=== PATIENT | female | born 1965 | race Caucasian/White ===

== ENCOUNTER → 2018-11-28 13:59 | Outpatient (CLI) | payer BC, SELFPAY ==
--- NOTE | 2018-11-28 14:07 | XR_ITS ---
XR hand RT min 3V HISTORY: ITS.REASON: TRIGGER THUMB OF RT HAND ORDERING PHYSICIAN: Kj Wilkerson MD PATIENT AGE: 53 years COMPARISON: 04/04/2009 FINDINGS: No fracture or dislocation. No lytic or blastic change. There is normal mineralization.. The joint spaces are well-preserved. No significant degenerative/arthritic changes. No erosive changes evident.. IMPRESSION: Negative, no acute finding
== END ==
PROVIDERS: PCP Family Medicine; Visit Provider Family Medicine
DX: M65.311 Trigger thumb, right thumb (principal)
CPT/HCPCS: 73130

== ENCOUNTER → 2019-02-07 06:55 | Outpatient (CLI) | payer BC, SELFPAY ==
[2019-02-07 09:48] LABS: Alanine Aminotransferase 24 U/L (12-78); Albumin Level 3.5 gm/dL (3.4-5.0); Albumin/Globulin Ratio 1.1 (1.1-1.8); Alkaline Phosphatase 75 U/L (46-116); Anion Gap 13.7 mEq/L (5-15); Aspartate Amino Transferase 10 U/L (15-37); Bilirubin,Total 0.2 mg/dL (0.2-1.0); Blood Urea Nitrogen 6 mg/dL (7-18); Calcium 8.8 mg/dL (8.5-10.1); Carbon Dioxide 28 mmol/L (21.0-32.0); Chloride 105 mmol/L (98-107); Cholesterol 180 mg/dL (140-200); Creatinine,Serum 0.62 mg/dL (0.55-1.02); Estimated Glomerular Filt Rate 101 ml/min (>60); GFR (African American) 122 ML/MIN (>60); Globulin 3.2 gm/dl (1.3-3.2); Glucose 172 mg/dL (74-106); HDL Cholesterol 45 mg/dL (29-89); LDL Cholesterol 105 mg/dL (0-130); Potassium 3.7 mmoL/L (3.5-5.1); Sodium 143 mmol/L (136-145); Total Protein,Serum 6.7 gm/dL (6.4-8.2); Triglycerides 151 mg/dL (30-200); VLDL Cholesterol 30 mg/dL (0-40)
[2019-02-07 10:28] LABS: Hemoglobin A1C 10.6 % (0.0-7.0)
== END ==
PROVIDERS: PCP Family Medicine; Visit Provider Family Medicine
DX: E11.9 Type 2 diabetes mellitus without complications (principal); E78.5 Hyperlipidemia, unspecified; I10 Essential (primary) hypertension
CPT/HCPCS: 36415; 80053; 80061; 83036

== ENCOUNTER → 2019-03-14 14:24 | Outpatient (CLI) | payer BC, SELFPAY ==
--- NOTE | 2019-03-14 14:28 | MM_ITS ---
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 R2 CAD reviewed. Bilateral spot compression views FINDINGS: There is average fibroglandular tissue. Right breast: There was some asymmetric density in the superior aspect of the right breast which did appear to compress out is fibroglandular tissue and had a similar appearance on an older exam of 04/21/2012. Asymmetric density is also noted in the outer aspect of the right breast which is felt to be due to fibroglandular tissue also appearing similar on the previous studies. Left breast: There is a well-circumscribed 12 x 8 mm nodule corresponding to the palpable abnormality within the outer aspect of the left breast superiorly. Benign-appearing calcifications are present Left breast ultrasound. There is a well-circumscribed 19 x 11 mm nodule within the 2 o'clock region of the left breast corresponding to the palpable abnormality. This has central area of decreased echogenicity with some low level echoes and peripheral increased echogenicity. This corresponds to the mammographic and palpable abnormality and may represent a hematoma. Otherwise negative. IMPRESSION: Palpable abnormality of left breast has benign mammographic appearance with complex sonographic appearance and may represent a hematoma. Recommend 4 week sonographic follow-up. If this does not resolve or show decrease in size during that time then biopsy could be performed BI-RAD Category: 3 Probably Benign Finding Short Term Follow-up FOLLOW-UP: Suggest 4 week sonographic follow-up. (A letter has been sent to the patient regarding results of the study.) Dictated by: Zack Beck MD 03/27/2019 08:58 Signed by: <Electronically signed by Zack Beck MD in [place]> 03/27/2019 08:58
== END ==
PROVIDERS: PCP Family Medicine; Visit Provider Nurse Practitioner
DX: D48.62 Neoplasm of uncertain behavior of left breast (principal)
CPT/HCPCS: 76641; 77066

== ENCOUNTER → 2019-04-16 13:16 | Outpatient (CLI) | payer BC, SELFPAY ==
--- NOTE | 2019-04-16 13:19 | US_ITS ---
PROCEDURE: US BREAST LT COMPLETE CLINICAL INDICATION: NEOPLASM OF LT BREAST Palpable nodule left breast following trauma COMPARISON: MM DIG MAMM BI DX W/CAD from 03/14/2019 US BREAST LT COMPLETE from 03/14/2019 FINDINGS: Previously noted complex nodule of the left breast at the 2 o'clock region corresponding to the palpable abnormality is once again noted. This area measures 1.8 x 0.9 cm. The central cystic component measures 0.9 x 0.6 cm. Previously this nodule measured 2 x 1.1 cm with a central cystic component of 1.4 by 0.6 cm. IMPRESSION: Complex cystic left breast nodule. Overall the nodules very slightly smaller with the central cystic component slightly smaller. Continued follow-up is recommended to confirm resolution. Continued one-month follow-up suggested. Dictated by: Zack Beck MD 04/24/2019 16:41 Electronically signed by Zack Beck MD in [place] 04/24/2019 16:42
== END ==
PROVIDERS: PCP Family Medicine; Visit Provider Physician Assistant
DX: D48.62 Neoplasm of uncertain behavior of left breast (principal)
CPT/HCPCS: 76641

== ENCOUNTER → 2019-05-11 11:30 | Outpatient (CLI) | payer BC, SELFPAY ==
--- NOTE | 2019-05-11 | CA_ITS ---
APPROVED REPORT Exam: Pharmacologic Technologist: Emma Adame Ht: 5 ft 5 in Wt: 180 lbs BSA: 1.89 m2 HR: 76 bpm BP: 178/64 mmHg Medical History Medical History: HTN, Diabetes Medications: Metoprolol,,,,, Asa,,,,, Metformin,,,,, Atorvastatin,,,,, Benazepril,,,,, CloPIdogrel,,,,, Humalog,,,,, Venlafaxine,,,,, JaRDiance,,,,, LeviMIR,,,,, Cardiac Risk Factors: HTN, DM Stress Test Details Test: LEXISCAN HR Resting HR: 61 bpm Max Heart Rate (APMHR): 167 bpm Max HR Achieved: 87 bpm Target HR (85% APMHR): 141 bpm % of APMHR: 52 Recovery HR: 73 bpm BP Resting BP: 178/64 mmHg Max BP: 178/64 mmHg Recovery BP: 158.0/68.0 mmHg ECG Clinical Reason for Termination: Completed protocol Stress Symptoms: Dyspnea Exercise duration: 04:00 min Highest Stage Achieved: Exercise capacity: 1.0 METs Stress ECG Conclusion No chest pain - Positive shortness of breath at peak infusion - resolved in recovery. No ectopy. Less than 1.[address] Depression. Non- diagnostic images to follow. Electronically signed by : Tyler Lopez, 05/12/2019 06:43:02
--- NOTE | 2019-05-11 11:32 | NM_ITS ---
APPROVED REPORT Exam: Nuclear Stress Test Indication: CAD, 1 STENT, HTN, D.M., HYPERLIPIDEMIA, FM. HX., C.P., SOB Patient Location: Outpatient Stress Tech: Emma DobbinsWendi [place] Tech:Kassidy Dunn, JORGE RT (R)(N)(M) Ht: 5 ft 5 in Wt: 180 lbs Bra Size: dd HR: 67 bpm BP: 178/64 mmHg BSA: 1.89 m2 BMI: 29.9 History: CAD, 1 STENT, HTN, D.M., HYPERLIPIDEMIA, FM. HX., C.P., SOB Procedure: Patient received a 0.4 mg of intravenous Lexiscan, resting heart rate 67 bpm, resting blood pressure 178/64 mmHg, with Lexiscan maximum heart rate achived was 85 bpm which is Less than 85 % of the maximum predicted heart rate and blood pressure was 168/69 mmHg. With Lexiscan, patient denied any complaint of chest pain. Electrocardiogram Resting electro cardiogram showed sinus rhythm, with Lexiscan there is less than 1.[address] segment depression noted from the baseline EKG. The EKG portion of the Lexiscan Myoview is nondiagnostic. Cardiac Stress and Resting SPECT Images: Cardiac Stress and Resting SPECT images were obtained using technetium 99m Myoview 31.8 mCi stress and 10.60 mCi at rest. Gated SPECT with analysis of segmental wall motion and calculation of the ejection fraction also done. Cardiac stress and resting SPECT images show uniform myocardial activity without segmental perfusion abnormality, computer derived ejection fraction is over 65% with no regional wall motion abnormality. Right ventricle is normal size and contractility. Conclusion: 1. The EKG portion of the Lexiscan Myoview is nondiagnostic. 2. No scintigraphic evidence of reversible ischemia seen, computer derived ejection fraction is over 65% with no regional wall motion abnormality, right ventricle is normal size and contractility. 3. Normal Lexiscan Myoview study. Electronically signed by : Tyler Lopez, 05/11/2019 14:46:02
--- NOTE | 2019-05-11 13:58 | HMH.ITSHM ---
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 []
--- NOTE | 2019-05-11 13:58 | HMH.ITSHM ---
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 []METFORMIN BENAZEPRIL OMEPRAZOLE CLOPIDOGREL VENLAFAXINE ATORVASTATIN JARDIANCE METOPROLOL LEVIMIR HUMALOG ASA
== END ==
PROVIDERS: PCP Family Medicine; Visit Provider Urology
DX: E11.69 Type 2 diabetes mellitus with other specified complication (principal); E78.5 Hyperlipidemia, unspecified; I10 Essential (primary) hypertension; I25.118 Atherosclerotic heart disease of native coronary artery with other forms of angina pectoris; R07.89 Other chest pain; Z79.4 Long term (current) use of insulin; Z95.5 Presence of coronary angioplasty implant and graft
CPT/HCPCS: 78452; 93017; A9502; J2785

== ENCOUNTER → 2019-05-25 12:52 | Outpatient (CLI) | payer BC, SELFPAY ==
--- NOTE | 2019-05-25 12:56 | US_ITS ---
PROCEDURE: US BREAST LT COMPLETE CLINICAL INDICATION: NEOPLASM LT BREAST Follow-up the breast nodule following trauma COMPARISON: US BREAST LT COMPLETE from 03/14/2019 US BREAST LT COMPLETE from 04/16/2019 FINDINGS: There is a persistent complex nodule in the 2 o'clock region left breast measuring 17 x 7 mm previously 18 x 9 mm overall not significantly changed. There remains a cystic component and a solid component. This is probably related to hematoma. The cystic component may be slightly smaller measuring 7 x 5 mm previously measuring 9 x 6 mm. The margins of the cystic component are slightly irregular. No other abnormalities are evident. IMPRESSION: Probable hematoma 2 o'clock region left breast overall not significantly changed. Six-month follow-up suggested BI-RADS category 3 probably benign. Recommend six-month follow-up Dictated by: Zack Beck MD 06/05/2019 08:03 Electronically signed by Zack Beck MD in [place] 06/05/2019 08:03
== END ==
PROVIDERS: PCP Family Medicine; Visit Provider Physician Assistant
DX: D48.62 Neoplasm of uncertain behavior of left breast (principal)
CPT/HCPCS: 76641

== ENCOUNTER → 2019-08-27 09:59 | Outpatient (CLI) | payer BC, SELFPAY ==
--- NOTE | 2019-08-27 10:00 | CA_ITS ---
APPROVED REPORT Hand Sizer: LM Laterality: Bilateral Study Quality: Good Indications: dizziness,HTN,EX SMOKER Doppler Spectral Velocity Analysis dICA (R) 99.70/28.70 cm/s dICA (L) 84.70/26.10 cm/s Kira (R) 64.80/19.80 cm/s Kira (L) 80.80/26.10 cm/s pICA (R) 57.60/16.40 cm/s pICA (L) 56.70/14.50 cm/s dCCA (R) 80.50/18.10 cm/s dCCA (L) 91.90/19.80 cm/s pCCA (R) 94.40/15.60 cm/s pCCA (L) 115.90/16.70 cm/s Vert (R) 80.40/16.70 cm/s Vert (L) 65.80/11.50 cm/s ICA/CCA 1.24 ICA/CCA 0.90 Findings Duplex evaluation demonstrates stenosis of the right proximal internal carotid artery <20% with PSV <140 cm/sec, EDV <100 cm/sec, and IC/CC Ratio <4.0.Duplex evaluation demonstrates stenosis of the left proximal internal carotid artery <20% with PSV <140 cm/sec, EDV <100 cm/sec, and IC/CC Ratio <4.0.Antegrade flow seen bilateral vertebral arteries. Conclusion No increased velocities to suggest hemodynamically significant stenosis in either internal carotid artery. Electronically signed by : Zack Beck MD 08/28/2019 18:19:39
== END ==
PROVIDERS: PCP Family Medicine; Visit Provider Urology
DX: R42 Dizziness and giddiness (principal)
CPT/HCPCS: 93880

== ENCOUNTER → 2019-10-04 11:18 | Outpatient (CLI) | payer BC, SELFPAY ==
--- NOTE | 2019-10-04 11:21 | XR_ITS ---
PROCEDURE: XR FOOT WT BEARING RT 3V CLINICAL INDICATION: pain, bunions The COMPARISON: No exams were available for comparison FINDINGS: No fracture or dislocation. No lytic or blastic change. There is normal mineralization. There is mild hallux valgus with mild bunion formation. No fracture or dislocation is evident. No lytic or blastic change. There is a small calcaneal spur. Other findings:None. IMPRESSION: Mild hallux valgus with bunion formation Dictated by: Zack Beck MD 10/04/2019 15:41 Electronically signed by Zack Beck MD in [place] 10/04/2019 15:41
--- NOTE | 2019-10-04 11:21 | XR_ITS ---
PROCEDURE: XR FOOT WT BEARING LT 3V CLINICAL INDICATION: pain, bunions COMPARISON: No exams were available for comparison FINDINGS: No fracture or dislocation. No lytic or blastic change. There is normal mineralization. The joint spaces are well-preserved. No significant degenerative/arthritic changes. No erosive changes evident. Other findings:None. IMPRESSION: No acute findings. Dictated by: Zack Beck MD 10/04/2019 15:49 Electronically signed by Zack Beck MD in [place] 10/04/2019 15:49
== END ==
PROVIDERS: PCP Physician Assistant; Visit Provider Podiatrist
DX: M79.672 Pain in left foot (principal); M79.671 Pain in right foot
CPT/HCPCS: 73630

== ENCOUNTER → 2020-01-03 09:53 | Outpatient (CLI) | payer BC, SELFPAY ==
[2020-01-03 10:27] LABS: Basophils # 0.2 K/mm3 (0-0.2); Basophils % 1.6 % (0.1-2.0); Eosinophils # 0.3 K/mm3 (0.0-0.4); Eosinophils % 2.8 % (0.1-12.0); Hematocrit 47.4 % (37.0-47.0); Hemoglobin 15.7 g/dL (12.2-16.2); Lymphocytes # 2.8 K/mm3 (0.7-4.5); Lymphocytes % 28.2 % (10-50); Mean Corpuscular HGB Conc 33.1 g/dL (31.8-35.4); Mean Corpuscular Hemoglobin 30.4 pg (27.0-31.2); Mean Corpuscular Volume 91.8 fl (81-99); Mean Platelet Volume 7.4 fl (7.4-10.4); Monocytes # 0.4 K/mm3 (0.1-1.0); Monocytes % 4.4 % (1.7-9.3); Neutrophils # 6.2 K/mm3 (1.8-7.8); Platelet Count 360 K/mm3 (142-424); Red Blood Count 5.16 M/mm3 (4.20-5.40); White Blood Count 9.9 K/mm3 (4.8-10.8)
[2020-01-03 11:52] LABS: Hemoglobin A1C 10.3 % (4.0-6.0)
[2020-01-03 14:09] LABS: Chloride 103 mmol/L (98-107); Potassium 4.3 mmoL/L (3.5-5.1); Sodium 140 mmol/L (136-145)
[2020-01-03 14:11] LABS: Blood Urea Nitrogen 12 mg/dl (7-17); Estimated Glomerular Filt Rate 104 ml/min (>60); GFR (African American) 126 ML/MIN (>60)
[2020-01-03 14:12] LABS: Alanine Aminotransferase 17 U/L (12-78); Albumin/Globulin Ratio 1.4 (1.1-1.8); Alkaline Phosphatase 77 U/L (38-126); Anion Gap 13.3 mEq/L (5-15); Aspartate Amino Transferase 20 U/L (14-36); Bilirubin,Total 0.4 mg/dl (0.2-1.3); Calcium 9.1 mg/dl (8.4-10.2); Carbon Dioxide 28 mmol/L (22.0-30.0); Globulin 2.8 g/dL (1.3-3.2); Glucose 147 mg/dl (74-100); Total Protein,Serum 6.8 g/dl (6.3-8.2)
[2020-01-04 12:06] LABS: Vitamin D 25 Hydroxy 18.5 ng/mL (30.0-100.0)
== END ==
PROVIDERS: Visit Provider Podiatrist
DX: E11.9 Type 2 diabetes mellitus without complications (principal); M76.821 Posterior tibial tendinitis, right leg; M76.822 Posterior tibial tendinitis, left leg; M19.071 Primary osteoarthritis, right ankle and foot; Z79.4 Long term (current) use of insulin; E55.9 Vitamin D deficiency, unspecified
CPT/HCPCS: 36415; 80053; 82652; 83036; 85025

== ENCOUNTER → 2020-07-04 08:59 | Outpatient (CLI) | payer BC, SELFPAY ==
--- NOTE | 2020-07-04 09:09 | XR_ITS ---
PROCEDURE: XR HAND RT MIN 3V CLINICAL INDICATION: trigger finger pain COMPARISON: No exams were available for comparison FINDINGS: No fracture or dislocation. No lytic or blastic change. There is normal mineralization. The joint spaces are well-preserved. No significant degenerative/arthritic changes. No erosive changes evident. Other findings:None. IMPRESSION: Negative right hand Dictated by: Zack Beck MD 07/04/2020 15:20 Zack Beck MD in [place] 07/04/2020 15:20
== END ==
PROVIDERS: PCP Physician Assistant; Visit Provider Orthopaedic Surgery
DX: M65.30 Trigger finger, unspecified finger (principal)
CPT/HCPCS: 73130

== ENCOUNTER → 2020-08-06 11:47 | Outpatient (CLI) | payer BC, SELFPAY ==
[2020-08-06 12:56] LABS: Alanine Aminotransferase 20 U/L (12-78); Albumin Level 4.7 g/dl (3.5-5.0); Alkaline Phosphatase 108 U/L (38-126); Aspartate Amino Transferase 22 U/L (14-36); Bilirubin,Direct 0.1 mg/dl (0.0-0.4); Bilirubin,Indirect 0.4 mg/dL (0.0-0.9); Bilirubin,Total 0.5 mg/dl (0.2-1.3); Bilirubin,Unconjugated 0.5 mg/dL (0.0-1.1); Chol/HDL Ratio 4.3 (1-3.5); Cholesterol 232 mg/dl (140-200); HDL Cholesterol 54 mg/dl (40-60); Triglycerides 172 mg/dl (30-150); VLDL Cholesterol 34 mg/dL (0-40)
[2020-08-06 13:08] LABS: Direct LDL Cholesterol 126.91 mg/dL (100-129)
== END ==
PROVIDERS: Visit Provider Urology
DX: E78.5 Hyperlipidemia, unspecified (principal); E11.69 Type 2 diabetes mellitus with other specified complication; I10 Essential (primary) hypertension; I25.118 Atherosclerotic heart disease of native coronary artery with other forms of angina pectoris; Z95.5 Presence of coronary angioplasty implant and graft; Z79.4 Long term (current) use of insulin
CPT/HCPCS: 36415; 80061; 80076

== ENCOUNTER → 2020-08-25 08:11 | Outpatient (CLI) | payer BC, SELFPAY ==
[2020-08-25 08:44] LABS: Basophils # 0.1 K/mm3 (0-0.2); Basophils % 1.1 % (0.1-2.0); Eosinophils # 0.3 K/mm3 (0.0-0.4); Eosinophils % 3.2 % (0.1-12.0); Hematocrit 49.4 % (37.0-47.0); Hemoglobin 16.3 g/dL (12.2-16.2); Lymphocytes # 2.5 K/mm3 (0.7-4.5); Lymphocytes % 32.4 % (10-50); Mean Corpuscular HGB Conc 32.9 g/dL (31.8-35.4); Mean Corpuscular Hemoglobin 29.9 pg (27.0-31.2); Mean Corpuscular Volume 90.9 fl (81-99); Monocytes # 0.4 K/mm3 (0.1-1.0); Monocytes % 5.3 % (1.7-9.3); Neutrophils # 4.5 K/mm3 (1.8-7.8); Platelet Count 331 K/mm3 (142-424); Red Blood Count 5.44 M/mm3 (4.20-5.40); Red Cell Distribution Width 15.6 % (11.5-17.5); White Blood Count 7.8 K/mm3 (4.8-10.8)
[2020-08-25 09:49] LABS: Coronavirus 19 IgG Antibody Negative (Negative); Coronavirus 19 IgM Antibody Negative (Negative)
[2020-08-25 09:52] LABS: Alanine Aminotransferase 24 U/L (12-78); Albumin Level 4.3 g/dl (3.5-5.0); Albumin/Globulin Ratio 1.4 (1.1-1.8); Alkaline Phosphatase 91 U/L (38-126); Aspartate Amino Transferase 21 U/L (14-36); Bilirubin,Total 0.4 mg/dl (0.2-1.3); Blood Urea Nitrogen 9 mg/dl (7-17); Calcium 9.8 mg/dl (8.4-10.2); Carbon Dioxide 30 mmol/L (22.0-30.0); Chloride 99 mmol/L (98-107); Estimated Glomerular Filt Rate 129 ml/min (>60); GFR (African American) 156 ML/MIN (>60); Globulin 3.1 g/dL (1.3-3.2); Glucose 251 mg/dl (74-100); Sodium 137 mmol/L (136-145); Total Protein,Serum 7.4 g/dl (6.3-8.2)
== END ==
PROVIDERS: Visit Provider Orthopaedic Surgery
DX: Z01.818 Encounter for other preprocedural examination (principal); Z20.822 Contact with and (suspected) exposure to COVID-19; M65.30 Trigger finger, unspecified finger
CPT/HCPCS: 36415; 80053; 85025; 86328

== ENCOUNTER 2020-08-26 06:10 | Day surgery (SDC) | payer BC, SELFPAY ==
[2020-08-19 14:01] VITALS: BMI 29.9
[2020-08-26 06:31] VITALS: BP 137/66; PULSE 68; RESP 18; TEMP 36.7; O2SAT 96
[2020-08-26 06:40] LABS: POC Glucose,Bedside 289 (70-110)
--- NOTE | 2020-08-26 07:10 | P.PN_ITS ---
[facility] Anesthesia Checklist - Patient Identification Patient Identification: Arm Band - Structural Data Admitted From: Home Planned Operative Procedure/s: Right Thumb and Middle Trigger Finger Release Consent for Planned Operative Procedure(s) Verified: Yes Verified Documents: Surgical Consent, History and Physical - NPO Status Verified Time NPO: 00:00 - Additional verifications Anesthesia Reactions: No Hx Blood Transfusions: No Blood Transfusion Reaction: No - Airway Assessment C-Spine Mobility Assessed: Yes (mp2) TMJ Mobility Assessed: Yes Dentition: Good Dentition - Neurological Assessment Level of Consciousness: Awake, Alert - Anesthesia Plan Anesthesia Risk discussed: Yes Anesthesia Plan: Verified ASA Class: III Anesthesia Type: General [facility] History I have reviewed the patient's past medical history: Yes Medical History: Reports:: Coronary Artery Disease, Diabetes Mellitus Type 2, Gastroesophageal Reflux Disease(GERD), Hyperlipidemia, Hypertension Denies:: Cancer, Diabetes Mellitus Type 1, Internal Pacemaker, Lung Disease, MRSA, Seizures *Have you ever received a pneumonia vaccine?: Yes *Have you received a flu vaccine this season?: Yes Other Medical History: Denies: Blood Transfusion Reaction Anesthesia experience/problems:: nac Laterality Cases: Right: Carpal Tunnel Release, Bilateral: Arthroscopy Shoulder Other Surgeries: Yes: Cardiac Catheterization, Cholecystectomy, Colonoscopy, Coronary Stent, EGD, Hysterectomy-Total, Other. No: Pacemaker Amputation: No Fractures: No - *Social History Last grade of school completed: High school graduate Smoking Status: Never smoker Tobacco Type: cigarettes, e-cigarettes Alcohol Intake: never Substance Use Type: denies use *Occupational Status:: employed Housing: house Household Members: spouse *Travel in the last 8 weeks: None Family Hx:: Cancer, Diabetes, Heart Attack, Hyperlipidemia, Hypertension, Thyroid Disorder
[2020-08-26 07:39] LABS: POC Glucose,Bedside 183 (70-110)
[2020-08-26 08:52] VITALS: BP 96/55; PULSE 78; RESP 16; TEMP 35.3; O2SAT 97
[2020-08-26 09:00] VITALS: BP 110/51; PULSE 70; RESP 18; TEMP 36.1; O2SAT 97
[2020-08-26 09:15] VITALS: BP 115/67; PULSE 75; RESP 18; O2SAT 95
[2020-08-26 09:27] LABS: POC Glucose,Bedside 175 (70-110)
[2020-08-26 09:35] VITALS: BP 117/60; PULSE 64; RESP 18; O2SAT 97
--- NOTE | 2020-08-26 17:24 | HMH.OPNOTE ---
Date of procedure: 08/26/20 Pre-op Diagnosis:: R trigger thumb + R middle trigger finger Post-op Diagnosis:: R trigger thumb + R middle trigger finger Procedure performed:: 1) R trigger thumb release 2) R middle trigger finger release Surgeon:: Ignacia Carreno MD [employer] Worker(s):: Debbie Barajas CRM ADMINISTRATOR:: Other Anesthesia: MAC, local Estimated blood loss (mL): 5 Clinical Note:: 54-year-old female with a long history of trigger digits. I initially treated her in 2019, at which time she responded very well to corticosteroid injection in the thumb. Her thumb continued to do well but she has had some recurrence of pain and stiffness in the thumb, but no triggering. She is now having new symptoms in the middle finger, consisting of both pain and triggering. The hand will also sometimes lock to the point she has to use her left hand to unlock the finger. No numbness or tingling in the fingers. Steroid injections were given at both sites on 07/04/20, with no significant relief. She had improvement in her pain but persistent triggering. She has a history of diabetes, hypertension and coronary artery disease. She has had coronary stents placed and is on aspirin and Plavix. Denies current chest pain either at rest or with exertion, no shortness of breath. 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 I discussed treatment options with the patient, including both operative and nonoperative treatments, with the respective risks and benefits. I discussed a second steroid injection, but given the duration/severity of her symptoms and lackluster response to the first injection, I am not confident this will help. The patient has elected to proceed with surgical trigger finger release. I discussed the risks of surgery with the patient, including but not limited to: bleeding, infection, neurovascular damage, wound dehiscence, persistence of symptoms despite surgery, recurrence of trigger finger or development in other digits. The patient vocalized understanding and is in agreement with the plan. Pre-operative lab testing was within acceptable limits and aspirin/plavix were stopped 1 week before surgery. Operative findings:: thickening of A1 americo at R thumb/middle digits Operative note:: The patient was identified in preoperative holding and the R thumb and middle finger signed by myself. I reviewed the consent with the patient, answering all questions. She was then seen by anesthesia and the decision made to perform the surgery with local/MAC. The patient was then taken to the OR and placed supine on the operative table with a hand table attached under the right upper extremity. 2 grams cefazolin were infused and intravenous sedation administered. Non-sterile tourniquet was placed on the upper R arm and the arm prepped and draped in the usual sterile fashion. Timeout was performed, identifying the correct patient, correct procedure, and correct site. The procedure was begun by first drawing out the planned surgical incisions with marking pen. Two separate, transverse incisions were drawn at the base of the middle finger and thumb volarly, centered over the MCP joint/A1 americo. Local analgesia was then administered at these sites using 10cc lidocaine/marcaine mixed (1:1 ratio of 1% lidocaine, 0.5% marcaine, no epi) with a 25G needle. The right upper extremity was then exsanguinated with an Esmarch and tourniquet inflated to 250mmHg. The procedure was begun with the thumb. The drawn incision at the volar base of the thumb was incised with a 15 blade, around 1cm in width. Tenotomy scissors were used to bluntly spread the subcutaneous tissue. Tissue was spread until the A1 americo was identified. No neurovascular structures were encountered thus far. A freer was used to identify proximal and distal edges of the americo; the tip of the freer was slipped under the americo to protect the underlying flexor tendon. 15 blade was then used to cut down onto the americo, fully relea
== END 2020-08-26 09:35 | disposition home or self-care (01) ==
PROVIDERS: PCP Family Medicine; Visit Provider Orthopaedic Surgery
PROC: (CPT 26055; principal; 2020-08-26 07:30)
DX: M65.331 Trigger finger, right middle finger (principal); M65.311 Trigger thumb, right thumb
CPT/HCPCS: 26055 ×2; 82962; 96374

== ENCOUNTER 2020-10-16 14:00 | Outpatient (RCR) | payer BC, SELFPAY ==
--- NOTE | 2020-09-29 08:36 | HMH.OTOPEV ---
OT Inpatient Evaluation Rehab OT Outpatient Eval Start: 09/29/20 08:21 Freq: Status: Active Protocol: Document 09/29/20 08:21 RMPAULINA (Rec: 09/29/20 08:35 [id number] Electronically Signed By Nakul Davis OT 09/29/20 08:21 Outpatient Therapy Subjective History Subjective History Pt is a 54 year old female who reports to therapy for initial evaluation to right middle finger and thumb. Pt had been experiencing trigger finger at both fingers for ~7 months before having a thumb and middle finger release on . Pt is right hand dominant. Pt explains she had been doing great up until last week. She was able to actively move both digits within normal limts and had minimal pain/swelling. 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 Today pt presents with some swelling and decreased range of motion at both the thumb and middle finger. The middle finger appears to be most affected. Pt will continue to be seen twice a week in order to address all deficits. R Middle finger Goals STG: MP Flex: 75 degrees PIP Flex: 80 degrees PIP Ext: -15 degrees DIP Flex: 70 degrees LTG MP Flex: 90 degrees PIP Flex: 90 degrees PIP Ext: 0 degrees DIP Flex: 80 degrees R Thumb Goals STG: MCP Flex: 50 degrees IP Flex: 60 degrees LTG: IP Flex: 80 degrees Chief Complaint Pain,Stiff,Swelling Symptom Type Ache,Sharp,Numbness Symptoms Relieved By Ice Symptoms Aggravated By Physical Activity,Lifting Prior
== END 2020-10-16 14:05 | disposition home or self-care (01) ==
LOC: OT 14:00
PROVIDERS: PCP Family Medicine; Visit Provider Orthopaedic Surgery
DX: M65.331 Trigger finger, right middle finger (principal); M65.311 Trigger thumb, right thumb
CPT/HCPCS: 97010; 97035; 97110; 97140; 97166

== ENCOUNTER 2020-10-25 19:21 | Emergency (ER) | payer BC, SELFPAY ==
[2020-10-25 19:29] VITALS: BP 131/70; PULSE 90; RESP 14; TEMP 36.4; O2SAT 98; BMI 32.9
--- NOTE | 2020-10-25 19:39 | XR_ITS ---
PROCEDURE: XR FOOT LT MIN 3V CLINICAL INDICATION: stepped on a nail COMPARISON: No exams were available for comparison FINDINGS: No fracture or dislocation. No lytic or blastic change. There is normal mineralization. The joint spaces are well-preserved. No significant degenerative/arthritic changes. No erosive changes evident. Other findings:There is no definite air within the soft tissues. There is a small spur of the calcaneus at the insertion of the plantar tendon. IMPRESSION: No acute findings. Dictated by: Dr. Jamaal Hernandez MD 10/26/2020 08:25 Dr. Jamaal Hernandez MD in [place] 10/26/2020 08:25
--- NOTE | 2020-10-25 20:08 | HMH.EDUTC ---
[facility] [place] Clinical Impression: Puncture wound Disposition: Home, Self-Care Condition on Discharge: Good Instructions: DI for Puncture Wound Additional Instructions: watch for s/s of infection return as soon as possible follow up with dr leahy on tuesday call office antibiotics as ordered keep area clean Prescriptions: Ciprofloxacin HCl [Cipro 500mg Tab] 500 mg PO BID 14 Days #28 tab Prescription Printed clindamycin HCL [Clindamycin HCl] 300 mg PO TID 14 Days #42 cap Prescription Printed Referrals: Russ Hansen MD [Primary Care Provider] - Medical Decision Making - Duran Inquiry Pt receiving controlled substance: No Vital Signs: 10/25/20 19:29 Temperature 97.6 F Temperature Source Tympanic Pulse Rate [Right] 90 Respiratory Rate 14 Blood Pressure [Right Arm] 131/70 Blood Pressure Mean [Right Arm] 90 Blood Pressure Source [Right Arm] Automatic Cuff Blood Pressure Position [Right Arm] Sitting 02 Sat by Pulse Oximetry 98 Oxygen Delivery Method Room Air Orders (Tests/Meds): ED MEDICATIONS Discontinued Medications Generic Name Dose Route Start Last Admin Trade Name Freq PRN Reason Stop Dose Admin Tetanus/Reduced Diphtheria/Acell Pertussis 0.5 ml 10/25/20 19:41 10/25/20 19:54 Tet/Diphth/Pert-Adult 0.5ml Syringe IM 10/25/20 19:42 0.5 ml .ONCE ONE Administration ORDERS Category Date Time Status Foot XR left minimum 3 views [XR foot LT min 3V] Stat Exams 10/25/20 19:39 Taken [facility] [place] - General Chief complaint: Urgent Treatment Center Stated complaint: AO 10/25@1800 Nail in left foot Time Seen by Provider: 10/25/20 20:08 Mode of Arrival: Ambulatory Source of Information: Patient Limitations: No Limitations Description of Symptoms (Recalled from Triage Doc. by RN): pt stepped on a nail with her right foot. the nail was attached to a board so pt pulled it out and came in requesting a tetnus shot. HEENT Symptoms (Recalled from RN notes): No Resp Symptoms (Recalled from RN notes): No Skin Symptoms (Recalled from RN notes): No MS Symptoms (Recalled from RN notes): Yes (R foot pain) Functional Status (Recalled from RN notes): na - History of Present Illness Provider Complaint: 54 yr old female presents for pt stepping on a nail with her right foot though boot. The nail was attached to a board so pt pulled it out intacted and came in requesting a tetnus shot. - Related Data Home Medications Medication Instructions Recorded Confirmed aspirin 81 mg tablet,delayed 81 mg PO DAILY 02/14/19 10/03/20 release benazepril 10 mg tablet 10 mg PO DAILY 02/14/19 10/03/20 clopidogrel 75 mg tablet 75 mg PO DAILY 02/14/19 10/03/20 empagliflozin 25 mg tablet 25 mg PO DAILY 02/14/19 10/03/20 insulin aspart U-100 100 unit/mL 3 unit SQ BID 02/14/19 10/03/20 (3 mL) subcutaneous pen metformin 500 mg tablet 500 mg PO BID 02/14/19 10/03/20 omeprazole 20 mg capsule,delayed 20 mg PO DAILY 02/14/19 10/03/20 release venlafaxine 75 mg capsule,extended 75 mg PO DAILY 02/14/19 10/03/20 release 24 hr triamterene 37.5 1 tab PO DAILY tab 09/19/19 10/03/20 mg-hydrochlorothiazide 25 mg tablet insulin detemir U-100 100 unit/mL 14 unit SQ QHS ml 10/11/19 10/03/20 (3 mL) subcutaneous pen Atorvastatin Calcium [Lipitor 40mg 40 mg PO DAILY 08/19/20 10/03/20 Tab] Ergocalciferol (Vitamin D2) 50,000 unit PO QWEEK 08/19/20 10/03/20 [Drisdol] Previous Rx's Medication Instructions Recorded diclofenac sodium 1 % topical gel 4 g TOPICAL QID PRN #30 g 10/11/19 oxycodone-acetaminophen 5 mg-325 1 tab PO Q8H PRN #20 tab 08/26/20 mg tablet Ciprofloxacin HCl [Cipro 500mg 500 mg PO BID 14 Days #28 tab 10/25/20 Tab] clindamycin HCL [Clindamycin HCl] 300 mg PO TID 14 Days #42 cap 10/25/20 Allergies Allergy/AdvReac Type Severity Reaction Status Date / Time No Known Allergies Allergy Verified 10/25/20 19:40 - Worker's Comp Is this a Worker's Co
[2020-10-25 20:15] VITALS: BP 129/76; PULSE 81; RESP 14; TEMP 36.6
== END 2020-10-25 20:51 | disposition home or self-care (01) ==
PROVIDERS: Emergency Provider Nurse Practitioner Family; PCP Family Medicine
DX: S91.331A Puncture wound without foreign body, right foot, initial encounter (principal); W22.8XXA Striking against or struck by other objects, initial encounter; Y92.89 Other specified places as the place of occurrence of the external cause; Z23 Encounter for immunization; E11.9 Type 2 diabetes mellitus without complications; K21.9 Gastro-esophageal reflux disease without esophagitis; I25.10 Atherosclerotic heart disease of native coronary artery without angina pectoris; E78.5 Hyperlipidemia, unspecified; I10 Essential (primary) hypertension; Z79.899 Other long term (current) drug therapy
CPT/HCPCS: 73630; 90715; 96372; 99202; G0463

== ENCOUNTER 2021-12-03 17:55 | Emergency (ER) | payer BC, SELFPAY ==
[2021-12-03 19:15] VITALS: BP 151/55; PULSE 81; RESP 18; TEMP 36.9; O2SAT 96; BMI 31.6
--- NOTE | 2021-12-03 19:42 | HMH.EDUTC ---
[facility] [place] Disposition Clinical Impression: Sinusitis Qualifiers: Sinusitis location: unspecified location Chronicity: unspecified Qualified Code(s): J32.9 - Chronic sinusitis, unspecified Disposition: Home, Self-Care Condition on Discharge: Good Instructions: Sinusitis, DI for Sinusitis Additional Instructions: *Monitor Temp, Over the counter Motrin or Tylenol as directed/as needed Tylenol every 4 hours and Motrin every 6 hours (as long as your family doctor has told you that you can take it) for fever or pain. and straight to ER if unable to lower temp less than 101.0 after medication given *Warm salt water gargles may help to soothe the throat *Throat Lozenges *Warm fluids like tea with honey may help to soothe the throat *Sleep elevated *Humidifier/Vaporizer *Flonase 2 sprays in each nostril daily but be aware that it may take 2-3 days before you notice improvement Take medication as prescribed Follow up with your Family Doctor if no improvement or any worsening of symptoms Follow up IMMEDIATELY for new or worsening symptoms or no Noticeable improvement over the next 48-72 hours. 911 for difficulty breathing or swallowing Prescriptions: Benzonatate [Benzonatate 100mg cap] 100 mg PO Q8HP PRN #15 cap PRN Reason: Cough Transmission Status: Pending to [id number] Amoxicillin/Potassium Clav [Amox-Clav 875-125 mg Tablet] 1 tab PO BID #14 tab Transmission Status: Pending to [id number] Referrals: Dusty Shipman MD [Primary Care Provider] - As needed Time of Disposition: 19:56 Medical Decision Making - Duran Inquiry Pt receiving controlled substance: No Duran was queried for this patient: No Vital Signs: 12/03/21 19:15 Temperature 98.5 F Temperature Source Oral Pulse Rate [Right Brachial] 81 Respiratory Rate 18 Blood Pressure [Right Arm] 151/55 H Blood Pressure Mean [Right Arm] 87 Blood Pressure Source [Right Arm] Automatic Cuff Blood Pressure Position [Right Arm] Sitting 02 Sat by Pulse Oximetry 96 Medical Decision Narrative: State that she has taken Rocephin in the past without complications or reactions [facility] [place] HPI - General Stated complaint: SOA,sore throat,cough,perico Time Seen by Provider: 12/03/21 19:42 Mode of Arrival: Ambulatory Source of Information: Patient Limitations: No Limitations Description of Symptoms (Recalled from Triage Doc. by RN): PATIENT C/O CONGESTION AND RUNNY NOSE HEENT Symptoms (Recalled from RN notes): Yes Resp Symptoms (Recalled from RN notes): No Skin Symptoms (Recalled from RN notes): No MS Symptoms (Recalled from RN notes): No Functional Status (Recalled from RN notes): WNL - History of Present Illness Provider Complaint: Patient states that she has been having sore throat, sinus pain and pressure and cough State that she feels pressure behind her eyes and in her teeth like she gets with sinus infection States she took a COVID test earlier today and it was negative so she came in to get checked - Related Data Home Medications Medication Instructions Recorded Confirmed aspirin 81 mg tablet,delayed 81 mg PO DAILY 02/14/19 11/24/20 release benazepril 10 mg tablet 10 mg PO DAILY 02/14/19 11/24/20 clopidogrel 75 mg tablet 75 mg PO DAILY 02/14/19 11/24/20 empagliflozin 25 mg tablet 25 mg PO DAILY 02/14/19 11/24/20 insulin aspart U-100 100 unit/mL 3 unit SQ BID 02/14/19 11/24/20 (3 mL) subcutaneous pen metformin 500 mg tablet 500 mg PO BID 02/14/19 11/24/20 omeprazole 20 mg capsule,delayed 20 mg PO DAILY 02/14/19 11/24/20 release venlafaxine 75 mg capsule,extended 75 mg PO DAILY 02/14/19 11/24/20 release 24 hr triamterene 37.5 1 tab PO DAILY tab 09/19/19 11/24/20 mg-hydrochlorothiazide 25 mg tablet insulin detemir U-100 100 unit/mL 14 unit SQ QHS ml 10/11/19 11/24/20 (3 mL) subcutaneous pen Atorvastatin Calcium [Lipitor 40mg 40 mg PO DAILY 08/19/20 11/24/20 Tab] Ergocalciferol (Vitamin D2) 50,000 unit PO QWEEK 0
[2021-12-03 20:01] VITALS: BP 151/55; PULSE 81; RESP 18; TEMP 36.9; O2SAT 96
== END 2021-12-03 20:11 | disposition home or self-care (01) ==
PROVIDERS: Emergency Provider Nurse Practitioner; PCP Family Medicine
DX: J32.9 Chronic sinusitis, unspecified (principal); K21.9 Gastro-esophageal reflux disease without esophagitis; E11.9 Type 2 diabetes mellitus without complications; I10 Essential (primary) hypertension
CPT/HCPCS: 96372; 99212; G0463; J0696

== ENCOUNTER → 2022-02-15 15:18 | Outpatient (CLI) | payer BC, SELFPAY ==
[2022-02-15 17:24] LABS: Basophils # 0.2 K/mm3 (0-0.2); Basophils % 1.1 % (0.1-2.0); Eosinophils # 0.4 K/mm3 (0.0-0.4); Eosinophils % 2.8 % (0.1-12.0); Hematocrit 44.7 % (37.0-47.0); Hemoglobin 14.6 g/dL (12.2-16.2); Lymphocytes # 4.1 K/mm3 (0.7-4.5); Lymphocytes % 31.4 % (10-50); Mean Corpuscular HGB Conc 32.7 g/dL (31.8-35.4); Mean Corpuscular Hemoglobin 29.3 pg (27.0-31.2); Mean Corpuscular Volume 89.8 fl (81-99); Mean Platelet Volume 7.7 fl (7.4-10.4); Monocytes # 0.7 K/mm3 (0.1-1.0); Monocytes % 5.1 % (1.7-9.3); Neutrophils # 7.8 K/mm3 (1.8-7.8); Neutrophils % 59.5 % (37.0-80.0); Platelet Count 415 K/mm3 (142-424); Red Blood Count 4.98 M/mm3 (4.20-5.40); Red Cell Distribution Width 15.3 % (11.5-17.5); White Blood Count 13.1 K/mm3 (4.8-10.8)
[2022-02-15 17:40] LABS: Hemoglobin A1C 8.9 % (4.0-6.0)
[2022-02-15 17:54] LABS: Alanine Aminotransferase 21 U/L (12-78); Albumin Level 3.7 g/dl (3.5-5.0); Albumin/Globulin Ratio 1.4 (1.1-1.8); Alkaline Phosphatase 87 U/L (38-126); Anion Gap 13.8 mEq/L (5-15); Aspartate Amino Transferase 21 U/L (14-36); Blood Urea Nitrogen 12 mg/dl (7-17); Carbon Dioxide 24 mmol/L (22.0-30.0); Chloride 104 mmol/L (98-107); Estimated Glomerular Filt Rate 103 ml/min (>60); GFR (African American) 125 ML/MIN (>60); Globulin 2.7 g/dL (1.3-3.2); Glucose 217 mg/dl (74-100); Potassium 3.8 mmoL/L (3.5-5.1); Sodium 138 mmol/L (136-145); Total Protein,Serum 6.4 g/dl (6.3-8.2)
[2022-02-15 18:00] LABS: Bilirubin,Total < 0.1 mg/dl (0.2-1.3)
[2022-02-15 18:29] LABS: Ferritin 8.86 ng/ml (11.1-264)
[2022-02-15 18:58] LABS: Vitamin B12 253 pg/mL (239-931)
== END ==
PROVIDERS: PCP Family Medicine; Visit Provider Specialist
DX: R41.3 Other amnesia (principal); R25.1 Tremor, unspecified; E11.69 Type 2 diabetes mellitus with other specified complication; I10 Essential (primary) hypertension; R47.89 Other speech disturbances; G25.81 Restless legs syndrome; G47.8 Other sleep disorders; R06.83 Snoring; E66.9 Obesity, unspecified; Z68.32 Body mass index [BMI] 32.0-32.9, adult; Z79.4 Long term (current) use of insulin
CPT/HCPCS: 36415; 80053; 82607; 82728; 82746; 83036; 84443; 85025

== ENCOUNTER → 2022-02-26 13:22 | Outpatient (CLI) | payer BC, SELFPAY ==
--- NOTE | 2022-02-26 13:22 | MR_ITS ---
PROCEDURE INFORMATION: Exam: MR Head Without Contrast Exam date and time: 02/26/2022 1:28 PM Age: 56 years old Clinical indication: Pain; Headache; Additional info: Memory loss, word finding difficulty TECHNIQUE: Imaging protocol: Magnetic resonance imaging of the head without contrast. COMPARISON: US CA CAROTID DUPLEX BI 08/27/2019 9:59 AM FINDINGS: Brain: There are a few tiny T2 hyperintensities in the periventricular deep white matter bilaterally which are most commonly due to chronic microangiopathic change. Cerebral ventricles: Normal. No ventriculomegaly. Bones/joints: Unremarkable. Paranasal sinuses: Normal as visualized. No acute sinusitis. Mastoid air cells: Normal as visualized. No mastoid effusion. Orbital cavities: Unremarkable. Soft tissues: Unremarkable. Other findings: No abnormal increased signal intensity on the diffusion-weighted sequence to suggest acute ischemic event. IMPRESSION: 1. No evidence for acute ischemic event. 2. Scattered T2 hyperintensities in the periventricular deep white matter bilaterally which are usually due to chronic microangiopathic change. In a patient of this age group, consider demyelinization. Consider correlation with CSF analysis.
== END ==
LOC: RAD 13:22
PROVIDERS: PCP Family Medicine; Visit Provider Specialist
DX: R41.3 Other amnesia (principal); R47.89 Other speech disturbances; I10 Essential (primary) hypertension; E11.69 Type 2 diabetes mellitus with other specified complication; G47.8 Other sleep disorders; E66.9 Obesity, unspecified; Z68.32 Body mass index [BMI] 32.0-32.9, adult; Z79.4 Long term (current) use of insulin
CPT/HCPCS: 70551

== ENCOUNTER → 2022-03-02 12:43 | Outpatient (CLI) | payer BC, SELFPAY | LOC: SL 12:44 | PROVIDERS: PCP Family Medicine; Visit Provider Specialist | DX: G47.8 Other sleep disorders (principal); R06.83 Snoring; G25.81 Restless legs syndrome | CPT/HCPCS: G0399 ==

== ENCOUNTER → 2022-05-19 20:06 | Outpatient (CLI) | payer BC, SELFPAY | PROVIDERS: PCP Family Medicine; Visit Provider Specialist | DX: G47.33 Obstructive sleep apnea (adult) (pediatric) (principal); G25.81 Restless legs syndrome; R41.3 Other amnesia; R25.1 Tremor, unspecified | CPT/HCPCS: 95810 ==

== ENCOUNTER 2022-11-07 11:16 | Emergency (ER) | payer BC, SELFPAY ==
[2022-11-07 11:45] VITALS: BP 175/69; PULSE 124; RESP 20; TEMP 37; O2SAT 98; BMI 26.6
--- NOTE | 2022-11-07 11:48 | EXP.UTC ---
Discharge Plan Disposition Patient Disposition: Home, Self-Care Condition: Good Prescriptions Prescriptions: New amoxicillin [amoxicillin] 875 mg tablet 875 mg PO Q12H Qty: 20 0RF benzonatate [benzonatate] 100 mg capsule 100 mg PO TIDP PRN (Reason: Cough) Qty: 30 0RF methylprednisolone 4 mg Tablets,Dose Pack 4 mg PO DIRECTED Qty: 21 0RF ondansetron 4 mg Tablet,Disintegrating 4 mg PO Q8H PRN (Reason: Nausea) Qty: 12 0RF No Action aspirin [Adult Low Dose Aspirin] 81 mg tablet,delayed release (DR/EC) 81 mg PO DAILY omeprazole 20 mg capsule,delayed release(DR/EC) 20 mg PO DAILY venlafaxine 75 mg capsule,extended release 24hr 75 mg PO DAILY benazepril 10 mg tablet 10 mg PO DAILY clopidogrel 75 mg tablet 75 mg PO DAILY Jardiance 25 mg tablet 25 mg PO DAILY metformin 500 mg tablet 500 mg PO BID Novolog FlexPen U-100 Insulin 100 unit/mL (3 mL) insulin pen 3 unit SQ BID triamterene-hydrochlorothiazid 37.5-25 mg tablet 1 tab PO DAILY ascorbic acid (vitamin C) 1,000 mg tablet 1 g PO Q6H zinc sulfate 50 mg zinc (220 mg) tablet 50 mg PO DAILY mecobalamin (vitamin B12) 1,000 mcg tablet,disintegrating 1,000 mcg SL DAILY Rx Instructions: place tablet under tongue and allow to dissolve for at least30 secs before swallowing metoprolol tartrate 25 mg tablet 25 mg PO atorvastatin 40 MG tablet 40 mg PO DAILY ergocalciferol (vitamin D2) 1,250 MCG capsule 50,000 unit PO QWEEK Referrals Follow up/Referrals: Dusty Shipman MD [Primary Care Provider] - See instructions Activity Restrictions/Add. Instructions Additional Instructions/Restrictions: Drink plenty of fluids. Take tylenol or ibuprofen for pain or fever. Take the medications as directed. Follow up with your regular doctor. GO TO THE ER FOR ANY WORSENING SYMPTOMS Clinical Impressions Clinical Impression: Acute bronchitis, Gastroenteritis Stand Alone Forms Stand Alone Forms: Work/School Release Instructions Patient Instructions: DI for Acute Bronchitis Discharge ED Provider: Pj Ramirez [facility] General Stated complaint: vomiting, soa, coughing Time Seen by Provider: 11/07/22 11:47 History of Present Illness Provider Complaint: She states that for the past 3 days she has had chills, n/v, malaise, and body aches. She has had a productive cough and chest congestion also. Related Data Home Medications Medication Instructions Recorded Confirmed aspirin 81 mg tablet,delayed 81 mg PO DAILY Blood thinner 02/14/19 03/15/22 release (Adult Low Dose Aspirin) benazepril 10 mg tablet 10 mg PO DAILY blood pressure 02/14/19 03/15/22 clopidogrel 75 mg tablet 75 mg PO DAILY Blood thinner 02/14/19 03/15/22 empagliflozin 25 mg tablet 25 mg PO DAILY Diabetes 02/14/19 03/15/22 (Jardiance) insulin aspart U-100 100 unit/mL 3 unit SQ BID Diabetes 02/14/19 03/15/22 (3 mL) subcutaneous pen (Novolog FlexPen U-100 Insulin aspart) metformin 500 mg tablet 500 mg PO BID Diabetes 02/14/19 03/15/22 omeprazole 20 mg capsule,delayed 20 mg PO DAILY GERD 02/14/19 03/15/22 release venlafaxine 75 mg capsule,extended 75 mg PO DAILY mood 02/14/19 03/15/22 release 24 hr triamterene 37.5 1 tab PO DAILY Fluid 09/19/19 03/15/22 mg-hydrochlorothiazide 25 mg tablet atorvastatin 40 mg tablet 40 mg PO DAILY Cholesterol 08/19/20 03/15/22 ergocalciferol (vitamin D2) 1,250 50,000 unit PO QWEEK Supplement 08/19/20 03/15/22 mcg (50,000 unit) capsule metoprolol tartrate 25 mg tablet 25 mg PO 11/24/20 03/15/22 ascorbic acid (vitamin C) 1,000 mg 1 g PO Q6H 02/15/22 03/15/22 tablet zinc sulfate 50 mg zinc (220 mg) 50 mg PO DAILY 02/15/22 03/15/22 tablet mecobalamin (vitamin B12) 1,000 1,000 mcg sublingual DAILY 03/15/22 03/15/22 mcg disintegrating tablet,sublingual Previous Rx's Medication Instructions Recorded am
[2022-11-07 11:54] LABS: Adenovirus,PCR Not Detected (NotDetected); Bordetella Pertussis Not Detected (NotDetected); Chlamydophila Pneumoniae, PCR Not Detected (NotDetected); Coronavirus 19, PCR Not Detected (NotDetected); Coronavirus 229E Not Detected (NotDetected); Coronavirus NL63 Not Detected (NotDetected); Coronavirus OC43 Not Detected (NotDetected); Coronovirus HKU1,PCR Not Detected (NotDetected); Human Metapneumovirus Not Detected (NotDetected); Influenza A, PCR Not Detected (NotDetected); Influenza AH1, 2009 Not Detected (NotDetected); Influenza AH1, PCR Not Detected (NotDetected); Influenza AH3,PCR Not Detected (NotDetected); Influenza B, PCR Not Detected (NotDetected); Mycoplasma Pneumoniae, PCR Not Detected (NotDetected); Parainfluenza 1, PCR Not Detected (NotDetected); Parainfluenza 2, PCR Not Detected (NotDetected); Parainfluenza 3, PCR Not Detected (NotDetected); Parainfluenza 4, PCR Not Detected (NotDetected); Respiratory Syncytial Virus Not Detected (NotDetected); Rhinovirus/Enterovirus Not Detected (NotDetected)
[2022-11-07 13:39] VITALS: BP 175/69; PULSE 109; RESP 20; TEMP 37; O2SAT 98
== END 2022-11-07 13:34 | disposition home or self-care (01) ==
PROVIDERS: Emergency Provider Nurse Practitioner Family; PCP Family Medicine
DX: K52.9 Noninfective gastroenteritis and colitis, unspecified (principal); J20.9 Acute bronchitis, unspecified; R11.2 Nausea with vomiting, unspecified; R06.02 Shortness of breath; I10 Essential (primary) hypertension; E11.9 Type 2 diabetes mellitus without complications; Z79.4 Long term (current) use of insulin
CPT/HCPCS: 87581; 87632; 87798; 96360; 99212; 99214; C9803; G0463; U0003; U0005

== ENCOUNTER → 2022-11-09 12:05 | Outpatient (CLI) | payer BC, SELFPAY ==
--- NOTE | 2022-11-09 12:09 | XR_ITS ---
FINAL REPORT CLINICAL HISTORY: BRONCHITIS,TYPE II DM FINDINGS: Two views of the chest were obtained. The heart size and pulmonary vascularity are within normal limits. The mediastinum is normal. There are right lung base opacities which may represent atelectasis or pneumonia.. There is no pneumothorax. The bony thorax is intact. IMPRESSION: Right lung base atelectasis or pneumonia. Reviewed, Interpreted and Dictated by Damon Mcconnell III, MD Transcribed by Skye Porter Authenticated and . [facility]
[2022-11-09 12:49] LABS: Chloride 101 mmol/L (98-107)
[2022-11-09 12:50] LABS: Potassium 3.9 mmoL/L (3.5-5.1); Sodium 135 mmol/L (136-145)
[2022-11-09 12:52] LABS: Alanine Aminotransferase 13 U/L (12-78); Albumin Level 3.7 g/dl (3.5-5.0); Albumin/Globulin Ratio 1.1 (1.1-1.8); Alkaline Phosphatase 123 U/L (38-126); Aspartate Amino Transferase 20 U/L (14-36); Bilirubin,Total 0.5 mg/dl (0.2-1.3); Blood Urea Nitrogen 32 mg/dl (7-17); Estimated Glomerular Filt Rate 46 ml/min (>60); GFR (African American) 56 ML/MIN (>60); Globulin 3.3 g/dL (1.3-3.2)
[2022-11-09 12:53] LABS: Anion Gap 31.9 mEq/L (5-15); Calcium 8.8 mg/dl (8.4-10.2); Glucose 322 mg/dl (74-100)
[2022-11-09 12:55] LABS: Carbon Dioxide 6 mmol/L (22.0-30.0)
== END ==
LOC: LAB 12:06
PROVIDERS: PCP Family Medicine; Visit Provider Family Medicine
DX: J20.9 Acute bronchitis, unspecified (principal); E11.9 Type 2 diabetes mellitus without complications; Z79.4 Long term (current) use of insulin
CPT/HCPCS: 36415; 71046; 80053

== ENCOUNTER 2022-11-09 13:41 | Inpatient (IN) | payer BC, SELFPAY ==
[2022-11-09] VITALS (10 sets, daily range): BP systolic 110–134; BP diastolic 38–71; PULSE 78–100; RESP 15–20; TEMP 36.5–37; O2SAT 95–100; BMI 29.9; BMI 31.8
--- NOTE | 2022-11-09 13:57 | ECG_ITS ---
APPROVED REPORT Exam: Resting ECG HR:91 bpm ECG Measurements Heart Rate 91 AXES NH 153 P 53 QRSd 136 QRS -25 QT 397 T 32 QTc 446 Conclusion SINUS RHYTHM BORDERLINE LEFT AXIS DEVIATION [QRS AXIS < -20] RIGHT BUNDLE BRANCH BLOCK [120+ ms QRS DURATION, UPRIGHT V1, 40+ ms S IN I/aVL/V4/V5/V6] ABNORMAL ECG UNCONFIRMED REPORT Electronically signed by : Cameron Mace MD 11/13/2022 08:35:17
[2022-11-09 14:07] LABS: POC Glucose,Bedside 297 (70-110)
--- NOTE | 2022-11-09 14:10 | HMH.EDGENADL ---
Discharge Plan Disposition Patient Disposition: Admitted As Inpatient Chief Complaint: Weakness Prescriptions Prescriptions: No Action aspirin [Adult Low Dose Aspirin] 81 mg tablet,delayed release (DR/EC) 81 mg PO DAILY omeprazole 20 mg capsule,delayed release(DR/EC) 20 mg PO DAILY venlafaxine 75 mg capsule,extended release 24hr 75 mg PO DAILY benazepril 10 mg tablet 10 mg PO DAILY clopidogrel 75 mg tablet 75 mg PO DAILY Jardiance 25 mg tablet 25 mg PO DAILY metformin 500 mg tablet 500 mg PO BID Novolog FlexPen U-100 Insulin 100 unit/mL (3 mL) insulin pen 3 unit SQ BID triamterene-hydrochlorothiazid 37.5-25 mg tablet 1 tab PO DAILY ascorbic acid (vitamin C) 1,000 mg tablet 1 g PO DAILY zinc sulfate 50 mg zinc (220 mg) tablet 50 mg PO DAILY mecobalamin (vitamin B12) 1,000 mcg tablet,disintegrating 1,000 mcg SL DAILY Rx Instructions: place tablet under tongue and allow to dissolve for at least30 secs before swallowing metoprolol tartrate 25 mg tablet 25 mg PO DAILY atorvastatin 40 MG tablet 40 mg PO DAILY ergocalciferol (vitamin D2) 1,250 MCG capsule 50,000 unit PO QWEEK varenicline 1 mg tablet 1 mg PO DAILY Referrals Follow up/Referrals: Russ Hansen MD [Primary Care Provider] - See instructions Clinical Impressions Clinical Impression: DKA (diabetic ketoacidosis) Discharge ED Provider: Boogie Velazquez General Adult HPI General Chief complaint: Weakness Stated complaint: Phys ref, weakness, SOA Time Seen by Provider: 11/09/22 13:45 Mode of Arrival: Wheelchair Source of Information: Patient Limitations: No Limitations Description of Symptoms (Recalled from ER Triage Doc. by RN): 56 F presents to our ER after being sent in from her PCP's office for possible DKA. Patient reports she has just felt blah since and haven't been eating except for a sugar free jello yesterday. Patient is pale, clammy, and feels foggy. History of Present Illness HPI narrative: 56-year-old female with history of diabetes presents with generalized weakness for the last few days. She has mild shortness of breath as well. She was at Dr. Hansen's office and sent over for evaluation for possible DKA as her blood sugar has been high. She says she has been eating and is well. No abdominal pain nausea vomiting diarrhea. No chills no fever. Related Data Home Medications Medication Instructions Recorded Confirmed aspirin 81 mg tablet,delayed 81 mg PO DAILY Blood thinner 02/14/19 11/09/22 release (Adult Low Dose Aspirin) benazepril 10 mg tablet 10 mg PO DAILY blood pressure 02/14/19 11/09/22 clopidogrel 75 mg tablet 75 mg PO DAILY Blood thinner 02/14/19 11/09/22 empagliflozin 25 mg tablet 25 mg PO DAILY Diabetes 02/14/19 11/09/22 (Jardiance) insulin aspart U-100 100 unit/mL 3 unit SQ BID Diabetes 02/14/19 11/09/22 (3 mL) subcutaneous pen (Novolog FlexPen U-100 Insulin aspart) metformin 500 mg tablet 500 mg PO BID Diabetes 02/14/19 11/09/22 omeprazole 20 mg capsule,delayed 20 mg PO DAILY GERD 02/14/19 11/09/22 release venlafaxine 75 mg capsule,extended 75 mg PO DAILY mood 02/14/19 11/09/22 release 24 hr triamterene 37.5 1 tab PO DAILY Fluid 09/19/19 11/09/22 mg-hydrochlorothiazide 25 mg tablet atorvastatin 40 mg tablet 40 mg PO DAILY Cholesterol 08/19/20 11/09/22 ergocalciferol (vitamin D2) 1,250 50,000 unit PO QWEEK Supplement 08/19/20 11/09/22 mcg (50,000 unit) capsule metoprolol tartrate 25 mg tablet 25 mg PO DAILY High blood pressure 11/24/20 11/09/22 ascorbic acid (vitamin C) 1,000 mg 1 g PO DAILY Supplement 02/15/22 11/09/22 tablet zinc sulfate 50 mg zinc (220 mg) 50 mg PO DAILY Supplement 02/15/22 11/09/22 tablet mecobalamin (vitamin B12) 1,000 1,000 mcg sublingual DAILY 03/15/22 11/09/22 mcg disintegrating Supplement tablet,sublingual varenicline 1 mg tablet 1
[2022-11-09 14:12] LABS: VBG Base Excess -20.5 mmol/L (-2.4-2.3); VBG HCO3 7.6 mmol/L (23-30); VBG Oxygen Saturation 97.7 % (50-70); VBG Total CO2 8.2 mmol/L (23-27)
[2022-11-09 14:17] LABS: Basophils # 0.2 K/mm3 (0-0.2); Eosinophils % 0.2 % (0.1-12.0); Hematocrit 46.1 % (37.0-47.0); Hemoglobin 14.3 g/dL (12.2-16.2); Lymphocytes # 2.4 K/mm3 (0.7-4.5); Lymphocytes % 11.1 % (10-50); Mean Corpuscular HGB Conc 30.9 g/dL (31.8-35.4); Mean Corpuscular Hemoglobin 30.3 pg (27.0-31.2); Mean Platelet Volume 8.6 fl (7.4-10.4); Monocytes # 0.9 K/mm3 (0.1-1.0); Monocytes % 4.1 % (1.7-9.3); Neutrophils # 18.2 K/mm3 (1.8-7.8); Neutrophils % 83.6 % (37.0-80.0); Platelet Count 484 K/mm3 (142-424); Red Cell Distribution Width 14.5 % (11.5-17.5); White Blood Count 21.7 K/mm3 (4.8-10.8)
[2022-11-09 14:20] LABS: VBG PCO2 19.8 mmol/L (35-51)
[2022-11-09 14:33] LABS: MANUAL DIFFERENTIAL MANUAL DIFFERENTIAL (MANUAL DIFF)
[2022-11-09 14:34] LABS: Alanine Aminotransferase 13 U/L (12-78); Albumin Level 3.8 g/dl (3.5-5.0); Albumin/Globulin Ratio 1.1 (1.1-1.8); Alkaline Phosphatase 120 U/L (38-126); Aspartate Amino Transferase 18 U/L (14-36); Bilirubin,Total 0.5 mg/dl (0.2-1.3); Blood Urea Nitrogen 35 mg/dl (7-17); Calcium 8.9 mg/dl (8.4-10.2); Chloride 101 mmol/L (98-107); Creatinine Clearance Estimated 62 mL/min (50-200); Estimated Glomerular Filt Rate 42 ml/min (>60); GFR (African American) 51 ML/MIN (>60); Globulin 3.4 g/dL (1.3-3.2); Glucose 313 mg/dl (74-100); Potassium 3.8 mmoL/L (3.5-5.1); Sodium 131 mmol/L (136-145); Total Protein,Serum 7.2 g/dl (6.3-8.2)
[2022-11-09 14:39] LABS: D-Dimer 1.24 ug/mL (0.0-0.5)
[2022-11-09 14:43] LABS: Anion Gap 28.8 mEq/L (5-15)
[2022-11-09 14:44] LABS: Carbon Dioxide 5 mmol/L (22.0-30.0)
--- NOTE | 2022-11-09 14:44 | PC.NURSE ---
Nitza from lab called and reported critical Co2 of 5. Repeated and verified and notified
[2022-11-09 14:46] LABS: NT Pro Brain Natriuretic Pep. 613 pg/mL (0-125)
[2022-11-09 14:47] LABS: ABG Base Excess -20.4 mmol/L (-2.4-2.3); ABG HCO3 7.3 mmhg (22.0-26.0); ABG Oxygen Saturation 98 % (90-100); ABG PH 7.22 mmol/L (7.35-7.45); ABG PO2 103.9 mmhg (80-100); ABG TCO2 7.9 mmhg (23-27)
[2022-11-09 14:48] LABS: Allen's Test ACCEPTABLE; Oxygen ROOM AIR %; Source R RADIAL
--- NOTE | 2022-11-09 14:50 | CT_ITS ---
FINAL REPORT TECHNIQUE: Then section axial CT images of the chest were obtained with contrast. Three-D reformatted images were also obtained.This study was performed with techniques to keep radiation doses as low as reasonably achievable (ALARA). Individualized dose reduction techniques using automated exposure control or adjustment of mA and/or kV according to the patient''s size were employed. CLINICAL HISTORY: pte, soa, elevated d-dimer FINDINGS: The smaller pulmonary artery branches are obscured by motion artifact. There is no large or central pulmonary embolism. There is no evidence of thoracic aortic aneurysm or dissection. There is precarinal adenopathy measuring 17 mm. There is subcarinal adenopathy measuring 17 mm. There is right lung alveolar opacity most worrisome for pneumonia. There are mild changes of emphysema. IMPRESSION: No large or central pulmonary embolism. Precarinal and subcarinal adenopathy. Right lung opacity most worrisome for pneumonia. Reviewed, Interpreted and Dictated by Damon Mcconnell III, MD Transcribed by Alexander Doty Authenticated and [facility]
--- NOTE | 2022-11-09 14:50 | CT_ITS ---
FINAL REPORT CLINICAL HISTORY: abdominal pain FINDINGS: CT OF THE ABDOMEN AND PELVIS WITH CONTRAST Axial CT images of the abdomen and pelvis were obtained after the administration of intravenous contrast. Coronal reformatted images were also obtained and reviewed.This study was performed with techniques to keep radiation doses as low as reasonably achievable (ALARA). Individualized dose reduction techniques using automated exposure control or adjustment of mA and/or kV according to the patient's size were employed. Abdomen: The heart is normal in size. The liver has an unremarkable appearance, without evidence of mass or biliary ductal dilatation. There is evidence of cholecystectomy. The spleen is unremarkable. There is bilateral adrenal gland enlargement favoring hyperplasia or adenomas. The pancreas has an unremarkable appearance. There is a 17 mm right renal cyst. The aorta is normal in caliber. There is no free fluid or adenopathy. No mass or abnormal fluid collection is seen. Pelvis: The appendix is normal. The urinary bladder is unremarkable. No inflammatory process is seen. There is no evidence of mass or adenopathy. There is no evidence of bowel obstruction. There has been hysterectomy. IMPRESSION: No evidence of acute intra-abdominal process. Reviewed, Interpreted and Dictated by Damon Mcconnell III, MD Transcribed by Alexander Doty Authenticated and [facility]
[2022-11-09 14:51] LABS: ABG PCO2 18.2 mmhg (35.0-45.0)
[2022-11-09 14:54] LABS: Lymphocytes % 16 % (10-50); Monocytes % 4 % (2-9); Neutrophils % 80 % (42-76); Total Cells Counted 100; Troponin I < 0.01 ng/ml (0.00-0.034)
[2022-11-09 14:55] LABS: Burr Cells 1+
[2022-11-09 14:56] LABS: Platelet Estimate Slight Increase
[2022-11-09 15:04] LABS: Acetone, Serum (Rapid) Large (None Detect); Thyroid Stimulating Hormone 0.68 uIU/mL (0.465-4.68)
--- NOTE | 2022-11-09 15:26 | PC.NURSE ---
Pt being taken for CT
--- NOTE | 2022-11-09 16:12 | PC.NURSE ---
Report called to SANAM Bucio
[2022-11-09 16:18] LABS: Chloride 100 mmol/L (98-107)
[2022-11-09 16:19] LABS: Potassium 4.6 mmoL/L (3.5-5.1); Sodium 133 mmol/L (136-145)
[2022-11-09 16:21] LABS: Blood Urea Nitrogen 35 mg/dl (7-17); Creatinine Clearance Estimated 67 mL/min (50-200); Estimated Glomerular Filt Rate 46 ml/min (>60); GFR (African American) 56 ML/MIN (>60); Lactic Acid 0.7 mmol/L (0.7-2.1)
[2022-11-09 16:22] LABS: Anion Gap 29.6 mEq/L (5-15); Calcium 8.5 mg/dl (8.4-10.2); Glucose 282 mg/dl (74-100)
[2022-11-09 16:28] LABS: Carbon Dioxide 8 mmol/L (22.0-30.0)
[2022-11-09 16:54] LABS: POC Glucose,Bedside 264 (70-110)
[2022-11-09 17:10] LABS: Coronavirus 19, PCR Not Detected (NotDetected); Influenza A, PCR Not Detected (NotDetected); Influenza B, PCR Not Detected (NotDetected)
--- NOTE | 2022-11-09 17:38 | EXP.HP ---
History of Present Illness *Admission Date: 11/09/22 *Reason for visit:: Shortness of breath *History of present illness: Ms. Swan is a 56-year-old female who presented to the office of [facility] with shortness of breath. She describes not eating since the end of last week because of nausea and vomiting. She denies having any diarrhea.. She was seen at [facility] on 11/06/2022 and had a full upper respiratory panel which was all negative. She was treated for bronchitis with doxycycline. She felt like she was in a fog. She was to return to work today but she was unable to function because she felt so badly. She was seen by Dr. Hansen in the office and started on doxycycline and promethazine for nausea. She had laboratory work done she was sent to the emergency room because of laboratory results. With evaluation in the emergency room she was noted to be pale, clammy, and feeling foggy. She complained of weakness and mild shortness of breath. Blood sugars were high and she was felt to be in DKA. She denied abdominal pain nausea, vomiting, and diarrhea. She had no chills or fever. Blood sugar at this time was 297. D-dimer was elevated at 1.24. anion gap was 28.8 and BUN was 35 and creatinine 1.3. ABGs showed a pH of 7.22 PCO2 of 18.2 PO2 of 103.9 and bicarb of 7.3. She was given a liter of IV fluids and started on an insulin drip. She was then started on potassium in IVF at at 150 an hour. Acetone was large. Chest CTA revealed the following: MPRESSION: No large or central pulmonary embolism.? ? Precarinal and subcarinal adenopathy.? ? Right lung opacity most worrisome for pneumonia. Abdomen/pelvis CT revealed no evidence of acute intra-abdominal process no evidence of acute intra-abdominal process pneumonia. At the time of this exam patient is feeling much better. [facility] Disclaimer: The information contained in this section may have been updated after the patient was seen, as this information can be updated by other users. Medical History (Updated 11/09/22 @ 18:18 by Cele Cruz APRN) Dizziness Surgical History (Updated 11/09/22 @ 18:09 by Cele Cruz APRN) Cholecystectomy planned H/O heart artery stent Social History Smoking Status: Former smoker second hand exposure: No alcohol intake: never substance use type: denies use current occupational status: employed Travel in the last 8 weeks: None household members: spouse housing: house current occupation: [employer] current occupational exposures/hazards: No caffeine: Yes Review of Systems Constitutional Constitutional: Reports chills, Reports fatigue, Denies fever(s), Reports frequent falls (She did fall 2 days ago), Denies headache(s) and Reports weakness Eyes Eyes: Denies change in vision ENT Ears, Nose, Mouth, and Throat: Reports dry mouth, Denies otalgia, Denies headache(s), Denies nasal congestion, Denies post nasal drip and Denies sore throat *Cardiovascular Cardiovascular: Denies chest pain, Reports dyspnea and Reports rapid heart rate *Respiratory Respiratory: Denies chest congestion, Reports dyspnea and Denies hemoptysis *Gastrointestinal Gastrointestinal: Denies bloating, Denies constipation, Denies diarrhea, Denies dyspepsia, Denies heartburn, Reports nausea and Reports vomiting *Genitourinary Genitourinary: Denies difficulty voiding *Musculoskeletal Musculoskeletal: Reports abnormal gait (States she has been unable to walk due to muscle weakness) and Reports muscle weakness *Neurologic Neurologic: Reports abnormal gait (States she has been unable to walk due to muscle weakness), Reports confusion (Was confused and made poor decisions the last few days), Reports frequent falls (She did fall 2 days ago), Denies headache(s), Denies seizure-like activity and Reports weakness Psychiatric Psychiatric: Reports confusion (Was confused and made poor decision
[2022-11-09 17:50] LABS: Troponin I < 0.01 ng/ml (0.00-0.034)
[2022-11-09 18:27] LABS: POC Glucose,Bedside 154 (70-110)
[2022-11-09 19:25] LABS: Chloride 104 mmol/L (98-107)
[2022-11-09 19:26] LABS: Potassium 3.4 mmoL/L (3.5-5.1); Sodium 138 mmol/L (136-145)
[2022-11-09 19:28] LABS: Blood Urea Nitrogen 32 mg/dl (7-17); Creatinine Clearance Estimated 86 mL/min (50-200); Estimated Glomerular Filt Rate 57 ml/min (>60); GFR (African American) 69 ML/MIN (>60)
[2022-11-09 19:29] LABS: Anion Gap 24.4 mEq/L (5-15); Calcium 8.6 mg/dl (8.4-10.2); Carbon Dioxide 13 mmol/L (22.0-30.0); Glucose 126 mg/dl (74-100)
[2022-11-09 20:29] LABS: Troponin I < 0.01 ng/ml (0.00-0.034)
--- NOTE | 2022-11-09 20:45 | PC.NURSE ---
called for update on pt. notified of potassium 3.4, anion gap 24.4, last FS 123, Insulin @ 4.1u/hr, NS D5 @ 75ml/hr. states to D/C Insulin drip at this time, D/C NS D5. Start 0.45% NS with 20 K+ @ 150ml/hr. Give 20 mEq K+ PO once. Orders read back and verified and sent to pharmacy. Insulin drip stopped at 2049.
[2022-11-09 21:40] LABS: POC Glucose,Bedside 123 (70-110)
[2022-11-09 23:01] LABS: POC Glucose,Bedside 180 (70-110)
[2022-11-09 23:11] LABS: Chloride 104 mmol/L (98-107)
[2022-11-09 23:12] LABS: Potassium 3.5 mmoL/L (3.5-5.1); Sodium 136 mmol/L (136-145)
[2022-11-09 23:14] LABS: Blood Urea Nitrogen 29 mg/dl (7-17); Creatinine Clearance Estimated 96 mL/min (50-200); Estimated Glomerular Filt Rate 65 ml/min (>60); GFR (African American) 78 ML/MIN (>60)
[2022-11-09 23:15] LABS: Anion Gap 26.5 mEq/L (5-15); Calcium 8.2 mg/dl (8.4-10.2); Glucose 197 mg/dl (74-100)
[2022-11-09 23:16] LABS: Carbon Dioxide 9 mmol/L (22.0-30.0)
--- NOTE | 2022-11-09 23:33 | PC.NURSE ---
Pt noted to be in BR with help of when entering pt room. Pt reminded of need for urine sample. Hat placed back in toilet and asked pt to notify when able to provide sample. Pt verbalized understanding.
[2022-11-10] VITALS (21 sets, daily range): BP systolic 105–155; BP diastolic 44–65; PULSE 70–110; RESP 16–23; TEMP 36.5–37.3; O2SAT 95–100; BMI 31.7
[2022-11-10 01:15] LABS: POC Glucose,Bedside 218 (70-110)
[2022-11-10 02:40] LABS: POC Glucose,Bedside 203 (70-110)
[2022-11-10 03:32] LABS: Microscopic, Urine URINE MICROSCOPIC (MICROSCOPIC)
[2022-11-10 03:37] LABS: Blood Urea Nitrogen 23 mg/dl (7-17); Calcium 8.2 mg/dl (8.4-10.2); Chloride 107 mmol/L (98-107); Creatinine Clearance Estimated 108 mL/min (50-200); Estimated Glomerular Filt Rate 74 ml/min (>60); GFR (African American) 90 ML/MIN (>60); Glucose 208 mg/dl (74-100); Sodium 134 mmol/L (136-145)
[2022-11-10 03:40] LABS: Carbon Dioxide 7 mmol/L (22.0-30.0)
[2022-11-10 04:03] LABS: Acetone, Serum (Rapid) Large (None Detect)
[2022-11-10 04:06] LABS: Appearance,Urine CLEAR (Clear); Bilirubin,Urine Negative (Negative); Blood, Urine 1+ (Negative); Color,Urine YELLOW (Yellow); Glucose,Urine (UA) 2+ (Negative); Ketones,Urine 3+ (Negative); Leukocyte Esterase,Urine Negative (Negative); Nitrate,Urine Negative (Negative); Protein,Urine Negative (Negative); Urobilinogen,Urine 0.2 EU/dl (0.2)
[2022-11-10 04:35] LABS: Bacteria,Urine 1+ /lpf; Yeast,Urine 1+ /lpf
[2022-11-10 06:13] LABS: Chloride 108 mmol/L (98-107); Sodium 138 mmol/L (136-145)
[2022-11-10 06:14] LABS: POC Glucose,Bedside 187 (70-110)
[2022-11-10 06:15] LABS: Alanine Aminotransferase 11 U/L (12-78); Aspartate Amino Transferase 15 U/L (14-36); Bilirubin,Total 0.4 mg/dl (0.2-1.3); Blood Urea Nitrogen 21 mg/dl (7-17); Creatinine Clearance Estimated 107 mL/min (50-200); Estimated Glomerular Filt Rate 74 ml/min (>60); GFR (African American) 90 ML/MIN (>60)
[2022-11-10 06:16] LABS: Albumin Level 3.1 g/dl (3.5-5.0); Alkaline Phosphatase 92 U/L (38-126); Globulin 3.1 g/dL (1.3-3.2); Glucose 197 mg/dl (74-100); Magnesium 2.5 mg/dl (1.6-2.3); Phosphorous 2.2 mg/dl (2.5-4.5); Total Protein,Serum 6.2 g/dl (6.3-8.2)
--- NOTE | 2022-11-10 06:46 | PC.NURSE ---
Insulin gtt remains off. Pt started on high dose insulin sliding scale q6h. Pt ambulating to BR with standby assist. Pt has not voiced any c/o to staff. Family at bedside. Call light within reach.
[2022-11-10 07:01] LABS: Carbon Dioxide 9 mmol/L (22.0-30.0)
[2022-11-10 07:37] LABS: Eosinophils % 0.4 % (0.1-12.0); Hematocrit 43.4 % (37.0-47.0); Hemoglobin 13.1 g/dL (12.2-16.2); Lymphocytes % 10.8 % (10-50); Mean Corpuscular HGB Conc 30.2 g/dL (31.8-35.4); Mean Corpuscular Hemoglobin 29.5 pg (27.0-31.2); Mean Corpuscular Volume 97.6 fl (81-99); Mean Platelet Volume 8.8 fl (7.4-10.4); Neutrophils % 79.6 % (37.0-80.0); Platelet Count 401 K/mm3 (142-424); Red Blood Count 4.44 M/mm3 (4.20-5.40); Red Cell Distribution Width 14.6 % (11.5-17.5); White Blood Count 14.7 K/mm3 (4.8-10.8)
[2022-11-10 07:38] LABS: Basophils # 0.2 K/mm3 (0-0.2); Eosinophils # 0.1 K/mm3 (0.0-0.4); Lymphocytes # 1.6 K/mm3 (0.7-4.5); Monocytes # 0.9 K/mm3 (0.1-1.0); Neutrophils # 11.7 K/mm3 (1.8-7.8)
--- NOTE | 2022-11-10 07:40 | HMH.PHAINT1 ---
Pharmacy Intervention Comments: Reconciled patient's home medications using pharmacy fill history and patient interview.
--- NOTE | 2022-11-10 08:22 | EXP.ACUTE.PN ---
Subjective *Date: 11/10/22 *Time: 08:22 Interval history: Patient states she is feeling a little better today. She does have a nosebleed this am. Her breathing has improved. She has been nauseated and unable to eat. She denies any pain. Medical Exam Vital signs and Labs for Last 24 Hours: Vital Signs Temp Pulse Pulse Resp BP BP Pulse Ox 11/10/22 06:33 99 H 11/10/22 06:33 102 H 11/10/22 06:33 98 11/10/22 06:00 84 21 137/46 L 99 11/10/22 04:00 87 20 146/57 H 98 11/10/22 04:00 97.9 F 11/10/22 04:00 80 11/10/22 00:00 90 11/09/22 20:00 100 H 11/10/22 02:00 85 23 155/62 H 98 11/10/22 00:00 103 H 20 105/44 L 99 11/10/22 00:00 97.8 F 11/09/22 20:00 98 H 20 134/45 L 100 11/09/22 22:00 88 20 110/38 L 99 11/09/22 20:00 96 11/09/22 20:00 97.7 F 11/09/22 18:19 79 18 122/55 L 99 11/09/22 17:00 88 18 118/47 L 96 11/09/22 16:45 97.8 F 86 18 117/51 L 97 11/09/22 16:15 97 11/09/22 16:00 98.2 F 84 20 118/47 L 95 11/09/22 16:00 78 15 114/41 L 100 11/09/22 15:00 88 17 120/41 L 100 11/09/22 16:10 97.9 F 87 17 114/71 11/09/22 13:42 98.6 F 88 16 112/49 L 96 Intake and Output 11/09/22 11/10/22 11/10/22 19:59 03:59 11:59 Intake Total 1468 / 1561 93 / 1561 Output Total 0 / 600 0 / 600 600 / 600 Balance 1468 / 961 93 / 961 -600 / 961 Intake: Intake, Total IV Amount 1468 / 1561 93 / 1561 0.9 % Sodium Chloride 1000ML 1, 418 / 418 000 ml @ 150 mls/hr IV .Q6H40M [facility] Rx#:[id number] Ceftriaxone 1 gm 1 gm In 0.9 % 50 / 50 Sodium Chloride 50 ml @ 100 mls /hr IV Q24H [facility] Rx#:[id number] Dextrose 5 % and 0.9 % NaCl 1, 93 / 93 000 ml @ 150 mls/hr IV .Q6H40M [facility] Rx#:[id number] Output: Output, Urine Amount 0 / 600 0 / 600 600 / 600 Other: Number of Voids 0 Number of Unmeasured Voids 1 0 Weight 191 lb 4 oz 190 lb 7.67 oz Patient Weight 11/10/22 11:59 Weight 190 lb 7.67 oz Laboratory Results - last 24 hr 11/09/22 13:55: POC Glucose 297 H 11/09/22 14:00: VBG pH 7.20 L, VBG pCO2 19.8 L, VBG pO2 106.0 H, VBG HCO3 7.6 L, VBG Total CO2 8.2 L, VBG O2 Saturation 97.7 H, VBG Base Excess -20.5 L 11/09/22 14:02: WBC 21.7 H*, RBC 4.70, Hgb 14.3, Hct 46.1, MCV 98.0, MCH 30.3, MCHC 30.9 L, RDW 14.5, Plt Count 484 H, MPV 8.6, Neut % (Auto) 83.6 H, Lymph % (Auto) 11.1, [place] % (Auto) 4.1, Eos % (Auto) 0.2, Baso % (Auto) 1.0, Neut # (Auto) 18.2 H, Lymph # (Auto) 2.4, [place] # (Auto) 0.9, Eos # (Auto) 0.0, Baso # (Auto) 0.2, Total Counted 100, Neutrophils % (Manual) 80 H, Lymphocytes % (Manual) 16, Monocytes % (Manual) 4, Platelet Estimate Slight increase, Barbie Cells 1+ 11/09/22 14:02: D-Dimer 1.24 H 11/09/22 14:02: Sodium 131 L, Potassium 3.8, Chloride 101, Carbon Dioxide 5 L* D, Anion Gap 28.8 H, BUN 35 H, Creatinine 1.30 H, Estimated Creat Clear 62, Estimated GFR 42 L, Est GFR ( Amer) 51 L, Glucose 313 H, Calcium 8.9, Total Bilirubin 0.5, AST 18, ALT 13, Alkaline Phosphatase 120, Troponin I < 0.01, NT-Pro-B Natriuret Pep 613 H, Total Protein 7.2, Albumin 3.8, Globulin 3.4 H, Albumin/Globulin Ratio 1.1, TSH 0.68 11/09/22 14:02: Acetone Level Large 11/09/22 14:45: Specimen Source R radial, O2 % Room air, ABG pH 7.22 L*, ABG pCO2 18.2 L, ABG pO2 103.9 H, ABG HCO3 7.3 L, ABG Total CO2 7.9 L, ABG O2 Saturation 98, ABG Base Excess -20.4 L, Zack Test Acceptable 11/09/22 15:54: Lactate 0.7 11/09/22 15:54: Sodium 133 L, Potassium 4.6 D, Chloride 100, Carbon Dioxide 8 L* D, Anion Gap 29.6 H, BUN 35 H, Creatinine 1.20 H, Estimated Creat Clear 67, Estimated GFR 46 L, Est GFR ( Amer) 56 L, Glucose 282 H, Calcium 8.5 11/09/22 16:37: POC Glucose 264 H 11/09/22 17:04: SARS-CoV-2 (PCR) Not detected, Influenza A Untype (PCR) Not detected, Influenza Type B (PCR) Not detected 11/09/22 17:15: Troponin I < 0.01 0
[2022-11-10 08:24] LABS: POC Glucose,Bedside 170 (70-110)
--- NOTE | 2022-11-10 09:22 | PC.NURSE ---
Pt C/O nausea this AM. Zofran administered. FSBS 170.
--- NOTE | 2022-11-10 10:29 | PC.NURSE ---
Clarified orders with . Reviewed labs including Acetone and GAP. New orders received. Change Q2 hr finger sticks to ACHS. Humalog and Lantus solostar to be administered per mar. VTE: SCDs.
[2022-11-10 11:56] LABS: POC Glucose,Bedside 162 (70-110)
[2022-11-10 16:11] LABS: Acetone, Serum (Rapid) Moderate (None Detect)
[2022-11-10 16:25] LABS: POC Glucose,Bedside 145 (70-110)
--- NOTE | 2022-11-10 17:11 | PC.NURSE ---
Pt sleeping at this time. Last FSBS was 145. Pt denies any nausea at this time. VSS. Has ambulated to BR. Tolerated well. Pt educated on ambulation. Was offered assistance in ambulating in hallway. Call light within reach.
[2022-11-10 18:21] LABS: Chloride 108 mmol/L (98-107); Potassium 3.9 mmoL/L (3.5-5.1); Sodium 137 mmol/L (136-145)
[2022-11-10 18:24] LABS: Blood Urea Nitrogen 12 mg/dl (7-17); Creatinine Clearance Estimated 143 mL/min (50-200); Estimated Glomerular Filt Rate 103 ml/min (>60); GFR (African American) 125 ML/MIN (>60)
[2022-11-10 18:25] LABS: Anion Gap 23.9 mEq/L (5-15); Calcium 8.2 mg/dl (8.4-10.2); Glucose 183 mg/dl (74-100)
[2022-11-10 18:46] LABS: Carbon Dioxide 9 mmol/L (22.0-30.0)
--- NOTE | 2022-11-10 19:05 | PC.NURSE ---
MD Mace notified of critical lab values. New orders received to restart Insulin gtt. Follow DKA protocol. Give 2 liters of NS over next 8 hrs. Then back to baseline rate of 1/2 NS w/ 20K @ 150 ml/hr. BMP and acetone orders placed.
--- NOTE | 2022-11-10 19:54 | PC.NURSE ---
pt back to stepdown for DKA protocol, fsbs 186, started insulin drip at 2units/hr and started first bag of NS, pt's family member assisted pt to bathroom at this time
--- NOTE | 2022-11-10 23:36 | PC.NURSE ---
notified REYNOLD Mcqueen that pt has critical CO2 of 11, no new orders at this time
[2022-11-11] VITALS (18 sets, daily range): BP systolic 138–158; BP diastolic 49–83; PULSE 64–83; RESP 15–25; TEMP 36.4–37.2; O2SAT 95–100; BMI 31.8
--- NOTE | 2022-11-11 00:02 | PC.NURSE ---
fsbs 136, decreased insulin drip to 1unit/hr; gap still open at this time ([id number])
[2022-11-11 00:14] LABS: POC Glucose,Bedside 186 (70-110)
[2022-11-11 00:14] LABS: POC Glucose,Bedside 136 (70-110)
[2022-11-11 00:14] LABS: POC Glucose,Bedside 223 (70-110)
[2022-11-11 00:14] LABS: POC Glucose,Bedside 186 (70-110)
[2022-11-11 00:43] LABS: Anion Gap 22.1 mEq/L (5-15); Blood Urea Nitrogen 11 mg/dl (7-17); Calcium 8.1 mg/dl (8.4-10.2); Carbon Dioxide 11 mmol/L (22.0-30.0); Chloride 108 mmol/L (98-107); Creatinine Clearance Estimated 143 mL/min (50-200); Estimated Glomerular Filt Rate 103 ml/min (>60); GFR (African American) 125 ML/MIN (>60); Glucose 165 mg/dl (74-100); Potassium 4.1 mmoL/L (3.5-5.1); Sodium 137 mmol/L (136-145)
--- NOTE | 2022-11-11 01:19 | PC.NURSE ---
fsbs 143, drip already at lowest rate can go (1 unit/hr) so cannot decrease any further and unable to turn drip off due to gap still open, started D5NS at 75mL/hr per protocol
[2022-11-11 02:14] LABS: POC Glucose,Bedside 143 (70-110)
[2022-11-11 02:14] LABS: POC Glucose,Bedside 143 (70-110)
[2022-11-11 03:35] LABS: Anion Gap 16.5 mEq/L (5-15); Blood Urea Nitrogen 10 mg/dl (7-17); Calcium 8.1 mg/dl (8.4-10.2); Carbon Dioxide 12 mmol/L (22.0-30.0); Chloride 109 mmol/L (98-107); Creatinine Clearance Estimated 143 mL/min (50-200); Estimated Glomerular Filt Rate 103 ml/min (>60); GFR (African American) 125 ML/MIN (>60); Glucose 159 mg/dl (74-100); Potassium 3.5 mmoL/L (3.5-5.1); Sodium 134 mmol/L (136-145)
[2022-11-11 03:50] LABS: Acetone, Serum (Rapid) Moderate (None Detect)
--- NOTE | 2022-11-11 04:00 | PC.NURSE ---
per 0300 labs, acetone moderate and gap open at this time
[2022-11-11 04:21] LABS: POC Glucose,Bedside 152 (70-110)
[2022-11-11 06:03] LABS: POC Glucose,Bedside 165 (70-110)
[2022-11-11 07:42] LABS: Chloride 110 mmol/L (98-107); Sodium 138 mmol/L (136-145)
[2022-11-11 07:43] LABS: Potassium 3.5 mmoL/L (3.5-5.1)
[2022-11-11 07:45] LABS: Blood Urea Nitrogen 8 mg/dl (7-17); Creatinine Clearance Estimated 172 mL/min (50-200); Estimated Glomerular Filt Rate 128 ml/min (>60); GFR (African American) 154 ML/MIN (>60)
[2022-11-11 07:46] LABS: Anion Gap 20.5 mEq/L (5-15); Calcium 8.1 mg/dl (8.4-10.2); Carbon Dioxide 11 mmol/L (22.0-30.0); Glucose 182 mg/dl (74-100)
[2022-11-11 07:59] LABS: POC Glucose,Bedside 198 (70-110)
--- NOTE | 2022-11-11 08:19 | EXP.ACUTE.PN ---
Subjective *Date: 11/11/22 *Time: 08:19 Interval history: Patient states she is feeling a little bit better this morning. She still has some abdominal soreness but her nausea has improved. She still does not have much of an appetite. She denies any other pain. Medical Exam Vital signs and Labs for Last 24 Hours: Vital Signs Temp Pulse Pulse Resp BP Pulse Ox 11/11/22 08:00 97.9 F 79 22 146/55 H 98 11/11/22 07:54 100 11/11/22 06:07 78 11/11/22 06:07 78 11/11/22 06:07 98 11/11/22 06:00 80 16 150/65 H 100 11/11/22 04:00 98.5 F 11/11/22 04:00 77 11/11/22 00:00 71 11/11/22 04:00 73 19 139/52 L 96 11/11/22 02:00 83 25 H 146/57 H 96 11/11/22 00:00 98.9 F 11/11/22 00:00 71 15 138/49 L 97 11/10/22 20:00 94 H 11/10/22 22:00 81 18 145/54 H 100 11/10/22 20:00 99 11/10/22 19:39 98.1 F 88 22 141/50 H 99 11/10/22 19:02 78 11/10/22 19:02 80 11/10/22 16:00 75 11/10/22 12:00 70 11/10/22 15:52 98.1 F 80 16 150/65 H 99 11/10/22 14:00 75 20 141/57 H 98 11/10/22 13:39 78 18 11/10/22 13:19 102 H 11/10/22 13:19 104 H 11/10/22 12:00 71 16 128/59 L 98 11/10/22 11:42 97.7 F 11/10/22 10:00 95 H 22 139/64 95 11/10/22 15:36 99.2 F 11/10/22 08:22 97.7 F Intake and Output 11/10/22 11/11/22 11/11/22 19:59 03:59 11:59 Intake Total 2974 / 4185 1211 / 4185 Output Total 900 / 1500 300 / 1500 300 / 1500 Balance 2074 / 2685 911 / 2685 -300 / 2685 Intake: Intake, Oral Amount 240 / 240 Intake, Total IV Amount 2734 / 3945 1211 / 3945 0.45% NaCl w/20mEq KCL 1,000 ml 273 / 2734 @ 150 mls/hr IV .Q6H40M [facility] Rx #:[id number] 0.9 % Sodium Chloride 1000ML 1, 1211 / 1211 000 ml @ 250 mls/hr IV .Q4H [facility] Rx#:[id number] Output: Output, Urine Amount 900 / 1500 300 / 1500 300 / 1500 Other: Number of Voids 1 Number of Unmeasured Voids 1 1 0 Weight 191 lb 5 oz Patient Weight 11/11/22 11:59 Weight 191 lb 5 oz Laboratory Results - last 24 hr 11/10/22 08:14: POC Glucose 170 H 11/10/22 11:18: POC Glucose 162 H 11/10/22 15:00: Acetone Level Moderate 11/10/22 16:17: POC Glucose 145 H 11/10/22 17:45: Sodium 137, Potassium 3.9, Chloride 108 H, Carbon Dioxide 9 L*, Anion Gap 23.9 H, BUN 12 D, Creatinine 0.60 D, Estimated Creat Clear 143, Estimated GFR 103, Est GFR ( Amer) 125 D, Glucose 183 H, Calcium 8.2 L 11/10/22 19:40: POC Glucose 186 H 11/10/22 20:59: POC Glucose 223 H 11/10/22 22:02: POC Glucose 186 H 11/10/22 22:55: Sodium 137, Potassium 4.1, Chloride 108 H, Carbon Dioxide 11 L, Anion Gap 22.1 H, BUN 11, Creatinine 0.60, Estimated Creat Clear 143, Estimated GFR 103, Est GFR ( Amer) 125, Glucose 165 H, Calcium 8.1 L 11/11/22 00:06: POC Glucose 136 H 11/11/22 01:16: POC Glucose 143 H 11/11/22 02:07: POC Glucose 143 H 11/11/22 03:10: Acetone Level Moderate 11/11/22 03:10: Sodium 134 L, Potassium 3.5, Chloride 109 H, Carbon Dioxide 12 L, Anion Gap 16.5 H, BUN 10, Creatinine 0.60, Estimated Creat Clear 143, Estimated GFR 103, Est GFR ( Amer) 125, Glucose 159 H, Calcium 8.1 L 11/11/22 04:14: POC Glucose 152 H 11/11/22 05:53: POC Glucose 165 H 11/11/22 07:30: Sodium 138, Potassium 3.5, Chloride 110 H, Carbon Dioxide 11 L, Anion Gap 20.5 H, BUN 8, Creatinine 0.50 L, Estimated Creat Clear 172, Estimated GFR 128, Est GFR ( Amer) 154 D, Glucose 182 H, Calcium 8.1 L 11/11/22 07:52: POC Glucose 198 H I & O for Labs for Last 24 Hours: Intake & Output 11/08/22 11/09/22 11/10/22 11/11/22 11:59 11:59 11:59 11:59 Intake Total 1561 / 1561 4185 / 4185 Output Total 600 / 600 1500 / 1500 Balance 961 / 961 2685 / 2685 Weight 190 lb 7.67 oz 191 lb 5 oz Constitutional: Present no acute distress Respiratory: Present decreased breath sounds and CTA bilaterally [place]
[2022-11-11 09:05] LABS: POC Glucose,Bedside 184 (70-110)
[2022-11-11 10:06] LABS: POC Glucose,Bedside 193 (70-110)
[2022-11-11 10:53] LABS: POC Glucose,Bedside 184 (70-110)
--- NOTE | 2022-11-11 11:23 | ECG_ITS ---
APPROVED REPORT Exam: Resting ECG HR:69 bpm ECG Measurements Heart Rate 69 AXES NE 166 P 19 QRSd 135 QRS -25 QT 426 T 11 QTc 445 Conclusion SINUS RHYTHM BORDERLINE LEFT AXIS DEVIATION [QRS AXIS < -20] RIGHT BUNDLE BRANCH BLOCK [120+ ms QRS DURATION, UPRIGHT V1, 40+ ms S IN I/aVL/V4/V5/V6] ABNORMAL ECG UNCONFIRMED REPORT Electronically signed by : Cameron Mace MD 11/12/2022 09:33:20
[2022-11-11 11:34] LABS: Anion Gap 16.5 mEq/L (5-15); Blood Urea Nitrogen 8 mg/dl (7-17); Carbon Dioxide 12 mmol/L (22.0-30.0); Chloride 110 mmol/L (98-107); Creatinine Clearance Estimated 172 mL/min (50-200); Estimated Glomerular Filt Rate 128 ml/min (>60); GFR (African American) 154 ML/MIN (>60); Glucose 177 mg/dl (74-100); Potassium 3.5 mmoL/L (3.5-5.1); Sodium 135 mmol/L (136-145)
[2022-11-11 11:40] LABS: Basophils # 0.2 K/mm3 (0-0.2); Basophils % 1.5 % (0.1-2.0); Eosinophils # 0.1 K/mm3 (0.0-0.4); Eosinophils % 0.5 % (0.1-12.0); Hematocrit 42.2 % (37.0-47.0); Hemoglobin 13.3 g/dL (12.2-16.2); Lymphocytes # 2.3 K/mm3 (0.7-4.5); Lymphocytes % 17.5 % (10-50); Mean Corpuscular HGB Conc 31.5 g/dL (31.8-35.4); Mean Corpuscular Volume 95.3 fl (81-99); Mean Platelet Volume 8.1 fl (7.4-10.4); Monocytes # 0.7 K/mm3 (0.1-1.0); Neutrophils # 9.7 K/mm3 (1.8-7.8); Neutrophils % 75.3 % (37.0-80.0); Platelet Count 385 K/mm3 (142-424); Red Blood Count 4.42 M/mm3 (4.20-5.40); Red Cell Distribution Width 14.9 % (11.5-17.5); White Blood Count 12.9 K/mm3 (4.8-10.8)
[2022-11-11 12:56] LABS: ABG Base Excess -12.4 mmol/L (-2.4-2.3); ABG HCO3 13.3 mmhg (22.0-26.0); ABG Oxygen Saturation 97 % (90-100); ABG PCO2 24.9 mmhg (35.0-45.0); ABG PH 7.35 mmol/L (7.35-7.45); ABG PO2 85.3 mmhg (80-100); Allen's Test ACCEPTABLE; Oxygen ROOM AIR %; Source Right Radial
[2022-11-11 15:27] LABS: Anion Gap 17.3 mEq/L (5-15); Blood Urea Nitrogen 7 mg/dl (7-17); Calcium 8.2 mg/dl (8.4-10.2); Carbon Dioxide 12 mmol/L (22.0-30.0); Chloride 108 mmol/L (98-107); Creatinine Clearance Estimated 172 mL/min (50-200); Estimated Glomerular Filt Rate 128 ml/min (>60); GFR (African American) 154 ML/MIN (>60); Glucose 197 mg/dl (74-100); Potassium 3.3 mmoL/L (3.5-5.1); Sodium 134 mmol/L (136-145)
[2022-11-11 15:35] LABS: Acetone, Serum (Rapid) Moderate (None Detect)
[2022-11-11 15:44] LABS: POC Glucose,Bedside 204 (70-110)
[2022-11-11 17:49] LABS: POC Glucose,Bedside 180 (70-110)
[2022-11-11 17:49] LABS: POC Glucose,Bedside 149 (70-110)
[2022-11-11 17:49] LABS: POC Glucose,Bedside 169 (70-110)
[2022-11-11 17:50] LABS: POC Glucose,Bedside 175 (70-110)
[2022-11-11 18:17] LABS: POC Glucose,Bedside 179 (70-110)
[2022-11-11 19:04] LABS: Chloride 106 mmol/L (98-107); Potassium 3.4 mmoL/L (3.5-5.1); Sodium 137 mmol/L (136-145)
[2022-11-11 19:07] LABS: Anion Gap 22.4 mEq/L (5-15); Blood Urea Nitrogen 7 mg/dl (7-17); Carbon Dioxide 12 mmol/L (22.0-30.0); Creatinine Clearance Estimated 215 mL/min (50-200); Estimated Glomerular Filt Rate 165 ml/min (>60); GFR (African American) 200 ML/MIN (>60); Glucose 202 mg/dl (74-100)
[2022-11-11 19:11] LABS: POC Glucose,Bedside 192 (70-110)
[2022-11-11 20:58] LABS: POC Glucose,Bedside 215 (70-110)
[2022-11-12] VITALS (10 sets, daily range): BP systolic 141–180; BP diastolic 49–72; PULSE 60–88; RESP 16–20; TEMP 36.5–36.9; O2SAT 97–100; BMI 33.1
[2022-11-12 00:35] LABS: Anion Gap 13.5 mEq/L (5-15); Blood Urea Nitrogen 6 mg/dl (7-17); Calcium 7.9 mg/dl (8.4-10.2); Carbon Dioxide 14 mmol/L (22.0-30.0); Chloride 109 mmol/L (98-107); Creatinine Clearance Estimated 215 mL/min (50-200); Estimated Glomerular Filt Rate 165 ml/min (>60); GFR (African American) 200 ML/MIN (>60); Glucose 150 mg/dl (74-100); Potassium 3.5 mmoL/L (3.5-5.1); Sodium 133 mmol/L (136-145)
[2022-11-12 00:40] LABS: POC Glucose,Bedside 136 (70-110)
[2022-11-12 00:40] LABS: POC Glucose,Bedside 144 (70-110)
[2022-11-12 00:40] LABS: POC Glucose,Bedside 144 (70-110)
[2022-11-12 03:35] LABS: Anion Gap 13.4 mEq/L (5-15); Blood Urea Nitrogen 5 mg/dl (7-17); Calcium 7.8 mg/dl (8.4-10.2); Carbon Dioxide 14 mmol/L (22.0-30.0); Chloride 109 mmol/L (98-107); Creatinine Clearance Estimated 287 mL/min (50-200); Estimated Glomerular Filt Rate 230 ml/min (>60); GFR (African American) 278 ML/MIN (>60); Glucose 159 mg/dl (74-100); Potassium 3.4 mmoL/L (3.5-5.1); Sodium 133 mmol/L (136-145)
[2022-11-12 03:45] LABS: Acetone, Serum (Rapid) Moderate (None Detect)
[2022-11-12 06:23] LABS: POC Glucose,Bedside 151 (70-110)
[2022-11-12 06:38] LABS: POC Glucose,Bedside 143 (70-110)
[2022-11-12 06:38] LABS: POC Glucose,Bedside 132 (70-110)
[2022-11-12 06:38] LABS: POC Glucose,Bedside 158 (70-110)
[2022-11-12 06:38] LABS: POC Glucose,Bedside 135 (70-110)
[2022-11-12 07:31] LABS: POC Glucose,Bedside 164 (70-110)
--- NOTE | 2022-11-12 08:28 | EXP.ACUTE.PN ---
Subjective *Date: 11/12/22 *Time: 08:28 Interval history: Patient states she is feeling better this morning. Has been able to eat and drink this am. Abdominal pain has improved. Medical Exam Vital signs and Labs for Last 24 Hours: Vital Signs Temp Pulse Pulse Resp BP Pulse Ox FiO2 11/12/22 08:00 97.7 F 88 19 167/67 H 99 11/12/22 06:00 81 20 171/61 H 97 11/12/22 06:00 75 11/12/22 06:00 76 11/12/22 04:00 70 11/12/22 04:00 98.4 F 11/12/22 04:00 74 20 142/49 H 99 11/12/22 00:00 70 11/12/22 02:00 64 18 145/62 H 98 11/12/22 00:00 98.4 F 69 20 159/72 H 99 11/11/22 20:00 80 11/11/22 22:00 64 20 157/66 H 99 11/11/22 20:00 68 20 147/53 H 95 11/11/22 20:00 97.7 F 11/11/22 19:02 83 11/11/22 19:02 79 11/11/22 19:02 100 21 11/11/22 18:00 81 18 156/73 H 98 11/11/22 16:00 70 11/11/22 15:07 97.6 F 11/11/22 14:00 74 18 158/83 H 11/11/22 13:35 73 11/11/22 13:35 73 11/11/22 13:35 98 11/11/22 11:12 98.0 F 11/11/22 10:00 75 19 146/55 H 99 11/11/22 08:47 97.9 F Intake and Output 11/11/22 11/12/22 11/12/22 19:59 03:59 11:59 Intake Total 420 / 900 480 / 900 Output Total 0 / 350 150 / 350 200 / 350 Balance 420 / 550 -150 / 550 280 / 550 Intake: Intake, Oral Amount 420 / 900 480 / 900 Output: Output, Urine Amount 0 / 350 150 / 350 200 / 350 Other: Number of Unmeasured Voids 1 1 Weight 199 lb Patient Weight 11/12/22 11:59 Weight 199 lb Laboratory Results - last 24 hr 11/11/22 08:58: POC Glucose 184 H 11/11/22 09:59: POC Glucose 193 H 11/11/22 10:47: POC Glucose 184 H 11/11/22 10:55: Sodium 135 L, Potassium 3.5, Chloride 110 H, Carbon Dioxide 12 L, Anion Gap 16.5 H, BUN 8, Creatinine 0.50 L, Estimated Creat Clear 172, Estimated GFR 128, Est GFR ( Amer) 154, Glucose 177 H, Calcium 8.0 L 11/11/22 10:55: WBC 12.9 H, RBC 4.42, Hgb 13.3, Hct 42.2, MCV 95.3, MCH 30.0, MCHC 31.5 L, RDW 14.9, Plt Count 385, MPV 8.1, Neut % (Auto) 75.3, Lymph % (Auto) 17.5, [place] % (Auto) 5.0, Eos % (Auto) 0.5, Baso % (Auto) 1.5, Neut # (Auto) 9.7 H, Lymph # (Auto) 2.3, [place] # (Auto) 0.7, Eos # (Auto) 0.1, Baso # (Auto) 0.2 11/11/22 11:59: POC Glucose 169 H 11/11/22 12:06: Specimen Source Right radial, O2 % Room air, ABG pH 7.35, ABG pCO2 24.9 L, ABG pO2 85.3, ABG HCO3 13.3 L, ABG Total CO2 14.0 L, ABG O2 Saturation 97, ABG Base Excess -12.4 L, Zack Test Acceptable 11/11/22 12:56: POC Glucose 149 H 11/11/22 14:10: POC Glucose 180 H 11/11/22 15:05: Sodium 134 L, Potassium 3.3 L, Chloride 108 H, Carbon Dioxide 12 L, Anion Gap 17.3 H, BUN 7, Creatinine 0.50 L, Estimated Creat Clear 172, Estimated GFR 128, Est GFR ( Amer) 154, Glucose 197 H, Calcium 8.2 L 11/11/22 15:05: Acetone Level Moderate 11/11/22 15:36: POC Glucose 204 H 11/11/22 17:04: POC Glucose 175 H 11/11/22 18:10: POC Glucose 179 H 11/11/22 18:50: Sodium 137, Potassium 3.4 L, Chloride 106, Carbon Dioxide 12 L, Anion Gap 22.4 H, BUN 7, Creatinine 0.40 L, Estimated Creat Clear 215, Estimated GFR 165, Est GFR ( Amer) 200 D, Glucose 202 H, Calcium 8.0 L 11/11/22 19:04: POC Glucose 192 H 11/11/22 20:35: POC Glucose 215 H 11/11/22 22:26: POC Glucose 144 H 11/11/22 23:32: POC Glucose 144 H 11/12/22 00:19: Sodium 133 L, Potassium 3.5, Chloride 109 H, Carbon Dioxide 14 L, Anion Gap 13.5, BUN 6 L, Creatinine 0.40 L, Estimated Creat Clear 215, Estimated GFR 165, Est GFR ( Amer) 200, Glucose 150 H D, Calcium 7.9 L 11/12/22 00:27: POC Glucose 136 H 11/12/22 01:49: POC Glucose 135 H 11/12/22 02:56: POC Glucose 158 H 11/12/22 03:15: Acetone Level Moderate 11/12/22 03:15: Sodium 133 L, Potassium 3.4 L, Chloride 109 H, Carbon Dioxide 14 L, Anion Gap 13.4, BUN 5 L, Creatinine 0.30 L D, Estimated Creat Clear 287, Estimated GFR 230, Est GFR ( Amer) 278 D, Glucose 15
[2022-11-12 08:41] LABS: Chloride 107 mmol/L (98-107); Potassium 3.4 mmoL/L (3.5-5.1); Sodium 137 mmol/L (136-145)
[2022-11-12 08:43] LABS: Alanine Aminotransferase 11 U/L (12-78); Alkaline Phosphatase 93 U/L (38-126); Aspartate Amino Transferase 16 U/L (14-36); Bilirubin,Total 0.5 mg/dl (0.2-1.3); Blood Urea Nitrogen 5 mg/dl (7-17); Creatinine Clearance Estimated 224 mL/min (50-200); Estimated Glomerular Filt Rate 165 ml/min (>60); GFR (African American) 200 ML/MIN (>60)
[2022-11-12 08:44] LABS: Albumin Level 3.1 g/dl (3.5-5.0); Albumin/Globulin Ratio 0.9 (1.1-1.8); Anion Gap 19.4 mEq/L (5-15); Carbon Dioxide 14 mmol/L (22.0-30.0); Globulin 3.5 g/dL (1.3-3.2); Glucose 192 mg/dl (74-100); Total Protein,Serum 6.6 g/dl (6.3-8.2)
[2022-11-12 09:11] LABS: POC Glucose,Bedside 187 (70-110)
--- NOTE | 2022-11-12 10:01 | EXP.PHA.PN ---
Subjective *Date: 11/12/22 *Time: 10:01 Medical Exam Vital signs and Labs for Last 24 Hours: Vital Signs Temp Pulse Pulse Resp BP Pulse Ox FiO2 11/12/22 08:00 97.7 F 88 19 167/67 H 99 11/12/22 06:00 81 20 171/61 H 97 11/12/22 06:00 75 11/12/22 06:00 76 11/12/22 04:00 70 11/12/22 04:00 98.4 F 11/12/22 04:00 74 20 142/49 H 99 11/12/22 00:00 70 11/12/22 02:00 64 18 145/62 H 98 11/12/22 00:00 98.4 F 69 20 159/72 H 99 11/11/22 20:00 80 11/11/22 22:00 64 20 157/66 H 99 11/11/22 20:00 68 20 147/53 H 95 11/11/22 20:00 97.7 F 11/11/22 19:02 83 11/11/22 19:02 79 11/11/22 19:02 100 21 11/11/22 18:00 81 18 156/73 H 98 11/11/22 16:00 70 11/11/22 15:07 97.6 F 11/11/22 14:00 74 18 158/83 H 11/11/22 13:35 73 11/11/22 13:35 73 11/11/22 13:35 98 11/11/22 11:12 98.0 F Intake and Output 11/11/22 11/12/22 11/12/22 23:59 07:59 15:59 Intake Total 240 / 2959 480 / 480 Output Total 150 / 450 200 / 200 Balance 90 / 2509 -200 / 280 480 / 280 Intake: Intake, Oral Amount 240 / 660 480 / 480 Output: Output, Urine Amount 150 / 450 200 / 200 Other: Number of Unmeasured Voids 1 Weight 90.265 kg Patient Weight 11/12/22 23:59 Weight 90.265 kg Laboratory Results - last 24 hr 11/11/22 09:59: POC Glucose 193 H 11/11/22 10:47: POC Glucose 184 H 11/11/22 10:55: Sodium 135 L, Potassium 3.5, Chloride 110 H, Carbon Dioxide 12 L, Anion Gap 16.5 H, BUN 8, Creatinine 0.50 L, Estimated Creat Clear 172, Estimated GFR 128, Est GFR ( Amer) 154, Glucose 177 H, Calcium 8.0 L 11/11/22 10:55: WBC 12.9 H, RBC 4.42, Hgb 13.3, Hct 42.2, MCV 95.3, MCH 30.0, MCHC 31.5 L, RDW 14.9, Plt Count 385, MPV 8.1, Neut % (Auto) 75.3, Lymph % (Auto) 17.5, [place] % (Auto) 5.0, Eos % (Auto) 0.5, Baso % (Auto) 1.5, Neut # (Auto) 9.7 H, Lymph # (Auto) 2.3, [place] # (Auto) 0.7, Eos # (Auto) 0.1, Baso # (Auto) 0.2 11/11/22 11:59: POC Glucose 169 H 11/11/22 12:06: Specimen Source Right radial, O2 % Room air, ABG pH 7.35, ABG pCO2 24.9 L, ABG pO2 85.3, ABG HCO3 13.3 L, ABG Total CO2 14.0 L, ABG O2 Saturation 97, ABG Base Excess -12.4 L, Zack Test Acceptable 11/11/22 12:56: POC Glucose 149 H 11/11/22 14:10: POC Glucose 180 H 11/11/22 15:05: Sodium 134 L, Potassium 3.3 L, Chloride 108 H, Carbon Dioxide 12 L, Anion Gap 17.3 H, BUN 7, Creatinine 0.50 L, Estimated Creat Clear 172, Estimated GFR 128, Est GFR ( Amer) 154, Glucose 197 H, Calcium 8.2 L 11/11/22 15:05: Acetone Level Moderate 11/11/22 15:36: POC Glucose 204 H 11/11/22 17:04: POC Glucose 175 H 11/11/22 18:10: POC Glucose 179 H 11/11/22 18:50: Sodium 137, Potassium 3.4 L, Chloride 106, Carbon Dioxide 12 L, Anion Gap 22.4 H, BUN 7, Creatinine 0.40 L, Estimated Creat Clear 215, Estimated GFR 165, Est GFR ( Amer) 200 D, Glucose 202 H, Calcium 8.0 L 11/11/22 19:04: POC Glucose 192 H 11/11/22 20:35: POC Glucose 215 H 11/11/22 22:26: POC Glucose 144 H 11/11/22 23:32: POC Glucose 144 H 11/12/22 00:19: Sodium 133 L, Potassium 3.5, Chloride 109 H, Carbon Dioxide 14 L, Anion Gap 13.5, BUN 6 L, Creatinine 0.40 L, Estimated Creat Clear 215, Estimated GFR 165, Est GFR ( Amer) 200, Glucose 150 H D, Calcium 7.9 L 11/12/22 00:27: POC Glucose 136 H 11/12/22 01:49: POC Glucose 135 H 11/12/22 02:56: POC Glucose 158 H 11/12/22 03:15: Acetone Level Moderate 11/12/22 03:15: Sodium 133 L, Potassium 3.4 L, Chloride 109 H, Carbon Dioxide 14 L, Anion Gap 13.4, BUN 5 L, Creatinine 0.30 L D, Estimated Creat Clear 287, Estimated GFR 230, Est GFR ( Amer) 278 D, Glucose 159 H, Calcium 7.8 L 11/12/22 04:03: POC Glucose 143 H 11/12/22 05:18: POC Glucose 132 H 11/12/22 06:16: POC Glucose 151 H 11/12/22 07:23: POC Glucose 164 H 11/12/22 08:18: Sodium 137, Potassium 3.4 L, Chloride 107, Carbon Dioxide 14 L, Anion Gap 19.4 H, BUN
--- NOTE | 2022-11-12 10:30 | PC.NURSE ---
courtesy tech note; rounded on pt, pt denied the need to use the restroom, need for a drink, and need to reposition at this time. call light within reach, no further requests at this time. Francesco Martines, SRNA
[2022-11-12 11:05] LABS: POC Glucose,Bedside 177 (70-110)
--- NOTE | 2022-11-12 15:46 | PC.NURSE ---
courtesy tech note; 0300 rounded on pt, pt denied need to void, need for drink, and need to reposition in bed, call light within reach, no further requests at this time. K Conrad, SRNA
--- NOTE | 2022-11-12 16:00 | PC.NURSE ---
PT IS RESTING IN BED WITH FAMILY AT BEDSIDE. PT HAS AMBULATED TO THE BATHROOM. EATING AND DRINKING FAIR. LUNG SOUNDS CLEAR. ABDOMEN SOFT/NON TENDER WITH ACTIVE BOWEL SOUNDS. WILL CONTINUE TO MONITOR.
[2022-11-12 16:01] LABS: POC Glucose,Bedside 210 (70-110)
[2022-11-12 20:21] LABS: POC Glucose,Bedside 197 (70-110)
[2022-11-13] VITALS: BP 154/57; PULSE 71; RESP 16; TEMP 36.8; O2SAT 99
[2022-11-13 04:00] VITALS: BP 153/68; PULSE 66; RESP 18; TEMP 36.7; O2SAT 97; BMI 31.6
[2022-11-13 06:19] VITALS: PULSE 95; PULSE 96; O2SAT 98
[2022-11-13 06:22] LABS: POC Glucose,Bedside 145 (70-110)
[2022-11-13 07:51] VITALS: BP 159/68; PULSE 94; RESP 18; TEMP 36.4; O2SAT 99
[2022-11-13 11:12] LABS: POC Glucose,Bedside 271 (70-110)
[2022-11-13 11:25] LABS: Chloride 101 mmol/L (98-107); Sodium 138 mmol/L (136-145)
[2022-11-13 11:26] LABS: Potassium 3.8 mmoL/L (3.5-5.1)
[2022-11-13 11:28] LABS: Blood Urea Nitrogen 7 mg/dl (7-17); Creatinine Clearance Estimated 171 mL/min (50-200); Estimated Glomerular Filt Rate 128 ml/min (>60); GFR (African American) 154 ML/MIN (>60)
[2022-11-13 11:29] LABS: Anion Gap 16.8 mEq/L (5-15); Basophils # 0.1 K/mm3 (0-0.2); Basophils % 1.3 % (0.1-2.0); Calcium 8.9 mg/dl (8.4-10.2); Carbon Dioxide 24 mmol/L (22.0-30.0); Eosinophils # 0.1 K/mm3 (0.0-0.4); Glucose 285 mg/dl (74-100); Hematocrit 43.9 % (37.0-47.0); Hemoglobin 14.2 g/dL (12.2-16.2); Lymphocytes # 1.9 K/mm3 (0.7-4.5); Lymphocytes % 17.9 % (10-50); Mean Corpuscular HGB Conc 32.3 g/dL (31.8-35.4); Mean Corpuscular Hemoglobin 30.5 pg (27.0-31.2); Mean Corpuscular Volume 94.4 fl (81-99); Mean Platelet Volume 8.4 fl (7.4-10.4); Monocytes # 0.5 K/mm3 (0.1-1.0); Monocytes % 4.9 % (1.7-9.3); Neutrophils % 74.9 % (37.0-80.0); Platelet Count 399 K/mm3 (142-424); Red Blood Count 4.65 M/mm3 (4.20-5.40); Red Cell Distribution Width 14.9 % (11.5-17.5); White Blood Count 10.7 K/mm3 (4.8-10.8)
[2022-11-13 11:46] VITALS: BP 136/63; PULSE 70; RESP 18; TEMP 36.7; O2SAT 97
[2022-11-13 13:46] VITALS: PULSE 86; PULSE 89; O2SAT 97
--- NOTE | 2022-11-13 14:24 | EXP.ACUTE.PN ---
Subjective *Date: 11/13/22 *Time: 14:24 Interval history: Nurse just called stating Dr. Shipman requested I see his patient today. She is doing well, had a good night and is anxious to go home. She is tolerating a regular diet and labs have normalized. Medical Exam Vital signs and Labs for Last 24 Hours: Vital Signs Temp Pulse Pulse Resp BP Pulse Ox 11/13/22 13:46 89 11/13/22 13:46 86 11/13/22 13:46 97 11/13/22 11:46 98.0 F 70 18 136/63 97 11/13/22 07:51 97.6 F 94 H 18 159/68 H 99 11/13/22 06:19 95 H 11/13/22 06:19 96 H 11/13/22 06:19 98 11/13/22 04:00 98.0 F 66 18 153/68 H 97 11/13/22 00:00 98.2 F 71 16 154/57 H 99 11/12/22 20:00 98.2 F 81 16 141/66 H 97 11/12/22 18:53 77 11/12/22 18:53 77 11/12/22 15:31 98.3 F 71 18 180/67 H 97 Intake and Output 11/12/22 11/13/22 11/13/22 23:59 07:59 15:59 Intake Total 480 / 3917 720 / 720 Output Total 0 / 0 0 / 0 Balance 480 / 3717 0 / 720 720 / 720 Intake: Intake, Oral Amount 480 / 1200 720 / 720 Output: Output, Urine Amount 0 / 0 0 / 0 Other: Number of Voids 0 Number of Unmeasured Voids 1 1 Weight 189 lb 12.8 oz Patient Weight 11/13/22 23:59 Weight 189 lb 12.8 oz Laboratory Results - last 24 hr 11/12/22 15:53: POC Glucose 210 H 11/12/22 20:14: POC Glucose 197 H 11/13/22 06:15: POC Glucose 145 H 11/13/22 11:00: POC Glucose 271 H 11/13/22 11:12: WBC 10.7, RBC 4.65, Hgb 14.2, Hct 43.9, MCV 94.4, MCH 30.5, MCHC 32.3, RDW 14.9, Plt Count 399, MPV 8.4, Neut % (Auto) 74.9, Lymph % (Auto) 17.9, [place] % (Auto) 4.9, Eos % (Auto) 1.0, Baso % (Auto) 1.3, Neut # (Auto) 8.0 H, Lymph # (Auto) 1.9, [place] # (Auto) 0.5, Eos # (Auto) 0.1, Baso # (Auto) 0.1 11/13/22 11:12: Sodium 138, Potassium 3.8, Chloride 101, Carbon Dioxide 24, Anion Gap 16.8 H, BUN 7 D, Creatinine 0.50 L D, Estimated Creat Clear 171, Estimated GFR 128, Est GFR ( Amer) 154 D, Glucose 285 H, Calcium 8.9 I & O for Labs for Last 24 Hours: Intake & Output 11/10/22 11/11/22 11/12/22 11/13/22 23:59 23:59 23:59 23:59 Intake Total 2974 / 4185 2959 / 2959 3917 / 3917 720 / 720 Output Total 1800 / 1800 450 / 450 200 / 200 0 / 0 Balance 1174 / 2385 2509 / 2509 3717 / 3717 720 / 720 Weight 190 lb 7.67 oz 191 lb 5 oz 199 lb 189 lb 12.8 oz Constitutional: Present no acute distress Respiratory: Present CTA bilaterally Cardiac: Present Reg Rate and Rhythm GI: Present soft; Absent distention or tenderness Extremities: Absent edema Skin: Present warm Neuro: Present alert and awake Assessment and Plan *Assessment and plan (1) Diabetes mellitus: Status: Chronic Qualifiers: Diabetes mellitus type: type 2 Diabetes mellitus intermediate manager insulin use: with long-term use Diabetes mellitus complication status: with hyperglycemia Qualified Code(s): E11.65 - Type 2 diabetes mellitus with hyperglycemia; Z79.4 - halfway (current) use of insulin Category: Medical Code(s): E11.9 - Type 2 diabetes mellitus without complications (2) Hyperlipidemia due to type 2 diabetes mellitus: Status: Chronic Category: Medical Code(s): E11.69 - Type 2 diabetes mellitus with other specified complication; E78.5 - Hyperlipidemia, unspecified (3) Coronary artery disease: Status: Chronic Qualifiers: Coronary Disease-Associated Artery/Lesion type: [place] artery [place] vs. transplanted heart: [place] heart Associated angina: with other forms of angina Qualified Code(s): I25.118 - Atherosclerotic heart disease of [place] coronary artery with other forms of angina pectoris Category: Medical Code(s): I25.10 - Atherosclerotic heart disease of [place] coronary artery without angina pectoris (4) DKA (diabetic ketoacidosis): Status: Acute Category: Medical Code(s): E11.10 - Type 2 diabetes mellitus with ketoacidosis without coma (5
--- NOTE | 2022-11-13 15:00 | HMH.PHAINT1 ---
Pharmacy Intervention Comments: DISCHARGE MEDICATION COUNSELING PROVIDED. DISCUSSED CEFDINIR (ANTIBIOTIC, EVERY 12 HOURS, TAKE WITH FOOD, N/V/D POSSIBLE) AND AZITHROMYCIN (ANTIBIOTIC, DAILY, HAD A DOSE TODAY SO START TOMORROW, TAKE WITH FOOD, N/V/D POSSIBLE). PATIENT VERBALIZED NO QUESTIONS AT THIS TIME.
--- NOTE | 2022-11-15 15:25 | CARE MANAGER ---
Spoke with patient for post-discharge phone interview, no issues noted.
--- NOTE | 2022-11-22 16:09 | EXP.DC.SUM ---
General Admission date:: 11/09/22 Discharge date: 11/13/22 HPI HPI HPI: Ms. Swan is a 56-year-old female who presented to the office of [facility] with shortness of breath. She describes not eating since the end of last week because of nausea and vomiting. She denies having any diarrhea.. She was seen at [facility] [place] on 11/06/2022 and had a full upper respiratory panel which was all negative. She was treated for bronchitis with doxycycline. She felt like she was in a fog. She was to return to work today but she was unable to function because she felt so badly. She was seen by Dr. Hansen in the office and started on doxycycline and promethazine for nausea. She had laboratory work done she was sent to the emergency room because of laboratory results. With evaluation in the emergency room she was noted to be pale, clammy, and feeling foggy. She complained of weakness and mild shortness of breath. Blood sugars were high and she was felt to be in DKA. She denied abdominal pain nausea, vomiting, and diarrhea. She had no chills or fever. Blood sugar at this time was 297. D-dimer was elevated at 1.24. anion gap was 28.8 and BUN was 35 and creatinine 1.3. ABGs showed a pH of 7.22 PCO2 of 18.2 PO2 of 103.9 and bicarb of 7.3. She was given a liter of IV fluids and started on an insulin drip. She was then started on potassium in IVF at at 150 an hour. Acetone was large. Chest CTA revealed the following: MPRESSION: No large or central pulmonary embolism.? ? Precarinal and subcarinal adenopathy.? ? Right lung opacity most worrisome for pneumonia. Abdomen/pelvis CT revealed no evidence of acute intra-abdominal process no evidence of acute intra-abdominal process pneumonia. At the time of this exam patient is feeling much better. Hospital Course Hospital Course Hospital Course: The patient had not had any nausea or vomiting for 2 to 3 days prior to admission. She was started on a bland diabetic diet and Rocephin and DuoNebs were added for pneumonia. Some of her home medications were ordered and she remained on an insulin drip and IV fluids. Of note, she had skipped doses of her medication at home. She was taking Basaglar 30 units in the evening, therefore she was started on 20 units while in the hospital. She was also started on Advair. The patient did begin improving. She was nauseated and had been unable to eat, but her breathing had improved. She was started on Zofran for nausea. Her renal function stabilized and her white blood cell count improved. Her acetone level was still elevated. By 11/10/2022. Her diet was advance. Her nausea improved with Zofran. Her glucose continue to improve and her anion gap closed. Her IV insulin was discontinued and she was started on sliding scale along with insulin glargine. Her IV fluids were continued as she was not eating and drinking well. By 11/13/2022 she was feeling well and anxious to go home. Her diet has been advanced and she was tolerating a regular diet. Her labs that are normalized. She was stable to be discharged home on Zithromax and cefdinir. Exam Data for Last 24 hours Vital signs and Labs for Last 24 Hours: Temp Pulse Resp BP Pulse Ox FiO2 98.0 F 89 18 136/63 97 21 11/13/22 11:46 11/13/22 13:46 11/13/22 11:46 11/13/22 11:46 11/13/22 13:46 11/11/22 19:02 Narrative: Constitutional Constitutional: no acute distress Comments: Sitting on the bedside talking with her family.? She states she feels wonderful at present *Routine HEENT Exam Head: Present normocephalic and atraumatic Eye: Present PERRL; Absent conjunctival icterus or scleral injection ENT: Present mucous membranes dry; Absent dentition normal *Routine Neck Exam Neck: Present carotid bruit (Bilateral); Absent lymphadenopathy or thyromegaly *Routine Respiratory Exam Respiratory: Present wheezes (Right in all lobes) *Routine Cardiovascular Exam Cardiovascular: Present RRR (Monitor showin
== END 2022-11-13 15:42 | disposition home or self-care (01) | DRG 637 ==
LOC: ER 15:04 → 2ND 20:19
PROVIDERS: Family Medicine; Internal Medicine Adolescent Medicine; Nurse Practitioner Family; Student in an Organized Health Care Education/Training Program; Admitting Provider Family Medicine; Emergency Provider Emergency Medicine; PCP Family Medicine; Visit Provider Family Medicine
DX: E11.10 Type 2 diabetes mellitus with ketoacidosis without coma (principal); J18.9 Pneumonia, unspecified organism; Z79.4 Long term (current) use of insulin; Z87.891 Personal history of nicotine dependence; E78.5 Hyperlipidemia, unspecified; E11.69 Type 2 diabetes mellitus with other specified complication; I25.10 Atherosclerotic heart disease of native coronary artery without angina pectoris; K52.9 Noninfective gastroenteritis and colitis, unspecified; R04.0 Epistaxis; Z95.5 Presence of coronary angioplasty implant and graft
CPT/HCPCS: 36415; 71275; 74177; 80048; 80053; 81001; 82009; 82803; 82962; 83605; 83735; 83880; 84100; 84443; 84484; 85007; 85025; 85378; 93005; 94640; 99291; C9803; J0696; J2405; Q9967; U0003; U0005

== ENCOUNTER → 2023-03-09 12:03 | Outpatient (CLI) | payer BC, SELFPAY ==
[2023-03-09 13:51] LABS: Ferritin 8.98 ng/ml (11.1-264)
[2023-03-09 14:05] LABS: Vitamin B12 854 pg/mL (239-931)
== END ==
PROVIDERS: PCP Family Medicine; Visit Provider Specialist
DX: E83.10 Disorder of iron metabolism, unspecified (principal); G25.81 Restless legs syndrome; G62.9 Polyneuropathy, unspecified
CPT/HCPCS: 36415; 82607; 82728

== ENCOUNTER 2023-04-05 08:56 | Day surgery (SDC) | payer BC, SELFPAY ==
[2023-04-01 12:15] VITALS: BMI 33.3
[2023-04-05] VITALS (7 sets, daily range): BP systolic 97–157; BP diastolic 47–85; PULSE 53–65; RESP 16–18; TEMP 36.4–36.6; O2SAT 93–97
[2023-04-05 09:24] LABS: POC Glucose,Bedside 103 (70-110)
--- NOTE | 2023-04-05 09:28 | P.PNANES_ITS ---
[facility] Disclaimer: The information contained in this section may have been updated after the patient was seen, as this information can be updated by other users. Medical History CAD (coronary artery disease) Colonoscopy planned Dizziness Elevated lipids GERD (gastroesophageal reflux disease) HTN (hypertension) Insulin dependent diabetes mellitus TRUONG on CPAP Puncture wound Surgical History Cholecystectomy planned H/O heart artery stent H/O: hysterectomy History of carpal tunnel release Hx of tooth extraction Family History Other Coronary artery disease Diabetes Family history of thyroid disease Respiratory failure Stroke Social History Smoking Status: Former smoker second hand exposure: No alcohol intake: never substance use type: denies use current occupational status: employed Travel in the last 8 weeks: None household members: spouse housing: house marital status: number of children: 3 number of grandchildren: 11 current occupation: [employer] current occupational exposures/hazards: No diet: diabetic caffeine: Yes [facility] Anesthesia Checklist Patient Identification Patient Identification: Arm Band and Verbal (Name & ) Structural Data Admitted From: Home Planned Operative Procedure/s: Colonoscopy Consent for Planned Operative Procedure(s) Verified: Yes NPO Status Verified Time NPO: 00:00 Additional verifications Anesthesia Reactions: No Hx Blood Transfusions: No Blood Transfusion Reaction: No Airway Assessment Mallampati Score:: Class II C-Spine Mobility Assessed: Yes TMJ Mobility Assessed: Yes Dentition: Good Dentition Neurological Assessment Level of Consciousness: Awake Hx Seizures: No Numbness or tingling in extremities: No Anesthesia Plan Anesthesia Risk discussed: Yes Anesthesia Plan: Verified ASA Class: III Anesthesia Type: MAC
--- NOTE | 2023-04-05 09:48 | P.PCN_ITS ---
Procedure: Date: 04/05/23 Patient Date of :: 1965 Procedure Performed:: Colonoscopy with polypectomy Indications:: History of colon polyps Performing Provider:: Santy Fuentes MD Referring Provider:: . Sedation:: Monitored anesthesia care Procedure:: After informed consent was obtained the patient was taken to the endoscopy suite. Sedation ensued after the patient was transferred to the left lateral d ecubitus position. Pulse, blood pressure, and oxygen saturation were monitored throughout the procedure. Digital rectal exam revealed no significant abnormality. The colonoscope was placed in position. The entire colon was evaluated. The colonoscope was carefully removed and the patient was transferred to recovery in stable condition. Please see findings and specimens below for detail. Findings:: Bowel preparation moderate to poor Large volume of dark/black liquid stool throughout colon Significant tortuosity Fairly severe lack of relaxation/spasticity Cecal polyp Specimens:: Cecal polyp (cold snare) Recommendations:: Hemoglobin/hematocrit ordered today Likely esophagogastroduodenoscopy near future UGI/SBFT followed by capsule endoscopy pending results of EGD Repeat colonoscopy in approximately 2 years with extended/alternate bowel preparation (timing pending results of pathology) Complications:: No immediate Estimated blood obtained (mL): 1 Colonoscopy Component Colonoscopy Component Was a colonoscopy performed during today's procedure?: Yes Recommended follow up colonoscopy of at least 10 years?: No If no, follow up colonoscopy recommended in ___ years?: 2 Reason for not recommending >/= 10 yr follow-up interval?: (See above)
[2023-04-05 10:20] LABS: Hematocrit 40.3 % (37.0-47.0); Hemoglobin 12.7 g/dL (12.2-16.2)
== END 2023-04-05 10:40 | disposition home or self-care (01) ==
PROVIDERS: PCP Family Medicine; Visit Provider Surgery
PROC: 0DJD8ZZ Inspection of Lower Intestinal Tract, Via Natural or Artificial Opening Endoscopic (ICD-10-PCS; CPT 45385; principal; 2023-04-05 10:00)
DX: Z12.11 Encounter for screening for malignant neoplasm of colon (principal); Z86.010 Personal history of colon polyps; K56.2 Volvulus; D12.0 Benign neoplasm of cecum; E11.9 Type 2 diabetes mellitus without complications
CPT/HCPCS: 45385; 82962; 85014; 85018; J2704

== ENCOUNTER 2023-04-26 06:35 | Day surgery (SDC) | payer BC, SELFPAY ==
[2023-04-22 10:13] VITALS: BMI 33.3
[2023-04-26 06:54] VITALS: BP 128/56; PULSE 76; RESP 18; TEMP 36.2; O2SAT 97
[2023-04-26 07:12] LABS: POC Glucose,Bedside 145 (70-110)
--- NOTE | 2023-04-26 07:33 | HMH.SCOPE ---
Procedure: Date: 04/26/23 Patient Date of :: 1965 Procedure Performed:: Esophagogastroduodenoscopy Indications:: Anemia Performing Provider:: Santy Fuentes MD Referring Provider:: . Sedation:: Monitored anesthesia care Procedure:: After informed consent was obtained the patient was taken to the endoscopy suite. Sedation ensued after the patient was transferred to the left lateral decubitus position. Pulse, blood pressure, and oxygen saturation were monitored throughout the procedure. The endoscope was advanced beyond the duodenal bulb. Retroflexion within the gastric lumen was accomplished. The gastroscope was carefully removed and the patient was transferred to recovery in stable condition. Please see findings and specimens below for detail. Findings:: Large volume of food particles throughout gastric lumen and proximal small bowel Visualization exceptionally limited secondary to above Specimens:: Antral biopsy Recommendations:: Follow-up pathology Consider UGI/SBFT Consider gastric emptying scan Complications:: Large volume food particles limiting visualization Estimated blood obtained (mL): 1 Colonoscopy Component Colonoscopy Component Was a colonoscopy performed during today's procedure?: No
[2023-04-26 07:34] VITALS: BP 126/52; PULSE 71; RESP 16; TEMP 36.5; O2SAT 94
[2023-04-26 07:44] VITALS: BP 98/51; PULSE 63; RESP 17; O2SAT 93
[2023-04-26 07:54] VITALS: BP 115/60; PULSE 70; RESP 17; O2SAT 97
[2023-04-26 08:06] VITALS: BP 116/52; PULSE 66; RESP 18; TEMP 36.3; O2SAT 96
== END 2023-04-26 08:10 | disposition home or self-care (01) ==
PROVIDERS: PCP Family Medicine; Visit Provider Surgery
PROC: 0DJ08ZZ Inspection of Upper Intestinal Tract, Via Natural or Artificial Opening Endoscopic (ICD-10-PCS; CPT 43235; principal; 2023-04-26 07:30)
DX: D64.9 Anemia, unspecified (principal); K29.50 Unspecified chronic gastritis without bleeding; E11.9 Type 2 diabetes mellitus without complications
CPT/HCPCS: 43239; 82962

== ENCOUNTER → 2023-04-27 07:43 | Outpatient (CLI) | payer BC, SELFPAY ==
--- NOTE | 2023-04-27 07:47 | MM_ITS ---
PROCEDURE INFORMATION: Exam: MG Bilateral Screening 3D Mammography Exam date and time: 04/27/2023 7:47 AM Age: 57 years old Clinical indication: Screening examination TECHNIQUE: Imaging protocol: Bilateral Screening tomosynthesis and 2D mammography including computer-aided detection (CAD) when performed. COMPARISON: 1. MG MM DIG MAMM BI DX W/CAD 03/14/2019 2:38 PM 2. MG DMSB DIG MAMM-SCREEN BRUNO W/CAD 03/31/2017 9:50 AM FINDINGS: MAMMOGRAPHY: Breast composition: There are scattered areas of fibroglandular density. Mass: None. Architectural distortion: None. Calcifications: No suspicious calcifications. Asymmetric density: None. Skin thickening: None. Axillary adenopathy: None. IMPRESSION: No mammographic evidence of malignancy. Annual screening is recommended unless otherwise clinically indicated. ASSESSMENT: BI-RADS Category 1: Negative
== END ==
PROVIDERS: PCP Family Medicine; Visit Provider Family Medicine
DX: Z12.31 Encounter for screening mammogram for malignant neoplasm of breast (principal)
CPT/HCPCS: 77063; 77067

== ENCOUNTER → 2023-05-04 09:40 | Outpatient (CLI) | payer BC, SELFPAY ==
[2023-05-04 10:12] LABS: Hematocrit 44.2 % (37.0-47.0); Hemoglobin 13.9 g/dL (12.2-16.2)
== END ==
PROVIDERS: PCP Family Medicine; Visit Provider Surgery
DX: D64.9 Anemia, unspecified (principal)
CPT/HCPCS: 36415; 85014; 85018

== ENCOUNTER → 2023-05-11 08:52 | Outpatient (CLI) | payer BC, SELFPAY ==
[2023-05-11 10:06] LABS: Free T4 (Free Thyroxine) 1.02 ng/dl (0.78-2.19)
[2023-05-11 10:22] LABS: Thyroid Stimulating Hormone 1.09 uIU/mL (0.465-4.68)
[2023-05-11 10:26] LABS: Ferritin 15.3 ng/ml (11.1-264)
[2023-05-11 10:45] LABS: Vitamin B12 > 1000 pg/mL (239-931)
[2023-05-12 13:58] LABS: Triiodothyronine (T3) Free 3.3 pg/mL (2.0-4.4)
[2023-05-16 09:21] LABS: Methylmalonic Acid 132 nmol/L (0-378)
== END ==
PROVIDERS: PCP Family Medicine; Visit Provider Specialist
DX: E53.8 Deficiency of other specified B group vitamins (principal); E83.10 Disorder of iron metabolism, unspecified; Z68.34 Body mass index [BMI] 34.0-34.9, adult
CPT/HCPCS: 36415; 82607; 82728; 83921; 84439; 84443; 84481

== ENCOUNTER → 2023-05-16 10:00 | Outpatient (CLI) | payer BC, SELFPAY ==
--- NOTE | 2023-05-16 10:03 | NM_ITS ---
FINAL REPORT TECHNIQUE: Sequential anterior images were obtained after the ingestion of 2 whole scrambled eggs and white toast with butter radiolabeled with 0.50 mCi technetium 99M sulfur colloid. CLINICAL HISTORY: nausea 10:15 am .50 mci tc sulfur colloid injected into 2 whole scramblled eggs and white toast with butter COMPARISON: None FINDINGS: GASTRIC EMPTYING SCAN Static images show normal emptying of the stomach into the small bowel. Based on the time activity curve, the estimated half-emptying time is 24 minutes which is within normal limits. IMPRESSION: Normal gastric emptying study. Reviewed, Interpreted and Dictated by Damon Mcconnell III, MD Transcribed by Asha Nielsen Authenticated and [facility]
== END ==
PROVIDERS: PCP Family Medicine; Visit Provider Surgery
DX: D64.9 Anemia, unspecified (principal); R11.0 Nausea
CPT/HCPCS: 78264; A9541

== ENCOUNTER → 2023-05-27 07:52 | Outpatient (CLI) | payer BC, SELFPAY ==
--- NOTE | 2023-05-27 07:53 | FL_ITS ---
FINAL REPORT CLINICAL HISTORY: . DAP:6215.65 TIME:2:35 FINDINGS: UPPER GI WITH SBFT HISTORY: Epigastric pain with nausea. Abnormal EGD. PROCEDURE: The patient ingested barium. Effervescent crystals were also administered. Spot and overhead films were obtained. Additional barium was administered for a SBFT. A total of 21 radiographs were obtained. Fluoro time: 2 minutes 35 seconds DAP: 6215.65 uGy.m2 FINDINGS: The esophagus is normal. There is a small sliding type hiatal hernia. Gastroesophageal reflux was demonstrated to the thoracic inlet. There is retained debris within the stomach. The rugal fold pattern of the stomach is normal. The duodenal bulb is normal. SBFT: The marine engine mechanic film is normal. There is no evidence of obstruction. The mucosal fold pattern is normal. The terminal ilium is normal. IMPRESSION: Small sliding-type hiatal hernia with gastroesophageal reflux. Retained debris within the stomach. Normal SBFT. Films reviewed , interpreted and dictated by Dr. Mcconnell. Transcribed by Bunny Lucero PA-C. Reviewed, Interpreted and Dictated by Damon Mcconnell III, MD Transcribed by AMANDEEP Lui Authenticated and [facility]
--- NOTE | 2023-05-27 07:57 | XR_ITS ---
FINAL REPORT CLINICAL HISTORY: pain COMPARISON: None FINDINGS: RIGHT HAND: 3 views of the right hand were obtained. There is no acute fracture or dislocation. Visualized joint spaces are normally aligned. Soft tissues are unremarkable. Mild degenerative changes present. IMPRESSION: No acute bony abnormality. Reviewed, Interpreted and Dictated by Damon Mcconnell III, MD Transcribed by Corie Howell Authenticated and [facility]
--- NOTE | 2023-05-27 07:57 | XR_ITS ---
FINAL REPORT CLINICAL HISTORY: WRIST JOINT PAIN COMPARISON: None FINDINGS: LEFT HAND: 3 views of the left hand were obtained. There is no acute fracture or dislocation. Visualized joint spaces are normally aligned. Mild degenerative changes present. There is increased density adjacent to the first interphalangeal joint, that may represent either chronic calcification or may be in the superficial soft tissues. IMPRESSION: No acute bony abnormality. Reviewed, Interpreted and Dictated by Damon Mcconnell III, MD Transcribed by Corie Howell Authenticated and [facility]
[2023-05-27 09:50] LABS: Basophils # 0.1 K/mm3 (0-0.2); Eosinophils # 0.3 K/mm3 (0.0-0.4); Eosinophils % 3.1 % (0.1-12.0); Hemoglobin 14.4 g/dL (12.2-16.2); Lymphocytes # 2.4 K/mm3 (0.7-4.5); Lymphocytes % 28.1 % (10-50); Mean Corpuscular HGB Conc 32.7 g/dL (31.8-35.4); Mean Corpuscular Hemoglobin 29.6 pg (27.0-31.2); Mean Corpuscular Volume 90.4 fl (81-99); Mean Platelet Volume 7.7 fl (7.4-10.4); Monocytes # 0.5 K/mm3 (0.1-1.0); Monocytes % 5.3 % (1.7-9.3); Neutrophils # 5.4 K/mm3 (1.8-7.8); Neutrophils % 62.4 % (37.0-80.0); Platelet Count 329 K/mm3 (142-424); Red Blood Count 4.87 M/mm3 (4.20-5.40); Red Cell Distribution Width 15.6 % (11.5-17.5); White Blood Count 8.6 K/mm3 (4.8-10.8)
[2023-05-27 10:14] LABS: Erythrocyte Sedimentation Rate 11 mm/hr (0-30)
[2023-05-27 10:18] LABS: Chloride 108 mmol/L (98-107); Potassium 4.6 mmoL/L (3.5-5.1); Sodium 142 mmol/L (136-145)
[2023-05-27 10:21] LABS: Alanine Aminotransferase 38 U/L (12-78); Albumin Level 4.5 g/dl (3.5-5.0); Albumin/Globulin Ratio 1.6 (1.1-1.8); Alkaline Phosphatase 83 U/L (38-126); Anion Gap 14.6 mEq/L (5-15); Aspartate Amino Transferase 32 U/L (14-36); Blood Urea Nitrogen 18 mg/dl (7-17); Carbon Dioxide 24 mmol/L (22.0-30.0); Estimated Glomerular Filt Rate 127 ml/min (>60); GFR (African American) 154 ML/MIN (>60); Globulin 2.8 g/dL (1.3-3.2); Glucose 150 mg/dl (74-100); Total Protein,Serum 7.3 g/dl (6.3-8.2)
[2023-05-27 10:26] LABS: C-Reactive Protein 2.7 mg/L (0-4)
[2023-05-27 10:33] LABS: Bilirubin,Total 0.1 mg/dl (0.2-1.3)
[2023-05-27 11:58] LABS: Uric Acid 4.8 mg/dl (2.5-6.2)
[2023-05-28 09:12] LABS: RA Latex Turbid. <10.0 IU/mL (<14.0)
[2023-06-02 12:08] LABS: Antinuclear Antibodies, IFA Positive
== END ==
LOC: RAD 07:53
PROVIDERS: PCP Family Medicine; Visit Provider Surgery
DX: D64.9 Anemia, unspecified (principal); M25.541 Pain in joints of right hand; M25.542 Pain in joints of left hand
CPT/HCPCS: 36415; 73130; 74246; 74248; 80053; 84550; 85025; 85651; 86038; 86140; 86431

== ENCOUNTER 2023-07-20 08:00 | Outpatient (RCR) | payer BC, SELFPAY | END 2023-07-20 09:00 | disposition home or self-care (01) | LOC: OT 08:00 | PROVIDERS: PCP Family Medicine; Visit Provider Physician Assistant | DX: M25.531 Pain in right wrist (principal); M25.532 Pain in left wrist; M19.041 Primary osteoarthritis, right hand; M19.042 Primary osteoarthritis, left hand | CPT/HCPCS: 97010; 97014; 97035; 97140; 97165; 97530; G0283 ==

== ENCOUNTER 2023-08-31 08:00 | Outpatient (RCR) | payer BC, SELFPAY | END 2023-08-31 09:00 | disposition home or self-care (01) | LOC: OT 08:00 | PROVIDERS: PCP Psychiatry & Neurology Sleep Medicine; Visit Provider Physician Assistant | DX: M65.331 Trigger finger, right middle finger (principal); M65.4 Radial styloid tenosynovitis [de Quervain]; G56.02 Carpal tunnel syndrome, left upper limb | CPT/HCPCS: 97010; 97014; 97035; 97110; 97140; 97167; G0283 ==

== ENCOUNTER 2024-01-14 12:35 | Emergency (ER) | payer BC, SELFPAY ==
[2024-01-14 12:45] VITALS: BP 161/61; PULSE 67; RESP 18; TEMP 36.6; O2SAT 96; BMI 33.3
[2024-01-14 13:00] LABS: Apearance,Urine Clear (Clear); Color,Urine Orange (Yellow); Protein,Urine Negative (Negative); Specific Gravity, Urine 1.005 (1.005-1.030)
[2024-01-14 13:01] LABS: Bilirubin,Urine Negative (Negative); Blood, Urine 3+ (Negative); Glucose,Urine (UA) 1000 (Negative); Ketones,Urine Negative (Negative); UTC Leukocyte Esterase,Urine 1+ (Negative); UTC Nitrate,Urine Positive (Negative); Urobilinogen,Urine 1 EU/dl (0.2)
--- NOTE | 2024-01-14 13:06 | ED_ITS ---
Discharge Plan Disposition Patient Disposition: Home, Self-Care Condition: Good Prescriptions Prescriptions: New phenazopyridine [Pyridium] 200 mg tablet 200 mg PO Q8H 2 Days Qty: 6 0RF ondansetron 4 mg Tablet,Disintegrating 4 mg PO Q8H PRN (Reason: Nausea) Qty: 8 0RF nitrofurantoin monohyd/m-cryst [Macrobid] 100 mg Capsule 100 mg PO BID Qty: 10 0RF Rx Instructions: must administer with a meal/food No Action aspirin [Adult Low Dose Aspirin] 81 mg tablet,delayed release (DR/EC) 81 mg PO DAILY omeprazole 20 mg capsule,delayed release(DR/EC) 20 mg PO DAILY venlafaxine 75 mg capsule,extended release 24hr 75 mg PO DAILY benazepril 10 mg tablet 10 mg PO DAILY clopidogrel 75 mg tablet 75 mg PO DAILY Jardiance 25 mg tablet 25 mg PO DAILY metformin 500 mg tablet 1,000 mg PO BID Novolog FlexPen U-100 Insulin 100 unit/mL (3 mL) insulin pen 3 unit SQ BID triamterene-hydrochlorothiazid 37.5-25 mg tablet 1 tab PO DAILY ascorbic acid (vitamin C) 1,000 mg tablet 1 g PO DAILY zinc sulfate 50 mg zinc (220 mg) tablet 50 mg PO DAILY mecobalamin (vitamin B12) 1,000 mcg tablet,disintegrating 1,000 mcg SL DAILY metoprolol tartrate 25 mg tablet 25 mg PO BID ferrous sulfate 325 mg (65 mg iron) tablet 325 mg PO DAILY MDD 325 mg Qty: 90 3RF atorvastatin 40 MG tablet 40 mg PO DAILY insulin glargine [Basaglar KwikPen U-100 Insulin] 100 unit/mL (3 mL) Insulin Pen 25 unit SQ Referrals Follow up/Referrals: Dusty Shipman MD [Primary Care Provider] - See instructions Activity Restrictions/Add. Instructions Additional Instructions/Restrictions: Drink plenty of fluids. Take tylenol or ibuprofen for pain or fever. Take the medications as directed. Follow up with your regular doctor. GO TO THE ER FOR ANY WORSENING SYMPTOMS The pyridium will make your urine turn orange, this is an expected side effect. It will stain your clothes if it comes into contact with them. We will culture the urine. That will tell what bacteria is causing your infection and which antibiotics will treat it best. Sometimes the first antibiotic we prescribe turns out to not work against different bacteria. So, make sure you follow up within 3 days if you are not getting better. Clinical Impressions Clinical Impression: UTI (urinary tract infection) Instructions Patient Instructions: Urine Culture, DI for Urinary Tract Infection (UTI), Ondansetron, Phenazopyridine Discharge ED Provider: Pj Ramirez [facility] HPI General Stated complaint: pain and frequent urination Mode of Arrival: Ambulatory Source of Information: Patient Limitations: No Limitations Time Seen by Provider: 01/14/24 13:06 Description of Symptoms (Recalled from Triage Doc. by RN): Pt's symptoms are lower back pain, urinary frequency, and burning with urination. HEENT Symptoms (Recalled from RN notes): No Resp Symptoms (Recalled from RN notes): No Skin Symptoms (Recalled from RN notes): No MS Symptoms (Recalled from RN notes): No Functional Status (Recalled from RN notes): n/a History of Present Illness Provider Complaint: She states that for the past 2 days she has had low back pain, dysuria, urinary frequency and malaise. She gets uti's occasionally and that is what she feel like she has now. Related Data Home Medications Medication Instructions Recorded Confirmed aspirin 81 mg tablet,delayed 81 mg PO DAILY Blood thinner 02/14/19 09/26/23 release (Adult Low Dose Aspirin) benazepril 10 mg tablet 10 mg PO DAILY High blood pressure 02/14/19 09/26/23 clopidogrel 75 mg tablet 75 mg PO DAILY Blood thinner 02/14/19 09/26/23 empagliflozin 25 mg tablet 25 mg PO DAILY Diabetes 02/14/19 09/26/23 (Jardiance) insulin aspart U-100 100 unit/mL 3 unit SQ BID Diabetes 02/14/19 09/26/23 (3 mL) subcutaneous pen (Novolog FlexPen U-100 Insulin aspart) metformin 500 mg tablet 1,000 mg PO BID Diabetes 02/14/19 09/26/23 omeprazole 20 mg capsule,delayed 20 mg PO DAILY Acid reflux 02/14/19 09/26/23 release venlafaxine 75 mg capsule,extended 75 mg PO DAILY mood 02/14/19 09/26/23 release 24 hr triamterene 37.5 1 tab PO DAILY Fluid 09/19/19 09/26/23 mg-hydrochlorothiazide 25 mg tablet atorvastatin 40 mg tablet 40 mg PO DAILY Cholesterol 08/19/20 09/26/23 metoprolol tartrate 25 mg tablet 25 mg PO BID High blood pressure 11/24/20 09/26/23 ascorbic acid (vitamin C) 1,000 mg 1 g PO DAILY Supplement 02/15/22 09/26/23 tablet zinc sulfate 50 mg zinc (220 mg) 50 mg PO DAILY Supplement 02/15/22 09/26/23 tablet mecobalamin (vitamin B12) 1,000 1,000 mcg sublingual DAILY 03/15/22 09/26/23 mcg disintegrating Supplement tablet,sublingual insulin glargine 100 unit/mL (3 25 unit SQ HS Diabetes 11/10/22 09/26/23 mL) subcutaneous pen (Basaglar KwikPen U-100 Insulin) Previous Rx's Medication Instructions Recorded ferrous sulfate 325 mg (65 mg 325 mg PO DAILY Iron deficiency 03/09/23 iron) tablet #90 tabs nitrofurantoin 100 mg PO BID #10 caps 01/14/24 monohydrate/macrocrystals 100 mg capsule (Macrobid) ondansetron 4 mg disintegrating 4 mg PO Q8H PRN Nausea #8 tabs 01/14/24 tablet phenazopyridine 200 mg tablet 200 mg PO Q8H 2 days #6 tabs 01/14/24 (Pyridium) Allergies Allergy/AdvReac Type Severity Reaction Status Date / Time No Known Allergies Allergy Verified 01/14/24 12:59 Worker's Comp Is this a Worker's Comp case?: No [facility] Disclaimer: The information contained in this section may have been updated after the patient was seen, as this information can be updated by other users. Medical History CAD (coronary artery disease) Colonoscopy planned Dizziness Elevated lipids GERD (gastroesophageal reflux disease) HTN (hypertension) Insulin dependent diabetes mellitus TRUONG on CPAP Puncture wound Sleep apnea Surgical History Cholecystectomy planned H/O heart artery stent H/O: hysterectomy History of carpal tunnel release History of cholecystectomy History of colonoscopy Hx of tooth extraction Family History Other Coronary artery disease Diabetes Family history of thyroid disease Respiratory failure Stroke Social History Smoking Status: Former smoker tobacco type: cigarettes and e-cigarettes second hand exposure: No alcohol intake: never substance use type: denies use current occupational status: employed Travel in the last 8 weeks: None household members: spouse housing: house marital status: number of children: 3 number of grandchildren: 11 current occupation: [employer] current occupational exposures/hazards: No diet: diabetic caffeine: Yes ROS Obtained: Yes All systems reviewed & no additional complaints except as documented Constitutional Constitutional: Reports system reviewed and no additional complaints, except as documented, Denies chills and Denies fever(s) Eyes Eyes: Denies eye discharge ENT Ears, Nose, Mouth, and Throat: Denies dysphagia, Denies sore throat and Denies throat swelling Cardiovascular Cardiovascular: Denies chest pain and Denies dyspnea Respiratory Respiratory: Denies chest congestion, Denies cough and Denies dyspnea Gastrointestinal Gastrointestingal: Denies abdominal pain, constipation, diarrhea, dysphagia, nausea or vomiting Genitourinary Female Genitourinary: Reports as per HPI, Reports dysuria, Reports urinary frequency, Denies urinary incontinence, Reports urinary hesitancy and Reports urinary urgency Musculoskeletal Musculoskeletal: Denies arthralgias and Reports back pain Integumentary/Breasts Skin/Breast: Denies rash Neurologic Neurologic: Denies paresthesias Allergic/Immunologic Allergic/Immunologic: Denies throat swelling Physical Exam General General appearance: alert and in no apparent distress Head Head exam: atraumatic and normocephalic Eye Eye exam: Present normal appearance, PERRL and EOMI ENT ENT exam: Present normal exam, mucous membranes moist, TM's normal bilaterally and normal external ear exam Neck Neck exam: Present normal inspection, full ROM and trachea midline; Absent tenderness, meningismus or lymphadenopathy Chest Chest inspection: Present normal inspection and symmetric chest wall rise; Absent tenderness Respiratory Respiratory exam: Present normal lung sounds bilaterally; Absent respiratory distress, wheezes or stridor Cardiovascular Cardiovascular exam: Present regular rate, normal rhythm and normal heart sounds Abdominal Exam Abdominal exam: Present soft and normal bowel sounds; Absent distention, tenderness, guarding, rebound, rigidity, incision, psoas sign, obturator sign, heel tap sign, Prater's sign, Rovsing's sign or tenderness at McBurney's Point Extremities Exam Extremities exam: Present normal inspection, full ROM and normal capillary refill; Absent tenderness, edema, joint swelling, calf tenderness or cyanosis Back Exam Back exam: Present normal inspection and full ROM; Absent tenderness, CVA tenderness (R) or CVA tenderness (L) Neurological Exam Neurological exam: Present alert, oriented X3 and normal gait Psychiatric Psychiatric exam: Present normal affect and normal mood Skin Skin exam: Present warm, dry, intact and normal color Lymphatic Lymphatic Findings: no adenopathy Medical Decision Making Medical Records Medical records reviewed: No I reviewed the patient's medical records. [place] Inquiry Pt receiving controlled substance: No Vital Signs: 01/14/24 12:45 Temperature 97.9 F Temperature Source Oral Pulse Rate [Right Radial] 67 Respiratory Rate 18 Blood Pressure [Right Arm] 161/61 H Blood Pressure Mean [Right Arm] 94 Blood Pressure Source [Right Arm] Automatic Cuff Blood Pressure Position [Right Arm] Sitting 02 Sat by Pulse Oximetry 96 Oxygen Delivery Method Room Air Lab Data Lab results reviewed: Yes I reviewed the patient's lab results. Lab Results 01/14/24 12:59: Urine Color [place], Urine Appearance Clear, Urine pH 5.0, Ur Specific [place] 1.005, Urine Protein Negative, Urine Glucose (UA) 1000, Urine Ketones Negative, Urine Blood 3+, Urine Nitrate Positive A, Urine Bilirubin Negative, Urine Urobilinogen 1, Ur Leukocyte Esterase 1+ A Orders (Tests/Meds): ORDERS Category Date Time Status Urine Culture Stat Micro 01/14/24 12:50 Received
[2024-01-14 13:23] VITALS: BP 161/61; PULSE 67; RESP 18; TEMP 36.6; O2SAT 96
--- NOTE | 2024-01-17 16:48 | PC.NURSE ---
Gabriela ROBLES APRN NOTIFIED OF URINE CULTURE RESULT. CURRENT ANTIBIOTIC RESISTANT TO ORGANISM. VERBAL ORDER FOR CIPRO 500 MG PO BID X 5 DAYS TO BE CALLED IN TO PHARMACY FOR PATIENT GIVEN BY Gabriela ROBLES APRN TO THIS NURSE. PATIENT NOTIFIED OF CULTURE RESULT AND NEW ANTIBIOTIC PRESCRIPTION AT THIS TIME. ALSO ADVISED PATIENT TO FOLLOW-UP WITH PCP.
--- NOTE | 2024-01-17 16:55 | PC.NURSE ---
NEW PRESCRIPTION FOR CIPRO CALLED IN TO [facility] AT THIS TIME
== END 2024-01-14 13:23 | disposition home or self-care (01) ==
PROVIDERS: Emergency Provider Nurse Practitioner Family; PCP Family Medicine
DX: N39.0 Urinary tract infection, site not specified (principal); B95.2 Enterococcus as the cause of diseases classified elsewhere; M54.59 Other low back pain; R30.0 Dysuria; R35.0 Frequency of micturition; R53.81 Other malaise
CPT/HCPCS: 81003; 87086; 87088; 87186; 99212; 99214; G0463

== ENCOUNTER 2024-02-13 09:02 | Outpatient (CLI) | payer BC, SELFPAY ==
[2024-02-13 10:38] LABS: Vitamin B12 479 pg/mL (239-931)
== END 2024-02-13 23:59 | disposition home or self-care (01) ==
LOC: LAB 09:03
PROVIDERS: PCP Family Medicine; Visit Provider Specialist
DX: E53.8 Deficiency of other specified B group vitamins (principal); G47.33 Obstructive sleep apnea (adult) (pediatric)
CPT/HCPCS: 36415; 82607

== ENCOUNTER 2024-07-24 12:18 | Emergency (ER) | payer BC, SELFPAY ==
--- NOTE | 2024-07-24 13:32 | EXP.UTC ---
Discharge Plan Disposition Patient Disposition: Home, Self-Care Condition: Good Prescriptions Prescriptions: New phenazopyridine [Pyridium] 200 mg tablet 200 mg PO Q8H 2 Days Qty: 6 0RF ondansetron 4 mg Tablet,Disintegrating 4 mg PO Q8H PRN (Reason: Nausea) Qty: 12 0RF nitrofurantoin monohyd/m-cryst [Macrobid] 100 mg Capsule 100 mg PO BID 5 Days Qty: 10 0RF Rx Instructions: must administer with a meal/food No Action aspirin [Adult Low Dose Aspirin] 81 mg tablet,delayed release (DR/EC) 81 mg PO DAILY omeprazole 20 mg capsule,delayed release(DR/EC) 20 mg PO DAILY venlafaxine 75 mg capsule,extended release 24hr 75 mg PO DAILY benazepril 10 mg tablet 10 mg PO DAILY Jardiance 25 mg tablet 25 mg PO DAILY metformin 500 mg tablet 1,000 mg PO BID Novolog FlexPen U-100 Insulin 100 unit/mL (3 mL) insulin pen 3 unit SQ BID ascorbic acid (vitamin C) 1,000 mg tablet 1 g PO DAILY zinc sulfate 50 mg zinc (220 mg) tablet 50 mg PO DAILY mecobalamin (vitamin B12) 1,000 mcg tablet,disintegrating 1,000 mcg SL DAILY metoprolol tartrate 25 mg tablet 25 mg PO BID Mounjaro 2.5 mg/0.5 mL pen injector 2.5 mg SQ QWEEK nitroglycerin [Nitrostat] 0.4 mg tablet, sublingual 0.4 mg sublingual Q5M PRN (Reason: chest pain) Qty: 20 0RF Rx Instructions: do not exceed 3 doses per episode ferrous sulfate 325 mg (65 mg iron) tablet 325 mg PO DAILY MDD 325 mg Qty: 90 3RF atorvastatin 40 MG tablet 40 mg PO DAILY insulin glargine [Basaglar KwikPen U-100 Insulin] 100 unit/mL (3 mL) Insulin Pen 25 unit SQ HS Referrals Follow up/Referrals: Dusty Shipman MD [Primary Care Provider] - See instructions Activity Restrictions/Add. Instructions Additional Instructions/Restrictions: Drink plenty of fluids. Take tylenol or ibuprofen for pain or fever. Take the medications as directed. Follow up with your regular doctor. GO TO THE ER FOR ANY WORSENING SYMPTOMS The pyridium will make your urine turn orange, this is an expected side effect. It will stain your clothes if it comes into contact with them. We will culture the urine. That will tell what bacteria is causing your infection and which antibiotics will treat it best.This test takes 3 days to complete. Clinical Impressions Clinical Impression: UTI (urinary tract infection) Stand Alone Forms Stand Alone Forms: Work/School Release Instructions Patient Instructions: Urine Culture, DI for Urinary Tract Infection (UTI), Phenazopyridine Print Language Print Language: Burkinan Discharge ED Provider: Pj Ramirez [facility] [place] General Stated complaint: painful urination Time Seen by Provider: 07/24/24 13:32 Related Data Home Medications ?Medication ?Instructions ?Recorded ?Confirmed aspirin 81 mg tablet,delayed 81 mg PO DAILY Blood thinner 02/14/19 06/06/24 release (Adult Low Dose Aspirin) benazepril 10 mg tablet 10 mg PO DAILY High blood pressure 02/14/19 06/06/24 empagliflozin 25 mg tablet 25 mg PO DAILY Diabetes 02/14/19 06/06/24 (Jardiance) insulin aspart U-100 100 unit/mL 3 unit SQ BID Diabetes 02/14/19 06/06/24 (3 mL) subcutaneous pen (Novolog FlexPen U-100 Insulin aspart) metformin 500 mg tablet 1,000 mg PO BID Diabetes 02/14/19 06/06/24 omeprazole 20 mg capsule,delayed 20 mg PO DAILY Acid reflux 02/14/19 06/06/24 release venlafaxine 75 mg capsule,extended 75 mg PO DAILY mood 02/14/19 06/06/24 release 24 hr atorvastatin 40 mg tablet 40 mg PO DAILY Cholesterol 08/19/20 06/06/24 metoprolol tartrate 25 mg tablet 25 mg PO BID High blood pressure 11/24/20 06/06/24 ascorbic acid (vitamin C) 1,000 mg 1 g PO DAILY Supplement 02/15/22 06/06/24 tablet zinc sulfate 50 mg zinc (220 mg) 50 mg PO DAILY Supplement 02/15/22 06/06/24 tablet mecobalamin (vitamin B12) 1,000 1,000 mcg sublingual DAILY 03/15/22 06/06/24 mcg disintegrating Supplement tablet,sublingual insulin glargine 100 unit/mL (3 25 unit SQ HS Diabetes 11/10/22 06/06/24 mL) subcutaneous pen (Basaglar KwikPen U-100 Insulin) tirzepatide 2.5 mg/0.5 mL 2.5 mg SQ QWEEK 04/11/24 06/06/24 subcutaneous pen injector (Narciso) Previous Rx's ?Medication ?Instructions ?Recorded ferrous sulfate 325 mg (65 mg 325 mg PO DAILY Iron deficiency 03/09/23 iron) tablet #90 tabs nitroglycerin 0.4 mg sublingual 0.4 mg sublingual Q5M PRN chest 04/11/24 tablet (Nitrostat) pain #20 tabs nitrofurantoin 100 mg PO BID 5 days #10 caps 07/24/24 monohydrate/macrocrystals 100 mg capsule (Macrobid) ondansetron 4 mg disintegrating 4 mg PO Q8H PRN Nausea #12 tabs 07/24/24 tablet phenazopyridine 200 mg tablet 200 mg PO Q8H 2 days #6 tabs 07/24/24 (Pyridium) Allergies Allergy/AdvReac Type Severity Reaction Status Date / Time No Known Allergies Allergy Verified 06/06/24 08:00 [facility] Disclaimer: The information contained in this section may have been updated after the patient was seen, as this information can be updated by other users. Medical History Sleep apnea TRUONG on CPAP CAD (coronary artery disease) GERD (gastroesophageal reflux disease) Colonoscopy planned Elevated lipids HTN (hypertension) Insulin dependent diabetes mellitus Puncture wound Dizziness Surgical History History of cholecystectomy History of colonoscopy History of carpal tunnel release Hx of tooth extraction H/O: hysterectomy H/O heart artery stent Cholecystectomy planned Family History Other Coronary artery disease Diabetes Family history of thyroid disease Respiratory failure Stroke Social History Smoking Status: Former smoker tobacco type: cigarettes and e-cigarettes second hand exposure: No alcohol intake: never substance use type: denies use current occupational status: employed Travel in the last 8 weeks: None household members: spouse housing: house marital status: number of children: 3 number of grandchildren: 11 current occupation: [employer] current occupational exposures/hazards: No diet: diabetic caffeine: Yes Have you lived/traveled outside [place] in past 30 days?: No Contact w/someone who lives/traveled outside [place] past 30 days?: No Exposure to someone with infectious disease in past 14 days?: No Do you have a fever (greater than 100.4 F or 38 C)?: No Have you tested positive for COVID-19: No Exposed to someone with COVID-19 in past 14 days?: No Do you have a sore throat?: No Do you have a cough?: No Do you have any weakness?: No Do you have any diarrhea?: No Are you experiencing any unusual bleeding?: No Do you have any muscle aches/pain?: No Do you have any abdominal pain?: No Are you experiencing loss of taste or smell?: No ROS Obtained: Yes All systems reviewed & no additional complaints except as documented Constitutional Constitutional: Reports system reviewed and no additional complaints, except as documented, Denies chills and Denies fever(s) Eyes Eyes: Denies eye discharge ENT Ears, Nose, Mouth, and Throat: Denies dysphagia, Denies sore throat and Denies throat swelling Cardiovascular Cardiovascular: Denies chest pain and Denies dyspnea Respiratory Respiratory: Denies chest congestion, Denies cough and Denies dyspnea Gastrointestinal Gastrointestingal: Denies abdominal pain, constipation, diarrhea, dysphagia, nausea or vomiting Genitourinary Female Genitourinary: Reports as per HPI, Reports dysuria, Reports urinary frequency, Denies urinary incontinence, Reports urinary hesitancy and Reports urinary urgency Musculoskeletal Musculoskeletal: Denies arthralgias and Reports back pain Integumentary/Breasts Skin/Breast: Denies rash Neurologic Neurologic: Denies paresthesias Allergic/Immunologic Allergic/Immunologic: Denies throat swelling Physical Exam General General appearance: alert and in no apparent distress Head Head exam: atraumatic and normocephalic Eye Eye exam: Present normal appearance, PERRL and EOMI ENT ENT exam: Present normal exam, mucous membranes moist, TM's normal bilaterally and normal external ear exam Neck Neck exam: Present normal inspection, full ROM and trachea midline; Absent tenderness, meningismus or lymphadenopathy Chest Chest inspection: Present normal inspection and symmetric chest wall rise; Absent tenderness Respiratory Respiratory exam: Present normal lung sounds bilaterally; Absent respiratory distress, wheezes or stridor Cardiovascular Cardiovascular exam: Present regular rate, normal rhythm and normal heart sounds Abdominal Exam Abdominal exam: Present soft and normal bowel sounds; Absent distention, tenderness, guarding, rebound, rigidity, incision, psoas sign, obturator sign, heel tap sign, Prater's sign, Rovsing's sign or tenderness at McBurney's Point Extremities Exam Extremities exam: Present normal inspection, full ROM and normal capillary refill; Absent tenderness, edema, joint swelling, calf tenderness or cyanosis Back Exam Back exam: Present normal inspection and full ROM; Absent tenderness, CVA tenderness (R) or CVA tenderness (L) Neurological Exam Neurological exam: Present alert, oriented X3 and normal gait Psychiatric Psychiatric exam: Present normal affect and normal mood Skin Skin exam: Present warm, dry, intact and normal color Lymphatic Lymphatic Findings: no adenopathy Medical Decision Making Medical Records Medical records reviewed: No I reviewed the patient's medical records. Screening: Per USPSTF and CDC recommendations, given the prevalence of disease in our region, it is our hospital?s policy to screen for HIV and viral Hepatitis for all patients aged 18 and over and those with ongoing risk factors. [place] Inquiry Pt receiving controlled substance: No Lab Data Lab results reviewed: Yes I reviewed the patient's lab results.
[2024-07-24 13:43] LABS: Apearance,Urine Cloudy (Clear); Color,Urine Orange (Yellow); PH,Urine 5.5 (5.0-8.5); Protein,Urine Negative (Negative)
[2024-07-24 13:44] LABS: Bilirubin,Urine Negative (Negative); Blood, Urine 1+ (Negative); Glucose,Urine (UA) 1000 (Negative); Ketones,Urine Negative (Negative); UTC Leukocyte Esterase,Urine 1+ (Negative); UTC Nitrate,Urine Positive (Negative); Urobilinogen,Urine 0.2 EU/dl (0.2)
[2024-07-24 13:53] VITALS: BP 146/60; PULSE 73; RESP 18; TEMP 36.8; O2SAT 97; BMI 33.3
[2024-07-24 13:59] VITALS: BP 146/60; PULSE 73; RESP 18; TEMP 36.8
== END 2024-07-24 14:01 | disposition home or self-care (01) ==
PROVIDERS: Emergency Provider Nurse Practitioner Family; PCP Family Medicine
DX: N39.0 Urinary tract infection, site not specified (principal); R30.9 Painful micturition, unspecified
CPT/HCPCS: 81003; 87086; 87088; 87186; 99212; G0381

== ENCOUNTER 2025-01-21 08:25 | Outpatient (CLI) | payer BC, SELFPAY ==
--- OUTSIDE RECORDS SUMMARY | 2024-08-13 05:30 | XMS_ITS ---
Author Organization [facility] Address [address] [facility] [address] [place] [id number] Care Team Providers Care Medical Insurance Verifier Name Role Phone Jenae Shipman Primary Care Provider Aida Cruz Unavailable [phone] Allergies No Known Allergies Results Component Value Reference Range Notes CBC Fingerstick (in house) Reviewed date:08/14/2024 09:18:11 AM Interpretation:Normal Performing Lab: Notes/Report: Normal wbc 8.1 3.5 - 10 lym 26.4 15 - 50 mid 7.2 2 - 15 gran 66.4 35 - 80 rbc 4.74 3.5 - 5.5 hgb 14.0 11.5 - 16.5 hct 42.4 35 - 55 mcv 89.3 75 - 100 mch 29.5 25 - 35 mchc 33.0 31 - 38 plat 361 100 - 400 Glycohemoglobin A1c (in hous e) Reviewed date:08/14/2024 09:18:34 AM Interpretation:5.9% Performing Lab: Notes/Report: 5.9% glycohemoglobin 5.9% 5 - 6.5 % P-Vitamin B12 Reviewed date:08/14/2024 09:20:01 AM Interpretation:453 Performing Lab: Notes/Report: Test performed by [facility] [address] [place] [address] , [address], [place] [address] Norberto White MD, Scale Mechanic CLIA: [id number] Vitamin B12 388 195-1648 pg/mL P-Comprehensive Metabolic Pa luisa (CMP) Reviewed date:08/14/2024 09:20:21 AM Interpretation: Performing Lab: Notes/Report: Test performed by [facility] [address] , [address], [place] [address] Norberto White MD, Scale Mechanic CLIA: [id number] Sodium 140 135-145 mmol/L Potassium 4.0 3.5-5.3 mmol/L Chloride 103 97-108 mmol/L CO2 22 22-32 mmol/L Glucose 123 65-99 mg/dL BUN 12 6-20 mg/dL Creatinine 0.62 0.50-1.00 mg/dL Calcium 9.6 8.6-10.4 mg/dL eGFR by Creatinine 103 >59 mL/min/1.73m2 Protein 6.9 6.0-8.3 g/dL Albumin 4.3 3.5-5.3 g/dL Alkaline Phosphatase 77 35-121 IU/L ALT (SGPT) 15 <5-47 IU/L AST (SGOT) 12 <5-40 IU/L Bilirubin, Total 0.2 <0.2-1.2 mg/dL A/G Ratio 1.7 1.1-2.5 P-Iron Reviewed date:08/14/2024 09:20:42 AM Interpretation:43 Performing Lab: Notes/Report: Test performed by [facility] [address] , [place] [address] Norberto White MD, Scale Mechanic CLIA: [id number] Iron 43 37-145 ug/dL P-Magnesium Reviewed date:08/14/2024 09:18:53 AM Interpretation:1.9 Performing Lab: Notes/Report: Test performed by [facility] [address] , [address], [place] [address] Norberto White MD, Scale Mechanic CLIA: [id number] Magnesium 1.9 1.6-2.4 mg/dL P-TSH Reviewed date:08/14/2024 09:19:15 AM Interpretation:0.78 Performing Lab: Notes/Report: Test performed by [facility] [address] , [address], [place] [address] Norberto White MD, Scale Mechanic CLIA: [id number] TSH 0.78 0.43-5.25 mU/L P-Vitamin D 25-Hydroxy Reviewed date:08/14/2024 09:19:36 AM Interpretation:21.6 Performing Lab: Notes/Report: Test performed by [email or web address] [address] [place] [address] , [address], [place] [address] Norberto White MD, Scale Mechanic CLIA: [id number] Vitamin D 25-Hydroxy 21.6 30.0-100.0 ng/mL Interpretation of Vitamin D 25 [place]: < 20 ng/mL - Deficiency 20 - 29 ng/mL - Insufficiency 30 - 100 ng/mL - Sufficiency > 100 ng/mL - Super-therapeutic- toxicity may occur above this level. Clinical correlation required. REASON FOR VISIT F/U Medications Medication SIG (Take, Route, Frequency, Duration) Notes Start Date End Date Status Omeprazole 20 MG 1 cap(s) orally once a day for 90 days Active Benazepril HCl 10 MG 1 tab(s) orally onc e a day for 90 days Active Maxzide-25 37.5-25 MG 1 tab(s) orally on ce a day for 90 days Active Mounjaro 10 MG/0.5ML 10 mg subcu weekly for 28 days Active NovoLOG FlexPen 100 UNIT/ML 10 Units Three times a day 12/19/2023 A ctive NovoLOG FlexPen 100 UNIT/ML 10 units subcutaneously three times a day Active Dexcom G7 Grand Scribe - - Active Venlafaxine HCl ER 75 MG 1 cap(s) orally once a day Active Jardiance 25 MG 1 tab(s) orally once a day (in the morning) Active Atorvastatin Calcium 40 MG 1 tab(s) orally once a day for 90 days Active Basaglar KwikPen 100 UNIT/ML 25 units subcutaneously once daily Active Metoprolol Tartrate 25 MG 1 tab(s) orall y 2 times a day Active metFORMIN HCl ER 500 MG 2 tab(s) orally Two times a day Active B-12 1000 MCG 1 tab(s) orally once a day for 30 day(s) Active Dexcom G7 Sensor - as directed 09/06/2023 Active CPAP machine and supplies - as directed as directed Acti ve Clopidogrel Bisulfate 75 MG 1 tab(s) orally once a day A ctive Aspirin 81 MG 1 tablet Orally Once a day Active Ferrous Sulfate 325 (65 Fe) MG 1 tab(s) orally once daily 01/10/2013 A ctive Problems Problem Type SNOMED Code ICD Code Onset Dates Problem Status W/U Status Risk Notes Problem Paresthesia (09227757) Paresthesia (R20.2) Active confirmed Problem Anemia (364983319) Anemia, unspecified type (D64.9) Active confirmed Vital Signs Blood pressure systolic 128 mm Hg 08/13/19 25 Blood pressure diastolic 60 mm Hg 025 Heart Rate 73 /min 08/13/2024 Height 64 in 08/13/2024 Weight 200.0 lbs 08/13/2024 BMI 34.33 kg/m2 08/13/2024 Encounters Encounter Location Date Provider Diagnosis [facility] [address] [id number] 08/13/2024 Aida Cruz Type 2 diabetes mellitus without complication E11.9 ; Anxiety with depression F41.8 ; Coronary artery disease involving [place] coronary artery of [place] heart without angina pectoris I25.10 ; Neuropathy G62.9 ; Paresthesia R20.2 ; Thyroid disorder screen Z13.29 and Anemia, unspecified type D64.9 Assessments Encounter Date Diagnosis (ICD Code) Assessment Notes Treatment Notes Treatment Clinical Notes Section Notes 08/13/2024 Type 2 diabetes mellitus without complication (ICD-10 - E11.9) will call in 1 month for additional increase in Mountjaro and RTO in 2 months for fasting Lipids 08/13/2024 Anxiety with depression (ICD-10 - F41.8) 08/13/2024 Coronary artery disease involving [place] coronary artery of [place] heart without angina pectoris (ICD-10 - I25.10) 08/13/2024 Neuropathy (ICD-10 - G62.9) 08/13/2024 Paresthesia (ICD-10 - R20.2) 08/13/2024 Thyroid disorder screen (ICD-10 - Z13.29) 08/13/2024 Anemia, unspecified type (ICD-10 - D64.9) Plan Of Treatment Medication Medication Name Sig Start Date Stop Date Notes Mounjaro 10 MG/0.5ML 10 mg subcu weekly for 28 days Venlafaxine HCl ER 75 MG 1 cap(s) orally once a day Jardiance 25 MG 1 tab(s) orally once a day (in the morning) Basaglar KwikPen 100 UNIT/ML 25 units victoria bcutaneously once daily Metoprolol Tartrate 25 MG 1 tab(s) orally 2 times a day metFORMIN HCl ER 500 MG 2 tab(s) orally Two times a day Dexcom G7 Sensor - as directed 09/06/2023 Clopidogrel Bisulfate 75 MG 1 tab(s) orally once a day Aspirin 81 MG 1 tablet Orally Once a day Ferrous Sulfate 325 (65 Fe) MG 1 tab(s) orally once daily 01/10/2013 Treatment Notes Assessment Notes Type 2 diabetes mellitus wit hout complication will call in 1 month for additional increase in Mountjaro and RTO in 2 months for fasting Lipids Next Appt Details Follow Up: 2 Months,and prn, Reason: Progress Notes * PRECIOUS SkylerOB:1965 (59 yo F)Acc No.[id number]:08/13/2024 Progress Notes Patient: Ивна ALANIZ Provider: KATHYA Rutledge :1965 A ge:58 Y S ex:Female Date:08/13/2024 Address:[address] [place] [address], [id number] Pcp:Jenae Shipman Subjective: * Chief Complaints: * 1 . F/U. * HPI: E ndocrinology: Recent Blood Sugars P t presents today for a follow up on Mounjaro. Pt sts that she is tolerating it well. D ermatology: c/o itching P t sts that she is having some itching of the skin due to dry skin but pt c/o a stinging sensation in some of her body as well. * ROS: C ARDIOLOGY: no D izziness. n o C hest pain. G ASTROENTEROLOGY: no N ausea. n o V omiting. n o D iarrhea.? U ROLOGY: no D ifficulty urinating. n o B lood in urine. n o F requent urination. 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 * Surgical History: c holecystectomy 1992, vaginal tape 07/10, right arm manipulated 08/11, colonoscopy , upper GI X2 , polyp removal , hysterectomy vaginal 05/23/2015, Cardiac Stent Placement x 1 11/05/15, cubital tunnel release left elbow 11/03/23. * Hospitalization/Major Diagno stic Procedure: s corinne , diabetes , [facility] ER - chest pain 09/22/15, [facility] - Cardiac Stent Placement 11/05/15, [facility] UTC- UTI 07/23/2024. * Family History: F ather: alive. M other: . 1 sister(s) . 2 son(s) , 1 daughter(s) . . * Social History: C URRENT TOBACCO USE S moking Status: P atient does NOT smoke. C affeine: yes, frequency:coffee. Exercise: yes. Home smoke detector use: yes. Marital Status: . Past smoking status: no, Smoking status: Patient does smoke, Packs per day: 1, Smoking preference: cigarettes. Alcohol: no. * Medications: T akin CPAP machine and supplies - - as directed as directed , Taking Aspirin 81 MG Tablet Delayed Release 1 tablet Orally Once a day , Taking B-12 1000 MCG Tablet 1 tab(s) orally once a day , Taking Ferrous Sulfate 325 (65 Fe) MG Tablet 1 tab(s) orally once daily , Taking Clopidogrel Bisulfate 75 MG Tablet 1 tab(s) orally once a day , Taking Dexcom G7 Sensor - Miscellaneous as directed , Taking Atorvastatin Calcium 40 MG Tablet 1 tab(s) orally once a day , Taking Metoprolol Tartrate 25 MG Tablet 1 tab(s) orally 2 times a day , Taking Basaglar KwikPen 100 UNIT/ML Solution Pen-injector 25 units subcutaneously once daily , Taking Dexcom G7 Grand Scribe - Device - , Taking metFORMIN HCl ER 500 MG Tablet Extended Release 24 Hour 2 tab(s) orally Two times a day , Taking NovoLOG FlexPen 100 UNIT/ML Solution Pen-injector 10 units subcutaneously three times a day , Taking Maxzide-25 37.5-25 MG Tablet 1 tab(s) orally once a day , Taking Jardiance 25 MG Tablet 1 tab(s) orally once a day (in the morning) , Taking Benazepril HCl 10 MG Tablet 1 tab(s) orally once a day , Taking Omeprazole 20 MG Capsule Delayed Release 1 cap(s) orally once a day , Taking Venlafaxine HCl ER 75 MG Capsule Extended Release 24 Hour 1 cap(s) orally once a day , Taking NovoLOG FlexPen 100 UNIT/ML Solution Pen-injector 10 Units Three times a day , Taking Mounjaro 7.5 MG/0.5ML Solution Auto-injector 7.5 mg Subcutaneous weekly , Medication List reviewed and reconciled with the patient * Allergies: N .K.D.A. Objective: * Vitals: W t:200.0, Temp:97.7, BP:128/60, HR:73, Nurse:CHAN, Ht: 64, BMI:34.33. * Examination: G eneral Examination: General Appearance: NAD, appears healthy, alert, pleasant. Heart: RRR. Lungs: CTAB A&P. Neurologic Exam: alert and oriented. Extremities: no leg edema. Assessment: * Assessment: 1. T ype 2 diabetes mellitus without complication - E11.9 (Primary) 2 . A nxiety with depression - F41.8 3 . C oronary artery disease involving [place] coronary artery of [place] heart without angina pectoris - I25.10 4 . N europathy - G62.9 5 . P aresthesia - R20.2 6 . T hyroid disorder screen - Z13.29 7 . A nemia, unspecified type - D64.9 Plan: * Treatment: Value Reference Range A /G Ratio 1.7 1.1-2.5 - * A lbumin 4.3 3.5-5.3 - g/dL * A lkaline Phosphatase 77 35-121 - IU/L * A LT (SGPT) 15 <5-47 - IU/L * A ST (SGOT) 12 <5-40 - IU/L * B ilirubin, Total 0.2 <0.2-1.2 - mg/dL * B UN 12 6-20 - mg/dL * C alcium 9.6 8.6-10.4 - mg/dL * C hloride 103 97-108 - mmol/L * C O2 22 22-32 - mmol/L * C reatinine 0.62 0.50-1.00 - mg/dL * G lucose 123 H 65-99 - mg/dL * P otassium 4.0 3.5-5.3 - mmol/L * S odium 140 135-145 - mmol/L * P rotein 6.9 6.0-8.3 - g/dL * e GFR by Creatinine 103 >59 - mL/min/1.73m2 * Aida Cruz 08/14/2024 9:20:09 AM > I spoke with pt and reported results ?LAB: Glycohemoglobin A1c (in house) (Collection Date & Time - 08/13/2024)? 5.9%* Value Reference Range g lycohemoglobin 5.9% 5 - 6.5 % * Gladys Bauer 08/13/2024 10:2 2:24 AM >Aida Cruz 08/14/2024 9:18:19 AM > I spoke with pt and reported results Notes: will call in 1 month for additional increase in Mountjaro and RTO in 2 months for fasting Lipids??2.?Anxiety with depression? Continue Venlafaxine HCl ER Capsule Extended Release 24 Hour, 75 MG, 1 cap(s), orally, once a day. ?3.?Coronary artery disease involving [place] coronary artery of [place]on heart without angina pectoris? Continue Aspirin Tablet Delayed Release, 81 MG, 1 tablet, Orally, Once a day;?Continue Clopidogrel Bisulfate Tablet, 75 MG, 1 tab(s), orally, once a day;?Continue Metoprolol Tartrate Tablet, 25 MG, 1 tab(s), orally, 2 times a day.?LAB: P-Iron (Collection Date & Time - 08/13/2024 09:04 AM)?43* Value Reference Range I marquis 43 37-145 - ug/dL * Aida Cruz 08/14/2024 9:20:30 AM > I spoke with pt and reported results ?LAB: CBC Fingerstick (in house) (Collection Date & Time - 08/13/2024)? Normal* Value Reference Range w bc 8.1 3.5 - 10 * l ym 26.4 15 - 50 * m id 7.2 2 - 15 * g ran 66.4 35 - 80 * r bc 4.74 3.5 - 5.5 * h gb 14.0 11.5 - 16.5 * h ct 42.4 35 - 55 * m cv 89.3 75 - 100 * m ch 29.5 25 - 35 * m chc 33.0 31 - 38 * p lat 361 100 - 400 * Gladys Bauer 08/13/2024 10:2 4:04 AM >Aida Cruz 08/14/2024 9:17:45 AM > I spoke with pt and reported results 4.?Paresthesia?LAB: P-Vitamin B12 (Collection Date & Time - 08/13/2024 09:04 AM)?453* Value Reference Range V itamin B12 060 368-4340 - pg/mL * Aida Cruz 08/14/2024 9:15:15 AM > I spoke with pt and reported results ?LAB: P-Magnesium (Collection Date & Time - 08/13/2024 09:04 AM)?1.9* Value Reference Range M agnesium 1.9 1.6-2.4 - mg/dL * Aida Cruz 08/14/2024 9:18:41 AM > I spoke with pt and reported results ?LAB: P-Vitamin D 25-Hydroxy (Collection Date & Time - 08/13/2024 09:04 AM)? 21.6* Value Reference Range V itamin D 25-Hydroxy 21.6 L 30.0-100.0 - ng/mL * Aida Cruz 08/14/2024 9:19:24 AM > I spoke with pt and reported results 5.?Thyroid disorder screen?LAB: P-TSH (Collection Date & Time - 08/13/2024 09:04 AM)?0.78* Value Reference Range T SH 0.78 0.43-5.25 - mU/L * Aida Cruz 08/14/2024 9:19:01 AM > I spoe with pt and reported results 6.?Anemia, unspecified type? Continue Ferrous Sulfate Tablet, 325 (65 Fe) MG, 1 tab(s), orally, once daily.?? * Procedure Codes: 3 6416 CAPILLARY BLOOD DRAW, 51447 GLYCATED HEMOGLOBIN TEST, Modifiers: QW , 20052 CBC WITH AUTO DIFF * Follow Up: 2 Months,and prn * Billing Information: * Visit Code: 24197 Office Visit, Est Pt., Level 3. * Procedure Codes: 08707 CAPILLARY BLOOD DRAW. 76794 GLYCATED HEMOGLOBIN TEST. Modifiers: QW 71826 CBC WITH AUTO DIFF. * Electronic signature of Mona Cruz APRN on 01/21/2025 at 08:33 AM EDT Sign off status: Pending * Provider: KATHYA Rutledge Date: 0 08/13/2024 Generated for Marcelino long/Park/Marivel on: 0 01/21/2025 08:33 AM EDT History and Physical Notes * HPI (History of Present Illness) Category Sub-Category Detail Notes Category Not es Dermatology itching Pt sts that she is having some itching of the skin due to dry skin but pt c/o a stinging sensation in some of her body as well Endocrinology Recent Blood Sugars Pt presents today for a follow up on Mounjaro. Pt sts that she is tolerating it well Examination Category Sub-Category Detail Notes Category Not es General Examination Heart: RRR Lungs: CTAB A&P Extremities: no leg edema General Appearance: NAD, appears healthy , alert, pleasant Neurologic Exam: alert and oriented
--- OUTSIDE RECORDS SUMMARY | 2024-10-15 05:30 | XMS_ITS ---
Author Organization [facility] Address [address] [facility] [address] [place] [id number] Care Team Providers Care Archivist Political History Name Role Phone Jenae Shipman Primary Care Provider [phone] Aida Cruz Unavailable [phone] Allergies No Known Allergies REASON FOR VISIT 2 month ckup, Needs mammogram Medications Medication SIG (Take, Route, Frequency, Duration) Notes Start Date End Date Status Mounjaro 12.5 MG/0.5ML 12.5 mg Subcutane ous weekly for 30 days Active Atorvastatin Calcium 40 MG 1 tab(s) orally once a day for 90 days Active B-12 1000 MCG 1 tab(s) orally once a day for 30 day(s) Active CPAP machine and supplies - as directed as directed Acti ve Metoprolol Tartrate 25 MG 1 tab(s) orall y 2 times a day for 30 days Active metFORMIN HCl ER 500 MG 2 tab(s) orally Two times a day for 30 days Active Dexcom G7 Sensor - as directed every 10 days for 90 days 09/06/2023 Active Venlafaxine HCl ER [...] ce a day for 90 days Active NovoLOG FlexPen 100 UNIT/ML 10 units subcutaneously three times a day Active Dexcom G7 Terrapin Fisher - - Active Vital Signs Blood pressure systolic 130 mm Hg 10/16/19 25 Blood pressure diastolic 60 mm Hg 025 Heart Rate 86 /min 10/15/2024 Height 64 in 10/15/2024 Weight 190.8 lbs 10/15/2024 BMI 32.75 kg/m2 10/15/2024 Encounters Encounter Location Date Provider Diagnosis [facility] [address] [facility] [address] [place] [id number] 10/15/2024 Aida Cruz Breast cancer screening Z12.39 [...] Mounjaro 12.5 MG/0.5ML 12.5 mg Subcutane ous weekly for 30 days Pending Test Test Name Order Date Mammogram 10/15/2024 Next Appt Details Follow Up: 3 Months, Reason: Progress Notes * Skyler SWANOB:1965 (59 yo F)Acc No.[id number]:10/15/2024 Progress Notes Patient: Иван ALANIZ Provider: KATHYA Rutledge :1965 A ge:58 Y S ex:Female Date:10/15/2024 Address:[address] [place] [address], [id number] Pcp:Jenae Shipman Subjective: * Chief Complaints: * [...] - 11/05/15, type 2 diabetes, followed by Investment Officer, Hypertension, Hypercholestrolemia, Esophageal reflux, Depression, Cardiac murmur. * Surgical History: c holecystectomy 1992, vaginal tape 07/10, right arm manipulated 08/11, colonoscopy , upper GI X2 , polyp removal , hysterectomy vaginal 05/23/2015, Cardiac Stent Placement x 1 11/05/15, cubital tunnel release left elbow 11/03/23. * Hospitalization/Major Diagno stic Procedure: s corinne , diabetes , [facility] ER - chest pain 09/22/15, [facility] 11/05/15, [facility] UTC- UTI 07/23/2024. * Family History: [...] once a day , Taking Dexcom G7 Terrapin Fisher - Device - , Taking NovoLOG FlexPen [...] Temp:98.0, BP:130/60, HR:86, O2 Sat:99% on RA, Nurse:kike, Ht: 64, BMI:32.75. * Examination: G eneral Examination: General Appearance: NAD, appears healthy, alert, well nourished and hydrated. HEENT: sclera and conjunctiva clear, PERRLA, TM's normal, translucent. Heart: RRR. Lungs: CTAB A&P. Neurologic Exam: [...] 7.0% * Follow Up: 3 Months * Billing Information: * Visit Code: 53138 Office Visit, Est Pt., Level 3. * Procedure Codes: 3075F SYST BP GE 130 - 139MM HG. 3078F DIAST BP < 80 MM HG. 3044F HG A1C LEVEL LT 7.0%. * Electronic signature of Mona Cruz APRN on 01/21/2025 at 08:34 AM EDT Sign off status: Pending * Provider: KATHYA Rutledge Date: 0 10/15/2024 Generated for Marcelino long/Park/Dashitting on: 0 01/21/2025 08:34 AM EDT History and Physical Notes * [...]
--- OUTSIDE RECORDS SUMMARY | 2025-01-10 05:15 | XMS_ITS ---
Author Organization [facility] Address [address] [facility] [address] [place] [phone] Care Team Providers Care Industrial Gas Fitter Helper Name Role Phone Jenae Shipman Primary Care Provider Mary Cano Unavailable [phone] Allergies No Known Allergies Results Component Value Reference Range Notes CBC Venipuncture (in house) Reviewed date:01/11/2025 01:22:18 PM Interpretation:Normal Performing Lab: Notes/Report: Normal wbc 10.1 3.5 - 10 lymph 27.5% 15 - 50 mid 6.0% 2 - 15 gran 66.5% 35 - 80 rbc 4.95 3.5 - 5.5 hgb 14.5 11.5 - 16.5 hct 44.4 35 - 55 mcv 89.6 75 - 100 mch 29.4 25 - 35 mchc 32.8 31 - 38 platlet 382 100 - 400 Glycohemoglobin A1c (in hous e) Reviewed date:01/11/2025 01:22:18 PM Interpretation:6 Performing Lab: Notes/Report: 6 glycohemoglobin 6.0% 5 - 6.5 % P-Vitamin B12 Reviewed date:01/11/2025 01:22:18 PM Interpretation:Normal Performing Lab: Notes/Report: Test performed by [facility] [address] [place] [address] , [address], [place] [address] Norberto White MD, Integration Developer CLIA: [id number] Vitamin B12 5050 402-5796 pg/mL P-Comprehensive Metabolic Pa luisa (CMP) Reviewed date:01/11/2025 01:22:18 PM Interpretation:Normal Performing Lab: Notes/Report: Test performed by [facility] [address] [place] [address] , [address], [place] [address] Norberto White MD, Integration Developer CLIA: [id number] Sodium 139 135-145 mmol/L Potassium 3.8 3.5-5.3 mmol/L Chloride 99 97-108 mmol/L CO2 22 22-32 mmol/L Glucose 105 65-99 mg/dL BUN 12 6-20 mg/dL Creatinine 0.68 0.50-1.00 mg/dL Calcium 9.7 8.6-10.4 mg/dL eGFR by Creatinine 100 >59 mL/min/1.73m2 Protein 7.1 6.0-8.3 g/dL Albumin 4.4 3.5-5.3 g/dL Alkaline Phosphatase 73 35-121 IU/L ALT (SGPT) 13 <5-47 IU/L AST (SGOT) 12 <5-40 IU/L Bilirubin, Total 0.4 <0.2-1.2 mg/dL A/G Ratio 1.6 1.1-2.5 P-Iron Reviewed date:01/11/2025 01:22:18 PM Interpretation:Normal Performing Lab: Notes/Report: Test performed by [facility] [address] [place] [address] , [address], [place] [address] Norberto White MD, Integration Developer CLIA: [id number] Iron 48 37-145 ug/dL P-TSH reflex to FT4 Reviewed date:01/11/2025 01:22:18 PM Interpretation:Normal Performing Lab: Notes/Report: Test performed by [facility] [address] [place] [address] , [address], [place] [address] Norberto White MD, Integration Developer CLIA: [id number] TSH reflex to FT4 1.65 0.43-5.25 mU/L P-Vitamin D 25-Hydroxy Reviewed date:01/11/2025 01:22:18 PM Interpretation:25.4 Performing Lab: Notes/Report: Test performed by [facility] [address] [place] [address] Brenda Cisneros, [address], [place] [id number] Norberto White MD, Integration Developer CLIA: [id number] Vitamin D 25-Hydroxy 25.4 30.0-100.0 ng/mL Interpretation of Vitamin D 25 OH: < 20 ng/mL - Deficiency 20 - 29 ng/mL - Insufficiency 30 - 100 ng/mL - Sufficiency > 100 ng/mL - Super-therapeutic- toxicity may occur above this level. Clinical correlation required. REASON FOR VISIT 3 month ckup, Needs labs & mammogram Medications Medication SIG (Take, Route, Frequency, Duration) Notes Start Date End Date Status Metoprolol Tartrate 25 MG 1 tab(s) orall y 2 times a day for 90 days Active metFORMIN HCl ER 500 MG TAKE 2 TABLETS B Y MOUTH TWICE DAILY for 90 Active Mounjaro 12.5 MG/0.5ML 12.5 mg Subcutane ous weekly for 30 days Active Jardiance 25 MG 1 tablet Orally Once a day for 90 days Active Basaglar KwikPen 100 UNIT/ML 25 units subcutaneously once daily for 30 days Active Venlafaxine HCl ER 75 MG 1 cap(s) orally once a day for 90 days Active Maxzide-25 37.5-25 MG 1 tab(s) orally on ce a day for 90 days Active Benazepril HCl 10 MG 1 tab(s) orally onc e a day for 90 days Active Omeprazole 20 MG 1 cap(s) orally once a day for 90 days Active Atorvastatin Calcium 40 MG TAKE 1 TABLET BY MOUTH ONCE DAILY for 90 Active Aspirin 81 MG 1 tablet Orally Once a day Active NovoLOG FlexPen 100 UNIT/ML 10 Units Three times a day 12/19/2023 A ctive Ferrous Sulfate 325 (65 Fe) MG 1 tab(s) orally once daily 01/10/2013 A ctive Clopidogrel Bisulfate 75 MG 1 tab(s) orally once a day A ctive Dexcom G7 Sensor - as directed every 10 days for 90 days 09/06/2023 Active Dexcom G7 Power Line Installer And Repairer - - Active NovoLOG FlexPen 100 UNIT/ML 10 units subcutaneously three times a day Active CPAP machine and supplies - as directed as directed Acti ve B-12 1000 MCG 1 tab(s) orally once a day for 30 day(s) Active Problems Problem Type SNOMED Code ICD Code Onset Dates Problem Status W/U Status Risk Notes Problem [id number] Vitamin D deficiency (E55.9) Active confirmed Vital Signs Blood pressure systolic 110 mm Hg 01/11/20 25 Blood pressure diastolic 60 mm Hg 025 Heart Rate 81 /min 01/10/2025 Height 64 in 01/10/2025 Weight 176.8 lbs 01/10/2025 BMI 30.34 kg/m2 01/10/2025 Encounters Encounter Location Date [facility] [address] [facility] [address] [place] [address], [place] [phone] 01/10/2025 Mary Cano Type 2 diabetes edwardo itus without complication E11.9 ; Anxiety with depression F41.8 ; Coronary artery disease involving walker river coronary artery of walker river heart without angina pectoris I25.10 ; Neuropathy G62.9 ; Paresthesia R20.2 ; Thyroid disorder screen Z13.29 ; Anemia, unspecified type D64.9 ; Vitamin D deficiency E55.9 ; Vitamin B12 deficiency E53.8 and Screening mammogram, encounter for Z12.31 Assessments Encounter Date Diagnosis (ICD Code) Assessment Notes Treatment Notes Treatment Clinical Notes Section Notes 01/10/2025 Type 2 diabetes mellitus without complication (ICD-10 - E11.9) 01/10/2025 Anxiety with depression (ICD-10 - F41.8) 01/10/2025 Coronary artery disease involving walker river coronary artery of walker river heart without angina pectoris (ICD-10 - I25.10) 01/10/2025 Neuropathy (ICD-10 - G62.9) 01/10/2025 Paresthesia (ICD-10 - R20.2) 01/10/2025 Thyroid disorder screen (ICD-10 - Z13.29) 01/10/2025 Anemia, unspecified type (ICD-10 - D64.9) 01/10/2025 Vitamin D deficiency (ICD-10 - E55.9) 01/10/2025 Vitamin B12 deficiency (ICD-10 - E53.8) 01/10/2025 Screening mammogram, encounter for (ICD-10 - Z12.31) Plan Of Treatment Pending Test Test Name Order Date Mammogram 01/10/2025 Next Appt Details Follow Up: via phone to repo rt test results, Reason: Progress Notes * Abby SWAN:1965 (59 yo F)Acc No.[id number]:01/10/2025 Progress Notes Patient: Иван ALANIZ Provider: AMANDEEP Sapp :1965 A ge:59 Y S ex:Female Date:01/10/2025 Address:[address] [place] [address] [place], [place], [id number] Pcp:Jenae Shipman Subjective: * Chief Complaints: * 1 . 3 month ckup. 2. Needs labs & mammogram. * HPI: C ardiology: The patient is here today for a check up on Hypertension and Diabetes. Pt states she doing good and denies any new concerns. Pt is not fasting. Denies : Chest Pain. D enies : Short of Breath. D enies : Dizziness. D enies : Palpitations. * ROS: D ERMATOLOGY: no R julia. n o H candace. G ASTROENTEROLOGY: no N ausea. n o V omiting. n o D iarrhea.? U ROLOGY: no D ifficulty urinating. n o B lood in urine. * Medical History: C arotid artery disease, Cardiac Stent Placement, right coronary artery, x 1 - 11/05/15, type 2 diabetes, followed by Certified Scrub Tech, Hypertension, Hypercholestrolemia, Esophageal reflux, Depression, Cardiac murmur. * Surgical History: c holecystectomy 1992, vaginal tape 07/10, right arm manipulated 08/11, colonoscopy , upper GI X2 , polyp removal , hysterectomy vaginal 05/23/2015, Cardiac Stent Placement x 1 11/05/15, cubital tunnel release left elbow 11/03/23. * Hospitalization/Major Diagno stic Procedure: s corinne , diabetes , [facility], [facility] UTC- UTI 07/23/2024. * Family History: [...] once a day , Taking Dexcom G7 Power Line Installer And Repairer - Device - , Taking NovoLOG FlexPen 100 UNIT/ML Solution Pen-injector 10 units subcutaneously three times a day , Taking NovoLOG FlexPen 100 UNIT/ML Solution Pen-injector 10 Units Three times a day , Taking Ferrous Sulfate 325 (65 Fe) MG Tablet 1 tab(s) orally once daily , Taking Aspirin 81 MG Tablet Delayed Release 1 tablet Orally Once a day , Taking Clopidogrel Bisulfate 75 MG Tablet 1 tab(s) orally once a day , Taking Dexcom G7 Sensor - Miscellaneous as directed every 10 days , Taking Omeprazole 20 MG Capsule Delayed Release 1 cap(s) orally once a day , Taking Atorvastatin Calcium 40 MG Tablet TAKE 1 TABLET BY MOUTH ONCE DAILY , Taking Maxzide-25 37.5-25 MG Tablet 1 tab(s) orally once a day , Taking Benazepril HCl 10 MG Tablet 1 tab(s) orally once a day , Taking Venlafaxine HCl ER 75 MG Capsule Extended Release 24 Hour 1 cap(s) orally once a day , Taking Metoprolol Tartrate 25 MG Tablet 1 tab(s) orally 2 times a day , Taking metFORMIN HCl ER 500 MG Tablet Extended Release 24 Hour TAKE 2 TABLETS BY MOUTH TWICE DAILY , Taking Mounjaro 12.5 MG/0.5ML Solution Auto-injector 12.5 mg Subcutaneous weekly , Taking Jardiance 25 MG Tablet 1 tablet Orally Once a day , Taking Basaglar KwikPen 100 UNIT/ML Solution Pen-injector 25 units subcutaneously once daily , Medication List reviewed and reconciled with the patient * Allergies: N .K.D.A. Objective: * Vitals: W t: 176.8, Temp: 97.7, BP: 110/60, HR: 81, Nurse: EDILBERTO, Ht: 64, BMI:30.34. * Examination: G eneral Examination: General Appearance: N AD. HEENT: u nremarkable. Oral cavity: n o lesions, mucosa moist and WNL, no erythema. Neck: s upple, no lymphadenopathy. Chest: n ormal shape and expansion. Heart: R SR. Lungs: c lear to auscultation. Abdomen: b owel sounds present, soft and nontender, no organomegaly or masses, no guarding or rigidity. Neurologic Exam: I ntact, gait normal. Skin: n ormal, no rash. Peripheral pulses: n ormal (2+) bilaterally. Extremities: n o leg edema. Assessment: * Assessment: 1. T ype 2 diabetes mellitus without complication - E11.9 (Primary) 2 . A nxiety with depression - F41.8 3 . C oronary artery disease involving walker river coronary artery of walker river heart without angina pectoris - I25.10 4 . N europathy - G62.9 5 . P aresthesia - R20.2 6 . T hyroid disorder screen - Z13.29 7 . A nemia, unspecified type - D64.9 8 . V itamin D deficiency - E55.9 9 . V itamin B12 deficiency - E53.8 1 0.?Screening mammogram, encounter for - Z12.31 Plan: * Treatment: Value Reference Range A /G Ratio 1.6 1.1-2.5 - * A lbumin 4.4 3.5-5.3 - g/dL * A lkaline Phosphatase 73 35-121 - IU/L * A LT (SGPT) 13 <5-47 - IU/L * A ST (SGOT) 12 <5-40 - IU/L * B ilirubin, Total 0.4 <0.2-1.2 - mg/dL * B UN 12 6-20 - mg/dL * C alcium 9.7 8.6-10.4 - mg/dL * C hloride 99 97-108 - mmol/L * C O2 22 22-32 - mmol/L * C reatinine 0.68 0.50-1.00 - mg/dL * G lucose 105 H 65-99 - mg/dL * P otassium 3.8 3.5-5.3 - mmol/L * S odium 139 135-145 - mmol/L * P rotein 7.1 6.0-8.3 - g/dL * e GFR by Creatinine 100 >59 - mL/min/1.73m2 * Mary Cano 01/10/2025 0 9:51:01 AM EDT >room 10, Gladys Dobson 01/11/2025 01:22:09 PM EDT > See phone encounter ?LAB: P-TSH reflex to FT4 (Collection Date & Time - 01/10/2025 08:55 AM)? Normal* Value Reference Range T SH reflex to FT4 1.65 0.43-5.25 - mU/L * Mary Cano 01/10/2025 0 9:51:01 AM EDT >room 10, Gladys Dobson 01/11/2025 01:22:09 PM EDT > See phone encounter ?LAB: Glycohemoglobin A1c (in house) (Collection Date & Time - 01/10/2025)?6 * Value Reference Range g lycohemoglobin 6.0% 5 - 6.5 % * Perla Ba 01/10/2025 10 :52:36 AM EDT > LizetteGladys 01/11/2025 01:22:09 PM EDT > See phone encounter 2.?Anemia, unspecified type?LAB: P-Iron (Collection Date & Time - 01/10/2025 08:55 AM)?Normal* Value Reference Range I marquis 48 37-145 - ug/dL * Mary Cano 01/10/2025 0 9:51:01 AM EDT >room 10, Gladys Dobson 01/11/2025 01:22:09 PM EDT > See phone encounter ?LAB: CBC Venipuncture (in house) (Collection Date & Time - 01/10/2025)? Normal* Value Reference Range w bc 10.1 3.5 - 10 * l ymph 27.5% 15 - 50 * m id 6.0% 2 - 15 * g ran 66.5% 35 - 80 * r bc 4.95 3.5 - 5.5 * h gb 14.5 11.5 - 16.5 * h ct 44.4 35 - 55 * m cv 89.6 75 - 100 * m ch 29.4 25 - 35 * m chc 32.8 31 - 38 * p latlet 382 100 - 400 * Perla Ba 01/10/2025 10 :53:15 AM EDT > Gladys Bauer 01/11/2025 01:22:09 PM EDT > See phone encounter 3.?Vitamin D deficiency?LAB: P-Vitamin D 25-Hydroxy (Collection Date & Time - 01/10/2025 08:55 AM)? 25.4* Value Reference Range V itamin D 25-Hydroxy 25.4 L 30.0-100.0 - ng/mL * Mary Cano 01/10/2025 0 9:51:01 AM EDT >room 10, Gladys Dobson 01/11/2025 01:22:09 PM EDT > See phone encounter 4.?Vitamin B12 deficiency?LAB: P-Vitamin B12 (Collection Date & Time - 01/10/2025 08:55 AM)?Normal* Value Reference Range V itamin B12 2711 177-4123 - pg/mL * Mary Cano 01/10/2025 0 9:51:01 AM EDT >room 10, Gladys Dobsno 01/11/2025 01:22:09 PM EDT > See phone encounter 5.?Screening mammogram, encounter for?Imaging: Mammogram* Ifeoma Wray 01/10/2025 10:0 5:43 AM EDT > faxed to [facility] Scheduling * Procedure Codes: 8 3036 GLYCATED HEMOGLOBIN TEST, Modifiers: QW , [address] CBC WITH AUTO DIFF, 1036F TOBACCO NON-USER, 3044F HG A1C LEVEL LT 7.0%, G8783 BP SCR PRFRM RCMDD DEFIND SCR INTVL, G8752 MOST RECENT SYSTOLIC BP < 140MM HG, G8754 MOST RECENT DIASTOLIC BP < 90MM HG * Follow Up: v ia phone to report test results * Billing Information: * Visit Code: 53204 Office Visit, Est Pt., Level 4. * Procedure Codes: 37338 GLYCATED HEMOGLOBIN TEST. Modifiers: QW 60297 CBC WITH AUTO DIFF. 1036F TOBACCO NON-USER. 3044F HG A1C LEVEL LT 7.0%. G8783 BP SCR PRFRM RCMDD DEFIND SCR INTVL. G8752 MOST RECENT SYSTOLIC BP < 140MM HG. G8754 MOST RECENT DIASTOLIC BP < 90MM HG. * Electronic signature of AMANDEEP Payne on 01/21/2025 at 08:34 AM EDT Sign off status: Pending * Provider: AMANDEEP Sapp Date: 0 01/10/2025 Generated for Marcelino long/Park/Marivel on: 01/21/2025 08:34 AM EDT History and Physical Notes * HPI (History of Present Illness) Category Sub-Category Detail Notes Category Not es Cardiology Short of Breath Chest Pain Palpitations Dizziness Examination Category Sub-Category Detail Notes Category Not es General Examination HEENT: unremarkable Heart: RSR Lungs: clear to auscultatio n Abdomen: bowel sounds present , soft and nontender, no organomegaly or masses, no guarding or rigidity Extremities: no leg edema General Appearance: NAD Skin: normal, no rash Neurologic Exam: Intact, gait normal Neck: supple, no lymphaden opathy Oral cavity: no lesions, mucosa m oist and WNL, no erythema Peripheral pulses: normal (2+) bilatera lly Chest: normal shape and exp ansion
--- NOTE | 2025-01-21 08:29 | MM_ITS ---
PROCEDURE INFORMATION: Exam: MG Bilateral Screening 3D Mammography Exam date and time: 01/21/2025 8:36 AM Age: 59 years old Clinical indication: Screening examination TECHNIQUE: Imaging protocol: Bilateral Screening tomosynthesis and 2D mammography including computer-aided detection (CAD) when performed. COMPARISON: 1. MG MM DIG SCREENING MAMM BI W/CAD 04/27/2023 7:47 AM 2. MG MM DIG MAMM BI DX W/CAD 03/14/2019 2:38 PM FINDINGS: MAMMOGRAPHY: Breast composition: There are scattered areas of fibroglandular density. Mass: No suspicious masses. Architectural distortion: None. Calcifications: No suspicious calcifications. Asymmetric density: None. Skin thickening: None. Axillary adenopathy: None. IMPRESSION: No mammographic evidence of malignancy. Annual screening is recommended unless otherwise clinically indicated. ASSESSMENT: BI-RADS Category 1: Negative.
--- OUTSIDE RECORDS SUMMARY | 2025-01-21 08:34 | XMS_ITS | Patient Health Record ---
[facility] Organization [facility] Address [address] [facility] [address] [place] [id number] Care Team Providers Care Mail Technician Name Role Phone Jenae Shipman Primary Care Provider Aida Cruz Unavailable [phone] Mary Cano Unavailable [phone] Allergies No Known Allergies Results Component Value [...] Interpretation:453 Performing Lab: Notes/Report: Test performed by [facility] [employer] [address] [place] [address] , [address], [place] [address] Norberto White MD, [employer] CLIA: [id number] Vitamin B12 644 057-7126 pg/mL P-Comprehensive Metabolic Pa luisa (CMP) Reviewed date:08/14/2024 09:20:21 AM Interpretation: Performing Lab: Notes/Report: Test performed by [facility] [address] [place] [address] , [address], [place] [address] Norberto White MD, [employer] CLIA: [id number] Sodium 140 135-145 mmol/L Potassium 4.0 3.5-5.3 [...] Interpretation:43 Performing Lab: Notes/Report: Test performed by [facility] [address] , [address], [place] [address] Norberto White MD, [employer] CLIA: [id number] Iron 43 37-145 ug/dL P-Magnesium Reviewed date:08/14/2024 09:18:53 AM Interpretation:1.9 Performing Lab: Notes/Report: Test performed by [facility] [address] [place] [address] , [address], [place] [address] Norberto White MD, [employer] CLIA: [id number] Magnesium 1.9 1.6-2.4 mg/dL P-TSH Reviewed date:08/14/2024 09:19:15 AM Interpretation:0.78 Performing Lab: Notes/Report: Test performed by [facility] [address] [place] [address] , [address], [place] [address] Norberto White MD, [employer] CLIA: [id number] TSH 0.78 0.43-5.25 mU/L P-Vitamin D 25-Hydroxy Reviewed date:08/14/2024 09:19:36 AM Interpretation:21.6 Performing Lab: Notes/Report: Test performed by [facility] [address] [place] [address] , [place] [address] Norberto White MD, [employer] CLIA: [id number] Vitamin D 25-Hydroxy 21.6 30.0-100.0 ng/mL Interpretation of Vitamin D 25 OH: < 20 ng/mL - Deficiency 20 - 29 ng/mL - Insufficiency 30 - 100 ng/mL - Sufficiency > 100 ng/mL - Super-therapeutic- toxicity may occur above this level. Clinical correlation required. P-Vitamin D 25-Hydroxy Reviewed date:01/11/2025 01:22:18 PM Interpretation:25.4 Performing Lab: Notes/Report: Test performed by [facility] [address] [place] [address] , [place] [address] Norberto White MD, [employer] CLIA: [id number] Vitamin D 25-Hydroxy 25.4 30.0-100.0 ng/mL Interpretation of Vitamin D 25 OH: < 20 ng/mL - Deficiency 20 - 29 ng/mL - Insufficiency 30 - 100 ng/mL - Sufficiency > 100 ng/mL - Super-therapeutic- toxicity may occur above this level. Clinical correlation required. P-TSH reflex to FT4 Reviewed date:01/11/2025 01:22:18 PM Interpretation:Normal Performing Lab: Notes/Report: Test performed by [facility] [address] [place] [address] , [place] [address] Norberto White MD, [employer] CLIA: [id number] TSH reflex to FT4 1.65 0.43-5.25 mU/L P-Iron Reviewed date:01/11/2025 01:22:18 PM Interpretation:Normal Performing Lab: Notes/Report: Test performed by [facility] [address] [place] [address] , [place] [address] Norberto White MD, [employer] CLIA: [id number] Iron 48 37-145 ug/dL P-Comprehensive Metabolic Pa luisa (CMP) Reviewed date:01/11/2025 01:22:18 PM Interpretation:Normal Performing Lab: Notes/Report: Test performed by [facility] [address] [place] [address] , [address], [place] [address] Norberto White MD, [employer] CLIA: [id number] Sodium 139 135-145 mmol/L Potassium 3.8 3.5-5.3 [...] 0.4 <0.2-1.2 mg/dL A/G Ratio 1.6 1.1-2.5 P-Vitamin B12 Reviewed date:01/11/2025 01:22:18 PM Interpretation:Normal Performing Lab: Notes/Report: Test performed by [facility] [address] [place] [address] , [address], [place] [address] Norberto White MD, [employer] CLIA: [id number] Vitamin B12 2695 556-2097 pg/mL Glycohemoglobin A1c (in hous e) Reviewed date:01/11/2025 01:22:18 PM Interpretation:6 Performing Lab: Notes/Report: 6 glycohemoglobin 6.0% 5 - 6.5 % CBC Venipuncture (in house) Reviewed date:01/11/2025 01:22:18 [...] - 38 platlet 382 100 - 400 P-Culture, Urine Reviewed date:04/12/2024 10:40:29 AM Interpretation:likely representing contamination, recollect Performing Lab: Notes/Report: Test performed by [facility] [address] [place] [address] , [address], [place] [address] Norberto White MD, [employer] CLIA: [id number] Specimen Source Urine - Void Culture, Urine See Below Final Report : 10,000-15,000 CFU/ml Mixed Gram Positive Organisms Three or more organisms present likely representing contamination during collection by patient's urogenital, skin, and/or fecal sascha. Organism identification and sensitivity assessment are not recommended. Specimen recollection is recommended. Glycohemoglobin A1c (in hous e) Reviewed date:04/10/2024 03:26:10 PM Interpretation:7.0% Performing Lab: Notes/Report: 7.0% glycohemoglobin 7.0% 5 - 6.5 % Urinalysis - Inhouse Reviewed date:04/10/2024 03:25:58 PM Interpretation: Performing Lab: Notes/Report: Color/Clarity yellow Leuk 1+ Nitrite neg Urobili 3.2 Protein neg pH 6.0 Blood trace Sp. Gr. 1.025 Ketone neg Bili neg Gluc neg P-Microalbumin/Creatinine, R andom Urine Sample Reviewed date:02/14/2024 03:14:52 PM Interpretation:Normal Performing Lab: Notes/Report: Test performed by [facility] [address] [place] [address] , [address], [place] [address] Norberto White MD, [employer] CLIA: [id number] Albumin/Creatinine Ratio, Urine 14 0-30 ug/mg Microalbumin, Urine, Random 0.3 Creatinine, Urine 22.0 Medications Medication SIG (Take, Route, Frequency, Duration) Notes Start Date End Date [facility] Of [facility] - - Active Venlafaxine HCl ER 75 MG 1 cap(s) orally once a day for 90 days Active NovoLOG FlexPen 100 UNIT/ML 10 units subcutaneously three times a day Active Metoprolol Tartrate 25 MG 1 tab(s) orall y 2 times a day for 90 days Active CPAP machine and supplies - as directed as directed Acti ve Maxzide-25 37.5-25 MG 1 tab(s) orally on ce a day for 90 days Active B-12 1000 MCG 1 tab(s) orally once a day for 30 day(s) Active Benazepril HCl 10 MG 1 tab(s) orally onc e a day for 90 days Active Aspirin 81 MG 1 tablet Orally Once a day Active NovoLOG FlexPen 100 UNIT/ML 10 Units Three times a day 12/19/2023 A ctive metFORMIN HCl ER 500 MG TAKE 2 TABLETS B Y MOUTH TWICE DAILY for 90 Active Ferrous Sulfate 325 (65 Fe) MG 1 tab(s) orally once daily 01/10/2013 A ctive Mounjaro 12.5 MG/0.5ML 12.5 mg Subcutane ous weekly for 30 days Active Basaglar KwikPen 100 UNIT/ML 25 units subcutaneously once daily for 30 days Active Jardiance 25 MG 1 tablet Orally Once a day for 90 days Active Omeprazole 20 MG 1 cap(s) orally once a day for 90 days Active Atorvastatin Calcium 40 MG TAKE 1 TABLET BY MOUTH ONCE DAILY for 90 Active Clopidogrel Bisulfate 75 MG 1 tab(s) orally once a day A ctive Dexcom G7 Sensor - as directed every 10 days for 90 days 09/06/2023 Active Immunizations Vaccine Route Administration Date Status Comme nts COVID 19 Moderna Unknown 08/13/2020 Administered COVID 19 Moderna Unknown 09/10/2020 Administered COVID 19 Moderna Unknown 04/15/2021 Administered COVID 19 Moderna Unknown 11/20/2021 Administered Fluzone Quad (6months&older) Unknown 05/13/2021 Administered Fluzone Quad (6months&older) IM Intramuscular 04/07/2022 Administered Fluzone Quad (6months&older) IM Intramuscular 05/04/2023 Administered Hepatitis A (adult) Unknown 07/06/2018 Administered Hepatitis A (adult) Unknown 01/04/2019 Administered Shingrix Unknown 05/13/2021 Administered Tetanus Tdap-Adacel (over 7yrs) Unknown 03/23/2017 Pending Tetanus Tdap-Adacel (over 7yrs) Unknown 05/16/2020 Administered Tetanus Tdap-Adacel (over 7yrs) Unknown 10/25/2020 Administered xFlu shot-36 months and older IM Intramuscular 06/03/2006 Administered Problems Problem Type SNOMED Code ICD Code Onset Dates Problem Status W/U Status Risk Notes Problem Coronary arteriosclerosis (96783825) ASCVD (arteriosclerotic cardiovascular disease) (I25.10) Active confirmed Problem 41124243 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.59) Active confirmed Problem 10835220 Vitamin D deficiency (E55.9) Active confirmed Problem 91644553 Essential hypertension (I10) Active confirmed Problem 339111574282750 Piriformis syndrome of right side (G57.01) Active confirmed Problem Paresthesia (24611551) Paresthesia (R20.2) Active confirmed Problem 896469472 Mixed hyperlipidemia (E78.2) Active confirmed Problem 31659646 Tobacco dependen ce (F17.200) Active confirmed Problem 117613620 half-way (current) use of insulin (Z79.4) Active confirmed Problem 07706869 Type 2 diabetes mellitus without complication (E11.9) Active confirmed Problem 714594630 Gastroesophageal reflux disease without esophagitis (K21.9) Active confirmed Problem 98116720 Situational depression (F43.21) Active confirmed Problem 5662077573625 Coronary artery disease involving solomon coronary artery of solomon heart without angina pectoris (I25.10) Active confirmed Problem Gastroesophageal reflux disease (248755771) Gastroesophageal reflux disease, esophagitis presence not specified (K21.9) Active confirmed Problem Neuropathy (948383131) Neuropathy (G62.9) Active confirmed Problem Anemia (347984536) Anemia, unspecified type (D64.9) Active confirmed Problem 98250006 Hyperlipidemia, unspecified hyperlipidemia type (E78.5) Active confirmed Problem 675671888 BMI 37.0-37.9, adult (Z68.37) Active confirmed Problem 818931550 Stented coronary artery (Z95.5) Active confirmed Problem Depressive disorder (disorder) (13229306) Depression, unspecified depression type (F32.9) Active confirmed Problem 916108406 Atherosclerosis of solomon coronary artery without angina pectoris, unspecified whether solomon or transplanted heart (I25.10) Active confirmed Problem 690543476 Anxiety with depression (F41.8) Active confirmed Problem 253516158 Diabetic ketoacidosis without coma associated with other specified diabetes mellitus (E13.10) Active confirmed Problem 479827612 Type 2 diabetes mellitus without complication, unspecified whether intermediate insulin use (E11.9) Active confirmed Problem 072515714 Uncontrolled typ e 2 diabetes mellitus with hyperglycemia (E11.65) Active confirmed Vital Signs Heart Rate 81 /min 01/10/2025 Blood pressure diastolic 60 mm Hg 01/10/2025 Height 64 in 01/10/2025 Blood pressure systolic 110 mm Hg 01/10/2025 Weight 176.8 lbs 01/10/2025 BMI 30.34 kg/m2 01/10/2025 Encounters Encounter Location Date Provider Diagnosis [facility] [address] [facility] [address] [place] [id number] 02/13/2024 Jenae Shipman Type 2 diabetes edwardo itus without complication E11.9 [facility] [address] [facility] [address] [place] [id number] 04/10/2024 Aida Cruz Leukocytes in urine R82.998 ; UTI (lower urinary tract infection) N39.0 and Type 2 diabetes mellitus without complication E11.9 [facility] [address] [facility] [address] [place], [place] [id number] 05/08/2024 Aida Cruz Type 2 diabetes edwardo itus without complication E11.9 and Weight loss counseling, encounter for Z71.3 [facility] [address] [facility] [address] [place], [place] [id number] 07/10/2024 Aidavamshi Cruz Type 2 diabetes edwardo itus without complication E11.9 [facility] [address] [facility] [address] [place], [place] [id number] 08/06/2024 Aida Cruz [facility] [address] [facility] [address] [place], [place] [id number] 08/13/2024 Aida Cruz Type 2 diabetes edwardo itus without complication E11.9 ; Anxiety with depression F41.8 ; Coronary artery disease involving solomon coronary artery of solomon heart without angina pectoris I25.10 ; Neuropathy G62.9 ; Paresthesia R20.2 ; Thyroid disorder screen Z13.29 and Anemia, unspecified type D64.9 [facility] [address] [facility] [address] [place], [place] [id number] 10/15/2024 Aida Cruz Breast cancer screen ing Z12.39 and Type 2 diabetes mellitus without complication E11.9 [facility] [address] [place], [place] [id number] 01/10/2025 Mary Cano Type 2 diabetes edwardo itus without complication E11.9 ; Anxiety with depression F41.8 ; Coronary artery disease involving solomon coronary artery of solomon heart without angina pectoris I25.10 ; Neuropathy G62.9 ; Paresthesia R20.2 ; Thyroid disorder screen Z13.29 ; Anemia, unspecified type D64.9 ; Vitamin D deficiency E55.9 ; Vitamin B12 deficiency E53.8 and Screening mammogram, encounter for Z12.31 [facility] [address] [facility] [address] [place], [place] [id number] 02/03/2024 Jenae Shipman Type 2 diabetes edwardo itus without complication E11.9 [facility] [address] [facility] [address] [place] [id number] 03/26/2024 Jenae Shipman Gastroesophageal ref lux disease without esophagitis K21.9 [facility] [address] [place] [id number] 06/01/2024 J Rigo Shipman Type 2 diabetes edwardo itus without complication E11.9 [facility] [address] [place] [id number] 07/02/2024 Aida Cruz Type 2 diabetes edwardo itus without complication E11.9 [facility] [address] [place] [id number] 10/18/2024 J Rigo Shipman [facility] [address] [place] [id number] 11/01/2024 Jenae Shipman [facility] [address] [place], [place] [id number] 12/12/2024 J Rigo Shipman Type 2 diabetes edwardo itus without complication E11.9 [facility] [address] [place] [id number] 01/11/2025 Mary Crowgaetano [facility] [address] [place], [place] [id number] 01/11/2025 Mary Cano Type 2 diabetes edwardo itus without complication E11.9 [facility] [address] [facility] [address] [place] [id number] 04/24/2024 Jenae Shipman Type 2 diabetes edwardo itus without complication E11.9 [facility] [address] [facility] [address] [place] [id number] 04/24/2024 Jenae Shipman [facility] [address] [facility] [address] [place] [id number] 05/25/2024 Jenae Shipman Essential hypertensi on I10 ; Type 2 diabetes mellitus without complication E11.9 and Gastroesophageal reflux disease without esophagitis K21.9 [facility] [address] [place], [place] [id number] 09/12/2024 Jenae Shipman Type 2 diabetes edwardo itus without complication E11.9 [facility] [address] [facility] [address] [place] [id number] 09/12/2024 Jenae Shipman [facility] [address] [facility] [address] [place] [id number] 09/22/2024 Jenae Shipman Type 2 diabetes edwardo itus without complication E11.9 [facility] [address] [facility] [address] [place] [id number] 11/01/2024 Jenae Shipman Gastroesophageal ref lux disease without esophagitis K21.9 [facility] [address] [facility] [address] [place] [id number] 11/19/2024 Jenae Shipman Anxiety with depress ion F41.8 [facility] [address] [facility] [address] [place] [id number] 12/03/2024 Jenae Shipman [facility] [address] [facility] [address] [place], [place] [id number] 12/17/2024 Jenae Shipamn Type 2 diabetes edwardo itus without complication E11.9 Assessments Encounter Date Diagnosis (ICD Code) Assessment Notes Treatment Notes Treatment Clinical Notes Section Notes 02/03/2024 Type 2 diabetes mellitus without complication (ICD-10 - E11.9) 02/13/2024 Type 2 diabetes mellitus without complication (ICD-10 - E11.9) 03/26/2024 Gastroesophageal reflux disease without esophagitis (ICD-10 - K21.9) 04/10/2024 UTI (lower urinary tract infection) (ICD-10 - N39.0) stressed good water intake 04/10/2024 Leukocytes in urine (ICD-10 - R82.998) 04/24/2024 Type 2 diabetes mellitus without complication (ICD-10 - E11.9) 05/08/2024 Type 2 diabetes mellitus without complication (ICD-10 - E11.9) continues with use of the Dexcom7; has made dietary changes 05/08/2024 Weight loss counseling, encounter for (ICD-10 - Z71.3) 05/25/2024 Essential hypertension (ICD-10 - I10) 06/01/2024 Type 2 diabetes mellitus without complication (ICD-10 - E11.9) 07/02/2024 Type 2 diabetes mellitus without complication (ICD-10 - E11.9) 07/10/2024 Type 2 diabetes mellitus without complication (ICD-10 - E11.9) will continue with dietary regime; will check labs and A1c at next visit 08/13/2024 Anxiety with depression (ICD-10 - F41.8) 09/12/2024 Type 2 diabetes mellitus without complication (ICD-10 - E11.9) 09/22/2024 Type 2 diabetes mellitus without complication (ICD-10 - E11.9) 10/15/2024 Breast cancer screening (ICD-10 - Z12.39) 10/15/2024 Type 2 diabetes mellitus without complication (ICD-10 - E11.9) 11/01/2024 Gastroesophageal reflux disease without esophagitis (ICD-10 - K21.9) 11/19/2024 Anxiety with depression (ICD-10 - F41.8) 12/12/2024 Type 2 diabetes mellitus without complication (ICD-10 - E11.9) 12/17/2024 Type 2 diabetes mellitus without complication (ICD-10 - E11.9) 08/13/2024 Type 2 diabetes mellitus without complication (ICD-10 - E11.9) will call in 1 month for additional increase in [place] and RTO in 2 months for fasting Lipids 01/10/2025 Type 2 diabetes mellitus without complication (ICD-10 - E11.9) 01/10/2025 Anxiety with depression (ICD-10 - F41.8) 01/11/2025 Type 2 diabetes mellitus without complication (ICD-10 - E11.9) 01/10/2025 Coronary artery disease involving solomon coronary artery of solomon heart without angina pectoris (ICD-10 - I25.10) 08/13/2024 Coronary artery disease involving solomon coronary artery of solomon heart without angina pectoris (ICD-10 - I25.10) 05/25/2024 Type 2 diabetes mellitus without complication (ICD-10 - E11.9) 04/10/2024 Type 2 diabetes mellitus without complication (ICD-10 - E11.9) discussed weight loss to include calories and portion sizes; BS have improved with use of the Dexcom7 05/25/2024 Gastroesophageal reflux disease without esophagitis (ICD-10 - K21.9) 08/13/2024 Neuropathy (ICD-10 - G62.9) 01/10/2025 Neuropathy (ICD-10 - G62.9) 08/13/2024 Paresthesia (ICD-10 - R20.2) 01/10/2025 Paresthesia (ICD-10 - R20.2) 01/10/2025 Thyroid disorder screen (ICD-10 - Z13.29) 08/13/2024 Thyroid disorder screen (ICD-10 - Z13.29) 01/10/2025 Anemia, unspecified type (ICD-10 - D64.9) 08/13/2024 Anemia, unspecified type (ICD-10 - D64.9) 01/10/2025 Vitamin D deficiency (ICD-10 - E55.9) 01/10/2025 Vitamin B12 deficiency (ICD-10 - E53.8) 01/10/2025 Screening mammogram, encounter for (ICD-10 - Z12.31) Plan Of Treatment Pending Test Test Name Order Date Lipid Profile 12/11/2020 Glycohemoglobin (HbA1C) 12/11/2020 CMP 12/11/2020 urine microalbumin/creatinine 12/11/2020 Mammogram 12/11/2020 Mammogram 10/15/2024 Mammogram 01/10/2025 Insurance Providers Payer Name Payer Address Payer Phone Subscriber Number Group Number Insured Name Patient Relationship to Insured Coverage Start Date Coverage End Date [employer] [address] [place] [address] [id number] Иван Roy Self - patient is the insured Medications Administered Medication Instructions Date of Administration Dosage Notes -04/07/2022 1 mL B-04/19/2022 1 mL Depo- Medrol 40 mg/ml 03/31/2006 1.5 mL Depo- Medrol 40 mg/ml 12/14/2018 1.5 mL Medical (General) History Medical History History ICD Code carotid artery disease Cardiac Stent Placement, right coronary artery, x 1 - 11/05/15 type 2 diabetes, followed by Endocrinolo gist Hypertension hypercholestrolemia Esophageal reflux depression Cardiac murmur Surgical History Surgery Date(Month/Year) cholecystectomy 1992 vaginal tape 07/10 right arm manipulated 08/11 colonoscopy upper GI X2 polyp removal hysterectomy vaginal 05/23/2015 Cardiac Stent Placement x 1 11/05/15 cubital tunnel release left elbow Hospitalization History Reason Date(Month/Year) [facility] chest [facility]22[facility] - Cardiac Stent Plac ement 11/05/15
--- OUTSIDE RECORDS SUMMARY | 2025-01-21 08:35 | XMS_ITS | Data Portability ---
Author Organization [facility] ADMIN Address [address] [place] [id number] Assessment No assessment recorded. Plan of Treatment Reminders Order Date Submit Date Provider Last Modified By Organization Details Last Modified Time Details Appointments None recorded. Lab None recorded. Referral None recorded. Procedures nerve conduction study/EMG, upper extremity (PROC) 2022 023 [email or web address] Not available 13:37:53 Surgeries None recorded. Imaging None recorded. Medication Orders None recorded. Patient TargetsNo targets recorded. Patient InstructionsNo instructions recorded. Reason for Referral None Reported. Problems Name Problem SNOMED Code Status Onset Date Resolution Date Notes Provider Name and Address Organization Details Recorded Time Paresthesia of upper limb 90090599 Active 2022 Sumaya Rehman DO [address] , [place], [place], [address] , [facility] & [place] 13:37:42 Problem Notes None recorded. Procedures Surgical History Date Name Laterality Status Provider Name and Address Organization Details Recorded Time EMG/ Nerve Conduction Study completed DO Angela Vaughan , [place], [address], [facility] & [place] 07/14/2023 13:37:38 Imaging Results None recorded. Procedure Notes None recorded. Medical Equipment None Reported. Medications Name Sig Start Date Stop Date Status Note LastModified by Organization Details LastModified Time atorvastatin 40 mg tablet active Not Available Not Available Not Available venlafaxine ER 75 mg capsule,exte nded release 24 hr active Not Available Not Available Not Available doxycycline hyclate 100 mg capsule TAKE ONE CAPSULE BY MOUTH TWICE DAILY FOR 10 DAYS -- FINISH ALL MEDICINE -- active Not Available Not Available Not Available clopidogrel 75 mg tablet active Not Available Not Available Not Available amoxicillin 875 mg tablet active Not Available Not Available Not Available benzonatate 100 mg capsule active Not Available Not Available Not Available hydrocodone 7.5 mg-acetamino phen 325 mg tablet TAKE ONE TABLET BY MOUTH EVERY 4 TO 6 HOURS NEEDED FOR PAIN MAY CAUSE DROWSINESS active Not Available Not Available N ot Available erythromycin 5 mg/gram (0.5 %) eye ointment apply in each affected eye FOUR TIMES DAILY DIRECTED active Not Available Not Available Not Available promethazine 25 mg tablet TAKE ONE TABLET BY MOUTH EVERY 6 HOURS NEEDED MAY CAUSE DROWSINESS active Not Available Not Available N ot Available triamterene 37.5 mg-hydrochlo rothiazide 25 mg tablet active Not Available Not Available Not Available omeprazole 20 mg capsule,venkat yed release active Not Available Not Available Not Available ibuprofen 600 mg tablet TAKE ONE TABLET BY MOUTH EVERY 6 HOURS NEEDED --TAKE WITH FOOD-- active Not Available Not Available No t Available methylpredni solone 4 mg tablets in a dose pack active Not Available Not Available No t Available benazepril 10 mg tablet active Not Available Not Available Not Available ondansetron 4 mg disintegrati ng tablet active Not Available Not Available No t Available cefdinir 300 mg capsule TAKE 1 CAPSULE BY MOUTH TWICE DAILY FOR 7 DAYS active Not Available Not Available No t Available metformin ER 500 mg tablet,exten ded release 24 hr active Not Available Not Available Not Available azithromycin 500 mg tablet active Not Available Not Available Not Available Novolog FlexPen U-100 Insulin aspart 100 unit/mL (3 mL) subcutaneous active Not Available Not Available Not Available metoprolol tartrate 25 mg tablet active Not Available Not Available No t Available BD Ultra-Fine Mini Pen Needle 31 gauge x 3/16 active Not Available Not Available Not Available varenicline tartrate 1 mg tablet active Not Available Not Available No t Available FeroSul 325 mg (65 mg iron) tablet TAKE 1 TABLET BY MOUTH ONCE DAILY FOR IRON DEFICIENCY active Not Available Not Available N ot Available Jardiance 25 mg tablet active Not Available Not Available No t Available Basaglar KwikPen U-100 Insulin 100 unit/mL (3 mL) subcutaneous active Not Available Not Available Not Available Dexcom G7 Planning Director active Not Available Not Available Not Available Dexcom G7 Sensor device active Not Available Not Available Not Available Clenpiq 10 mg-3.5 gram-12 gram/175 mL oral solution TAKE FIRST 160ML DOSE AT 5-9PM EVENING BEFORE COLONSCOPY, THE SECOND 160ML DOSE THE NEXT DAY APPROXIMATE LY 5 HOURS BEFORE COLONOSCOPY active Not Available Not Available Not Available Vitals Date Recorded Body height Body mass index (BMI) Body weight Heart rate Systolic blood pressure Diastolic blood pressure Provider Name and Address Organization Details Last Updated DateTime 3 165.1 cm 35 kg/m2 03736.8 3 g 87 /min 106 mm[Hg] 67 mm[Hg] Isabela Horne [facility] & [place] 3 13:37:05 Social History None recorded. Functional Status None recorded. Mental Status None recorded. Family History Nothing Reported. Medical History No medical history recorded. Gynecological HistoryNo gynecological history recorded. Obstetrics History GPAL:G 0 P 0 0 0 0 Past Encounters Encounter ID Performer Location Encounter Start Date Encounter Closed Date Diagnosis/Indication Diagnosis SNOMED-CT Code Diagnosis ICD10 Code Diagnosis Note [id number] Sumaya Rehman DO [facility] [address] [facility],[address] [place] [address] 07/14/2023 13:31:14 07/14/2023 14:07:19 Paresthesia of upper limb 57880510 R20.2 Health Concerns Section Related Observation LastModified by Organization Detai ls LastModified Time None Recorded Concern Status LastModified by Organization Details LastModified Time None Recorded Advance Directives Directive None Recorded Payers Insurance Date Sequence Insurance Name Policy Number Policy Carty Covered Member ID Carty Member ID Guarantor Name 02/18/2024 1 [place] [id number] Иван Swan [id number] OBGyn Episode No OBEpisode recorded.
--- OUTSIDE RECORDS SUMMARY | 2025-01-21 08:35 | XMS_ITS | Clinical Summary ---
Author Organization Healthcare Address [address] [place] [address] Care Team Providers Care Angle Shearer Name Role Phone Unavailable Primary Care Provider Unavailabl e Family History Medical History Relation Name Comments Cardiac disorder Father Conversions - Other Father cardiac pacemaker Diabetes type II Father Cardiac disorder Mother Diabetes type II Mother Heart attack Mother Hypertension Mother Diabetes Other Hypertension Sister 1 Diabetes type II Sister 2 Relation Name Status Comments Father Mother Other Sister 1 Sister 2 Social History Tobacco Use Types Packs/Day Years Used Date Smoking Tobacco: Every Day Alcohol Use Standard Drinks/Week Comments No 0 (1 standard drink = 0.6 oz pur e alcohol) Comments Unknown Sex and Gender Information Value Date Recorded Sex Assigned at Not on file Legal Sex Female 8:36 PM EDT Gender Identity Not on file Sexual Orientation Not on file Last Filed Vital Signs Vital Sign Reading Time Taken Comments Blood Pressure 121/74 09/15/2017 10:07 AM EST Pulse 82 09/15/2017 10:07 AM EST Temperature 36.7 C (98.1 F) 09/15/2017 10:07 AM EST Respiratory Rate - - Oxygen Saturation - - Inhaled Oxygen Concentration - - Weight 86.6 kg (190 lb 14.7 oz) 018 10:07 AM EST Height 165.1 cm (5' 5 ) 09/15/2017 10:0 7 AM EST Body Mass Index 31.77 09/15/2017 10:07 AM EST Plan of Treatment Not on file
== END 2025-01-21 23:59 | disposition home or self-care (01) ==
LOC: RAD 08:27
PROVIDERS: PCP Physician Assistant; Visit Provider Physician Assistant
DX: Z12.31 Encounter for screening mammogram for malignant neoplasm of breast (principal); R92.323 Mammographic fibroglandular density, bilateral breasts
CPT/HCPCS: 77063; 77067

== ENCOUNTER 2025-01-24 12:17 | Outpatient (CLI) | payer BC, SELFPAY ==
--- OUTSIDE RECORDS SUMMARY | 2024-10-15 05:30 | XMS_ITS ---
Author Organization [facility] Address [address] [facility] [address] [place] [id number] Care Team Providers Care [employer] Roller Name Role Phone Jenae Shipman Primary Care Provider Aida Cruz Unavailable [phone] Allergies No Known Allergies REASON FOR VISIT 2 month ckup, Needs mammogram Medications Medication SIG (Take, Route, Frequency, Duration) Notes Start Date End Date Status Mounjaro 12.5 MG/0.5ML 12.5 mg Subcutane ous weekly; Duration: 30 days Active Atorvastatin Calcium 40 MG 1 tab(s) orally once a day; Duration: 90 days Active B-12 1000 MCG 1 tab(s) orally once a day; Duration: 30 day(s) Active CPAP machine and supplies - as directed as directed Acti ve Metoprolol Tartrate 25 MG 1 tab(s) orall y 2 times a day; Duration: 30 days Active metFORMIN HCl ER 500 MG 2 tab(s) orally Two times a day; Duration: 30 days Active Dexcom G7 Sensor - as directed every 10 days; Duration: 90 days 09/06/2023 Active Venlafaxine HCl ER 75 MG 1 cap(s) orally once a day Active Jardiance 25 MG 1 tab(s) orally once a day (in the morning) Active Basaglar KwikPen 100 UNIT/ML 25 units subcutaneously once daily Active Clopidogrel Bisulfate 75 MG 1 tab(s) orally once a day A ctive Aspirin 81 MG 1 tablet Orally Once a day Active Ferrous Sulfate 325 (65 Fe) MG 1 tab(s) orally once daily 01/10/2013 A ctive NovoLOG FlexPen 100 UNIT/ML 10 Units Three times a day 12/19/2023 A ctive Omeprazole 20 MG 1 cap(s) orally once a day; Duration: 90 days Active Benazepril HCl 10 MG 1 tab(s) orally onc e a day; Duration: 90 days Active Maxzide-25 37.5-25 MG 1 tab(s) orally on ce a day; Duration: 90 days Active NovoLOG FlexPen 100 UNIT/ML 10 units subcutaneously three times a day Active Dexcom G7 Process Controller - - Active Vital Signs Blood pressure systolic 130 mm Hg 10/16/19 25 Blood pressure diastolic 60 mm Hg 025 Heart Rate 86 /min 10/15/2024 Height 64 in 10/15/2024 Weight 190.8 lbs 10/15/2024 BMI 32.75 kg/m2 10/15/2024 Encounters Encounter Location Date Provider Diagnosis [facility] [address] [place] [id number] 10/15/2024 Aida Cruz Breast cancer screening Z12.39 and Type 2 diabetes mellitus without complication E11.9 Assessments Encounter Date Diagnosis (ICD Code) Assessment Notes Treatment Notes Treatment Clinical Notes Section Notes 10/15/2024 Breast cancer screening (ICD-10 - Z12.39) 10/15/2024 Type 2 diabetes mellitus without complication (ICD-10 - E11.9) Plan Of Treatment Medication Medication Name Sig Start Date Stop Date Notes Mounjaro 12.5 MG/0.5ML 12.5 mg Subcutane ous weekly; Duration: 30 days Pending Test Test Name Order Date Mammogram 10/15/2024 Next Appt Details Follow Up: 3 Months, Reason: Progress Notes * Skyler SWANOB:1965 (59 yo F)Acc No.[id number]:10/15/2024 Progress Notes Patient: Иван ALANIZ Provider: KATHYA Rutledge :1965 A ge:58 Y S ex:Female Date:10/15/2024 Address:[address] [place] [address], [id number] Pcp:Jenae Shipman Subjective: * Chief Complaints: * 1 . 2 month ckup. 2. Needs mammogram. * HPI: H PI: 58 year old female presents with c/o Patient is here today for?Pt is here today for a 2 month check up. Pt sts her ears have been bothering her, and sts they have been draining. losing weight; tolerates med well. 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 * Surgical History: c holecystectomy 1992, vaginal tape 07/10, right arm manipulated 08/11, colonoscopy , upper GI X2 , polyp removal , hysterectomy vaginal 05/23/2015, Cardiac Stent Placement x 1 11/05/15, cubital tunnel release left elbow 11/03/23. * Hospitalization/Major Diagno stic Procedure: s corinne , diabetes , [facility] UTC- UTI 07/23/2024. * Family History: F [...] preference: cigarettes. Alcohol: no. * Medications: T aking CPAP machine and supplies - - as directed as directed , Taking B-12 1000 MCG Tablet 1 tab(s) orally once a day , Taking Atorvastatin Calcium 40 MG Tablet 1 tab(s) orally once a day , Taking Dexcom G7 Process Controller - Device - , Taking NovoLOG FlexPen 100 UNIT/ML Solution Pen-injector 10 units subcutaneously three times a day , Taking Maxzide-25 37.5-25 MG Tablet 1 tab(s) orally once a day , Taking Benazepril HCl 10 MG Tablet 1 tab(s) orally once a day , Taking Omeprazole 20 MG Capsule Delayed Release 1 cap(s) orally once a day , Taking NovoLOG FlexPen 100 UNIT/ML Solution Pen- injector 10 Units Three times a day , Taking Mounjaro 10 MG/0.5ML Solution Auto-injector 10 mg subcu weekly , Taking Ferrous Sulfate 325 (65 Fe) MG Tablet 1 tab(s) orally once daily , Taking Aspirin 81 MG Tablet Delayed Release 1 tablet Orally Once a day , Taking Clopidogrel Bisulfate 75 MG Tablet 1 tab(s) orally once a day , Taking Basaglar KwikPen 100 UNIT/ML Solution Pen-injector 25 units subcutaneously once daily , Taking Jardiance 25 MG Tablet 1 tab(s) orally once a day (in the morning) , Taking Venlafaxine HCl ER 75 MG Capsule Extended Release 24 Hour 1 cap(s) orally once a day , Taking Dexcom G7 Sensor - Miscellaneous as directed every 10 days , Taking metFORMIN HCl ER 500 MG Tablet Extended Release 24 Hour 2 tab(s) orally Two times a day , Taking Metoprolol Tartrate 25 MG Tablet 1 tab(s) orally 2 times a day , Medication List reviewed and reconciled with the patient * Allergies: N .K.D.A. Objective: * Vitals: W t:190.8, Temp:98.0, BP:130/60, HR:86, O2 Sat:99% on RA, Nurse:[facility], Ht: 64, BMI:32.75. * Examination: G eneral Examination: General Appearance: NAD, appears healthy, alert, well nourished and hydrated. H EENT: sclera and conjunctiva clear, PERRLA, TM's normal, translucent. H eart: RRR. L ungs: CTAB A&P. N eurologic Exam: alert and oriented. E xtremities: no leg edema. Assessment: * Assessment: 1. B reast cancer screening - Z12.39 (Primary) 2 . T ype 2 diabetes mellitus without complication - E11.9 Plan: * Treatment: 2.?Type 2 diabetes mellitus without complication? Increase Mounjaro Solution Auto-injector, 12.5 MG/0.5ML, 12.5 mg, Subcutaneous, weekly, 30 days, 4,Refills 3.?? * Procedure Codes: 3 075F SYST BP GE 130 - 139MM HG, 3078F DIAST BP < 80 MM HG, 3044F HG A1C LEVEL LT 7.0% * Follow Up: 3 Months * Images: Billing Information: * Visit Code: 51127 Office Visit, Est Pt., Level 3. * Procedure Codes: 3075F SYST BP GE 130 - 139MM HG. 3078F DIAST BP < 80 MM HG. 3044F HG A1C LEVEL LT 7.0%. * Electronic signature of Mona Cruz APRN on 01/25/2025 at 11:15 AM EDT Sign off status: Pending * Provider: KATHYA Rutledge Date: 0 10/15/2024 Generated for Marcelino long/Park/Dashitting on: 0 01/25/2025 11:15 AM EDT History and Physical Notes * HPI (History of Present Illness) Category Sub-Category Detail Notes Category Not es HPI Patient is here toda y for Pt is here today for a 2 month check up. Pt sts her ears have been bothering her, and sts they have been draining losing weight; tolerates med well Examination Category Sub-Category Detail Notes Category Not es General Examination HEENT: sclera and c onjunctiva clear, PERRLA, TM's normal, translucent Heart: RRR Lungs: CTAB A&P Extremities: no leg edema General Appearance: NAD, appears healthy , alert, well nourished and hydrated Neurologic Exam: alert and oriented
--- OUTSIDE RECORDS SUMMARY | 2025-01-10 05:15 | XMS_ITS ---
Author Organization [facility] Address [address] [facility] [address] [place] [id number] Care Team Providers Care Director Of Valuation Name Role Phone Jenae Shipman Primary Care Provider Mary Cano Unavailable [phone] Allergies No Known Allergies Results Component Value [...] Interpretation:Normal Performing Lab: Notes/Report: Test performed by [facility] [address] [place] [address] , [address], [place] [address] Norberto White MD, Photoresist Contact Printer CLIA: [id number] Vitamin B12 4555 246-0060 pg/mL P-Comprehensive Metabolic Pa luisa (CMP) Reviewed date:01/11/2025 01:22:18 PM Interpretation:Normal Performing Lab: Notes/Report: Test performed by [facility] [address] [place] [address] , [address], [place] [address] Norberto White MD, Photoresist Contact Printer CLIA: [id number] Sodium 139 135-145 mmol/L Potassium 3.8 3.5-5.3 [...] Interpretation:Normal Performing Lab: Notes/Report: Test performed by [facility] [address] [place] [address] , [address], [place] [address] Norberto White MD, Photoresist Contact Printer CLIA: [id number] Iron 48 37-145 ug/dL P-TSH reflex to FT4 Reviewed date:01/11/2025 01:22:18 PM Interpretation:Normal Performing Lab: Notes/Report: Test performed by [facility] [address] [place] [address] , [address], [place] [address] Norberto White MD, Photoresist Contact Printer CLIA: [id number] TSH reflex to FT4 1.65 0.43-5.25 mU/L P-Vitamin D 25-Hydroxy Reviewed date:01/11/2025 01:22:18 PM Interpretation:25.4 Performing Lab: Notes/Report: Test performed by [facility] [address] [place] [address] Brenda Cisneros, [address], [place] [id number] Norberto White MD, Photoresist Contact Printer CLIA: [id number] Vitamin D 25-Hydroxy 25.4 30.0-100.0 ng/mL Interpretation of Vitamin D 25 OH: < 20 ng/mL - Deficiency 20 - 29 ng/mL - Insufficiency 30 - 100 ng/mL - Sufficiency > 100 ng/mL - Super-therapeutic- toxicity may occur above this level. Clinical correlation required. Mammogram (Not yet reviewed by provider) Interpretation: Performing Lab: Notes/Report: REASON FOR VISIT [...] Duration: 90 days 09/06/2023 Active Dexcom G7 Apple Packing Header - - Active NovoLOG FlexPen 100 UNIT/ML 10 units subcutaneously three times a day Active CPAP machine and supplies - as directed as directed Acti ve B-12 1000 MCG 1 tab(s) orally once a day; Duration: 30 day(s) Active Problems Problem Type SNOMED Code ICD Code Onset Dates Problem Status W/U Status Risk Notes Problem Vitamin D deficiency (E55.9) Active confirmed Vital Signs Blood pressure systolic 110 mm Hg 01/11/20 25 Blood pressure diastolic 60 mm Hg 025 Heart Rate 81 /min 01/10/2025 Height 64 in 01/10/2025 Weight 176.8 lbs 01/10/2025 BMI 30.34 kg/m2 01/10/2025 Encounters Encounter Location Date Provider Diagnosis 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 * Surgical History: c holecystectomy 1992, vaginal tape 07/10, right arm manipulated 08/11, colonoscopy , upper GI X2 , polyp removal , hysterectomy vaginal 05/23/2015, Cardiac Stent Placement x 1 11/05/15, cubital tunnel release left elbow 11/03/23. * Hospitalization/Major Diagno stic Procedure: s corinne , diabetes , [facility] ER - chest pain 09/22/15, [facility] - Cardiac Stent Placement 11/05/15, [facility] UTC- UTI 07/23/2024. * Family History: [...] once a day , Taking Dexcom G7 Apple Packing Header - Device - , Taking NovoLOG FlexPen [...] 3 . C oronary artery disease involving alatna coronary artery of alatna heart without angina pectoris - I25.10 4 [...] Musa 01/10/2025 10 :53:15 AM EDT > Gladys Bauer 01/11/2025 01:22:09 PM EDT > See phone encounter 3.?Vitamin D deficiency?LAB: P-Vitamin D 25-Hydroxy (Collection Date & Time - 01/10/2025 08:55 AM)? 25.4* Value Reference Range V itamin D 25-Hydroxy 25.4 L 30.0-100.0 - ng/mL * Jeovany Canojoanna Guerrier 01/10/2025 0 9:51:01 AM EDT >room 10, sparkle Bauer Gladys 01/11/2025 01:22:09 PM EDT > See phone encounter 4.?Vitamin B12 deficiency?LAB: P-Vitamin B12 (Collection Date & Time - 01/10/2025 08:55 AM)?Normal* Value Reference Range V itamin B12 9449 169-0614 - pg/mL * Mary Cano Fareed 01/10/2025 0 9:51:01 AM EDT >room 10, sparkle Bauer Gladys 01/11/2025 01:22:09 PM EDT > See phone encounter 5.?Screening mammogram, encounter for?Imaging: Mammogram (Performed Date - 01/21/2025)* Ifeoma Wray 01/10/2025 10:0 5:43 AM EDT > faxed to [facility] Scheduling * Procedure Codes: 8 3036 GLYCATED HEMOGLOBIN TEST, Modifiers: QW , 01510 CBC WITH AUTO DIFF, 1036F TOBACCO NON-USER, 3044F HG A1C LEVEL LT 7.0%, G8783 BP SCR PRFRM RCMDD DEFIND SCR INTVL, G8752 MOST RECENT SYSTOLIC BP < 140MM HG, G8754 MOST RECENT DIASTOLIC BP < 90MM HG * Follow Up: v ia phone to report test results * Images: Billing Information: * Visit Code: 99662 Office Visit, Est Pt., Level 4. * Procedure Codes: 34925 GLYCATED HEMOGLOBIN TEST. Modifiers: QW 66555 CBC WITH AUTO DIFF. 1036F TOBACCO NON-USER. 3044F HG A1C LEVEL LT 7.0%. G8783 BP SCR PRFRM RCMDD DEFIND SCR INTVL. G8752 MOST RECENT SYSTOLIC BP < 140MM HG. G8754 MOST RECENT DIASTOLIC BP < 90MM HG. * Electronic signature of AMANDEEP Payne on 01/25/2025 at 11:16 AM EDT Sign off status: Pending * Provider: AMANDEEP Sapp Date: 0 01/10/2025 Generated for Marcelino long/Fashaheedg/eTransmitting on: 0 01/25/2025 11:16 AM EDT History and Physical Notes * [...]
--- OUTSIDE RECORDS SUMMARY | 2025-01-21 05:05 | XMS_ITS ---
Author Organization [facility] Address [address] [facility] [address] [place] [id number] Care Team Providers Care Work Manager Name Role Phone Jenae Shipman Primary Care Provider [phone] REASON FOR VISIT due colonoscopy Encounters Encounter Location Date Provider Diagnosis [facility] [address] [facility] [address] [place] [phone] 01/21/2025 Jenae Shipman Screening for colon cancer Z12.11 Assessments Encounter Date Diagnosis (ICD Code) Assessment Notes Treatment Notes Treatment Clinical Notes Section Notes 01/21/2025 Screening for colon cancer (ICD-10 - Z12.11) Plan Of Treatment Pending Test Test Name Order Date colonoscopy 01/21/2025 Progress Notes * Skyler SWANOB:1965 (59 yo F)Acc No.[id number]:01/21/2025 Patient: Sage ALANIZime :1965 A ge:59 Y S ex:Female Address:[place] [address] Subjective: * Chief Complaints: * D ue colonoscopy * Medical History: * Surgical History: * Hospitalization/Major Diagno stic Procedure: * Medications: Objective: * Vitals: * Physical Examination: Assessment: * Assessment: 1. S creening for colon cancer - Z12.11 (Primary) Plan: * Treatment: * Procedure Codes: * true * Date: Generated for Printi ng/Faxing/Marivel on: 0 01/25/2025 11:16 AM EDT
--- OUTSIDE RECORDS SUMMARY | 2025-01-25 11:16 | XMS_ITS | Patient Health Record ---
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 Store Deli Manager Name Role Phone Jenae Shipman Primary Care Provider [phone] Aida Cruz Unavailable [phone] Mary Cano Unavailable [phone] Allergies No Known Allergies Results Component Value Reference Range Notes P-Microalbumin/Creatinine, R andom Urine Sample Reviewed date:02/14/2024 03:14:52 PM Interpretation:Normal Performing Lab: Notes/Report: Test performed by [facility] [address] [place] [address] , [address], [place] [address] Norberto White MD, Thoracic Medicine Specialist CLIA: [id number] Albumin/Creatinine Ratio, Urine 14 0-30 ug/mg Microalbumin, Urine, Random 0.3 Creatinine, Urine 22.0 Urinalysis - Inhouse Reviewed date:04/10/2024 03:25:58 PM Interpretation: Performing Lab: Notes/Report: Color/Clarity yellow Leuk 1+ Nitrite neg Urobili 3.2 Protein neg pH 6.0 Blood trace Sp. Gr. 1.025 Ketone neg Bili neg Gluc neg Glycohemoglobin A1c (in hous e) Reviewed date:04/10/2024 03:26:10 PM Interpretation:7.0% Performing Lab: Notes/Report: 7.0% glycohemoglobin 7.0% 5 - 6.5 % P-Culture, Urine Reviewed date:04/12/2024 10:40:29 AM Interpretation:likely representing contamination, recollect Performing Lab: Notes/Report: Test performed by Sarata [address] [place] [address] , [address], [place] [address] Norberto White MD, Thoracic Medicine Specialist CLIA: [id number] Specimen Source Urine - Void Culture, Urine See Below Final Report : 10,000-15,000 CFU/ml Mixed Gram Positive Organisms Three or more organisms present likely representing contamination during collection by patient's urogenital, skin, and/or fecal sascha. Organism identification and sensitivity assessment are not recommended. Specimen recollection is recommended. CBC Fingerstick (in house) Reviewed date:08/14/2024 09:18:11 [...] Interpretation:453 Performing Lab: Notes/Report: Test performed by Sarata [address] [place] [address] , [address], [place] [address] Norberto White MD, Thoracic Medicine Specialist CLIA: [id number] Vitamin B12 343 511-5057 pg/mL P-Comprehensive Metabolic Pa luisa (CMP) Reviewed date:08/14/2024 09:20:21 AM Interpretation: Performing Lab: Notes/Report: Test performed by Sarata [address] [place] [address] Brenda Cisneros, [address], [place] [address] Norberto White MD, Thoracic Medicine Specialist CLIA: [id number] Sodium 140 135-145 mmol/L Potassium 4.0 3.5-5.3 [...] Interpretation:43 Performing Lab: Notes/Report: Test performed by milog [address] , [place] [address] Norberto White MD, Thoracic Medicine Specialist CLIA: [id number] Iron 43 37-145 ug/dL P-Magnesium Reviewed date:08/14/2024 09:18:53 AM Interpretation:1.9 Performing Lab: Notes/Report: Test performed by Sarata [address] [place] [address] , [place] [address] Norberto White MD, Thoracic Medicine Specialist CLIA: [id number] Magnesium 1.9 1.6-2.4 mg/dL P-TSH Reviewed date:08/14/2024 09:19:15 AM Interpretation:0.78 Performing Lab: Notes/Report: Test performed by Sarata [address] [place] [address] , [place] [address] Norberto White MD, Thoracic Medicine Specialist CLIA: [id number] TSH 0.78 0.43-5.25 mU/L P-Vitamin D 25-Hydroxy Reviewed date:08/14/2024 09:19:36 AM Interpretation:21.6 Performing Lab: Notes/Report: Test performed by Sarata [address] [place] [address] , [place] [address] Norberto White MD, Thoracic Medicine Specialist CLIA: [id number] Vitamin D 25-Hydroxy 21.6 30.0-100.0 ng/mL Interpretation of Vitamin D 25 [place]: < 20 ng/mL - Deficiency 20 - 29 ng/mL - Insufficiency 30 - 100 ng/mL - Sufficiency > 100 ng/mL - Super-therapeutic- toxicity may occur above this level. Clinical correlation required. CBC Venipuncture (in house) Reviewed date:01/11/2025 01:22:18 [...] Interpretation:Normal Performing Lab: Notes/Report: Test performed by Sarata [address] [place] [address] , [address], [place] [address] Norberto White MD, Thoracic Medicine Specialist CLIA: [id number] Vitamin B12 7737 350-6344 pg/mL P-Comprehensive Metabolic Pa luisa (CMP) Reviewed date:01/11/2025 01:22:18 PM Interpretation:Normal Performing Lab: Notes/Report: Test performed by Sarata [address] [place] [address] , [address], [place] [address] Norberto White MD, Thoracic Medicine Specialist CLIA: [id number] Sodium 139 135-145 mmol/L Potassium 3.8 3.5-5.3 [...] Interpretation:Normal Performing Lab: Notes/Report: Test performed by Sarata [address] [place] [address] , [place] [address] Norberto Whiet MD, Thoracic Medicine Specialist CLIA: [id number] Iron 48 37-145 ug/dL P-TSH reflex to FT4 Reviewed date:01/11/2025 01:22:18 PM Interpretation:Normal Performing Lab: Notes/Report: Test performed by Sarata [address] [place] [address] , [place] [address] Norberto White MD, Thoracic Medicine Specialist CLIA: [id number] TSH reflex to FT4 1.65 0.43-5.25 mU/L P-Vitamin D 25-Hydroxy Reviewed date:01/11/2025 01:22:18 PM Interpretation:25.4 Performing Lab: Notes/Report: Test performed by Sarata [address] [place] [address] , [place] [address] Norberto White MD, Thoracic Medicine Specialist CLIA: [id number] Vitamin D 25-Hydroxy 25.4 30.0-100.0 ng/mL Interpretation of Vitamin D 25 [place]: < 20 ng/mL - Deficiency 20 - 29 ng/mL - Insufficiency 30 - 100 ng/mL - Sufficiency > 100 ng/mL - Super-therapeutic- toxicity may occur above this level. Clinical correlation required. Mammogram (Not yet reviewed by provider) Interpretation: Performing Lab: Notes/Report: Medications Medication SIG (Take, Route, Frequency, Duration) Notes Start Date End Date [facility] Super[facility] 2Nd Shift - - Active Venlafaxine HCl ER 75 MG 1 cap(s) orally once a day; Duration: 90 days Active NovoLOG FlexPen 100 UNIT/ML 10 units subcutaneously three times a day Active Metoprolol Tartrate 25 MG 1 tab(s) orall y 2 times a day; Duration: 90 days Active CPAP machine and supplies - as directed as directed Acti ve Maxzide-25 37.5-25 MG 1 tab(s) orally on ce a day; Duration: 90 days Active B-12 1000 MCG 1 tab(s) orally once a day; Duration: 30 day(s) Active Benazepril HCl 10 MG 1 tab(s) orally onc e a day; Duration: 90 days Active Aspirin 81 MG 1 tablet Orally Once a day Active NovoLOG FlexPen 100 UNIT/ML 10 Units Three times a day 12/19/2023 A ctive metFORMIN HCl ER 500 MG TAKE 2 TABLETS B Y MOUTH TWICE DAILY; Duration: 90 Active Ferrous Sulfate 325 (65 Fe) MG 1 tab(s) orally once daily 01/10/2013 A ctive Mounjaro 12.5 MG/0.5ML 12.5 mg Subcutane ous weekly; Duration: 30 days Active Basaglar KwikPen 100 UNIT/ML 25 units subcutaneously once daily; Duration: 30 days Active Jardiance 25 MG 1 tablet Orally Once a day; Duration: 90 days Active Omeprazole 20 MG 1 cap(s) orally once a day; Duration: 90 days Active Atorvastatin Calcium 40 MG TAKE 1 TABLET BY MOUTH ONCE DAILY; Duration: 90 Active Clopidogrel Bisulfate 75 MG 1 tab(s) orally once a day A ctive Dexcom G7 Sensor - as directed every 10 days; Duration: 90 days 09/06/2023 Active Immunizations Vaccine Route Administration Date Status Comme nts xFlu shot-36 months and older IM Intramuscular 06/03/2006 Administered Tetanus Tdap-Adacel (over 7yrs) Unknown 03/23/2017 Pending Tetanus Tdap-Adacel (over 7yrs) Unknown 05/16/2020 Administered Tetanus Tdap-Adacel (over 7yrs) Unknown 10/25/2020 Administered Shingrix Unknown 05/13/2021 Administered Hepatitis A (adult) Unknown 07/06/2018 Administered Hepatitis A (adult) Unknown 01/04/2019 Administered Fluzone Quad (6months&older) Unknown 05/13/2021 Administered Fluzone Quad (6months&older) IM Intramuscular 04/07/2022 Administered Fluzone Quad (6months&older) IM Intramuscular 05/04/2023 Administered COVID 19 Moderna Unknown 08/13/2020 Administered COVID 19 Moderna Unknown 09/10/2020 Administered COVID 19 Moderna Unknown 04/15/2021 Administered COVID 19 Moderna Unknown 11/20/2021 Administered Problems Problem Type SNOMED Code ICD Code Onset Dates Problem Status W/U Status Risk Notes Problem Coronary arteriosclerosis (34339588) ASCVD (arteriosclerotic cardiovascular disease) (I25.10) Active confirmed Problem Peripheral circulatory disorder associated with diabetes mellitus (484872912) 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.59) Active confirmed Problem Vitamin D deficiency (76663512) Vitamin D deficiency (E55.9) Active confirmed Problem Essential hypertension (78421840) Essential hypertension (I10) Active confirmed Problem Sciatic nerve lesion (366348505) Piriformis syndrome of right side (G57.01) Active confirmed Problem Paresthesia (87768007) Paresthesia (R20.2) Active confirmed Problem Mixed hyperlipidemia (826357349) Mixed hyperlipidemia (E78.2) Active confirmed Problem Tobacco dependence (67004102) Tobacco dependence (F17.200) Active confirmed Problem Long-term current use of insulin (354051633) [facility] (current) use of insulin (Z79.4) Active confirmed Problem Type II diabetes mellitus without complication (829527809) Type 2 diabetes mellitus without complication (E11.9) Active confirmed Problem Gastroesophageal reflux disease without esophagitis (284022316) Gastroesophageal reflux disease without esophagitis (K21.9) Active confirmed Problem Reactive depression (situational) (34868612) Situational depression (F43.21) Active confirmed Problem Atherosclerotic heart disease of [place] coronary artery without angina pectoris (632880571465526) Coronary artery disease involving [place] coronary artery of [place] heart without angina pectoris (I25.10) Active confirmed Problem Gastroesophageal reflux disease (228391609) Gastroesophageal reflux disease, esophagitis presence not specified (K21.9) Active confirmed Problem Neuropathy (088342704) Neuropathy (G62.9) Active confirmed Problem Anemia (006995718) Anemia, unspecified type (D64.9) Active confirmed Problem Hyperlipidaemia (17026273) Hyperlipidemia, unspecified hyperlipidemia type (E78.5) Active confirmed Problem Obese class II (216697956112210) BMI 37.0-37.9, adult (Z68.37) Active confirmed Problem Stented coronary artery (112906256) Stented coronary artery (Z95.5) Active confirmed Problem Depressive disorder (disorder) (90904961) Depression, unspecified depression type (F32.9) Active confirmed Problem Atherosclerotic heart disease of [place] coronary artery without angina pectoris (034985173331459) Atherosclerosis of [place] coronary artery without angina pectoris, unspecified whether [place] or transplanted heart (I25.10) Active confirmed Problem Anxiety depression (148299544) Anxiety with depression (F41.8) Active confirmed Problem Diabetic ketoacidosis without coma (985117994) Diabetic ketoacidosis without coma associated with other specified diabetes mellitus (E13.10) Active confirmed Problem Type II diabetes mellitus without complication (287303818) Type 2 diabetes mellitus without complication, unspecified whether manager terminal insulin use (E11.9) Active confirmed Problem Hyperglycemia due to type 2 diabetes mellitus (874462519952857) Uncontrolled type 2 diabetes mellitus with hyperglycemia (E11.65) Active confirmed Vital Signs Heart Rate 81 /min 01/10/2025 Blood pressure diastolic 60 mm Hg 01/10/2025 Height 64 in 01/10/2025 Blood pressure systolic 110 mm Hg 01/10/2025 Weight 176.8 lbs 01/10/2025 BMI 30.34 kg/m2 01/10/2025 Encounters Encounter Location Date Provider Diagnosis [facility] [facility] [facility] [address] [place] [id number] 02/13/2024 Jenae Shipman Type 2 diabetes edwardo itus without complication E11.9 [facility] [address] [place], [place] [id number] 04/10/2024 Aida Cruz Leukocytes in urine R82.998 ; UTI (lower urinary tract infection) N39.0 and Type 2 diabetes mellitus without complication E11.9 [facility] [facility] [facility] [address] [place], [place] [id number] 05/08/2024 Aida Cruz Type 2 diabetes edwardo itus without complication E11.9 and Weight loss counseling, encounter for Z71.3 [facility] [address] [place], [place] [id number] 07/10/2024 Aida Cruz Type 2 diabetes edwardo itus without complication E11.9 [facility] [address] [place], [place] [id number] 08/06/2024 Aida Cruz [facility] [address] [place], [place] [id number] 08/13/2024 Aida Cruz Type 2 diabetes edwardo itus without complication E11.9 ; Anxiety with depression F41.8 ; Coronary artery disease involving [place] coronary artery of [place] heart without angina pectoris I25.10 ; Neuropathy G62.9 ; Paresthesia R20.2 ; Thyroid disorder screen Z13.29 and Anemia, unspecified type D64.9 [facility] [address] [place], [place] [id number] 10/15/2024 Aidaellie Cruz Breast cancer screen ing Z12.39 and Type 2 diabetes mellitus without complication E11.9 [facility] [address] [place], [place] [id number] 01/10/2025 Mary Cano Type 2 diabetes edwardo itus without complication E11.9 ; Anxiety with depression F41.8 ; Coronary artery disease involving [place] coronary artery of [place] heart without angina pectoris I25.10 ; Neuropathy G62.9 ; Paresthesia R20.2 ; Thyroid disorder screen Z13.29 ; Anemia, unspecified type D64.9 ; Vitamin D deficiency E55.9 ; Vitamin B12 deficiency E53.8 and Screening mammogram, encounter for Z12.31 [facility] [address] [place], [place] [id number] 02/03/2024 Jenae Shipman Type 2 diabetes edwardo itus without complication E11.9 [facility] [address] [place], [place] [id number] 03/26/2024 Jenae Shipman Gastroesophageal ref lux disease without esophagitis K21.9 [facility] [address] [place], [place] [id number] 06/01/2024 Jenae Shipman Type 2 diabetes edwardo itus without complication E11.9 [facility] [address] [facility] [address] [place], [place] [id number] 07/02/2024 Aida Cruz Type 2 diabetes edwardo itus without complication E11.9 [facility] [address] [place], [place] [id number] 10/18/2024 Jenae Shipman [facility] [address] [place], [place] [id number] 11/01/2024 Jenae Shipman [facility] [address] [place], [place] [id number] 12/12/2024 J Rigo Shipman Type 2 diabetes edwardo itus without complication E11.9 [facility] [address] [place], [place] [id number] 01/11/2025 Mary Cano [facility] [address] [place], [place] [id number] 01/11/2025 Maryjoanna Cano Type 2 diabetes edwardo itus without complication E11.9 [facility] [address] [place], [place] [id number] 01/21/2025 Jenae Shipman Screening for colon cancer Z12.11 [facility] [address] [place], [place] [id number] 04/24/2024 Jenae Shipman Type 2 diabetes edwardo itus without complication E11.9 [facility] [address] [place], [place] [id number] 04/24/2024 Jenae Shipman [facility] [address] [place], [place] [id number] 05/25/2024 Jenae Shipman Essential hypertensi on I10 ; Type 2 diabetes mellitus without complication E11.9 and Gastroesophageal reflux disease without esophagitis K21.9 [facility] [address] [place], [place] [id number] 09/12/2024 Jenae Shipman Type 2 diabetes edwardo itus without complication E11.9 [facility] [address] [place], [place] [id number] 09/12/2024 Jenae Shipman [facility] [address] [place], [place] [id number] 09/22/2024 Jenae Shipman Type 2 diabetes edwardo itus without complication E11.9 [facility] [address] [place], [place] [id number] 11/01/2024 Jenae Shipman Gastroesophageal ref lux disease without esophagitis K21.9 [facility] [address] [place], [place] [id number] 11/19/2024 Jenae Shipman Anxiety with depress ion F41.8 [facility] [address] [place], [place] [id number] 12/03/2024 Jenae Shipman [facility] [address] [place], [place] [id number] 12/17/2024 Jenae Shipman Type 2 diabetes edwardo itus without complication E11.9 Assessments Encounter Date Diagnosis (ICD Code) Assessment Notes Treatment Notes Treatment Clinical Notes Section Notes 02/13/2024 Type 2 diabetes mellitus without complication [...] diabetes mellitus without complication (ICD-10 - E11.9) 01/21/2025 Screening for colon cancer (ICD-10 - Z12.11) 02/03/2024 Type 2 diabetes mellitus without complication (ICD-10 - E11.9) 01/10/2025 Coronary artery disease involving [place] coronary artery of [place] heart without angina pectoris (ICD-10 - I25.10) 08/13/2024 Coronary artery disease involving [place] coronary artery of [place] heart without angina pectoris (ICD-10 - I25.10) 05/25/2024 Type 2 diabetes mellitus without complication (ICD-10 - E11.9) 04/10/2024 Type 2 diabetes mellitus without complication (ICD-10 - E11.9) discussed weight loss to include calories and portion sizes; BS have improved with use of the Dexcom7 05/25/2024 Gastroesophageal reflux disease without esophagitis (ICD-10 - K21.9) 08/13/2024 Neuropathy (ICD-10 - G62.9) 01/10/2025 Neuropathy (ICD-10 - G62.9) 01/10/2025 Paresthesia (ICD-10 - R20.2) 08/13/2024 Paresthesia (ICD-10 - R20.2) 01/10/2025 Thyroid disorder [...] Date Lipid Profile 12/11/2020 Glycohemoglobin (HbA1C) 12/11/2020 colonoscopy 01/21/2025 CMP 12/11/2020 urine microalbumin/creatinine 12/11/2020 Mammogram 10/15/2024 Mammogram 01/10/2025 Insurance Providers Payer Name Payer Address Payer Phone Subscriber Number Group Number Insured Name Patient Relationship to Insured Coverage Start Date Coverage End Date [employer] [address] [place] [address] [id number] Иван Roy Self - patient is the insured Medications Administered Medication Instructions Date of Administration Dosage Notes B-12 04/07/2022 1 mL B-12 04/19/2022 1 mL Depo- Medrol 40 mg/ml 03/31/2006 1.5 mL Depo- Medrol 40 mg/ml 12/14/2018 1.5 mL Medical (General) History Medical History History ICD Code carotid artery disease Cardiac Stent Placement, right coronary artery, x 1 - 11/05/15 type 2 diabetes, followed by Endocrinolo gist Hypertension hypercholestrolemia Esophageal reflux depression Cardiac murmur Surgical History Surgery Date(Month/Year) cholecystectomy 1993 vaginal tape 07/10 right arm manipulated 08/11 colonoscopy upper GI X2 polyp removal hysterectomy vaginal 05/23/2015 Cardiac Stent Placement x 1 11/05/15 cubital tunnel release left elbow Hospitalization History Reason Date(Month/Year) [facility] ER - chest pain 09/22/15 diabetes same [facility] UTC- [facility] Wendy [facility]/05/[facility]
--- OUTSIDE RECORDS SUMMARY | 2025-01-25 11:17 | XMS_ITS | Clinical Summary ---
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
== END 2025-01-24 23:59 | disposition home or self-care (01) ==
LOC: LAB.DROPOF 01-25 11:11
PROVIDERS: PCP Nurse Practitioner; Visit Provider Nurse Practitioner
DX: N39.0 Urinary tract infection, site not specified (principal)
CPT/HCPCS: 87086; 87088; 87186

== ENCOUNTER 2025-03-01 14:30 | Outpatient (CLI) | payer BC, SELFPAY ==
--- OUTSIDE RECORDS SUMMARY | 2024-10-15 05:30 | XMS_ITS ---
Author Organization [facility] Address [address] [facility] [address] [place] [id number] Care Team Providers Care Insulation Inspector Name Role Phone Jenae Shipman Primary Care Provider Aida Cruz Unavailable [phone] Allergies No Known Allergies REASON FOR VISIT [...] three times a day Active Dexcom G7 Laborer Car Barn - - Active Vital Signs Blood pressure systolic 130 mm Hg 10/16/19 25 Blood pressure diastolic 60 mm Hg 025 Heart Rate 86 /min 10/15/2024 Height 64 in 10/15/2024 Weight 190.8 lbs 10/15/2024 BMI 32.75 kg/m2 10/15/2024 Encounters Encounter Location Date Provider Diagnosis [place] [address] [facility] [address] [place] [id number] 10/15/2024 Aida Cruz Breast cancer screening Z12.39 [...] Notes * Skyler SWANOB:1965 (59 yo F)Acc No.[id number]:10/15/2024 Progress Notes Patient: Иван ALANIZ Provider: KATHYA Rutledge :1965 A ge:58 Y S ex:Female Date:10/15/2024 Address:[address] [place] [address], [id number] Pcp:Jenae Shipman Subjective: * Chief [...] - 11/05/15, type 2 diabetes, followed by Bias Machine Operator, Hypertension, Hypercholestrolemia, Esophageal reflux, Depression, Cardiac murmur. * Surgical History: c holecystectomy 1992, vaginal tape 07/10, right arm manipulated 08/11, colonoscopy , upper GI X2 , polyp removal , hysterectomy vaginal 05/23/2015, Cardiac Stent Placement x 1 11/05/15, cubital tunnel release left elbow 11/03/23. * Hospitalization/Major Diagno stic Procedure: s corinne , diabetes , [facility] ER [facility] chest [facility]15[facility], [facility] UTC- UTI 07/23/2024. * Family History: [...] once a day , Taking Dexcom G7 Laborer Car Barn - Device - , Taking NovoLOG FlexPen [...] Temp:98.0, BP:130/60, HR:86, O2 Sat:99% on RA, Nurse:[facility], Ht: 64, BMI:32.75. * Examination: G eneral [...] * Images: Billing Information: * Visit Code: 64776 Office Visit, Est Pt., Level 3. * Procedure Codes: 3075F SYST BP GE 130 - 139MM HG. 3078F DIAST BP < 80 MM HG. 3044F HG A1C LEVEL LT 7.0%. * Electronic signature of Mona Cruz APRN on 03/02/2025 at 10:15 AM EDT Sign off status: Pending * Provider: KATHYA Rutledge Date: 0 10/15/2024 Generated for Marcelino long/Park/Dashitting on: 0 03/02/2025 10:15 AM EDT History and Physical Notes * [...]
--- OUTSIDE RECORDS SUMMARY | 2025-01-10 05:15 | XMS_ITS ---
Author Organization [facility] Address [address] [facility] [address] [place] [id number] Care Team Providers Care Home Health Nurse Name Role Phone Jenae Shipman Primary Care Provider [phone] Mary Cano Unavailable [phone] Allergies No Known Allergies Results Component Value [...] Interpretation:Normal Performing Lab: Notes/Report: Test performed by [facility] [address] [place] [address] , [address], [place] [address] Norberto White MD, Manager Administrative Services CLIA: [id number] Vitamin B12 3306 173-4106 pg/mL P-Comprehensive Metabolic Pa luisa (CMP) Reviewed date:01/11/2025 01:22:18 PM Interpretation:Normal Performing Lab: Notes/Report: Test performed by [facility] [address] [place] [address] , [address], [place] [address] Norberto White MD, Manager Administrative Services CLIA: [id number] Sodium 139 135-145 mmol/L Potassium 3.8 3.5-5.3 [...] Interpretation:Normal Performing Lab: Notes/Report: Test performed by [facility] [address] [place] [address] , [address], [place] [address] Norberto White MD, Manager Administrative Services CLIA: [id number] Iron 48 37-145 ug/dL P-TSH reflex to FT4 Reviewed date:01/11/2025 01:22:18 PM Interpretation:Normal Performing Lab: Notes/Report: Test performed by [facility] [address] [place] [address] , [address], [place] [address] Norberto White MD, Manager Administrative Services CLIA: [id number] TSH reflex to FT4 1.65 0.43-5.25 mU/L P-Vitamin D 25-Hydroxy Reviewed date:01/11/2025 01:22:18 PM Interpretation:25.4 Performing Lab: Notes/Report: Test performed by [facility] [address] [place] [address] Brenda Cisneros, [address], [place] [id number] Norberto White MD, Manager Administrative Services CLIA: [id number] Vitamin D 25-Hydroxy 25.4 30.0-100.0 ng/mL Interpretation [...] Duration: 90 days 09/06/2023 Active Dexcom G7 Outdoor Illuminating Engineer - - Active NovoLOG FlexPen 100 UNIT/ML 10 units subcutaneously three times a day Active CPAP machine and supplies - as directed as directed Acti ve B-12 1000 MCG 1 tab(s) orally once a day; Duration: 30 day(s) Active Problems Problem Type SNOMED Code ICD Code Onset Dates Problem Status W/U Status Risk Notes Problem Vitamin D deficiency (52619394) Vitamin D deficiency (E55.9) Active confirmed Vital Signs Blood pressure systolic 110 mm Hg 01/11/20 25 Blood pressure diastolic 60 mm Hg 025 Heart Rate 81 /min 01/10/2025 Height 64 in 01/10/2025 Weight 176.8 lbs 01/10/2025 BMI 30.34 kg/m2 01/10/2025 Encounters Encounter Location Date Provider Diagnosis [facility] [address] [facility] [address] [place], [place] [id number] 01/10/2025 Mary Cano Type 2 diabetes edwardo itus without complication E11.9 ; Anxiety with depression F41.8 ; Coronary artery disease involving [place] coronary artery of [place] heart without angina pectoris I25.10 ; Neuropathy [...] - F41.8) 01/10/2025 Coronary artery disease involving [place] coronary artery of [place] heart without angina pectoris (ICD-10 - I25.10) [...] Notes * Skyler SWANOB:1965 (59 yo F)Acc No.[id number]:01/10/2025 Progress Notes Patient: Иван ALANIZ Provider: AMANDEEP Sapp :1965 A ge:59 Y S ex:Female Date:01/10/2025 Address:[address] [place] [address], [facility], [id number] Pcp:Jenae Shipman Subjective: * Chief Complaints: * [...] - 11/05/15, type 2 diabetes, followed by Railway Track Plant Operator, Hypertension, Hypercholestrolemia, Esophageal reflux, Depression, Cardiac murmur. * Surgical History: c holecystectomy 1992, vaginal tape 07/10, right arm manipulated 08/11, colonoscopy , upper GI X2 , polyp removal , hysterectomy vaginal 05/23/2015, Cardiac Stent Placement x 1 11/05/15, cubital tunnel release left elbow 11/03/23. * Hospitalization/Major Diagno stic Procedure: s corinne , diabetes , [facility] ER - chest pain 09/22/15, [place] [facility] - Cardiac Stent Placement 11/05/15, [facility] UTC- UTI 07/23/2024. * Family History: F [...] once a day , Taking Dexcom G7 Outdoor Illuminating Engineer - Device - , Taking NovoLOG FlexPen [...] 3 . C oronary artery disease involving [place] coronary artery of [place] heart without angina pectoris - I25.10 4 [...] AM)?Normal* Value Reference Range V itamin B12 2318 049-4230 - pg/mL * Mary Cano 01/10/2025 0 9:51:01 AM EDT >room 10, sparkle BauerGladys 01/11/2025 01:22:09 PM EDT > See phone encounter 5.?Screening mammogram, encounter for?Imaging: Mammogram (Performed Date - 01/21/2025)* Ifeoma Wray 01/10/2025 10:0 5:43 AM EDT > faxed to [facility] SchedulingMary Cano 01/25/2025 04:18:16 PM EDT >see TE * Procedure Codes: 8 3036 GLYCATED HEMOGLOBIN TEST, Modifiers: QW , 54468 CBC WITH AUTO DIFF, 1036F TOBACCO NON-USER, 3044F HG A1C LEVEL LT 7.0%, G8783 BP SCR PRFRM RCMDD DEFIND SCR INTVL, G8752 MOST RECENT SYSTOLIC BP < 140MM HG, G8754 MOST RECENT DIASTOLIC BP < 90MM HG * Follow Up: v ia phone to report test results * Images: Billing Information: * Visit Code: 49623 Office Visit, Est Pt., Level 4. * Procedure Codes: 08627 GLYCATED HEMOGLOBIN TEST. Modifiers: QW 56402 CBC WITH AUTO DIFF. 1036F TOBACCO NON-USER. 3044F HG A1C LEVEL LT 7.0%. G8783 BP SCR PRFRM RCMDD DEFIND SCR INTVL. G8752 MOST RECENT SYSTOLIC BP < 140MM HG. G8754 MOST RECENT DIASTOLIC BP < 90MM HG. * Electronic signature of AMANDEEP Payne on 03/02/2025 at 10:16 AM EDT Sign off status: Pending * Provider: AMANDEEP Sapp Date: 0 01/10/2025 Generated for Marcelino long/Park/eTransmitting on: 0 03/02/2025 10:16 AM EDT History and Physical Notes * [...]
--- OUTSIDE RECORDS SUMMARY | 2025-01-21 05:05 | XMS_ITS ---
Author Organization [facility] Address [address] [facility] [address] [place] [id number] Care Team Providers Care Pile Driving Setter Name Role Phone Jenae Shipman Primary Care Provider [phone] REASON FOR VISIT due colonoscopy Encounters Encounter Location Date Provider Diagnosis [facility] [address] [facility] [address] [place] [id number] 01/21/2025 Jenae Shipman Screening for colon cancer Z12.11 Assessments Encounter Date Diagnosis (ICD Code) Assessment Notes Treatment Notes Treatment Clinical Notes Section Notes 01/21/2025 Screening for colon cancer (ICD-10 - Z12.11) Plan Of Treatment Pending Test Test Name Order Date colonoscopy 01/21/2025 Progress Notes * Skyler SWANOB:1965 (59 yo F)Acc No.[id number]:01/21/2025 Patient: Sage ALANIZime :1965 A ge:59 Y S ex:Female Address:[place] [address] Subjective: * Chief Complaints: * D ue colonoscopy * Medical History: * Surgical History: * Hospitalization/Major Diagno stic Procedure: * Medications: Objective: * Vitals: * Physical Examination: Assessment: * Assessment: 1. S creening for colon cancer - Z12.11 (Primary) Plan: * Treatment: * Procedure Codes: * true * Date: Generated for Printi ng/Faxing/Marivel on: 0 03/02/2025 10:16 AM EDT
--- OUTSIDE RECORDS SUMMARY | 2025-03-02 10:16 | XMS_ITS | Patient Health Record ---
[facility] Address [address] [facility] [address] [place] [id number] Care Team Providers Care Polishing Machine Operator Name Role Phone Jenae Shipman Primary Care Provider Aida Cruz Unavailable [phone] Mary Cano Unavailable [phone] Allergies No Known Allergies Results Component Value Reference Range Notes Mammogram Reviewed date:01/25/2025 04:18:20 PM Interpretation: Performing Lab: Notes/Report: P-Vitamin D 25-Hydroxy Reviewed date:01/11/2025 01:22:18 PM Interpretation:25.4 Performing Lab: Notes/Report: CLIA: [id number] Norberto White MD, Furnace Worker [address] [place] [address] , [address], [place] [address] Test performed by [facility] Vitamin D 25-Hydroxy 25.4 30.0-100.0 ng/mL Interpretation of Vitamin D 25 [place]: < 20 ng/mL - Deficiency 20 - 29 ng/mL - Insufficiency 30 - 100 ng/mL - Sufficiency > 100 ng/mL - Super-therapeutic- toxicity may occur above this level. Clinical correlation required. P-TSH reflex to FT4 Reviewed date:01/11/2025 01:22:18 PM Interpretation:Normal Performing Lab: Notes/Report: Test performed by [facility] [address] [place] [address] , [address], [place] [address] Norberto White MD, Furnace Worker CLIA: [id number] TSH reflex to FT4 1.65 0.43-5.25 mU/L P-Iron Reviewed date:01/11/2025 01:22:18 PM Interpretation:Normal Performing Lab: Notes/Report: Test performed by [facility] [address] , [address], [place] [address] Norberto White MD, Furnace Worker CLIA: [id number] Iron 48 37-145 ug/dL P-Comprehensive Metabolic Pa luisa (CMP) Reviewed date:01/11/2025 01:22:18 PM Interpretation:Normal Performing Lab: Notes/Report: Test performed by [facility] [address] , [address], [place] [address] Norberto White MD, Furnace Worker CLIA: [id number] Sodium 139 135-145 mmol/L Potassium 3.8 3.5-5.3 [...] Interpretation:Normal Performing Lab: Notes/Report: Test performed by [facility] [address] , [address], [place] [address] Norberto White MD, Furnace Worker CLIA: [id number] Vitamin B12 9376 641-3972 pg/mL Glycohemoglobin A1c (in hous e) Reviewed [...] - 38 platlet 382 100 - 400 CBC Fingerstick (in house) Reviewed date:08/14/2024 09:18:11 [...] date:08/14/2024 09:20:01 AM Interpretation:453 Performing Lab: Notes/Report: CLIA: [id number] Norberto White MD, Furnace Worker [address] [place] [address] , [address], [place] [address] Test performed by [facility] Vitamin B12 938 887-1157 pg/mL P-Comprehensive Metabolic Pa luisa (CMP) Reviewed date:08/14/2024 09:20:21 AM Interpretation: Performing Lab: Notes/Report: Test performed by [facility] [address] [place] [address] Brenda Cisneros, [address], [place] [address] Norberto White MD, Furnace Worker CLIA: [id number] Sodium 140 135-145 mmol/L Potassium 4.0 3.5-5.3 [...] Interpretation:43 Performing Lab: Notes/Report: Test performed by [facility] [address] , [place] [address] Norberto White MD, Furnace Worker CLIA: [id number] Iron 43 37-145 ug/dL P-Magnesium Reviewed date:08/14/2024 09:18:53 AM Interpretation:1.9 Performing Lab: Notes/Report: Test performed by [facility] [address] [place] [address] , [facility] [place] [address] Norberto White MD, Furnace Worker CLIA: [id number] Magnesium 1.9 1.6-2.4 mg/dL P-TSH Reviewed date:08/14/2024 09:19:15 AM Interpretation:0.78 Performing Lab: Notes/Report: Test performed by [facility] [address] [place] [address] , [place] [address] Norberto White MD, Furnace Worker CLIA: [id number] TSH 0.78 0.43-5.25 mU/L P-Vitamin D 25-Hydroxy Reviewed date:08/14/2024 09:19:36 AM Interpretation:21.6 Performing Lab: Notes/Report: Test performed by [facility] [address] [place] [address] , [place] [address] Norberto White MD, Furnace Worker CLIA: [id number] Vitamin D 25-Hydroxy 21.6 30.0-100.0 ng/mL Interpretation of Vitamin D 25 [place]: < 20 ng/mL - Deficiency 20 - 29 ng/mL - Insufficiency 30 - 100 ng/mL - Sufficiency > 100 ng/mL - Super-therapeutic- toxicity may occur above this level. Clinical correlation required. Urinalysis - Inhouse Reviewed date:04/10/2024 03:25:58 PM [...] Interpretation:likely representing contamination, recollect Performing Lab: Notes/Report: CLIA: [id number] Norberto White MD, Furnace Worker [address] [place] [address] , [address], [place] [address] Test performed by [facility], [employer] Specimen Source Urine - Void Culture, Urine See Below Final Report : 10,000-15,000 CFU/ml Mixed Gram Positive Organisms Three or more organisms present likely representing contamination during collection by patient's urogenital, skin, and/or fecal sascha. Organism identification and sensitivity assessment are not recommended. Specimen recollection is recommended. Medications Medication SIG (Take, Route, Frequency, Duration) Notes Start Date End Date Status Atorvastatin Calcium 40 MG TAKE 1 TABLET BY MOUTH ONCE DAILY; Duration: 90 Active Metoprolol Tartrate 25 MG 1 tab(s) orall y 2 times a day; Duration: 90 days Active Dexcom G7 Admitted Attorneys - - Active Venlafaxine HCl ER 75 MG 1 cap(s) orally once a day; Duration: 90 days Active Mounjaro 12.5 MG/0.5ML INJECT 1 SYRINGE SUBCUTANEOUSLY ONCE A WEEK; Duration: 28 Active NovoLOG FlexPen 100 UNIT/ML 10 units [...] tab(s) orally once daily 01/10/2013 A ctive Basaglar KwikPen 100 UNIT/ML 25 units subcutaneously once daily; Duration: 30 days Active Jardiance 25 MG 1 tablet Orally Once a day; Duration: 90 days Active Omeprazole 20 MG 1 cap(s) orally once a day; Duration: 90 days Active Clopidogrel Bisulfate 75 MG 1 tab(s) [...] W/U Status Risk Notes Problem Coronary arteriosclerosis (75696081) ASCVD (arteriosclerotic cardiovascular disease) (I25.10) Active confirmed Problem Peripheral circulatory disorder associated with diabetes mellitus (678582830) 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.59) Active confirmed Problem Vitamin D deficiency (02905294) Vitamin D deficiency (E55.9) Active confirmed Problem Essential hypertension (26336781) Essential hypertension (I10) Active confirmed Problem Sciatic nerve lesion (753131280) Piriformis syndrome of right side (G57.01) Active confirmed Problem Paresthesia (13942421) Paresthesia (R20.2) Active confirmed Problem Mixed hyperlipidemia (330532884) Mixed hyperlipidemia (E78.2) Active confirmed Problem Tobacco dependence (07066650) Tobacco dependence (F17.200) Active confirmed Problem Long-term current use of insulin (506708201) salvage determiner (current) use of insulin (Z79.4) Active confirmed Problem Type II diabetes mellitus without complication (861916376) Type 2 diabetes mellitus without complication (E11.9) Active confirmed Problem Gastroesophageal reflux disease without esophagitis (129166642) Gastroesophageal reflux disease without esophagitis (K21.9) Active confirmed Problem Reactive depression (situational) (16737766) Situational depression (F43.21) Active confirmed Problem Atherosclerotic heart disease of [place] coronary artery without angina pectoris (381063624212324) Coronary artery disease involving [place] coronary artery of [place] heart without angina pectoris (I25.10) Active confirmed Problem Gastroesophageal reflux disease (095701867) Gastroesophageal reflux disease, esophagitis presence not specified (K21.9) Active confirmed Problem Neuropathy (915001050) Neuropathy (G62.9) Active confirmed Problem Anemia (502025182) Anemia, unspecified type (D64.9) Active confirmed Problem Hyperlipidaemia (50670604) Hyperlipidemia, unspecified hyperlipidemia type (E78.5) Active confirmed Problem Obese class II (356293018180247) BMI 37.0-37.9, adult (Z68.37) Active confirmed Problem Stented coronary artery (123846465) Stented coronary artery (Z95.5) Active confirmed Problem Depressive disorder (disorder) (01419498) Depression, unspecified depression type (F32.9) Active confirmed Problem Atherosclerotic heart disease of [place] coronary artery without angina pectoris (488133431009124) Atherosclerosis of [place] coronary artery without angina pectoris, unspecified whether [place] or transplanted heart (I25.10) Active confirmed Problem Anxiety depression (555596011) Anxiety with depression (F41.8) Active confirmed Problem Diabetic ketoacidosis without coma (829809839) Diabetic ketoacidosis without coma associated with other specified diabetes mellitus (E13.10) Active confirmed Problem Type II diabetes mellitus without complication (736440847) Type 2 diabetes mellitus without complication, unspecified whether group home insulin use (E11.9) Active confirmed Problem Hyperglycemia due to type 2 diabetes mellitus (006227529216140) Uncontrolled type 2 diabetes mellitus with hyperglycemia (E11.65) Active confirmed Vital Signs Heart Rate 81 /min 01/10/2025 Blood pressure diastolic 60 mm Hg 01/10/2025 Height 64 in 01/10/2025 Blood pressure systolic 110 mm Hg 01/10/2025 Weight 176.8 lbs 01/10/2025 BMI 30.34 kg/m2 01/10/2025 Encounters Encounter Location Date Provider Diagnosis [facility] [address] [facility] [address] [place] [id number] 04/10/2024 Aida Cruz Leukocytes in urine R82.998 ; UTI (lower urinary tract infection) N39.0 and Type 2 diabetes mellitus without complication E11.9 [facility] [address] [facility] [address] [place], [place] [id number] 05/08/2024 Aida Cruz Type 2 diabetes edwardo itus without complication E11.9 and Weight loss counseling, encounter for Z71.3 [facility] [address] [facility] [address] [place], [place] [id number] 07/10/2024 Aida Cruz Type 2 diabetes edwardo itus without complication E11.9 [facility] [address] [place], [place] [id number] 08/06/2024 Aida Cruz [facility] [address] [facility] [address] [place], [place] [id number] 08/13/2024 Aida Cruz Type 2 diabetes edwardo itus without complication E11.9 ; Anxiety with depression F41.8 ; Coronary artery disease involving [place] coronary artery of [place] heart without angina pectoris I25.10 ; Neuropathy G62.9 ; Paresthesia R20.2 ; Thyroid disorder screen Z13.29 and Anemia, unspecified type D64.9 [facility] [address] [facility] [address] [place], [place] [id number] 10/15/2024 Aida Cruz Breast cancer screen ing Z12.39 and Type 2 diabetes mellitus without complication E11.9 [facility] [address] [facility] [address] [place] [id number] 01/10/2025 Mary Cano Type 2 diabetes edwardo itus without complication E11.9 ; Anxiety with depression F41.8 ; Coronary artery disease involving [place] coronary artery of [place] heart without angina pectoris I25.10 ; Neuropathy G62.9 ; Paresthesia R20.2 ; Thyroid disorder screen Z13.29 ; Anemia, unspecified type D64.9 ; Vitamin D deficiency E55.9 ; Vitamin B12 deficiency E53.8 and Screening mammogram, encounter for Z12.31 [facility] [address] [facility] [address] [place], [place] [id number] 03/26/2024 Jenae Shipman Gastroesophageal ref lux disease without esophagitis K21.9 [facility] [address] [facility] [address] [place], [place] [id number] 06/01/2024 Jenae Shipman Type 2 diabetes edwardo itus without complication E11.9 [facility] [address] [facility] [address] [place], [place] [id number] 07/02/2024 Aida Cruz Type 2 diabetes edwardo itus without complication E11.9 [facility] [address] [facility] [address] [place] [id number] 10/18/2024 Jenae Shipman [facility] [address] [facility] [address] [place] [id number] 11/01/2024 Jenae Shipman [facility] [address] [facility] [address] [place] [id number] 12/12/2024 Jenae Shipman Type 2 diabetes edwardo itus without complication E11.9 [facility] [address] [facility] [address] [place] [id number] 01/11/2025 Mary Cano [facility] [address] [facility] [address] [place] [id number] 01/11/2025 Mary Cano Type 2 diabetes edwardo itus without complication E11.9 [facility] [address] [place] [id number] 01/21/2025 Jenae Shipman Screening for colon cancer Z12.11 [facility] [address] [place] [id number] 01/25/2025 Mary Cano [facility] [address] [place] [id number] 04/24/2024 J Rigo Shipman Type 2 diabetes edwardo itus without complication E11.9 [facility] [address] [place] [id number] 04/24/2024 J Rigo Shipman [facility] [address] [place] [id number] 05/25/2024 Jenae Shipman Essential hypertensi on I10 ; Type 2 diabetes mellitus without complication E11.9 and Gastroesophageal reflux disease without esophagitis K21.9 [facility] [address] [place], [place] [id number] 09/12/2024 J Rigo Shipman Type 2 diabetes edwardo itus without complication E11.9 [facility] [address] [place], [place] [id number] 09/12/2024 J Rigo Shipman [facility] [address] [place] [id number] 09/22/2024 Jenae Shipman Type 2 diabetes edwardo itus without complication E11.9 [facility] [address] [place] [id number] 11/01/2024 J Rigo Shipman Gastroesophageal ref lux disease without esophagitis K21.9 [facility] [address] [place], [place] [id number] 11/19/2024 J Rigo Shipman Anxiety with depress ion F41.8 [facility] [address] [place] [id number] 12/03/2024 J Rigo Shipman [facility] [address] [place], [place] [id number] 12/17/2024 Jenae McginnisRigo Umberto Type 2 diabetes edwardo itus without complication E11.9 Assessments Encounter Date Diagnosis (ICD Code) Assessment Notes Treatment Notes Treatment Clinical Notes Section Notes 04/10/2024 UTI (lower urinary tract infection) (ICD-10 - N39.0) stressed good water intake 04/10/2024 Leukocytes in urine (ICD-10 - R82.998) 04/24/2024 Type 2 diabetes mellitus without complication (ICD-10 - E11.9) 05/08/2024 Type 2 diabetes mellitus without complication (ICD-10 - E11.9) continues with use of the Dexcom7; has made dietary changes 05/08/2024 Weight loss counseling, encounter for (ICD-10 - Z71.3) 06/01/2024 Type 2 diabetes mellitus without complication (ICD-10 - E11.9) 07/02/2024 Type 2 diabetes mellitus without complication (ICD-10 - E11.9) 09/12/2024 Type 2 diabetes mellitus without complication (ICD-10 - E11.9) 11/01/2024 Gastroesophageal reflux disease without esophagitis (ICD-10 - K21.9) 12/17/2024 Type 2 diabetes mellitus without complication (ICD-10 - E11.9) 01/11/2025 Type 2 diabetes mellitus without complication (ICD-10 - E11.9) 01/21/2025 Screening for colon cancer (ICD-10 - Z12.11) 11/19/2024 Anxiety with depression (ICD-10 - F41.8) 10/15/2024 Breast cancer screening (ICD-10 - Z12.39) 10/15/2024 Type 2 diabetes mellitus without complication (ICD-10 - E11.9) 09/22/2024 Type 2 diabetes mellitus without complication (ICD-10 - E11.9) 08/13/2024 Type 2 diabetes mellitus without complication (ICD-10 - E11.9) will call in 1 month for additional increase in [place] and RTO in 2 months for fasting Lipids 08/13/2024 Anxiety with depression (ICD-10 - F41.8) 07/10/2024 Type 2 diabetes mellitus without complication (ICD-10 - E11.9) will continue with dietary regime; will check labs and A1c at next visit 05/25/2024 Essential hypertension (ICD-10 - I10) 03/26/2024 Gastroesophageal reflux disease without esophagitis (ICD-10 - K21.9) 01/10/2025 Type 2 diabetes mellitus without complication (ICD-10 - E11.9) 01/10/2025 Anxiety with depression (ICD-10 - F41.8) 12/12/2024 Type 2 diabetes mellitus without complication (ICD-10 - E11.9) 01/10/2025 Coronary artery disease involving [place] coronary artery of [place] heart without angina pectoris (ICD-10 - I25.10) 05/25/2024 Type 2 diabetes mellitus without complication (ICD-10 - E11.9) 08/13/2024 Coronary artery disease involving [place] coronary artery of [place] heart without angina pectoris (ICD-10 - I25.10) 04/10/2024 Type 2 diabetes mellitus without complication (ICD-10 - E11.9) discussed weight loss to include calories and portion sizes; BS have improved with use of the Dexcom7 08/13/2024 Neuropathy (ICD-10 - G62.9) 05/25/2024 Gastroesophageal reflux disease without esophagitis (ICD-10 - K21.9) 01/10/2025 Neuropathy (ICD-10 - G62.9) 01/10/2025 Paresthesia (ICD-10 - R20.2) 08/13/2024 Paresthesia (ICD-10 - R20.2) 08/13/2024 Thyroid disorder screen (ICD-10 - Z13.29) 01/10/2025 Thyroid disorder screen (ICD-10 - Z13.29) [...] CMP 12/11/2020 urine microalbumin/creatinine 12/11/2020 Mammogram 10/15/2024 Insurance Providers Payer Name Payer Address Payer Phone Subscriber Number Group Number Insured Name Patient Relationship to Insured Coverage Start Date Coverage End Date AMARILIS Herrera O [id number] [place] [address] [phone] [id number] Иван Swan Self - patient is the insured Medications Administered Medication Instructions Date of Administration Dosage Notes B-04/07/2022 1 mL B-12 04/19/2022 1 mL Depo- [...] release left elbow Hospitalization History Reason Date(Month/Year) [facility] ER - chest pain 09/22/15 diabetes same [facility] UTC- UTI 07/23/2024 [facility] - Cardiac Stent Plac ement 11/05/15
--- OUTSIDE RECORDS SUMMARY | 2025-03-02 10:16 | XMS_ITS | Clinical Summary ---
Author Organization Healthcare Address [address] [place] [address] Care Team Providers Care Real Estate Services Administrator Name Role Phone Unavailable Primary Care Provider [...]
== END 2025-03-01 23:59 | disposition home or self-care (01) ==
LOC: LAB.DROPOF 03-02 10:14
PROVIDERS: PCP Nurse Practitioner Family; Visit Provider Nurse Practitioner Family
DX: R35.0 Frequency of micturition (principal)
CPT/HCPCS: 87086; 87088

== ENCOUNTER 2025-03-08 23:02 | Observation (INO) | payer BC, SELFPAY ==
--- OUTSIDE RECORDS SUMMARY | 2025-01-10 05:15 | XMS_ITS ---
Author Organization [facility] Address [address] [facility] [address] [place] [id number] Care Team Providers Care Sales Producer Name Role Phone Jenae Shipman Primary Care Provider Mary Cano Unavailable [phone] Allergies No Known Allergies Results Component Value [...] Interpretation:Normal Performing Lab: Notes/Report: Test performed by [facility] [address] [place] [address] , [address], [place] [address] Norberto White MD, Special Needs Nanny CLIA: [id number] Vitamin B12 5817 712-3137 pg/mL P-Comprehensive Metabolic Pa luisa (CMP) Reviewed date:01/11/2025 01:22:18 PM Interpretation:Normal Performing Lab: Notes/Report: Test performed by [facility] [address] [place] [address] , [address], [place] [address] Norberto White MD, Special Needs Nanny CLIA: [id number] Sodium 139 135-145 mmol/L Potassium 3.8 3.5-5.3 [...] Interpretation:Normal Performing Lab: Notes/Report: Test performed by [facility] [address] [place] [address] , [address], [place] [address] Norberto White MD, Special Needs Nanny CLIA: [id number] Iron 48 37-145 ug/dL P-TSH reflex to FT4 Reviewed date:01/11/2025 01:22:18 PM Interpretation:Normal Performing Lab: Notes/Report: Test performed by [facility] [address] [place] [address] , [address], [place] [address] Norberto White MD, Special Needs Nanny CLIA: [id number] TSH reflex to FT4 1.65 0.43-5.25 mU/L P-Vitamin D 25-Hydroxy Reviewed date:01/11/2025 01:22:18 PM Interpretation:25.4 Performing Lab: Notes/Report: Test performed by [facility] [address] [place] [address] Brenda Cisneros, [address], [place] [id number] Norberto White MD, Special Needs Nanny CLIA: [id number] Vitamin D 25-Hydroxy 25.4 30.0-100.0 ng/mL Interpretation of Vitamin D 25 [place]: < 20 ng/mL - Deficiency 20 - 29 ng/mL - Insufficiency 30 - 100 ng/mL - Sufficiency > 100 ng/mL - Super-therapeutic- toxicity may occur above this level. Clinical correlation required. Mammogram Reviewed date:01/25/2025 04:18:20 PM Interpretation: Performing Lab: Notes/Report: REASON FOR VISIT 3 month ckup, Needs labs & mammogram Medications Medication SIG (Take, Route, Frequency, Duration) Notes Start Date End Date Status Metoprolol Tartrate 25 MG 1 tab(s) orall y 2 times a day; Duration: 90 days Active metFORMIN HCl ER 500 MG TAKE 2 TABLETS B Y MOUTH TWICE DAILY; Duration: 90 Active Mounjaro 12.5 MG/0.5ML 12.5 mg Subcutane ous weekly; Duration: 30 days Active Jardiance 25 MG 1 tablet Orally Once a day; Duration: 90 days Active Basaglar KwikPen 100 UNIT/ML 25 units subcutaneously once daily; Duration: 30 days Active Venlafaxine HCl ER 75 MG 1 cap(s) orally once a day; Duration: 90 days Active Maxzide-25 37.5-25 MG 1 tab(s) orally on ce a day; Duration: 90 days Active Benazepril HCl 10 MG 1 tab(s) orally onc e a day; Duration: 90 days Active Omeprazole 20 MG 1 cap(s) orally once a day; Duration: 90 days Active Atorvastatin Calcium 40 MG TAKE 1 TABLET BY MOUTH ONCE DAILY; Duration: 90 Active Aspirin 81 MG 1 tablet [...] 10 days; Duration: 90 days 09/06/2023 Active Dexcom G7 Coastal Tug Mate - - Active NovoLOG FlexPen 100 UNIT/ML 10 units subcutaneously three times a day Active CPAP machine and supplies - as directed as directed Acti ve B-12 1000 MCG 1 tab(s) orally once a day; Duration: 30 day(s) Active Problems Problem Type SNOMED Code ICD Code Onset Dates Problem Status W/U Status Risk Notes Problem Vitamin D deficiency (82653408) Vitamin D deficiency (E55.9) Active confirmed Vital Signs Weight 176.8 lbs 01/10/2025 Blood pressure systolic 110 mm Hg 01/11/20 25 Blood pressure diastolic 60 mm Hg 025 Heart Rate 81 /min 01/10/2025 Height 64 in 01/10/2025 BMI 30.34 kg/m2 01/10/2025 Encounters Encounter Location Date Provider Diagnosis [facility] [address] [facility] [address] [place], [place] [phone] 01/10/2025 Mary Cano Type 2 diabetes edwardo itus without complication E11.9 ; Anxiety with depression F41.8 ; Coronary artery disease involving [place] coronary artery of [place] heart without angina pectoris I25.10 ; Neuropathy [...] - F41.8) 01/10/2025 Coronary artery disease involving [place] coronary artery of [place] heart without angina pectoris (ICD-10 - I25.10) 01/10/2025 Neuropathy (ICD-10 - G62.9) 01/10/2025 Paresthesia (ICD-10 - R20.2) 01/10/2025 Thyroid disorder screen (ICD-10 - Z13.29) 01/10/2025 Anemia, unspecified type (ICD-10 - D64.9) 01/10/2025 Vitamin D deficiency (ICD-10 - E55.9) 01/10/2025 Vitamin B12 deficiency (ICD-10 - E53.8) 01/10/2025 Screening mammogram, encounter for (ICD-10 - Z12.31) Plan Of Treatment Next Appt Details Follow Up: via phone to repo rt test results, Reason: Progress Notes * Skyler SWANOB:1965 (59 yo F)Acc No.[id number]:01/10/2025 Progress Notes Patient: Иван ALANIZ Provider: AMANDEEP Sapp :1965 A ge:59 Y S ex:Female Date:01/10/2025 Address:[address] [place] [address], [facility], [id number] Pcp:Jenae Shipman Subjective: * Chief Complaints: * [...] - 11/05/15, type 2 diabetes, followed by Ticket Maker, Hypertension, Hypercholestrolemia, Esophageal reflux, Depression, Cardiac murmur. * Surgical History: c holecystectomy 1992, vaginal tape 07/10, right arm manipulated 08/11, colonoscopy , upper GI X2 , polyp removal , hysterectomy vaginal 05/23/2015, Cardiac Stent Placement x 1 11/05/15, cubital tunnel release left elbow 11/03/23. * Hospitalization/Major Diagno stic Procedure: s corinne , diabetes , [facility] ER - chest pain 09/22/15, [facility] - Cardiac Stent Placement 11/05/15, [facility] UTC- UTI 07/23/2024. * Family History: F [...] once a day , Taking Dexcom G7 Coastal Tug Mate - Device - , Taking NovoLOG FlexPen [...] G eneral Examination: General Appearance: N AD. H EENT: u nremarkable.?Oral cavity: n o lesions, mucosa moist and WNL, no erythema. N beatriz: s upple, no lymphadenopathy. C hest: n ormal shape and expansion. H eart: R SR. L ungs: c lear to auscultation. A bdomen: b owel sounds present, soft and nontender, no organomegaly or masses, no guarding or rigidity. N eurologic Exam: I ntact, gait normal. S kin: n ormal, no rash. P eripheral pulses: n ormal (2+) bilaterally. E xtremities: n o leg edema. Assessment: * Assessment: 1. T ype 2 diabetes mellitus without complication - E11.9 (Primary) 2 . A nxiety with depression - F41.8 3 . C oronary artery disease involving [place] coronary artery of [place] heart without angina pectoris - I25.10 4 [...] 01/10/2025 0 9:51:01 AM EDT >room 10, sparkle Bauer Gladys 01/11/2025 01:22:09 PM EDT > See phone encounter ?LAB: P-TSH reflex to FT4 (Collection Date & Time - 01/10/2025 08:55 AM)? Normal* Value Reference Range T SH reflex to FT4 1.65 0.43-5.25 - mU/L * Mary Cano 01/10/2025 0 9:51:01 AM EDT >room 10, sparkle Bauer Gladys 01/11/2025 01:22:09 PM EDT > See phone [...] 382 100 - 400 * Perla Ba Musa 01/10/2025 10 :53:15 AM EDT > Lizette Gladys 01/11/2025 01:22:09 PM EDT > See phone encounter 3.?Vitamin D deficiency?LAB: P-Vitamin D 25-Hydroxy (Collection Date & Time - 01/10/2025 08:55 AM)? 25.4* Value Reference Range V itamin D 25-Hydroxy 25.4 L 30.0-100.0 - ng/mL * Mary Cano 01/10/2025 0 9:51:01 AM EDT >room 10, sparkle BauerGladys 01/11/2025 01:22:09 PM EDT > See phone encounter 4.?Vitamin B12 deficiency?LAB: P-Vitamin B12 (Collection Date & Time - 01/10/2025 08:55 AM)?Normal* Value Reference Range V itamin B12 7322 247-5146 - pg/mL * Mary Cano 01/10/2025 0 9:51:01 AM EDT >room 10, sparkle BauerGladys 01/11/2025 01:22:09 PM EDT > See phone encounter 5.?Screening mammogram, encounter for?Imaging: Mammogram (Performed Date - 01/21/2025)* Ifeoma Wray 01/10/2025 10:0 5:43 AM EDT > faxed to [facility] SchedulingMary Cano 01/25/2025 04:18:16 PM EDT >see TE * Procedure Codes: 8 3036 GLYCATED HEMOGLOBIN TEST, Modifiers: QW , 48365 CBC WITH AUTO DIFF, 1036F TOBACCO NON-USER, 3044F HG A1C LEVEL LT 7.0%, G8783 BP SCR PRFRM RCMDD DEFIND SCR INTVL, G8752 MOST RECENT SYSTOLIC BP < 140MM HG, G8754 MOST RECENT DIASTOLIC BP < 90MM HG * Follow Up: v ia phone to report test results * Images: Billing Information: * Visit Code: 45342 Office Visit, Est Pt., Level 4. * Procedure Codes: 75689 GLYCATED HEMOGLOBIN TEST. Modifiers: QW 51272 CBC WITH AUTO DIFF. 1036F TOBACCO NON-USER. 3044F HG A1C LEVEL LT 7.0%. G8783 BP SCR PRFRM RCMDD DEFIND SCR INTVL. G8752 MOST RECENT SYSTOLIC BP < 140MM HG. G8754 MOST RECENT DIASTOLIC BP < 90MM HG. * Electronic signature of AMANDEEP Payne on 03/08/2025 at 11:55 PM EDT Sign off status: Pending * Provider: AMANDEEP Sapp Date: 0 01/10/2025 Generated for Marcelino long/Park/eTransmitting on: 0 03/08/2025 11:55 PM EDT History and Physical Notes * HPI [...]
--- OUTSIDE RECORDS SUMMARY | 2025-01-10 05:15 | XMS_ITS ---
Author Organization [facility] Address [address] [facility] [address] [place] [id number] Care Team Providers Care Corporate Accountant Name Role Phone Jenae Shipman Primary Care Provider [phone] Mary Cano Unavailable [phone] Allergies No Known Allergies Results Component Value [...] Interpretation:Normal Performing Lab: Notes/Report: Test performed by [facility] [address] [place] [address] , [address], [place] [address] Norberto White MD, Impregnating Tank Operator CLIA: [id number] Vitamin B12 4489 320-1952 pg/mL P-Comprehensive Metabolic Pa luisa (CMP) Reviewed date:01/11/2025 01:22:18 PM Interpretation:Normal Performing Lab: Notes/Report: Test performed by [facility] [address] [place] [address] , [address], [place] [address] Norberto White MD, Impregnating Tank Operator CLIA: [id number] Sodium 139 135-145 mmol/L Potassium 3.8 3.5-5.3 [...] Interpretation:Normal Performing Lab: Notes/Report: Test performed by [facility] [address] [place] [address] , [address], [place] [address] Norberto White MD, Impregnating Tank Operator CLIA: [id number] Iron 48 37-145 ug/dL P-TSH reflex to FT4 Reviewed date:01/11/2025 01:22:18 PM Interpretation:Normal Performing Lab: Notes/Report: Test performed by [facility] [address] [place] [address] , [address], [place] [address] Norberto White MD, Impregnating Tank Operator CLIA: [id number] TSH reflex to FT4 1.65 0.43-5.25 mU/L P-Vitamin D 25-Hydroxy Reviewed date:01/11/2025 01:22:18 PM Interpretation:25.4 Performing Lab: Notes/Report: Test performed by [facility] [address] [place] [address] Brenda Cisneros, [address], [place] [id number] Norberto White MD, Impregnating Tank Operator CLIA: [id number] Vitamin D 25-Hydroxy 25.4 30.0-100.0 ng/mL Interpretation [...] Duration: 90 days 09/06/2023 Active Dexcom G7 Commercial Fisher - - Active NovoLOG FlexPen 100 UNIT/ML 10 units subcutaneously three times a day Active CPAP machine and supplies - as directed as directed Acti ve B-12 1000 MCG 1 tab(s) orally once a day; Duration: 30 day(s) Active Problems Problem Type SNOMED Code ICD Code Onset Dates Problem Status W/U Status Risk Notes Problem Vitamin D deficiency (11864363) Vitamin D deficiency (E55.9) Active confirmed Vital Signs Weight 176.8 lbs 01/10/2025 Blood pressure systolic 110 mm Hg 01/11/20 25 Blood pressure diastolic 60 mm Hg 025 Heart Rate 81 /min 01/10/2025 Height 64 in 01/10/2025 BMI 30.34 kg/m2 01/10/2025 Encounters Encounter Location Date Provider Diagnosis [facility] [address] [facility] [address] [place], [place] [phone] 01/10/2025 Mary Caon Type 2 diabetes edwardo itus without complication E11.9 ; Anxiety with depression F41.8 ; Coronary artery disease involving [place] coronary artery of [place] heart without angina pectoris I25.10 ; Neuropathy [...] - F41.8) 01/10/2025 Coronary artery disease involving [place] coronary artery of [place] heart without angina pectoris (ICD-10 - I25.10) [...] Notes * Skyler SWANOB:1965 (59 yo F)Acc No.[id number]:01/10/2025 Progress Notes Patient: Иван ALANIZ Provider: AMANDEEP Sapp :1965 A ge:59 Y S ex:Female Date:01/10/2025 Address:[address] [place] [address], [facility], [id number] Pcp:Jenae Shipman Subjective: * Chief Complaints: * [...] - 11/05/15, type 2 diabetes, 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 * Surgical History: c holecystectomy 1992, vaginal tape 07/10, right arm manipulated 08/11, colonoscopy , upper GI X2 , polyp removal , hysterectomy vaginal 05/23/2015, Cardiac Stent Placement x 1 11/05/15, cubital tunnel release left elbow 11/03/23. * Hospitalization/Major Diagno stic Procedure: s corinne , diabetes , [facility] ER - chest pain 09/22/15, [place] [facility] - Cardiac Stent Placement 11/05/15, [facility] UTC- UTI 07/23/2024. * Family History: F [...] once a day , Taking Dexcom G7 Commercial Fisher - Device - , Taking NovoLOG [...] 3 . C oronary artery disease involving [place] coronary artery of [place] heart without angina pectoris - I25.10 4 [...] AM)?Normal* Value Reference Range V itamin B12 6378 262-9695 - pg/mL * Mary Cano 01/10/2025 0 9:51:01 AM EDT >room 10, sparkle BauerGladys 01/11/2025 01:22:09 PM EDT > See phone encounter 5.?Screening mammogram, encounter for?Imaging: Mammogram (Performed Date - 01/21/2025)* Ifeoma Wray 01/10/2025 10:0 5:43 AM EDT > faxed to [facility] SchedulingMary Cano 01/25/2025 04:18:16 PM EDT >see TE * Procedure Codes: 8 3036 GLYCATED HEMOGLOBIN TEST, Modifiers: QW , 29872 CBC WITH AUTO DIFF, 1036F TOBACCO NON-USER, 3044F HG A1C LEVEL LT 7.0%, G8783 BP SCR PRFRM RCMDD DEFIND SCR INTVL, G8752 MOST RECENT SYSTOLIC BP < 140MM HG, G8754 MOST RECENT DIASTOLIC BP < 90MM HG * Follow Up: v ia phone to report test results * Images: Billing Information: * Visit Code: 59192 Office Visit, Est Pt., Level 4. * Procedure Codes: 55906 GLYCATED HEMOGLOBIN TEST. Modifiers: QW 38398 CBC WITH AUTO DIFF. 1036F TOBACCO NON-USER. 3044F HG A1C LEVEL LT 7.0%. G8783 BP SCR PRFRM RCMDD DEFIND SCR INTVL. G8752 MOST RECENT SYSTOLIC BP < 140MM HG. G8754 MOST RECENT DIASTOLIC BP < 90MM HG. * Electronic signature of AMANDEEP Payne on 03/09/2025 at 01:11 PM EDT Sign off status: Pending * Provider: AMANDEEP Sapp Date: 0 01/10/2025 Generated for Marcelino long/Pakr/eTransmitting on: 0 03/09/2025 01:11 PM EDT History and Physical Notes * [...]
--- OUTSIDE RECORDS SUMMARY | 2025-01-21 05:05 | XMS_ITS ---
Author Organization [facility] Address [address] [facility] [address] [place] [id number] Care Team Providers Care Nurse Advisor Name Role Phone Jenae Shipman Primary Care Provider [phone] REASON FOR VISIT due colonoscopy Encounters Encounter Location Date Provider Diagnosis [facility] [address] [facility] [address] [place] [id number] 01/21/2025 Jenae Shipman Screening for colon cancer Z12.11 Assessments Encounter Date Diagnosis (ICD Code) Assessment Notes Treatment Notes Treatment Clinical Notes Section Notes 01/21/2025 Screening for colon cancer (ICD-10 - Z12.11) Plan Of Treatment Pending Test Test Name Order Date colonoscopy 01/21/2025 Progress Notes * Skyler SWANOB:1965 (59 yo F)Acc No.[id number]:01/21/2025 Patient: Sage ALANIZime :1965 A ge:59 Y S ex:Female Address:[place] [address] Subjective: * Chief Complaints: * D ue colonoscopy * Medical History: * Surgical History: * Hospitalization/Major Diagno stic Procedure: * Medications: Objective: * Vitals: * Physical Examination: Assessment: * Assessment: 1. S creening for colon cancer - Z12.11 (Primary) Plan: * Treatment: * Procedure Codes: * true * Date: Generated for Printi ng/Faxing/Marivel on: 0 03/08/2025 11:55 PM EDT
--- OUTSIDE RECORDS SUMMARY | 2025-01-21 05:05 | XMS_ITS ---
Author Organization [facility] Address [address] [facility] [address] [place] [id number] Care Team Providers Care Glass Artist Name Role Phone Jenae Shipman Primary Care Provider [phone] REASON FOR VISIT due colonoscopy Encounters Encounter Location Date Provider Diagnosis [facility] [address] [facility] [address] [place] [id number] 01/21/2025 Jenae Shipman Screening for colon cancer Z12.11 Assessments Encounter Date Diagnosis (ICD Code) Assessment Notes Treatment Notes Treatment Clinical Notes Section Notes 01/21/2025 Screening for colon cancer (ICD-10 - Z12.11) Plan Of Treatment Pending Test Test Name Order Date colonoscopy 01/21/2025 Progress Notes * Skyler SWANOB:1965 (59 yo F)Acc No.[id number]:01/21/2025 Patient: Sage ALANIZime :1965 A ge:59 Y S ex:Female Address:[place] [address] Subjective: * Chief Complaints: * D ue colonoscopy * Medical History: * Surgical History: * Hospitalization/Major Diagno stic Procedure: * Medications: Objective: * Vitals: * Physical Examination: Assessment: * Assessment: 1. S creening for colon cancer - Z12.11 (Primary) Plan: * Treatment: * Procedure Codes: * true * Date: Generated for Printi ng/Faxing/Marivel on: 0 03/09/2025 01:11 PM EDT
--- OUTSIDE RECORDS SUMMARY | 2025-03-07 07:30 | XMS_ITS ---
Author Organization [facility] Address [address] [facility] [address] [place] [phone] Care Team Providers Care Products Mechanical Design Engineer Name Role Phone Jenae Shipman Primary Care Provider [phone] Mary Cano Unavailable [phone] Allergies No Known Allergies Results Component Value Reference Range Notes Urinalysis - Inhouse Reviewed date:03/08/2025 09:03:27 AM Interpretation: Performing Lab: Notes/Report: Color/Clarity red Leuk 3+ Nitrite pos Urobili >=131 Protein 3+ pH 5.0 Blood 2+ Sp. Gr. 1.020 Ketone neg Bili 3+ Gluc 2+ REASON FOR VISIT [facility] follow up UTI Medications Medication SIG (Take, Route, Frequency, Duration) Notes Start Date End Date Status Basaglar KwikPen 100 UNIT/ML 25 units subcutaneously once daily; Duration: 30 days Active Jardiance 25 MG 1 tablet Orally Once a day; Duration: 90 days Active Atorvastatin Calcium 40 MG TAKE 1 TABLET BY MOUTH ONCE DAILY; Duration: 90 Active Metoprolol Tartrate 25 MG 1 tab(s) orall y 2 times a day; Duration: 90 days Active Mounjaro 12.5 MG/0.5ML INJECT 1 SYRINGE SUBCUTANEOUSLY ONCE A WEEK; Duration: 28 Active Omeprazole 20 MG 1 cap(s) orally once a day; Duration: 90 days Active Maxzide-25 37.5-25 MG 1 tab(s) orally on ce a day; Duration: 90 days Active Benazepril HCl 10 MG 1 tab(s) orally onc e a day; Duration: 90 days Active Venlafaxine HCl ER 75 MG 1 cap(s) orally once a day; Duration: 90 days Active metFORMIN HCl ER 500 MG TAKE 2 TABLETS B Y MOUTH TWICE DAILY; Duration: 90 Active NovoLOG FlexPen 100 UNIT/ML 10 Units Three times a day 12/19/2023 A ctive Ferrous Sulfate 325 (65 Fe) MG 1 tab(s) orally once daily 01/10/2013 A ctive Aspirin 81 MG 1 tablet Orally Once a day Active Clopidogrel Bisulfate 75 MG 1 tab(s) orally once a day A ctive Dexcom G7 Sensor - as directed every 10 days; Duration: 90 days 09/06/2023 Active NovoLOG FlexPen 100 UNIT/ML 10 units subcutaneously three times a day Active CPAP machine and supplies - as directed as directed Acti ve B-12 1000 MCG 1 tab(s) orally once a day; Duration: 30 day(s) Active Cefdinir 300 MG 1 cap(s) Orally Two times a day; Duration: 10 days 03/07/2025 Active Dexcom G7 Wire Twister - - Active Vital Signs Weight 158.4 lbs 03/07/2025 Blood pressure systolic 122 mm Hg 03/07/20 25 Blood pressure diastolic 80 mm Hg 025 Heart Rate 93 /min 03/07/2025 Height 64 in 03/07/2025 BMI 27.19 kg/m2 03/07/2025 Encounters Encounter Location Date Provider Diagnosis [facility] [address] [id number] 03/07/2025 Mary Cano Urinary tract infect ion, site not specified N39.0 and Unspecified Escherichia coli [E. coli] as the cause of diseases classified elsewhere B96.20 Assessments Encounter Date Diagnosis (ICD Code) Assessment Notes Treatment Notes Treatment Clinical Notes Section Notes 03/07/2025 Urinary tract infection, site not specified (ICD-10 - N39.0) 03/07/2025 Unspecified Escherichia coli [E. coli] as the cause of diseases classified elsewhere (ICD-10 - B96.20) Plan Of Treatment Medication Medication Name Sig Start Date Stop Date Notes Cefdinir 300 MG 1 cap(s) Orally Two times a day; Duration: 10 days 03/07/2025 Next Appt Details Follow Up: for U/A after fin ishing abx, Reason: Progress Notes * Skyler SWANOB:1965 (59 yo F)Acc No.[id number]:03/07/2025 Progress Notes Patient: Иван ALANIZ Provider: AMANDEEP Sapp :1965 A ge:59 Y S ex:Female Date:03/07/2025 Address:[address] [place] [address], [place], [id number] Pcp:Jenae Shipman Subjective: * Chief Complaints: * 1 . [facility] follow up UTI. * HPI: U rology: 59 year old female presents with c/o Pressure. c/o UTI?Pt here for f/u on UTI. Pt states that she is not getting better and was started on cipro.. * ROS: D ERMATOLOGY: no R julia. n o H candace. G ASTROENTEROLOGY: no N ausea. n o V omiting. n o D iarrhea.? U ROLOGY: no D ifficulty urinating. n o B lood in urine. * Medical History: C arotid artery disease, Cardiac Stent Placement, right coronary artery, x 1 - 11/05/15, type 2 diabetes, followed by Expediter Service Order, Hypertension, Hypercholestrolemia, Esophageal reflux, Depression, Cardiac murmur. * Surgical History: c holecystectomy 1992, vaginal tape 07/10, right arm manipulated 08/11, colonoscopy , upper GI X2 , polyp removal , hysterectomy vaginal 05/23/2015, Cardiac Stent Placement x 1 11/05/15, cubital tunnel release left elbow 11/03/23. * Hospitalization/Major Diagno stic Procedure: s corinne , diabetes , [facility], [facility]- UTI 07/23/2024. * Family History: F ather: [...] once a day , Taking Dexcom G7 Wire Twister - Device - , Taking NovoLOG FlexPen [...] cap(s) orally once a day , Taking Maxzide-25 37.5-25 MG Tablet 1 tab(s) orally once a day , Taking Benazepril HCl 10 MG Tablet 1 tab(s) orally once a day , Taking Venlafaxine HCl ER 75 MG Capsule Extended Release 24 Hour 1 cap(s) orally once a day , Taking metFORMIN HCl ER 500 MG Tablet Extended Release 24 Hour TAKE 2 TABLETS BY MOUTH TWICE DAILY , Taking Basaglar KwikPen 100 UNIT/ML Solution Pen-injector 25 units subcutaneously once daily , Taking Jardiance 25 MG Tablet 1 tablet Orally Once a day , Taking Atorvastatin Calcium 40 MG Tablet TAKE 1 TABLET BY MOUTH ONCE DAILY , Taking Metoprolol Tartrate 25 MG Tablet 1 tab(s) orally 2 times a day , Taking Mounjaro 12.5 MG/0.5ML Solution Auto-injector INJECT 1 SYRINGE SUBCUTANEOUSLY ONCE A WEEK , Medication List reviewed and reconciled with the patient * Allergies: N .K.D.A. Objective: * Vitals: W t: 158.4, Temp: 97.4, BP: 122/80, HR: 93, O2 Sat: 98% on ra, Nurse: isaias, Ht: 64, BMI:27.19. * Examination: G eneral Examination: General Appearance: N AD. C hest: n ormal shape and expansion. H eart: R SR. L ungs: c lear to auscultation. A bdomen: b owel sounds present, soft, ttp over the suprapubic area. B ack: n o CVA tenderness. ? Assessment: * Assessment: 1. U rinary tract infection, site not specified - N39.0 (Primary) 2 . U nspecified Escherichia coli [E. coli] as the cause of diseases classified elsewhere - B96.20 Plan: * Treatment: Value Reference Range C olor/Clarity red * L euk 3+ * N itrite pos * U robili >=131 * P rotein 3+ * p H 5.0 * B lood 2+ * S p. Gr. 1.020 * K etone neg * B irma 3+ * G satya 2+ * EarlyNora sue 03/07/2025 12 :16:07 PM EDT > 2.?Unspecified Escherichia coli [E. coli] as the cause of diseases classified elsewhere? Start Cefdinir Capsule, 300 MG, 1 cap(s), Orally, Two times a day, 10 days, 20 Capsule, Refills 0. ? * Follow Up: f or U/A after finishing abx * Images: Billing Information: * Visit Code: 58261 Office Visit, Est Pt., Level 3. * Procedure Codes: * Electronic signature of AMANDEEP Payne on 03/09/2025 at 01:11 PM EDT Sign off status: Pending * Provider: AMANDEEP Sapp Date: 03/07/2025 Generated for Marcelino long/Park/eTransmitting on: 03/09/2025 01:11 PM EDT History and Physical Notes * HPI (History of Present Illness) Category Sub-Category Detail Notes Category Not es Urology Pressure UTI Pt here for f/u on U TI. Pt states that she is not getting better and was started on cipro. Examination Category Sub-Category Detail Notes Category Not es General Examination Heart: RSR Lungs: clear to auscultatio n Abdomen: bowel sounds present , soft, ttp over the suprapubic area General Appearance: NAD Back: no CVA tenderness Chest: normal shape and exp ansion
--- OUTSIDE RECORDS SUMMARY | 2025-03-07 07:30 | XMS_ITS ---
Author Organization [facility] Address [address] [facility] [address] [place] [phone] Care Team Providers Care Splunk Consultant Name Role Phone Jenae Shipman Primary Care Provider [phone] Mary Cano Unavailable [phone] Allergies No Known Allergies Results Component Value Reference Range Notes Urinalysis - Inhouse Reviewed date:03/08/2025 09:03:27 AM Interpretation: Performing Lab: Notes/Report: Color/Clarity red Leuk 3+ Nitrite pos Urobili >=131 Protein 3+ pH 5.0 Blood 2+ Sp. Gr. 1.020 Ketone neg Bili 3+ Gluc 2+ REASON FOR VISIT [facility] follow up UTI Medications Medication SIG (Take, [...] Duration: 10 days 03/07/2025 Active Dexcom G7 Body Care Manager - - Active Vital Signs Weight 158.4 lbs 03/07/2025 Blood pressure systolic 122 mm Hg 03/07/20 25 Blood pressure diastolic 80 mm Hg 025 Heart Rate 93 /min 03/07/2025 Height 64 in 03/07/2025 BMI 27.19 kg/m2 03/07/2025 Encounters Encounter Location Date Provider Diagnosis [facility] [address] [phone] 03/07/2025 Mary Cano Urinary tract infect ion, [...] Notes * Skyler SWANOB:1965 (59 yo F)Acc No.[id number]:03/07/2025 Progress Notes Patient: Иван ALANIZ Provider: AMANDEEP Sapp :1965 A ge:59 Y S ex:Female Date:03/07/2025 Address:[address] [place] [address], [place], [id number] Pcp:Jenae Shipman Subjective: * Chief Complaints: * 1 . [facility] follow up UTI. * HPI: U rology: [...] - 11/05/15, type 2 diabetes, followed by Multiple Effect Evaporator Operator, Hypertension, Hypercholestrolemia, Esophageal reflux, Depression, Cardiac murmur. * Surgical History: c holecystectomy 1992, vaginal tape 07/10, right arm manipulated 08/11, colonoscopy , upper GI X2 , polyp removal , hysterectomy vaginal 05/23/2015, Cardiac Stent Placement x 1 11/05/15, cubital tunnel release left elbow 11/03/23. * Hospitalization/Major Diagno stic Procedure: s corinne , diabetes , [facility] chest [facility] 11/05/15, [facility]- UTI 07/23/2024. * Family History: F ather: [...] once a day , Taking Dexcom G7 Body Care Manager - Device - , Taking NovoLOG FlexPen [...] * Images: Billing Information: * Visit Code: 72616 Office Visit, Est Pt., Level 3. * Procedure Codes: * Electronic signature of AMANDEEP Payne on 03/08/2025 at 11:54 PM EDT Sign off status: Pending * Provider: AMANDEEP Sapp Date: 03/07/2025 Generated for Marcelino long/Park/eTransmitting on: 03/08/2025 11:54 PM EDT History and Physical Notes * [...]
[2025-03-08 23:04] VITALS: BP 131/66; PULSE 71; RESP 16; TEMP 37.1; O2SAT 96; BMI 27.4
--- OUTSIDE RECORDS SUMMARY | 2025-03-08 23:55 | XMS_ITS | Patient Health Record ---
Author Organization [facility] Address [address] [facility] [address] [place] [id number] Care Team Providers Care Pad Cutter Name Role Phone Jenae Shipman Primary Care Provider [phone] Aida Cruz Unavailable [phone] Mary Cano Unavailable [phone] Allergies No Known Allergies Results Component Value Reference Range Notes Urinalysis - Inhouse Reviewed date:03/08/2025 09:03:27 AM Interpretation: Performing Lab: Notes/Report: Color/Clarity red Leuk 3+ Nitrite pos Urobili >=131 Protein 3+ pH 5.0 Blood 2+ Sp. Gr. 1.020 Ketone neg Bili 3+ Gluc 2+ P-Magnesium Reviewed date:08/14/2024 09:18:53 AM Interpretation:1.9 Performing Lab: Notes/Report: Test performed by [facility] [address] [place], [place] [address]Arthena Chatfield , [address], [place] [address] Norberto White MD, Associate Director Data & Analytics CLIA: [id number] Magnesium 1.9 1.6-2.4 mg/dL P-Iron Reviewed date:08/14/2024 09:20:42 AM Interpretation:43 Performing Lab: Notes/Report: Test performed by [facility] [address] [place], [place] [address]Arthena Chatfield , [address], [place] [address] Norberto White MD, Associate Director Data & Analytics CLIA: [id number] Iron 43 37-145 ug/dL P-Comprehensive Metabolic Pa luisa (CMP) Reviewed date:08/14/2024 09:20:21 AM Interpretation: Performing Lab: Notes/Report: Test performed by [facility] [address] [place] [address] , [address], [place] [address] Norberto White MD, Associate Director Data & Analytics CLIA: [id number] Sodium 140 135-145 mmol/L Potassium 4.0 3.5-5.3 [...] 0.2 <0.2-1.2 mg/dL A/G Ratio 1.7 1.1-2.5 P-Vitamin B12 Reviewed date:08/14/2024 09:20:01 AM Interpretation:453 Performing Lab: Notes/Report: Test performed by [facility] [address] [place] [address] , [address], [place] [address] Norberto White MD, Associate Director Data & Analytics CLIA: [id number] Vitamin B12 322 082-6884 pg/mL Glycohemoglobin A1c (in hous e) Reviewed date:08/14/2024 09:18:34 AM Interpretation:5.9% Performing Lab: Notes/Report: 5.9% glycohemoglobin 5.9% 5 - 6.5 % CBC Fingerstick (in house) Reviewed date:08/14/2024 09:18:11 [...] - 38 plat 361 100 - 400 CBC Venipuncture (in house) Reviewed date:01/11/2025 01:22:18 [...] Interpretation:Normal Performing Lab: Notes/Report: Test performed by [facility] [address] [place] [address] , [address], [place] [address] Norberto White MD, Associate Director Data & Analytics CLIA: [id number] Vitamin B12 0105 171-0913 pg/mL P-Comprehensive Metabolic Pa luisa (CMP) Reviewed date:01/11/2025 01:22:18 PM Interpretation:Normal Performing Lab: Notes/Report: Test performed by [facility] [address] [place] [address] , [address], [place] [address] Norberto White MD, Associate Director Data & Analytics CLIA: [id number] Sodium 139 135-145 mmol/L Potassium 3.8 3.5-5.3 [...] Interpretation:Normal Performing Lab: Notes/Report: Test performed by [facility] [address] [place] [address] , [address], [place] [address] Norberto White MD, Associate Director Data & Analytics CLIA: [id number] Iron 48 37-145 ug/dL P-TSH reflex to FT4 Reviewed date:01/11/2025 01:22:18 PM Interpretation:Normal Performing Lab: Notes/Report: Test performed by [facility] [address] , [place] [address] Norberto White MD, Associate Director Data & Analytics CLIA: [id number] TSH reflex to FT4 1.65 0.43-5.25 mU/L P-Vitamin D 25-Hydroxy Reviewed date:01/11/2025 01:22:18 PM Interpretation:25.4 Performing Lab: Notes/Report: Test performed by [facility] [address] , [address], [place] [address] Norberto White MD, Associate Director Data & Analytics CLIA: [id number] Vitamin D 25-Hydroxy 25.4 30.0-100.0 ng/mL Interpretation of Vitamin D 25 OH: < 20 ng/mL - Deficiency 20 - 29 ng/mL - Insufficiency 30 - 100 ng/mL - Sufficiency > 100 ng/mL - Super-therapeutic- toxicity may occur above this level. Clinical correlation required. Mammogram Reviewed date:01/25/2025 04:18:20 PM Interpretation: Performing Lab: Notes/Report: P-TSH Reviewed date:08/14/2024 09:19:15 AM Interpretation:0.78 Performing Lab: Notes/Report: Test performed by [facility] [address] [place] [address] , [address], [place] [address] Norberto White MD, Associate Director Data & Analytics CLIA: [id number] TSH 0.78 0.43-5.25 mU/L P-Vitamin D 25-Hydroxy Reviewed date:08/14/2024 09:19:36 AM Interpretation:21.6 Performing Lab: Notes/Report: Test performed by [facility] [address] [place] [address] , [address], [place] [address] Norberto White MD, Associate Director Data & Analytics CLIA: [id number] Vitamin D 25-Hydroxy 21.6 30.0-100.0 ng/mL Interpretation [...] recollect Performing Lab: Notes/Report: Test performed by [facility] [address] [place] [address] , [address], [place] [address] Norberto White MD, Associate Director Data & Analytics CLIA: [id number] Specimen Source Urine - Void Culture, Urine See Below Final Report : 10,000-15,000 CFU/ml Mixed Gram Positive Organisms Three or more organisms present likely representing contamination during collection by patient's urogenital, skin, and/or fecal sascha. Organism identification and sensitivity assessment are not recommended. Specimen recollection is recommended. Medications Medication SIG (Take, Route, Frequency, Duration) Notes Start Date End Date Status NovoLOG FlexPen 100 UNIT/ML 10 units subcutaneously three times a day Active Basaglar KwikPen 100 UNIT/ML 25 units subcutaneously once daily; Duration: 30 days Active NovoLOG FlexPen 100 UNIT/ML 10 Units Three times a day 12/19/2023 A ctive Jardiance 25 MG 1 tablet Orally Once a day; Duration: 90 days Active Ferrous Sulfate 325 (65 Fe) MG 1 tab(s) orally once daily 01/10/2013 A ctive Atorvastatin Calcium 40 MG TAKE 1 TABLET BY MOUTH ONCE DAILY; Duration: 90 Active Aspirin 81 MG 1 tablet Orally Once a day Active Metoprolol Tartrate 25 MG 1 tab(s) orall y 2 times a day; Duration: 90 days Active Clopidogrel Bisulfate 75 MG 1 tab(s) orally once a day A ctive Mounjaro 12.5 MG/0.5ML INJECT 1 SYRINGE SUBCUTANEOUSLY ONCE A WEEK; Duration: 28 Active Dexcom G7 Sensor - as directed every 10 days; Duration: 90 days 09/06/2023 Active Omeprazole 20 MG 1 cap(s) orally once a day; Duration: 90 days Active Maxzide-25 37.5-25 MG 1 tab(s) orally on ce a day; Duration: 90 days Active CPAP machine and supplies - as directed as directed Acti ve Benazepril HCl 10 MG 1 tab(s) orally onc e a day; Duration: 90 days Active B-12 1000 MCG 1 tab(s) orally once a day; Duration: 30 day(s) Active Venlafaxine HCl ER 75 MG 1 cap(s) orally once a day; Duration: 90 days Active Cefdinir 300 MG 1 cap(s) Orally Two times a day; Duration: 10 days 03/07/2025 Active Dexcom G7 Sheet Rocker - - Active metFORMIN HCl ER 500 MG TAKE 2 TABLETS B Y MOUTH TWICE DAILY; Duration: 90 Active Immunizations Vaccine Route Administration Date Status [...] W/U Status Risk Notes Problem Coronary arteriosclerosis (97294149) ASCVD (arteriosclerotic cardiovascular disease) (I25.10) Active confirmed Problem Peripheral circulatory disorder associated with diabetes mellitus (779512095) 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.59) Active confirmed Problem Vitamin D deficiency (00060090) Vitamin D deficiency (E55.9) Active confirmed Problem Essential hypertension (78094537) Essential hypertension (I10) Active confirmed Problem Sciatic nerve lesion (030174393) Piriformis syndrome of right side (G57.01) Active confirmed Problem Paresthesia (73646912) Paresthesia (R20.2) Active confirmed Problem Mixed hyperlipidemia (949771792) Mixed hyperlipidemia (E78.2) Active confirmed Problem Tobacco dependence (51669448) Tobacco dependence (F17.200) Active confirmed Problem Long-term current use of insulin (005218311) care home (current) use of insulin (Z79.4) Active confirmed Problem Type II diabetes mellitus without complication (221321474) Type 2 diabetes mellitus without complication (E11.9) Active confirmed Problem Gastroesophageal reflux disease without esophagitis (714776602) Gastroesophageal reflux disease without esophagitis (K21.9) Active confirmed Problem Reactive depression (situational) (83438137) Situational depression (F43.21) Active confirmed Problem Atherosclerotic heart disease of apache coronary artery without angina pectoris (040414749666152) Coronary artery disease involving apache coronary artery of apache heart without angina pectoris (I25.10) Active confirmed Problem Gastroesophageal reflux disease (980102589) Gastroesophageal reflux disease, esophagitis presence not specified (K21.9) Active confirmed Problem Neuropathy (130739249) Neuropathy (G62.9) Active confirmed Problem Anemia (206828834) Anemia, unspecified type (D64.9) Active confirmed Problem Hyperlipidaemia (50210924) Hyperlipidemia, unspecified hyperlipidemia type (E78.5) Active confirmed Problem Obese class II (001989146742949) BMI 37.0-37.9, adult (Z68.37) Active confirmed Problem Stented coronary artery (667336040) Stented coronary artery (Z95.5) Active confirmed Problem Depressive disorder (disorder) (19066813) Depression, unspecified depression type (F32.9) Active confirmed Problem Atherosclerotic heart disease of apache coronary artery without angina pectoris (860659586081586) Atherosclerosis of apache coronary artery without angina pectoris, unspecified whether apache or transplanted heart (I25.10) Active confirmed Problem Anxiety depression (055692132) Anxiety with depression (F41.8) Active confirmed Problem Diabetic ketoacidosis without coma (313984160) Diabetic ketoacidosis without coma associated with other specified diabetes mellitus (E13.10) Active confirmed Problem Type II diabetes mellitus without complication (830294532) Type 2 diabetes mellitus without complication, unspecified whether exterminator insulin use (E11.9) Active confirmed Problem Hyperglycemia due to type 2 diabetes mellitus (942657247188302) Uncontrolled type 2 diabetes mellitus with hyperglycemia (E11.65) Active confirmed Vital Signs Heart Rate 93 /min 03/07/2025 Blood pressure diastolic 80 mm Hg 03/07/2025 Height 64 in 03/07/2025 Blood pressure systolic 122 mm Hg 03/07/2025 Weight 158.4 lbs 03/07/2025 BMI 27.19 kg/m2 03/07/2025 Encounters Encounter Location Date Provider Diagnosis [facility] [address] [place] [id number] 04/10/2024 Aida Cruz Leukocytes in urine R82.998 ; UTI (lower urinary tract infection) N39.0 and Type 2 diabetes mellitus without complication E11.9 [facility] [address] [place] [id number] 05/08/2024 Aidavamshi Cruz Type 2 diabetes edwardo itus without complication E11.9 and Weight loss counseling, encounter for Z71.3 [facility] [address] [facility] [address] [place] [id number] 07/10/2024 Aida Cruz Type 2 diabetes edwardo itus without complication E11.9 [facility] [address] [facility] [address] [place] [id number] 08/06/2024 Aida Cruz [facility] [address] [place] [id number] 08/13/2024 Aida Cruz Type 2 diabetes edwardo itus without complication E11.9 ; Anxiety with depression F41.8 ; Coronary artery disease involving apache coronary artery of apache heart without angina pectoris I25.10 ; Neuropathy G62.9 ; Paresthesia R20.2 ; Thyroid disorder screen Z13.29 and Anemia, unspecified type D64.9 [facility] [address] [facility] [address] [place], [place] [id number] 10/15/2024 Aida Cruz Breast cancer screen ing Z12.39 and Type 2 diabetes mellitus without complication E11.9 [facility] [address] [facility] [address] [place], [place] [id number] 01/10/2025 Mary Cano Type 2 diabetes edwardo itus without complication E11.9 ; Anxiety with depression F41.8 ; Coronary artery disease involving apache coronary artery of apache heart without angina pectoris I25.10 ; Neuropathy G62.9 ; Paresthesia R20.2 ; Thyroid disorder screen Z13.29 ; Anemia, unspecified type D64.9 ; Vitamin D deficiency E55.9 ; Vitamin B12 deficiency E53.8 and Screening mammogram, encounter for Z12.31 [facility] [address] [place] [id number] 03/07/2025 Mary Crowgaetano Urinary tract infect ion, site not specified N39.0 and Unspecified Escherichia coli [E. coli] as the cause of diseases classified elsewhere B96.20 [facility] [address] [place] [id number] 03/26/2024 Jenae Shipman Gastroesophageal ref lux disease without esophagitis K21.9 [facility] [address] [place], [place] [id number] 06/01/2024 Jenae Shipman Type 2 diabetes edwardo itus without complication E11.9 [facility] [address] [place], [place] [id number] 07/02/2024 Aida Cruz Type 2 diabetes edwardo itus without complication E11.9 [facility] [address] [place], [place] [id number] 10/18/2024 J Rigo Shipman [facility] [address] [place] [id number] 11/01/2024 J Rigo Shipman [facility] [address] [place] [id number] 12/12/2024 J Rigo Shipman Type 2 diabetes edwardo itus without complication E11.9 [facility] [address] [place] [id number] 01/11/2025 Maryjoanna Cano [facility] [address] [place] [id number] 01/11/2025 Mary Andrewgaetano Type 2 diabetes edwardo itus without complication E11.9 [facility] [address] [place] [id number] 01/21/2025 Jenae Shipman Screening for colon cancer Z12.11 [facility] [address] [place] [id number] 01/25/2025 Maryjoanna Cano [facility] [address] [place] [id number] 04/24/2024 J Rigo Shipman Type 2 diabetes edwardo itus without complication E11.9 [facility] [address] [place] [id number] 04/24/2024 Jenae Shipman [facility] [address] [place], [place] [id number] 05/25/2024 Jenae Shipman Essential hypertensi on I10 ; Type 2 diabetes mellitus without complication E11.9 and Gastroesophageal reflux disease without esophagitis K21.9 [facility] [address] [place], [place] [id number] 09/12/2024 Jenae Shipman Type 2 diabetes edwardo itus without complication E11.9 [facility] [address] [place], [place] [id number] 09/12/2024 J Rigo Shipman [facility] [address] [place] [id number] 09/22/2024 Jenae Shipman Type 2 diabetes edwardo itus without complication E11.9 [facility] [address] [place], [place] [id number] 11/01/2024 Jenae Shipman Gastroesophageal ref lux disease without esophagitis K21.9 [facility] [address] [place] [id number] 11/19/2024 Jenae Shipman Anxiety with depress ion F41.8 [facility] [address] [place] [id number] 12/03/2024 Jenae Shipman [facility] [address] [place] [id number] 12/17/2024 Jenae Shipman Type 2 diabetes edwardo itus without complication E11.9 Assessments Encounter Date Diagnosis (ICD Code) Assessment Notes Treatment Notes Treatment Clinical Notes Section Notes 03/26/2024 Gastroesophageal reflux disease without esophagitis (ICD-10 [...] Screening for colon cancer (ICD-10 - Z12.11) 03/07/2025 Urinary tract infection, site not specified (ICD-10 - N39.0) 03/07/2025 Unspecified Escherichia coli [E. coli] as the cause of diseases classified elsewhere (ICD-10 - B96.20) 01/10/2025 Coronary artery disease involving apache coronary artery of apache heart without angina pectoris (ICD-10 - I25.10) 08/13/2024 Coronary artery disease involving apache coronary artery of apache heart without angina pectoris (ICD-10 - I25.10) [...] [employer] [address] [place] [address] [id number] Иван Roy Self - patient is the [...] elbow Hospitalization History Reason Date(Month/Year) [facility] UTC- UTI 07/23/2024 [facility] - Cardiac Stent Plac ement 11/05/[address] [facility] ER - chest pain 09/22/15 diabetes same
--- OUTSIDE RECORDS SUMMARY | 2025-03-08 23:55 | XMS_ITS | Clinical Summary ---
Author Organization Healthcare Address [address] [place] [address] Care Team Providers Care Trail Construction Worker Name Role Phone Unavailable Primary Care Provider [...]
[2025-03-08 23:58] VITALS: BP 131/66; PULSE 71; RESP 16; TEMP 37.1; O2SAT 96; BMI 27.4
[2025-03-09] VITALS (11 sets, daily range): BP systolic 112–136; BP diastolic 44–76; PULSE 68–90; RESP 14–18; TEMP 36.6–37.1; O2SAT 96–99; BMI 32.5
[2025-03-09 00:15] LABS: Microscopic, Urine URINE MICROSCOPIC (MICROSCOPIC)
[2025-03-09 00:25] LABS: Alanine Aminotransferase 16 U/L (12-78); Albumin Level 4.6 g/dl (3.5-5.0); Albumin/Globulin Ratio 1.6 (1.1-1.8); Alkaline Phosphatase 66 U/L (38-126); Anion Gap 13.9 mEq/L (5-15); Aspartate Amino Transferase 31 U/L (14-36); Bilirubin,Total 0.5 mg/dl (0.2-1.3); Blood Urea Nitrogen 21 mg/dl (7-17); Calcium 8.9 mg/dl (8.4-10.2); Carbon Dioxide 25 mmol/L (22.0-30.0); Chloride 99 mmol/L (98-107); Creatinine Clearance Estimated 38 mL/min (50-200); Creatinine,Serum 1.90 mg/dl (0.52-1.04); Estimated Glomerular Filt Rate 27 ml/min (>60); GFR (African American) 33 ML/MIN (>60); Globulin 2.8 g/dL (1.3-3.2); Glucose 114 mg/dl (74-100); Potassium 3.9 mmoL/L (3.5-5.1); Sodium 134 mmol/L (136-145); Total Protein,Serum 7.4 g/dl (6.3-8.2)
--- NOTE | 2025-03-09 00:26 | HMH.EDGENADL ---
Discharge Plan Disposition Patient Disposition: Admitted Condition: Good Clinical Impressions Clinical Impression: VARSHA (acute kidney injury), Oliguria, Urinary tract infection Discharge ED Provider: Jake Roberto Adult HPI General Chief complaint: Upper Respiratory Infection Stated complaint: unable to urinate, abd pain, UTI Time Seen by Provider: 03/08/25 23:58 Mode of Arrival: Ambulatory Source of Information: Patient Description of Symptoms (Recalled from ER Triage Doc. by RN): pt presents for evaluation of dysuria with associated vomiting that began x1 week ago with diagnosis of UTI per PCP and being prescribed antibiotics with no relief. Pt reports culture returned with antibiotics being changed, taking x3 days with new onset vomiting. Pt denies fevers at home. History of Present Illness HPI narrative: 59-year-old female presents to the ER with concerns of decreased urine output. Patient reports 1 week ago she went to [facility] for symptoms of UTI and was prescribed antibiotics but did not feel better, urine cultures resulted demonstrating the antibiotic she was on (ciprofloxacin) was not going to be effective against her infection. She was changed to cefdinir and has taken 3 doses of that since that time. Patient reports 3 days ago she had a day of nausea and vomiting but has recovered from that. She states she still has mild nausea. She still reports some suprapubic discomfort and discomfort after urination. She states she does have mild mid back pain but is mostly concerned that in the last 24 hours she has hardly made any urine. She states since lunchtime she has not had any urine output. She states she is still drinking but is concerned about her kidney function. Patient has no history of kidney dysfunction or other abnormalities. She is not having any vomiting. She continues to eat and drink. She reports nausea but no vomiting, no constipation or diarrhea. No fevers or chills, no chest pain or difficulty breathing, no other associated symptoms. Related Data Home Medications ?Medication ?Instructions ?Recorded ?Confirmed aspirin 81 mg tablet,delayed 81 mg PO DAILY Blood thinner 02/14/19 03/01/25 release (Adult Low Dose Aspirin) benazepril 10 mg tablet 10 mg PO DAILY High blood pressure 02/14/19 03/01/25 empagliflozin 25 mg tablet 25 mg PO DAILY Diabetes 02/14/19 03/01/25 (Jardiance) insulin aspart U-100 100 unit/mL 3 unit SQ BID Diabetes 02/14/19 03/01/25 (3 mL) subcutaneous pen (Novolog FlexPen U-100 Insulin aspart) omeprazole 20 mg capsule,delayed 20 mg PO DAILY Acid reflux 02/14/19 03/01/25 release venlafaxine 75 mg capsule,extended 75 mg PO DAILY mood 02/14/19 03/01/25 release 24 hr atorvastatin 40 mg tablet 40 mg PO DAILY Cholesterol 08/19/20 03/01/25 metoprolol tartrate 25 mg tablet 25 mg PO BID High blood pressure 11/24/20 03/01/25 ascorbic acid (vitamin C) 1,000 mg 1 g PO DAILY Supplement 02/15/22 03/01/25 tablet zinc sulfate 50 mg zinc (220 mg) 50 mg PO DAILY Supplement 02/15/22 03/01/25 tablet mecobalamin (vitamin B12) 1,000 1,000 mcg sublingual DAILY 03/15/22 03/01/25 mcg disintegrating Supplement tablet,sublingual insulin glargine 100 unit/mL (3 25 unit SQ HS Diabetes 11/10/22 03/01/25 mL) subcutaneous pen (Basaglar KwikPen U-100 Insulin) tirzepatide 12.5 mg/0.5 mL 12.5 mg SQ QWEEK 11/28/24 03/01/25 subcutaneous pen injector (Staceyro) metformin 500 mg tablet,extended mg PO 03/01/25 03/01/25 release 24 hr triamterene 37.5 tab PO 03/01/25 03/01/25 mg-hydrochlorothiazide 25 mg tablet Previous Rx's ?Medication ?Instructions ?Recorded ferrous sulfate 325 mg (65 mg 325 mg PO DAILY Iron deficiency 03/09/23 iron) tablet #90 tabs nitroglycerin 0.4 mg sublingual 0.4 mg sublingual Q5M PRN chest 04/11/24 tablet (Nitrostat) pain #20 tabs ondansetron 4 mg disintegrating 4 mg PO Q8H PRN Nausea #12 tabs 07/24/24 tablet ciprofloxacin HCl 250 mg tablet 250 mg PO BID 3 days #6 tabs 03/01/25 (Cipro) phenazopyridine 100 mg tablet 100 mg PO QPC 6 doses #6 tabs 03/01/25 (Pyridium) nitrofurantoin 100 mg PO Q12H 7 days #14 caps 03/07/25 monohydrate/macrocrystals 100 mg capsule Allergies Allergy/AdvReac Type Severity Reaction Status Date / Time No Known Allergies Allergy Verified 03/01/25 14:21 [facility] Disclaimer: The information contained in this section may have been updated after the patient was seen, as this information can be updated by other users. Medical History Sleep apnea TRUONG on CPAP CAD (coronary artery disease) GERD (gastroesophageal reflux disease) Colonoscopy planned Elevated lipids HTN (hypertension) Insulin dependent diabetes mellitus Puncture wound Dizziness Surgical History History of cholecystectomy History of colonoscopy History of carpal tunnel release Hx of tooth extraction H/O: hysterectomy H/O heart artery stent Cholecystectomy planned Family History Other Coronary artery disease Diabetes Family history of thyroid disease Respiratory failure Stroke Social History Smoking Status: Never smoker second hand exposure: No alcohol intake: never substance use type: denies use current occupational status: employed Travel in the last 8 weeks?: None household members: spouse housing: house marital status: number of children: 3 number of grandchildren: 11 current occupation: [employer] current occupational exposures/hazards: No diet: diabetic caffeine: Yes Have you lived/traveled outside [place] in past 30 days?: No Contact w/someone who lives/traveled outside [place] past 30 days?: No Exposure to someone with infectious disease in past 14 days?: No Do you have a fever (greater than 100.4 F or 38 C)?: No Have you tested positive for COVID-19?: No Exposed to someone with COVID-19 in past 14 days?: No Do you have a sore throat?: No Do you have a cough?: No Do you have any weakness?: No Do you have any diarrhea?: No Are you experiencing any unusual bleeding?: No Do you have any muscle aches/pain?: No Do you have any abdominal pain?: Yes Are you experiencing loss of taste or smell?: No Other Medical History Have you received the Flu Vaccine for this season: No Have you received the Pneumonia Vaccine: No ROS Obtained: Yes Systems reviewed as appropriate & no additional complaints except as documented Per HPI Physical Exam General General appearance: alert and in no apparent distress Head Head exam: atraumatic and normocephalic Eye Eye exam: Present PERRL and EOMI ENT ENT exam: Present mucous membranes moist Neck Neck exam: Present normal inspection and full ROM Chest Chest inspection: Present symmetric chest wall rise Respiratory Respiratory exam: Present normal lung sounds bilaterally; Absent respiratory distress, wheezes or stridor Cardiovascular Cardiovascular exam: Present regular rate and normal rhythm Abdominal Exam Abdominal exam: Present soft and tenderness (Mild suprapubic); Absent distention, guarding or rebound Extremities Exam Extremities exam: Present full ROM Back Exam Back exam: Present CVA tenderness (L); Absent CVA tenderness (R) Neurological Exam Neurological exam: Present alert, oriented X3 and normal gait; Absent motor sensory deficit Psychiatric Psychiatric exam: Present normal affect and normal mood Skin Skin exam: Present warm and dry Medical Decision Making Medical Records Medical records reviewed: Yes I reviewed the patient's medical records. Screening: Per USPSTF and CDC recommendations, given the prevalence of disease in our region, it is our hospital?s policy to screen for HIV and viral Hepatitis for all patients aged 18 and over and those with ongoing risk factors. MR Comment: Urine culture resulted with E. coli resistant to ciprofloxacin, resistant to Bactrim, at that time patient was prescribed cefdinir which she has been on for the last 2 days but only taken 3 doses [place] Pt receiving controlled substance: No Vital Signs: 03/08/25 23:04 03/08/25 23:58 03/09/25 00:05 Temperature 98.7 F 98.7 F Temperature Source Oral Oral Pulse Rate Pulse Rate [Radial] 71 71 Respiratory Rate 16 16 Blood Pressure Blood Pressure [Right Arm] 131/66 131/66 Blood Pressure Mean [Right Arm] 87 87 Blood Pressure Position Blood Pressure Position [Right Arm] Sitting Sitting 02 Sat by Pulse Oximetry 96 96 96 Oxygen Delivery Method Room Air Room Air Room Air 03/09/25 01:30 03/09/25 02:00 03/09/25 02:30 Temperature Temperature Source Pulse Rate 69 79 87 Pulse Rate [Radial] Respiratory Rate Blood Pressure 128/56 L 120/67 136/61 Blood Pressure [Right Arm] Blood Pressure Mean [Right Arm] Blood Pressure Position Blood Pressure Position [Right Arm] 02 Sat by Pulse Oximetry 98 99 98 Oxygen Delivery Method 03/09/25 03:00 03/09/25 03:27 Temperature 98.7 F Temperature Source Oral Pulse Rate 90 90 Pulse Rate [Radial] Respiratory Rate 16 Blood Pressure 114/76 114/76 Blood Pressure [Right Arm] Blood Pressure Mean [Right Arm] Blood Pressure Position Sitting Blood Pressure Position [Right Arm] 02 Sat by Pulse Oximetry 97 Oxygen Delivery Method Room Air Lab Data Lab Results 03/09/25 00:13: WBC 12.0 H, RBC 4.66, Hgb 13.7, Hct 42.3, MCV 90.8, MCH 29.4, MCHC 32.4, RDW 14.4, Plt Count 363, MPV 10.0, Neut % (Auto) 53.6, Lymph % (Auto) 35.0, [place] % (Auto) 9.1, Eos % (Auto) 1.3, Baso % (Auto) 0.7, Neut # (Auto) 6.4, Lymph # (Auto) 4.2, [place] # (Auto) 1.1 H, Eos # (Auto) 0.2, Baso # (Auto) 0.1, PT 11.1, INR 1.00, Sodium 134 L, Potassium 3.9, Chloride 99, Carbon Dioxide 25, Anion Gap 13.9, BUN 21 H, Creatinine 1.90 H, Estimated Creat Clear 38, Estimated GFR 27 L, Est GFR ( Amer) 33 L, Glucose 114 H, Calcium 8.9, Total Bilirubin 0.5, AST 31, ALT 16, Alkaline Phosphatase 66, Total Protein 7.4, Albumin 4.6, Globulin 2.8, Albumin/Globulin Ratio 1.6 03/09/25 02:50: Urine Color Yellow, Urine Appearance Clear, Urine pH 6.0, Ur Specific [place] <= 1.005, Urine Protein Trace, Urine Glucose (UA) 1+, Urine Ketones Negative, Urine Blood 1+ A, Urine Nitrate Positive A, Urine Bilirubin Negative, Urine Urobilinogen 1.0, Ur Leukocyte Esterase 2+ A, Urine RBC 5-10, Urine WBC 10-20, Ur Squamous Epith Cells Occasional, Urine Bacteria 2+, Urine Yeast 2+ 03/09/25 00:13 03/09/25 00:13 Orders (Tests/Meds): ED MEDICATIONS Generic Name Dose Route Start Last Admin Trade Name Lupe PRN Reason Stop Dose Admin Lactated Ringer's 1,000 mls @ 125 mls/hr 03/09/25 03:00 Lactated Ringer's 1000 Ml Bag IV 04/08/25 02:59 .Q8H ELLEN Discontinued Medications Generic Name Dose Route Start Last Admin Trade Name Lupe PRN Reason Stop Dose Admin Lactated Ringer's 1,000 mls @ 999 mls/hr 03/09/25 00:10 03/09/25 00:49 Lactated Ringer's 1000 Ml Bag IV 03/09/25 01:10 999 mls/hr .Q1H1M ONE Administration Lactated Ringer's 1,000 mls @ 999 mls/hr 03/09/25 00:44 03/09/25 00:50 Lactated Ringer's 1000 Ml Bag IV 03/09/25 01:44 999 mls/hr .Q1H1M ONE Administration Ceftriaxone Sodium 1 gm/ 50 mls @ 100 mls/hr 03/09/25 00:45 03/09/25 01:08 Sodium Chloride IV 03/09/25 01:14 100 mls/hr ONCE ONE Administration ORDERS Category Date Time Status CT abdomen pelvis wo con Stat Cat Scan 03/09/25 00:36 Completed Basic Metabolic Panel AMLAB Lab 03/09/25 06:00 Ordered CBC w/Auto Diff [Complete Blood Count Auto Diff] Stat Lab 03/09/25 00:13 Completed CMP [Comprehensive Metabolic Panel] Stat Lab 03/09/25 00:13 Completed PT INR [Prothrombin Time INR] Stat Lab 03/09/25 00:13 Completed Urinalysis and Microscopic Stat Lab 03/09/25 02:50 Completed Blood Culture Stat Micro 03/09/25 01:05 Received Urine Culture Stat Micro 03/09/25 02:50 Received Medical Decision Narrative: In summary, this 59-year-old female actively being treated for UTI with a history of TRUONG, CAD, hypertension, hyperlipidemia, diabetes presents to the emergency department today with decreased urine output. On initial evaluation patient is hemodynamically stable, afebrile, physical exam notable for mild suprapubic tenderness to palpation with no rebound or guarding, very mild left CVA tenderness, remainder of exam benign. Differential diagnosis includes but is not limited to urinary tract infection, pyelonephritis, VARSHA, oliguria, anuria, obstructive uropathy, nephropathy, renal abscess, among others. Based on these concerns, I ordered serum labs initially and urine studies. Bladder scan showed only scant urine, 3 mL. Patient attempted to provide urine sample but it was not enough for lab to test so she is receiving large IV fluid bolus attempting to stimulate the kidneys. She does not have any evidence of fluid overload clinically. Patient is receiving 2 L IV fluids, since she has known urinary tract infection currently on cefdinir, I started her on Rocephin IV after blood cultures were collected to continue treating UTI. Labs reviewed by me demonstrate significant kidney dysfunction and GFR is severely reduced, creatinine newly 1.9 previously 0.5 on the last labs in our system. I am very concerned about her acute kidney dysfunction and him try to stimulate the kidneys with large fluid bolus. She will end up requiring admission either here or at another facility. If she remains anuric she will have to be transferred to facility with nephrology and dialysis. CT without contrast was ordered. CBC with mild leukocytosis WBC 12.0, no anemia, PT/INR normal. CT abdomen pelvis personally interpreted does not demonstrate acute intra-abdominal pathology, bladder is decompressed, see radiology read for final interpretation. After receiving IV fluids, patient was able to make some urine. She finally urinated, she filled a 100 mL specimen cup and urinated more beyond this as well. Did not measure her full output but I am glad that she is making and passing urine. At this time I believe she is appropriate for admission to our facility for VARSHA and continued treatment of urinary tract infection. Patient is a patient of Dr. Shipman's primary care group. We reached out to the physician on-call for their group. I spoke with Dr. Mace And after reviewing this case, patient was graciously accepted for admission. Patient admitted in stable condition. Critical Care Critical Care Time Critical Care Time: No
[2025-03-09 00:34] LABS: Hematocrit 42.3 % (37.0-47.0); Hemoglobin 13.7 g/dL (12.2-16.2); Immature Granulocytes % 0.3 %; Mean Corpuscular HGB Conc 32.4 g/dL (31.8-35.4); Mean Corpuscular Hemoglobin 29.4 pg (27.0-31.2); Mean Corpuscular Volume 90.8 fl (81-99); Nucleated Red Blood Cells % 0 %; Platelet Count 363 K/mm3 (142-424); Red Blood Count 4.66 M/mm3 (4.20-5.40); Red Cell Distribution Width-SD 47.5 fL; White Blood Count 12.0 K/mm3 (4.8-10.8)
--- NOTE | 2025-03-09 00:36 | CT_ITS ---
PROCEDURE INFORMATION: Exam: CT Abdomen And Pelvis Without Contrast Exam date and time: 03/09/2025 12:50 AM Age: 59 years old Clinical indication: Pain; Other: Back; Additional info: Recent UTI, back pain, decreased uop TECHNIQUE: Imaging protocol: Computed tomography of the abdomen and pelvis without contrast. Total images: 324 Radiation optimization: All CT scans at this facility use at least one of these dose optimization techniques: automated exposure control; mA and/or kV adjustment per patient size (includes targeted exams where dose is matched to clinical indication); or iterative reconstruction. COMPARISON: CT ABDOMEN PELVIS W CON 11/09/2022 3:29 PM FINDINGS: Lungs: Lung bases are clear. Heart: Normal heart size. Mitral annular calcifications. Coronary arteries: Coronary artery calcifications. Liver: Normal. No mass. Gallbladder and biliary ducts: Status post cholecystectomy. No biliary ductal dilatation. Pancreas: Mild pancreatic atrophy. No discrete mass or acute pancreatitis. Spleen: Calcified splenic granuloma. No splenomegaly. Adrenal glands: Bilateral adrenal thickening. 17 mm right adrenal lipid rich adenoma. Additional subcentimeter right adrenal lipid rich adenoma. Kidneys and ureters: 2.4 cm upper pole right renal cyst. Otherwise, unremarkable bilateral kidneys. No hydronephrosis or nephrolithiasis. No ureteral stones. Stomach and bowel: Unremarkable stomach and duodenum. No ileus or bowel obstruction. Unremarkable small bowel. Prominent colonic haustration favored over mild sigmoid diverticulosis. Otherwise, unremarkable colon and rectum. Appendix: Normal appendix. Intraperitoneal space: No ascites. No free air. Vasculature: Moderate atherosclerotic vascular disease. Nonaneurysmal abdominal aorta. Lymph nodes: Unremarkable. No enlarged lymph nodes. Urinary bladder: Collapsed bladder. Spine numerous pelvic phleboliths. Reproductive: Status post hysterectomy. No pelvic mass. Bones/joints: Moderate degenerative changes of the lumbar spine greatest at L3-L4 and L4-L5. Mild osteopenia. Mild rotary dextrocurvature of the upper lumbar spine. Mild degenerative changes bilateral hips and SI joints. Moderate to severe acquired spinal canal stenosis secondary to degenerative changes at L3-L4. Soft tissues: Very tiny fat containing umbilical hernia. IMPRESSION: 1. No acute intra-abdominal or pelvic process. 2. Moderate to severe acquired spinal canal stenosis, secondary to degenerative changes, at L3-L4. 3. Multiple additional chronic and incidental findings. COMMENTS: 1. Consistent with the [employer]'s Incidental Findings Committee white paper (J Am Mirela Radiol 2017): Any incidental adrenal lesion less than 1 cm is likely benign. No follow-up imaging is recommended for these lesions per consensus recommendations based on imaging criteria. Further lab evaluation could be pursued if warranted based on clinical findings. 2. Consistent with the [employer]'s Incidental Findings Committee white paper (J Am Mirela Radiol 2017): For any incidental adrenal lesion greater than or equal to 1 cm but less than or equal to 4 cm classified in this report as benign, likely benign, or containing fat (including classification as an adenoma or myelolipoma), no follow-up imaging is recommended per consensus recommendations based on imaging criteria. Further lab evaluation could be pursued if warranted based on clinical findings. 3. Consistent with the [employer]'s Incidental Findings Committee white paper (J Am Mirela Radiol 2018): Any incidental renal lesion less than 1 cm or classified as too small to characterize, or any incidental cystic renal lesion characterized as simple-appearing, is likely benign. No follow-up imaging is recommended for these lesions per consensus recommendations based on imaging criteria.
[2025-03-09 00:41] LABS: INR 1.00 (0.9-1.1); Prothrombin Time 11.1 seconds (10.1-12.5)
[2025-03-09] MEDS: LACTATED RINGERS 1000ML 1,000 ML 999 ML IV ×2 (00:49→00:50)
[2025-03-09] MEDS: CEFTRIAXONE 1 GM 1 GM in 0.9 % SODIUM CHLORIDE 50 ML IV ×2 (01:08→20:27)
--- NOTE | 2025-03-09 02:42 | PC.NURSE ---
ambulatory with slow steady gait to restroom to attempt to provide urine for testing.
[2025-03-09 02:59] LABS: Bilirubin,Urine Negative (Negative); Color,Urine YELLOW (Yellow); Glucose,Urine (UA) 1+ (Negative); Ketones,Urine Negative (Negative); Leukocyte Esterase,Urine 2+ (Negative); PH,Urine 6.0 (5.0-8.5); Protein,Urine TRACE (Negative); Specific Gravity, Urine <= 1.005 (1.005-1.030); Urobilinogen,Urine 1.0 EU/dl (0.2)
[2025-03-09 03:20] LABS: Squamous Epithelial Cell,Urine Occasional #/hpf (0-5)
[2025-03-09 03:22] LABS: Bacteria,Urine 2+ /lpf
--- NOTE | 2025-03-09 03:26 | PC.NURSE ---
Report given to Gisela MARION
[2025-03-09] MEDS: LACTATED RINGERS 1000ML 1,000 ML 125 ML IV ×4 (04:44→20:29)
[2025-03-09 06:30] LABS: Chloride 98 mmol/L (98-107); Sodium 133 mmol/L (136-145)
[2025-03-09 06:33] LABS: Anion Gap 11.0 mEq/L (5-15); Blood Urea Nitrogen 20 mg/dl (7-17); Carbon Dioxide 27 mmol/L (22.0-30.0); Creatinine Clearance Estimated 57 mL/min (50-200); Creatinine,Serum 1.50 mg/dl (0.52-1.04); Estimated Glomerular Filt Rate 36 ml/min (>60); GFR (African American) 43 ML/MIN (>60)
[2025-03-09 06:34] LABS: Calcium 8.4 mg/dl (8.4-10.2); Glucose 92 mg/dl (74-100)
--- NOTE | 2025-03-09 06:34 | INFXCTL.NOTE ---
Pt. was admitted overnight from the ED with UTI, VARSHA, oliguria. Pt. is a patient of Brad Shipman. Pt. was DX with UTI a week ago and took antibiotics. A urine culture was done and antibiotics were changed. Pt. started feeling worse. c/o dysuria, and low abdominal pain. also no urine output for 24 hours. Pt. given 2 liters of fluid in the ED and a dose of IV antibiotics. Pt. admitted to M/S to continue IV fluids. Pt. admission assessments completed. Pt. resting quietly in the bed. Personal items and call arreola in reach. Bed in low and locked position. Safety measures in place.
[2025-03-09 06:39] LABS: Potassium 3.0 mmoL/L (3.5-5.1)
--- NOTE | 2025-03-09 09:22 | EXP.HP ---
History of Present Illness *Admission Date: 03/09/25 *Reason for visit:: Diminished urine output/UTI *History of present illness: Mrs. Swan is a 59 year old patient of [facility] who typically sees Dr. Shipman for her primary care. She was seen in the [facility] urgent treatment center last weekend with symptoms of a UTI and was treated with Cipro. She states she had minimal improvement of her symptoms over the week. She came into the office of [facility] yesterday reporting decreased urine output and generally not feeling well. Repeat urinalysis was abnormal and urine culture done last weekend showed an E. coli infection that was resistant to Cipro. Her antibiotics were changed to Cefdinir. Patient states she was unable to fill the prescription and throughout the evening felt worse so she came to the ER last night for further evaluation. [facility] Disclaimer: The information contained in this section may have been updated after the patient was seen, as this information can be updated by other users. Medical History (Updated 03/09/25 @ 09:40 by Kj Wilkerson MD) Cardiac murmur Depression DM type 2 (diabetes mellitus, type 2) Sleep apnea TRUONG on CPAP CAD (coronary artery disease) GERD (gastroesophageal reflux disease) Colonoscopy planned Elevated lipids HTN (hypertension) Puncture wound Dizziness Surgical History (Updated 03/09/25 @ 09:30 by Kj Wilkerson MD) S/P cubital tunnel release History of cholecystectomy History of colonoscopy History of carpal tunnel release Hx of tooth extraction H/O: hysterectomy H/O heart artery stent Family History Diabetes Coronary artery disease Respiratory failure Family history of thyroid disease Stroke Social History Smoking Status: Never smoker second hand exposure: No alcohol intake: never substance use type: denies use current occupational status: employed Travel in the last 8 weeks?: None household members: spouse housing: house marital status: number of children: 3 number of grandchildren: 11 current occupation: [employer] current occupational exposures/hazards: No diet: diabetic caffeine: Yes Have you lived/traveled outside [place] in past 30 days?: No Contact w/someone who lives/traveled outside [place] past 30 days?: No Exposure to someone with infectious disease in past 14 days?: No Do you have a fever (greater than 100.4 F or 38 C)?: No Have you tested positive for COVID-19?: No Exposed to someone with COVID-19 in past 14 days?: No Do you have a sore throat?: No Do you have a cough?: No Do you have any weakness?: No Are you experiencing any nausea/vomitting?: No Do you have any diarrhea?: No Are you experiencing any unusual bleeding?: No Do you have any muscle aches/pain?: No Do you have any abdominal pain?: Yes Are you experiencing loss of taste or smell?: No Other Medical History Have you received the Flu Vaccine for this season: Yes Have you received the Pneumonia Vaccine: Yes Review of Systems Constitutional Constitutional: Denies chills and Denies fever(s) ENT Ears, Nose, Mouth, and Throat: Denies dizziness *Cardiovascular Cardiovascular: Denies chest pain and Denies dyspnea *Respiratory Respiratory: Denies dyspnea *Gastrointestinal Gastrointestinal: Denies abdominal pain *Genitourinary Genitourinary: Reports as per HPI *Musculoskeletal Musculoskeletal: Denies arthralgias *Neurologic Neurologic: Denies dizziness Meds Home Medications and Allergies Home Medications ?Medication ?Instructions ?Recorded ?Confirmed ?Type aspirin 81 mg tablet,delayed 81 mg PO DAILY 02/14/19 03/09/25 History release (Adult Low Dose Aspirin) benazepril 10 mg tablet 10 mg PO DAILY 02/14/19 03/09/25 History insulin aspart U-100 100 unit/mL 3 unit SQ BID 02/14/19 03/09/25 History (3 mL) subcutaneous pen (Novolog FlexPen U-100 Insulin aspart) omeprazole 20 mg capsule,delayed 20 mg PO DAILY Acid reflux 02/14/19 03/09/25 History release venlafaxine 75 mg capsule,extended 75 mg PO DAILY 02/14/19 03/09/25 History release 24 hr atorvastatin 40 mg tablet 40 mg PO DAILY 08/19/20 03/09/25 History metoprolol tartrate 25 mg tablet 25 mg PO BID 11/24/20 03/09/25 History ascorbic acid (vitamin C) 1,000 mg 1,000 mg PO DAILY 02/15/22 03/09/25 History tablet zinc sulfate 50 mg zinc (220 mg) 50 mg PO DAILY 02/15/22 03/09/25 History tablet mecobalamin (vitamin B12) 1,000 2,000 mcg sublingual DAILY 03/15/22 03/09/25 History mcg disintegrating tablet,sublingual insulin glargine 100 unit/mL (3 25 unit SQ HS 11/10/22 03/09/25 History mL) subcutaneous pen (Basaglar KwikPen U-100 Insulin) nitroglycerin 0.4 mg sublingual 0.4 mg sublingual Q5M PRN chest 04/11/24 03/09/25 Rx tablet (Nitrostat) pain #20 tabs tirzepatide 12.5 mg/0.5 mL 12.5 mg SQ WEEKLY 11/28/24 03/09/25 History subcutaneous pen injector (Mounjaro) metformin 500 mg tablet,extended 500 mg PO BID 03/01/25 03/09/25 History release 24 hr triamterene 37.5 1 tab PO DAILY 03/01/25 03/09/25 History mg-hydrochlorothiazide 25 mg tablet cefdinir 300 mg capsule 300 mg PO BID 03/09/25 03/09/25 History ferrous sulfate 325 mg (65 mg 325 mg PO DAILY 03/09/25 03/09/25 History iron) tablet phenazopyridine 100 mg tablet 100 mg PO NEEDED PRN For UTI 03/09/25 03/09/25 History (Pyridium) pain New Prescriptions to Start Prescriptions: Allergies Allergy/AdvReac Type Severity Reaction Status Date / Time No Known Allergies Allergy Verified 03/01/25 14:21 Exam Data for Last 24 hours Vital signs and Labs for Last 24 Hours: Temp Pulse Resp BP Pulse Ox O2 Del Method 97.9 F 68 18 112/44 L 97 Room Air 03/09/25 08:00 03/09/25 08:00 03/09/25 08:00 03/09/25 08:00 03/09/25 08:00 03/09/25 08:00 Laboratory Results - last 24 hr 03/09/25 00:13: WBC 12.0 H, RBC 4.66, Hgb 13.7, Hct 42.3, MCV 90.8, MCH 29.4, MCHC 32.4, RDW 14.4, Plt Count 363, MPV 10.0, Neut % (Auto) 53.6, Lymph % (Auto) 35.0, [place] % (Auto) 9.1, Eos % (Auto) 1.3, Baso % (Auto) 0.7, Neut # (Auto) 6.4, Lymph # (Auto) 4.2, [place] # (Auto) 1.1 H, Eos # (Auto) 0.2, Baso # (Auto) 0.1, PT 11.1, INR 1.00, Sodium 134 L, Potassium 3.9, Chloride 99, Carbon Dioxide 25, Anion Gap 13.9, BUN 21 H, Creatinine 1.90 H, Estimated Creat Clear 38, Estimated GFR 27 L, Est GFR ( Amer) 33 L, Glucose 114 H, Calcium 8.9, Total Bilirubin 0.5, AST 31, ALT 16, Alkaline Phosphatase 66, Total Protein 7.4, Albumin 4.6, Globulin 2.8, Albumin/Globulin Ratio 1.6 03/09/25 02:50: Urine Color Yellow, Urine Appearance Clear, Urine pH 6.0, Ur Specific [place] <= 1.005, Urine Protein Trace, Urine Glucose (UA) 1+, Urine Ketones Negative, Urine Blood 1+ A, Urine Nitrate Positive A, Urine Bilirubin Negative, Urine Urobilinogen 1.0, Ur Leukocyte Esterase 2+ A, Urine RBC 5-10, Urine WBC 10-20, Ur Squamous Epith Cells Occasional, Urine Bacteria 2+, Urine Yeast 2+ 03/09/25 05:25: Sodium 133 L, Potassium 3.0 L D, Chloride 98, Carbon Dioxide 27, Anion Gap 11.0, BUN 20 H, Creatinine 1.50 H D, Estimated Creat Clear 57, Estimated GFR 36 L, Est GFR ( Amer) 43 L D, Glucose 92, Calcium 8.4 I & O for Last 24 hours: Intake & Output 03/06/25 03/07/25 03/08/25 03/09/25 23:59 23:59 23:59 23:59 Intake Total 140 / 140 Output Total 1050 / 1050 Balance -910 / -910 Weight 165 lb 195 lb 6.4 oz Constitutional Constitutional: no acute distress *Routine HEENT Exam Head: Present normocephalic Eye: Present EOMI and PERRL ENT: Present mucous membranes moist *Routine Neck Exam Neck: Present supple; Absent lymphadenopathy *Routine Respiratory Exam Respiratory: Present CTA bilaterally *Routine Cardiovascular Exam Cardiovascular: Present RRR and murmur (I/ systolic) *Routine Abdominal Exam Abdominal: Present soft and normoactive bowel sounds; Absent tenderness *Routine Rectal Exam Rectal:: deferred *Routine Genitalia Exam Genitalia:: deferred *Routine Extremities Exam Extremities: Absent cyanosis, clubbing or edema *Routine Skin Exam Skin: Present warm; Absent rash *Routine Neurological Exam Neurological: Present alert and oriented X3 Assessment and Plan *Assessment and plan (1) E. coli UTI: Status: Acute Category: Medical Code(s): N39.0 - Urinary tract infection, site not specified; B96.20 - Unspecified Escherichia coli [E. coli] as the cause of diseases classified elsewhere (2) Oliguria: Status: Acute Category: Medical Code(s): R34 - Anuria and oliguria (3) VARSHA (acute kidney injury): Status: Acute Category: Medical Code(s): N17.9 - Acute kidney failure, unspecified (4) BMI greater than 30: Problem Comment: On tirzepatide with weight loss Status: Chronic Category: Medical (5) TRUONG on CPAP: Status: Acute Category: Medical Code(s): G47.33 - Obstructive sleep apnea (adult) (pediatric) (6) Coronary artery disease: Problem Comment: History of cardiac stent procedure Status: Chronic Qualifiers: Associated angina: with other forms of angina Coronary Disease-Associated Artery/Lesion type: [place] artery [place] vs. 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 coli UTI. She has failed outpatient therapy. Plan to continue IVF, replace potassium, start diabetic diet. Will hold Metformin and Jardiance, and use sliding scale insulin. Start Lovenox for DVT prophylaxis.
--- NOTE | 2025-03-09 09:30 | HMH.PHAINT1 ---
Pharmacy Intervention Comments: MEDICATION RECONCILIATION COMPLETED ON PATIENT USING EXTERNAL FILL HISTORY FROM PHARMACY AND LIST FROM PCP/CARDIOLOGY OFFICES. -TANIA BURTON, JENNIED
[2025-03-09] MEDS: VENLAFAXINE XR 75MG CAPSULE 75 MG PO (10:43)
[2025-03-09] MEDS: POTASSIUM CHLORIDE 20MEQ TAB 20 MEQ PO ×3 (10:43→20:27)
[2025-03-09] MEDS: ASPIRIN EC 81MG TABLET 81 MG PO (10:43)
--- OUTSIDE RECORDS SUMMARY | 2025-03-09 13:11 | XMS_ITS | Patient Health Record ---
Author Organization [facility] Address [address] [facility] [address] [place] [id number] Care Team Providers Care Briquette Machine Operator Name Role Phone Jenae Shipman Primary Care Provider Aida Cruz Unavailable [phone] Mary Cano Unavailable [phone] Allergies No Known Allergies Results Component Value Reference Range Notes Urinalysis - Inhouse Reviewed date:03/08/2025 09:03:27 AM Interpretation: Performing Lab: Notes/Report: Color/Clarity red Leuk 3+ Nitrite pos Urobili >=131 Protein 3+ pH 5.0 Blood 2+ Sp. Gr. 1.020 Ketone neg Bili 3+ Gluc 2+ CBC Venipuncture (in house) Reviewed date:01/11/2025 01:22:18 [...] Interpretation:Normal Performing Lab: Notes/Report: Test performed by [facility] [address] [place] [address] , [address], [place] [address] Norberto White MD, Hot Tamale Man CLIA: [id number] Vitamin B12 4266 799-4362 pg/mL P-Comprehensive Metabolic Pa luisa (CMP) Reviewed date:01/11/2025 01:22:18 PM Interpretation:Normal Performing Lab: Notes/Report: Test performed by [facility] [address] [place] [address] , [address], [place] [address] Norberto White MD, Hot Tamale Man CLIA: [id number] Sodium 139 135-145 mmol/L Potassium 3.8 3.5-5.3 [...] Interpretation:Normal Performing Lab: Notes/Report: Test performed by [facility] [address] [place] [address] , [address], [place] [address] Norberto White MD, Hot Tamale Man CLIA: [id number] Iron 48 37-145 ug/dL P-TSH reflex to FT4 Reviewed date:01/11/2025 01:22:18 PM Interpretation:Normal Performing Lab: Notes/Report: Test performed by [facility] [address] [place] [address] , [address], [place] [address] Norberto White MD, Hot Tamale Man CLIA: [id number] TSH reflex to FT4 1.65 0.43-5.25 mU/L P-Vitamin D 25-Hydroxy Reviewed date:01/11/2025 01:22:18 PM Interpretation:25.4 Performing Lab: Notes/Report: Test performed by [facility] [address] [place] [address] , [address], [place] [address] Norberto White MD, Hot Tamale Man CLIA: [id number] Vitamin D 25-Hydroxy 25.4 30.0-100.0 ng/mL Interpretation of Vitamin D 25 OH: < 20 ng/mL - Deficiency 20 - 29 ng/mL - Insufficiency 30 - 100 ng/mL - Sufficiency > 100 ng/mL - Super-therapeutic- toxicity may occur above this level. Clinical correlation required. Mammogram Reviewed date:01/25/2025 04:18:20 PM Interpretation: Performing Lab: Notes/Report: P-Culture, Urine Reviewed date:04/12/2024 10:40:29 AM Interpretation:likely representing contamination, recollect Performing Lab: Notes/Report: Test performed by [facility] [address] [place] [address] , [address], [place] [address] Norberto White MD, Hot Tamale Man CLIA: [id number] Specimen Source Urine - Void Culture, Urine [...] 1.025 Ketone neg Bili neg Gluc neg CBC Fingerstick (in house) Reviewed date:08/14/2024 09:18:11 [...] Interpretation:453 Performing Lab: Notes/Report: Test performed by [facility] [address] [place] [address] , [address], [place] [address] Norberto White MD, Hot Tamale Man CLIA: [id number] Vitamin B12 262 148-8275 pg/mL P-Comprehensive Metabolic Pa luisa (CMP) Reviewed date:08/14/2024 09:20:21 AM Interpretation: Performing Lab: Notes/Report: Test performed by [facility] [address] [place] [address] , [address], [place] [address] Norberto White MD, Hot Tamale Man CLIA: [id number] Sodium 140 135-145 mmol/L Potassium 4.0 3.5-5.3 [...] Interpretation:43 Performing Lab: Notes/Report: [facility] , [place] [address] Norberto White MD, Hot Tamale Man CLIA: [id number] Iron 43 37-145 ug/dL P-Magnesium Reviewed date:08/14/2024 09:18:53 AM Interpretation:1.9 Performing Lab: Notes/Report: Test performed by [facility] , [address], [place] [address] Norberto White MD, Hot Tamale Man CLIA: [id number] Magnesium 1.9 1.6-2.4 mg/dL P-TSH Reviewed date:08/14/2024 09:19:15 AM Interpretation:0.78 Performing Lab: Notes/Report: Test performed by [facility] , [facility] [address] Norberto White MD, Hot Tamale Man CLIA: [id number] TSH 0.78 0.43-5.25 mU/L P-Vitamin D 25-Hydroxy Reviewed date:08/14/2024 09:19:36 AM Interpretation:21.6 Performing Lab: Notes/Report: [facility] [address] , [place] [address] Norberto White MD, Hot Tamale Man CLIA: [id number] Vitamin D 25-Hydroxy 21.6 30.0-100.0 ng/mL Interpretation of Vitamin D 25 OH: < 20 ng/mL - Deficiency 20 - 29 ng/mL - Insufficiency 30 - 100 ng/mL - Sufficiency > 100 ng/mL - Super-therapeutic- toxicity may occur above this level. Clinical correlation required. Medications Medication SIG (Take, Route, Frequency, Duration) [...] Duration: 10 days 03/07/2025 Active Dexcom G7 Putty Patcher - - Active metFORMIN HCl ER 500 [...] W/U Status Risk Notes Problem Coronary arteriosclerosis (52132398) ASCVD (arteriosclerotic cardiovascular disease) (I25.10) Active confirmed Problem Peripheral circulatory disorder associated with diabetes mellitus (852535564) 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.59) Active confirmed Problem Vitamin D deficiency (86116005) Vitamin D deficiency (E55.9) Active confirmed Problem Essential hypertension (14148125) Essential hypertension (I10) Active confirmed Problem Sciatic nerve lesion (888647821) Piriformis syndrome of right side (G57.01) Active confirmed Problem Paresthesia (83633269) Paresthesia (R20.2) Active confirmed Problem Mixed hyperlipidemia (712555389) Mixed hyperlipidemia (E78.2) Active confirmed Problem Tobacco dependence (23283028) Tobacco dependence (F17.200) Active confirmed Problem Long-term current use of insulin (424337631) FDC (current) use of insulin (Z79.4) Active confirmed Problem Type II diabetes mellitus without complication (668286905) Type 2 diabetes mellitus without complication (E11.9) Active confirmed Problem Gastroesophageal reflux disease without esophagitis (602135482) Gastroesophageal reflux disease without esophagitis (K21.9) Active confirmed Problem Reactive depression (situational) (00140413) Situational depression (F43.21) Active confirmed Problem Atherosclerotic heart disease of [place] coronary artery without angina pectoris (802920017113027) Coronary artery disease involving [place] coronary artery of [place] heart without angina pectoris (I25.10) Active confirmed Problem Gastroesophageal reflux disease (278287869) Gastroesophageal reflux disease, esophagitis presence not specified (K21.9) Active confirmed Problem Neuropathy (273354876) Neuropathy (G62.9) Active confirmed Problem Anemia (494588129) Anemia, unspecified type (D64.9) Active confirmed Problem Hyperlipidaemia (43577813) Hyperlipidemia, unspecified hyperlipidemia type (E78.5) Active confirmed Problem Obese class II (307806698981623) BMI 37.0-37.9, adult (Z68.37) Active confirmed Problem Stented coronary artery (757174782) Stented coronary artery (Z95.5) Active confirmed Problem Depressive disorder (disorder) (95016985) Depression, unspecified depression type (F32.9) Active confirmed Problem Atherosclerotic heart disease of [place] coronary artery without angina pectoris (038344996062966) Atherosclerosis of [place] coronary artery without angina pectoris, unspecified whether [place] or transplanted heart (I25.10) Active confirmed Problem Anxiety depression (115672139) Anxiety with depression (F41.8) Active confirmed Problem Diabetic ketoacidosis without coma (576697304) Diabetic ketoacidosis without coma associated with other specified diabetes mellitus (E13.10) Active confirmed Problem Type II diabetes mellitus without complication (020502268) Type 2 diabetes mellitus without complication, unspecified whether director long term care insulin use (E11.9) Active confirmed Problem Hyperglycemia due to type 2 diabetes mellitus (783414180963756) Uncontrolled type 2 diabetes mellitus with hyperglycemia (E11.65) Active confirmed Vital Signs Heart Rate 93 /min 03/07/2025 Blood pressure diastolic 80 mm Hg 03/07/2025 Height 64 in 03/07/2025 Blood pressure systolic 122 mm Hg 03/07/2025 Weight 158.4 lbs 03/07/2025 BMI 27.19 kg/m2 03/07/2025 Encounters Encounter Location Date Provider Diagnosis [facility] [address] [place] [id number] 04/10/2024 Aida Cruz Leukocytes in urine R82.998 ; UTI (lower urinary tract infection) N39.0 and Type 2 diabetes mellitus without complication E11.9 [facility] [address] [place] [id number] 05/08/2024 Aidavamshi Cruz Type 2 diabetes edwardo itus without complication E11.9 and Weight loss counseling, encounter for Z71.3 [facility] [address] [facility] [address] [place] [id number] 07/10/2024 Aida Cruz Type 2 diabetes edwardo itus without complication E11.9 [facility] [address] [facility] [address] [place] [id number] 08/06/2024 Aida Cruz [facility] [address] [place] [id number] 08/13/2024 Aida Cruz Type 2 diabetes edwardo itus without complication E11.9 ; Anxiety with depression F41.8 ; Coronary artery disease involving [place] coronary artery of [place] heart without angina pectoris I25.10 ; Neuropathy G62.9 ; Paresthesia R20.2 ; Thyroid disorder screen Z13.29 and Anemia, unspecified type D64.9 [facility] [address] [facility] [address] [place], [place] [id number] 10/15/2024 Aida Cruz Breast cancer screen ing Z12.39 and Type 2 diabetes mellitus without complication E11.9 [facility] [address] [facility] [address] [place], [place] [id number] 01/10/2025 Mary Cano Type 2 diabetes edwardo itus without complication E11.9 ; Anxiety with depression F41.8 ; Coronary artery disease involving [place] coronary artery of [place] heart without angina pectoris I25.10 ; Neuropathy G62.9 ; Paresthesia R20.2 ; Thyroid disorder screen Z13.29 ; Anemia, unspecified type D64.9 ; Vitamin D deficiency E55.9 ; Vitamin B12 deficiency E53.8 and Screening mammogram, encounter for Z12.31 [facility] [address] [place] [id number] 03/07/2025 Mary Crowgaetano Urinary tract infect ion, site not specified N39.0 and Unspecified Escherichia coli [E. coli] as the cause of diseases classified elsewhere B96.20 [facility] [address] [place] [id number] 03/26/2024 Jenae Shipman Gastroesophageal ref lux disease without esophagitis K21.9 [facility] [address] [place], [place] [id number] 06/01/2024 Jenae Shipman Type 2 diabetes edwardo itus without complication E11.9 [facility] [address] [place], [place] [id number] 07/02/2024 Aida Cruz Type 2 diabetes edwardo itus without complication E11.9 [facility] [address] [place], [place] [id number] 10/18/2024 J Rigo Shipman [facility] [address] [place] [id number] 11/01/2024 J Rigo Shipman [facility] [address] [place] [id number] 12/12/2024 J Rigo Shipman Type 2 diabetes edwardo itus without complication E11.9 [facility] [address] [place], [place] [id number] 01/11/2025 Maryjoanna Cano [facility] [address] [place], [place] [id number] 01/11/2025 Mary Andrewgaetano Type 2 diabetes edwardo itus without complication E11.9 [facility] [address] [place], [place] [id number] 01/21/2025 Jenae Shipman Screening for colon cancer Z12.11 [facility] [address] [place], [place] [id number] 01/25/2025 Maryjoanna Cano [facility] [address] [place], [place] [id number] 04/24/2024 J Rigo Shipman Type 2 diabetes edwardo itus without complication E11.9 [facility] [address] [place], [place] [id number] 04/24/2024 Jenae Shipman [facility] [address] [place] [id number] 05/25/2024 Jenae Shipman Essential hypertensi on I10 ; Type 2 diabetes mellitus without complication E11.9 and Gastroesophageal reflux disease without esophagitis K21.9 [facility] [address] [place], [place] [id number] 09/12/2024 Jenae Shipman Type 2 diabetes edwardo itus without complication E11.9 [facility] [address] [place] [id number] 09/12/2024 J Rigo Shipman [facility] [address] [place] [id number] 09/22/2024 Jenae Shipman Type 2 diabetes edwardo itus without complication E11.9 [facility] [address] [place], [place] [id number] 11/01/2024 Jenae Shipman Gastroesophageal ref lux disease without esophagitis K21.9 [facility] [address] [place], [place] [id number] 11/19/2024 Jenae Shipman Anxiety with depress ion F41.8 [facility] [address] [place] [id number] 12/03/2024 Jenae Shipman [facility] [address] [place], [place] [id number] 12/17/2024 Jenae Shipman Type 2 diabetes edwardo itus without complication E11.9 Assessments Encounter Date Diagnosis (ICD Code) Assessment Notes Treatment Notes Treatment Clinical Notes Section Notes 03/07/2025 Urinary tract infection, site not specified (ICD-10 - N39.0) 03/07/2025 Unspecified Escherichia coli [E. coli] as the cause of diseases classified elsewhere (ICD-10 - B96.20) 01/11/2025 Type 2 diabetes mellitus without complication (ICD-10 - E11.9) 11/19/2024 Anxiety with depression (ICD-10 - F41.8) [...] check labs and A1c at next visit 07/02/2024 Type 2 diabetes mellitus without complication (ICD-10 - E11.9) 06/01/2024 Type 2 diabetes mellitus without complication (ICD-10 - E11.9) 05/25/2024 Essential hypertension (ICD-10 - I10) 04/24/2024 Type 2 diabetes mellitus without complication (ICD-10 - E11.9) 03/26/2024 Gastroesophageal reflux disease without esophagitis (ICD-10 - K21.9) 01/21/2025 Screening for colon cancer (ICD-10 - Z12.11) 01/10/2025 Anxiety with depression (ICD-10 - F41.8) 12/17/2024 Type 2 diabetes mellitus without complication (ICD-10 - E11.9) 12/12/2024 Type 2 diabetes mellitus without complication (ICD-10 - E11.9) 11/01/2024 Gastroesophageal reflux disease without esophagitis (ICD-10 - K21.9) 05/08/2024 Type 2 diabetes mellitus without complication (ICD-10 - E11.9) continues with use of the Dexcom7; has made dietary changes 05/08/2024 Weight loss counseling, encounter for (ICD-10 - Z71.3) 04/10/2024 UTI (lower urinary tract infection) (ICD-10 - N39.0) stressed good water intake 01/10/2025 Type 2 diabetes mellitus without complication (ICD-10 - E11.9) 04/10/2024 Leukocytes in urine (ICD-10 - R82.998) 01/10/2025 Coronary artery disease involving [place] coronary artery of [place] heart without angina pectoris (ICD-10 - I25.10) 04/10/2024 Type 2 diabetes mellitus without complication (ICD-10 - E11.9) discussed weight loss to include calories and portion sizes; BS have improved with use of the Dexcom7 05/25/2024 Type 2 diabetes mellitus without complication (ICD-10 - E11.9) 08/13/2024 Coronary artery disease involving [place] coronary artery of [place] heart without angina pectoris (ICD-10 - I25.10) 08/13/2024 Neuropathy (ICD-10 - G62.9) 05/25/2024 Gastroesophageal [...] [employer] [address] [place] [address] [id number] Иван Roy Self - patient is the [...] release left elbow Hospitalization History Reason Date(Month/Year) [facility] UTC- UTI 07/23/2024 [facility] - Cardiac Stent Plac ement 11/05/15 [facility] ER - chest pain 09/22/15 diabetes same
--- OUTSIDE RECORDS SUMMARY | 2025-03-09 13:12 | XMS_ITS | Clinical Summary ---
Author Organization Healthcare Address [address] [place] [address] Care Team Providers Care Oracle Ebs Architect Name Role Phone Unavailable Primary Care Provider [...]
[2025-03-09 17:06] LABS: POC Glucose,Bedside 117 (70-110)
--- NOTE | 2025-03-09 18:08 | PC.NURSE ---
pt is A&Ox4. she has been getting lactated ringers at 125 ml/hr this shift. she is receiving IV antibiotics for the UTI. Her sugars are doing great. she does have a dexcom that we can use to get her sugar readings. pt has no other needs at this time. call arreola within reach.
[2025-03-09] MEDS: ATORVASTATIN 40MG TABLET 40 MG PO (20:27)
[2025-03-09] MEDS: PANTOPRAZOLE 40MG TABLET 40 MG PO (20:28)
[2025-03-09] MEDS: humaLOG 100 UNITS/ML 10ML VIAL (SSI) SUBCUT (20:35)
[2025-03-10 04:00] VITALS: BP 130/52; PULSE 62; RESP 16; TEMP 36.4; O2SAT 96; BMI 33.1
[2025-03-10] MEDS: LACTATED RINGERS 1000ML 1,000 ML 125 ML IV (05:08)
--- NOTE | 2025-03-10 05:14 | PC.NURSE ---
Pt is alert and oriented X 4. No c/o pain. Pt has slept over night with her Home Bipap on. LR at 125 ml is runinng. JUDITH HANSON RN
[2025-03-10 06:21] LABS: Hematocrit 37.1 % (37.0-47.0); Hemoglobin 12.6 g/dL (12.2-16.2); Immature Granulocytes % 0.2 %; Mean Corpuscular HGB Conc 34.0 g/dL (31.8-35.4); Mean Corpuscular Hemoglobin 30.2 pg (27.0-31.2); Mean Corpuscular Volume 89.0 fl (81-99); Nucleated Red Blood Cells % 0 %; Platelet Count 261 K/mm3 (142-424); Red Blood Count 4.17 M/mm3 (4.20-5.40); Red Cell Distribution Width-SD 45.5 fL; White Blood Count 5.6 K/mm3 (4.8-10.8)
[2025-03-10 06:27] LABS: Chloride 102 mmol/L (98-107)
[2025-03-10 06:28] LABS: Potassium 3.6 mmoL/L (3.5-5.1); Sodium 136 mmol/L (136-145)
[2025-03-10 06:30] LABS: Blood Urea Nitrogen 13 mg/dl (7-17)
[2025-03-10 06:31] LABS: Anion Gap 7.6 mEq/L (5-15); Calcium 8.5 mg/dl (8.4-10.2); Carbon Dioxide 30 mmol/L (22.0-30.0); Creatinine Clearance Estimated 144 mL/min (50-200); Creatinine,Serum 0.60 mg/dl (0.52-1.04); Estimated Glomerular Filt Rate 102 ml/min (>60); GFR (African American) 124 ML/MIN (>60); Glucose 121 mg/dl (74-100)
[2025-03-10 06:31] LABS: POC Glucose,Bedside 105 (70-110)
[2025-03-10 08:00] VITALS: BP 130/61; PULSE 96; RESP 18; TEMP 36.5; O2SAT 97
[2025-03-10] MEDS: ASPIRIN EC 81MG TABLET 81 MG PO (08:24)
[2025-03-10] MEDS: VENLAFAXINE XR 75MG CAPSULE 75 MG PO (08:24)
[2025-03-10] MEDS: POTASSIUM CHLORIDE 20MEQ TAB 20 MEQ PO (08:24)
--- NOTE | 2025-03-10 12:25 | P.PN_ITS ---
Subjective *Date: 03/10/25 *Time: 12:25 Interval history: Dramatic improvement with treatment. Feeling well. GFR 27 on admission, now 102. WBC 5,600. Electrolytes normal this AM. Has only required 2 units of insulin during hospitalization. Currently with saline lock. Dehydration treated and weight incrase noted. Medical Exam Vital signs and Labs for Last 24 Hours: Vital Signs Temp Pulse Resp BP Pulse Ox O2 Del Method O2 Flow Rate 03/10/25 11:00 Room Air 03/10/25 09:05 Room Air 03/10/25 08:00 97 Room Air 03/10/25 08:00 97.7 F 96 H 18 130/61 97 Room Air 03/10/25 06:08 Room Air 03/10/25 05:00 Room Air 03/10/25 04:00 97.5 F L 62 16 130/52 L 96 Room Air 03/10/25 03:00 Room Air 03/10/25 01:00 Room Air 03/09/25 23:00 Room Air 03/09/25 21:00 Room Air 98 03/09/25 20:00 98 Room Air 03/09/25 20:00 98.1 F 68 16 125/58 L 97 Room Air 03/09/25 18:50 Room Air 03/09/25 17:05 Room Air 03/09/25 15:05 Room Air 03/09/25 13:00 Room Air Intake and Output 03/10/25 03/10/25 03/10/25 03:59 11:59 19:59 Intake Total 500 / 4832 2337 / 4832 Output Total 1150 / 4275 1925 / 4275 Balance -650 / 557 412 / 557 Intake: Intake, Oral Amount 360 / 700 Intake, Total IV Amount 1976 Lactated Ringers 1000ML 1,000 1976 / 3631 ml @ 125 mls/hr IV .Q8H ELLEN Rx# :[id number] Infusion Intake 500 / 500 Lactated Ringers 1000ML 1,000 500 / 500 ml @ 125 mls/hr IV .Q8H ELLEN Rx# :[id number] Output: Output, Urine Amount 1150 / 4275 192 / 4275 Other: Number of Bowel Movements 0 Weight 199 lb 1 oz Laboratory Results - last 24 hr 03/09/25 11:40: POC Glucose 105 03/09/25 16:54: POC Glucose 117 H 03/10/25 06:10: WBC 5.6 D, RBC 4.17 L, Hgb 12.6, Hct 37.1, MCV 89.0, MCH 30.2, MCHC 34.0, RDW 14.0, Plt Count 261 D, MPV 9.9, Neut % (Auto) 48.5, Lymph % (Auto) 39.7, Bryan % (Auto) 7.8, Eos % (Auto) 2.7, Baso % (Auto) 1.1, Neut # (Auto) 2.7, Lymph # (Auto) 2.2, Bryan # (Auto) 0.4, Eos # (Auto) 0.2, Baso # (Auto) 0.1, Sodium 136, Potassium 3.6, Chloride 102, Carbon Dioxide 30, Anion Gap 7.6, BUN 13 D, Creatinine 0.60 D, Estimated Creat Clear 144, Estimated GFR 102, Est GFR ( Amer) 124 D, Glucose 121 H, Calcium 8.5 I & O for Labs for Last 24 Hours: Intake & Output 03/08/25 03/09/25 03/10/25 03/11/25 11:59 11:59 11:59 11:59 Intake Total 140 / 140 4832 / 4832 Output Total 1500 / 1500 4275 / 4275 Balance -1360 / -1360 557 / 557 Weight 195 lb 6.4 oz 199 lb 1 oz Microbiology Reports for the Last 24 Hours: Microbiology 03/09/25 01:05 Blood Blood Culture - Preliminary NO GROWTH AFTER 24 HOURS 03/09/25 00:50 Blood Blood Culture - Preliminary NO GROWTH AFTER 24 HOURS Head: Present normocephalic Neck: Present normal inspection Respiratory: Present CTA bilaterally; Absent respiratory distress Cardiac: Present Reg Rate and Rhythm GI: Present soft; Absent distention, tenderness or guarding Rectal (female): Present deferred (female): Present deferred Extremities: Absent edema Skin: Present intact Neuro: Present alert and oriented x 3 Assessment and Plan *Assessment and plan (1) E. coli UTI: Status: Acute Category: Medical Code(s): N39.0 - Urinary tract infection, site not specified; B96.20 - Unspecified Escherichia coli [E. coli] as the cause of diseases classified elsewhere (2) Dehydration: Status: Acute Category: Medical Code(s): E86.0 - Dehydration (3) Hypokalemia: Status: Acute Category: Medical Code(s): E87.6 - Hypokalemia (4) VARSHA (acute kidney injury): Status: Acute Category: Medical Code(s): N17.9 - Acute kidney failure, unspecified (5) DM type 2 (diabetes mellitus, type 2): Status: Acute Qualifiers: Diabetes mellitus intermediate project manager insulin use: with intermediate project manager use Diabetes mellitus complication status: without complication Qualified Code(s): E11.9 - Type 2 diabetes mellitus without complications; Z79.4 - intermediate project manager (current) use of insulin Category: Medical Code(s): E11.9 - Type 2 diabetes mellitus without complications (6) Oliguria: Status: Acute Category: Medical Code(s): R34 - Anuria and oliguria Plan Discharge. D/C Jardiance. Decrease Metformin to once a day. Continue Cefdinir. Appt [facility] this week.
[2025-03-10 12:48] LABS: Hemoglobin A1C 6.1 % (4.0-6.0)
--- NOTE | 2025-03-11 10:22 | SW/DCPLANNER ---
Spoke with patient on the phone. Patient stated that she is doing good. Patient stated that she is aware of her upcoming appointment. Patient stated that she was able to get her new medicine picked up. Patient stated that she had great care from the ED to the room on med surg. She stated that she has no concerns or questions at this time. Gala Armenta
--- NOTE | 2025-03-12 09:03 | EXP.DC.SUM ---
General Admission date:: 03/09/25 Discharge date: 03/10/25 HPI HPI HPI: Mrs. Swan is a 59 year old patient of [facility] who typically sees Dr. Shipman for her primary care. She was seen in the [facility] urgent treatment center last weekend with symptoms of a UTI and was treated with Cipro. She states she had minimal improvement of her symptoms over the week. She came into the office of [facility] yesterday reporting decreased urine output and generally not feeling well. Repeat urinalysis was abnormal and urine culture done last weekend showed an E. coli infection that was resistant to Cipro. Her antibiotics were changed to Cefdinir. Patient states she was unable to fill the prescription and throughout the evening felt worse so she came to the ER last night for further evaluation. Hospital Course Hospital Course Hospital Course: On admission patient was started on IV fluids, potassium was replaced and she was started on a diabetic diet. She was given Lovenox for DVT prophylaxis. Metformin and Jardiance were held and she was started on sliding scale insulin. The following day she had showed dramatic improvement with her treatment. She was feeling well. Kidney function was normal. White blood cell count was 5,6,00 and electrolytes were normal. She had required only 2 units of insulin during her hospitalization. Weight noted to be increased. Thus she was discharged. Jardiance was discontinued. Metformin was decreased to once daily. She was to continue with the cefdinir. Follow-up appointment with Dr. Shipman the following week. Exam Data for Last 24 hours Vital signs and Labs for Last 24 Hours: Temp Pulse Resp BP Pulse Ox O2 Del Method O2 Flow Rate 97.7 F 96 H 18 130/61 97 Room Air 98 03/10/25 08:00 03/10/25 08:00 03/10/25 08:00 03/10/25 08:00 03/10/25 08:00 03/10/25 13:00 03/09/25 21:00 I & O for Last 24 hours: Intake & Output 03/09/25 03/10/25 03/11/25 03/12/25 11:59 11:59 11:59 11:59 Intake Total 140 / 140 4832 / 4832 Output Total 1500 / 1500 4275 / 4275 450 / 450 Balance -1360 / -1360 557 / 557 -450 / -450 Weight 195 lb 6.4 oz 199 lb 1 oz Microbiology Reports for the Last 24 Hours: Microbiology 03/09/25 02:50 Urine,Clean Catch Urine Culture - Final Multiple organisms, suggests contamination. Narrative: PE at [facility] 03/10/2025 Head: Present normocephalic Neck: Present normal inspection Respiratory: Present CTA bilaterally; Absent respiratory distress Cardiac: Present Reg Rate and Rhythm GI: Present soft; Absent distention, tenderness or guarding Rectal (female): Present deferred (female): Present deferred Extremities: Absent edema Skin: Present intact Neuro: Present alert and oriented x 3 Results Data Completed and Pending Completed studies during hospitalization [Text1]: 03/09/2025 CT ABD/Pelvis IMPRESSION: 1. No acute intra-abdominal or pelvic process. 2. Moderate to severe acquired spinal canal stenosis, secondary to degenerative changes, at L3-L4. 3. Multiple additional chronic and incidental findings. 03/09/25 00:13: WBC 12.0 H, RBC 4.66, Hgb 13.7, Hct 42.3, MCV 90.8, MCH 29.4, MCHC 32.4, RDW 14.4, Plt Count 363, MPV 10.0, Neut % (Auto) 53.6, Lymph % (Auto) 35.0, [place] % (Auto) 9.1, Eos % (Auto) 1.3, Baso % (Auto) 0.7, Neut # (Auto) 6.4, Lymph # (Auto) 4.2, [place] # (Auto) 1.1 H, Eos # (Auto) 0.2, Baso # (Auto) 0.1, PT 11.1, INR 1.00, Sodium 134 L, Potassium 3.9, Chloride 99, Carbon Dioxide 25, Anion Gap 13.9, BUN 21 H, Creatinine 1.90 H, Estimated Creat Clear 38, Estimated GFR 27 L, Est GFR ( Amer) 33 L, Glucose 114 H, Calcium 8.9, Total Bilirubin 0.5, AST 31, ALT 16, Alkaline Phosphatase 66, Total Protein 7.4, Albumin 4.6, Globulin 2.8, Albumin/Globulin Ratio 1.6 03/09/25 02:50: Urine Color Yellow, Urine Appearance Clear, Urine pH 6.0, Ur Specific [place] <= 1.005, Urine Protein Trace, Urine Glucose (UA) 1+, Urine Ketones Negative, Urine Blood 1+ A, Urine Nitrate Positive A, Urine Bilirubin Negative, Urine Urobilinogen 1.0, Ur Leukocyte Esterase 2+ A, Urine RBC 5-10, Urine WBC 10-20, Ur Squamous Epith Cells Occasional, Urine Bacteria 2+, Urine Yeast 2+ 03/09/25 05:25: Sodium 133 L, Potassium 3.0 L D, Chloride 98, Carbon Dioxide 27, Anion Gap 11.0, BUN 20 H, Creatinine 1.50 H D, Estimated Creat Clear 57, Estimated GFR 36 L, Est GFR ( Amer) 43 L D, Glucose 92, Calcium 8.4 Labs on day of discharge: Preliminary micro results at discharge 03/09/25 01:05 Blood Culture - Preliminary Blood NO GROWTH AFTER 48 HOURS 03/09/25 00:50 Blood Culture - Preliminary Blood NO GROWTH AFTER 48 HOURS DS: Diagnosis Discharge Diagnosis (1) E. coli UTI: Status: Acute Code(s): N39.0 - Urinary tract infection, site not specified; B96.20 - Unspecified Escherichia coli [E. 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 use Diabetes mellitus complication status: without complication Qualified Code(s): E11.9 - Type 2 diabetes mellitus without complications; Z79.4 - adjunct faculty for medical terminology (current) use of insulin (6) Oliguria: Status: Acute Code(s): R34 - Anuria and oliguria Meds Home Medications and Allergies Home Medications ?Medication ?Instructions ?Recorded ?Confirmed ?Type aspirin 81 mg tablet,delayed 81 mg PO DAILY 02/14/19 03/09/25 History release (Adult Low Dose Aspirin) benazepril 10 mg tablet 10 mg PO DAILY 02/14/19 03/09/25 History insulin aspart U-100 100 unit/mL 3 unit SQ BID 02/14/19 03/09/25 History (3 mL) subcutaneous pen (Novolog FlexPen U-100 Insulin aspart) venlafaxine 75 mg capsule,extended 75 mg PO DAILY 02/14/19 03/09/25 History release 24 hr atorvastatin 40 mg tablet 40 mg PO DAILY 08/19/20 03/09/25 History metoprolol tartrate 25 mg tablet 25 mg PO BID 11/24/20 03/09/25 History ascorbic acid (vitamin C) 1,000 mg 1,000 mg PO DAILY 02/15/22 03/09/25 History tablet mecobalamin (vitamin B12) 1,000 2,000 mcg sublingual DAILY 03/15/22 03/09/25 History mcg disintegrating tablet,sublingual insulin glargine 100 unit/mL (3 25 unit SQ HS 11/10/22 03/09/25 History mL) subcutaneous pen (Basaglar KwikPen U-100 Insulin) nitroglycerin 0.4 mg sublingual 0.4 mg sublingual Q5M PRN chest 04/11/24 03/09/25 Rx tablet (Nitrostat) pain #20 tabs tirzepatide 12.5 mg/0.5 mL 12.5 mg SQ WEEKLY 11/28/24 03/09/25 History subcutaneous pen injector (Mounjaro) cefdinir 300 mg capsule 300 mg PO BID 03/09/25 03/09/25 History ferrous sulfate 325 mg (65 mg 325 mg PO DAILY 03/09/25 03/09/25 History iron) tablet metformin 500 mg tablet,extended 500 mg PO DAILY 1 month #30 tabs 03/10/25 03/09/25 Rx release 24 hr triamterene 37.5 0.5 tab PO DAILY 1 month #15 tabs 03/10/25 03/09/25 Rx mg-hydrochlorothiazide 25 mg tablet New Prescriptions to Start Prescriptions: Allergies Allergy/AdvReac Type Severity Reaction Status Date / Time No Known Allergies Allergy Verified 03/01/25 14:21 Discharge Plan Disposition Patient Disposition: Home, Self-Care Condition: Good Discharge Order Discharge Orders: Discharge Order (Routine); Ordered 03/10/25 Ordered By: Dusty Shipman Follow up Plan Follow up with: Dusty Shipman MD [Primary Care Provider, Medical] - Enter time for follow up Referral Note: Please call office for follow up. Prescriptions/Medication Reconciliation: Continued aspirin [Adult Low Dose Aspirin] 81 mg tablet,delayed release (DR/EC) 81 mg PO DAILY venlafaxine 75 mg capsule,extended release 24hr 75 mg PO DAILY benazepril 10 mg tablet 10 mg PO DAILY Novolog FlexPen U-100 Insulin 100 unit/mL (3 mL) insulin pen 3 unit SQ BID ascorbic acid (vitamin C) 1,000 mg tablet 1,000 mg PO DAILY mecobalamin (vitamin B12) 1,000 mcg tablet,disintegrating 2,000 mcg SL DAILY metoprolol tartrate 25 mg tablet 25 mg PO BID nitroglycerin [Nitrostat] 0.4 mg tablet, sublingual 0.4 mg sublingual Q5M PRN (Reason: chest pain) Qty: 20 0RF Rx Instructions: do not exceed 3 doses per episode Mounjaro 12.5 mg/0.5 mL pen injector 12.5 mg SQ WEEKLY atorvastatin 40 MG tablet 40 mg PO DAILY insulin glargine [Basaglar KwikPen U-100 Insulin] 100 unit/mL (3 mL) Insulin Pen 25 unit SQ HS cefdinir 300 mg capsule 300 mg PO BID Patient Comments: TAKE 1 CAPSULE BY MOUTH TWICE DAILY ferrous sulfate 325 mg (65 mg iron) tablet 325 mg PO DAILY Changed triamterene-hydrochlorothiazid 37.5-25 mg tablet 0.5 tab PO DAILY 30 Days Qty: 15 0RF metformin 500 mg tablet extended release 24 hr 500 mg PO DAILY 30 Days Qty: 30 0RF Discontinued omeprazole 20 mg capsule,delayed release(DR/EC) 20 mg PO DAILY zinc sulfate 50 mg zinc (220 mg) tablet 50 mg PO DAILY phenazopyridine [Pyridium] 100 mg tablet 100 mg PO NEEDED PRN (Reason: For UTI pain) Problem Reconciliation Problems Reviewed?: Yes Patient Discharge Instructions ACTIVITY: Limited activity DIET: diabetic diet Patient Instructions: DI for Urinary Tract Infection (UTI), DI for Acute Kidney Injury Print Language: Yi Providers Primary Care Provider: Dusty Shipman Admit Provider: Cameron Mace Attending Provider: Dusty Shipman
== END 2025-03-10 13:14 | disposition home or self-care (01) ==
LOC: ER 03-09 02:56 → 2ND 03-09 03:28
PROVIDERS: Family Medicine; Admitting Provider Internal Medicine Adolescent Medicine; Emergency Provider Emergency Medicine; PCP Family Medicine; Visit Provider Family Medicine
DX: N39.0 Urinary tract infection, site not specified (principal); N17.9 Acute kidney failure, unspecified; Z16.23 Resistance to quinolones and fluoroquinolones; Z16.29 Resistance to other single specified antibiotic; B96.20 Unspecified Escherichia coli [E. coli] as the cause of diseases classified elsewhere; E86.0 Dehydration; E87.6 Hypokalemia; G25.81 Restless legs syndrome; G47.33 Obstructive sleep apnea (adult) (pediatric); I10 Essential (primary) hypertension; E78.5 Hyperlipidemia, unspecified; I25.10 Atherosclerotic heart disease of native coronary artery without angina pectoris; Z79.82 Long term (current) use of aspirin; Z79.4 Long term (current) use of insulin; Z79.85 Long-term (current) use of injectable non-insulin antidiabetic drugs; Z79.84 Long term (current) use of oral hypoglycemic drugs; Z95.5 Presence of coronary angioplasty implant and graft; Z79.899 Other long term (current) drug therapy; K21.9 Gastro-esophageal reflux disease without esophagitis; Z90.49 Acquired absence of other specified parts of digestive tract; Z90.710 Acquired absence of both cervix and uterus; Z82.49 Family history of ischemic heart disease and other diseases of the circulatory system; Z83.3 Family history of diabetes mellitus; R10.814 Left lower quadrant abdominal tenderness; F32.A Depression, unspecified; M47.816 Spondylosis without myelopathy or radiculopathy, lumbar region; M48.061 Spinal stenosis, lumbar region without neurogenic claudication; M21.6X2 Other acquired deformities of left foot; M21.6X1 Other acquired deformities of right foot; M20.12 Hallux valgus (acquired), left foot; M20.11 Hallux valgus (acquired), right foot; M20.42 Other hammer toe(s) (acquired), left foot; M20.41 Other hammer toe(s) (acquired), right foot; M21.42 Flat foot [pes planus] (acquired), left foot; M21.41 Flat foot [pes planus] (acquired), right foot; E11.40 Type 2 diabetes mellitus with diabetic neuropathy, unspecified
CPT/HCPCS: 36415; 51798; 74176; 80048; 80053; 81001; 82962; 83036; 85025; 85610; 87040; 87086; 96372; 96374; 96375; G0378; J0696; J1650; J7120

== ENCOUNTER 2025-04-16 06:36 | Day surgery (SDC) | payer BC, SELFPAY ==
[2025-04-10 14:21] VITALS: BMI 29.2
[2025-04-16 06:59] VITALS: BP 156/66; PULSE 57; RESP 16; TEMP 36.2; O2SAT 98
--- NOTE | 2025-04-16 07:02 | EXP.GEN.HP ---
HPI HPI HPI: This is a 59-year-old female who presents for repeat colonoscopy. Most recent colonoscopy in April 2023 was complicated by moderate to poor bowel preparation, fairly severe tortuosity, and fairly severe lack of relaxation/spasticity. A tubular adenoma was excised from the cecum. Prior colonoscopy in March 2019 was significant for a periappendiceal tubular adenoma that was excised. [facility] Disclaimer: The information contained in this section may have been updated after the patient was seen, as this information can be updated by other users. Medical History (Updated 04/16/25 @ 07:04 by Santy Fuentes MD) BMI greater than 30 UTI (urinary tract infection) BMI 34.0-34.9,adult B12 deficiency UTI (urinary tract infection) BMI 36.0-36.9,adult Tremor Memory loss Vitamin B12 deficiency (non anemic) Gastroparesis Anemia BMI 34.0-34.9,adult Neuropathy RLS (restless legs syndrome) Iron metabolism disorder Acquired equinus deformity of both feet Acquired pes planus of both feet Posterior tibial tendon dysfunction (PTTD) of both lower extremities Acquired hammertoes of both feet Acquired hallux valgus of both feet Diabetes mellitus Hyperlipidemia due to type 2 diabetes mellitus Coronary artery disease Cardiac murmur Depression DM type 2 (diabetes mellitus, type 2) Sleep apnea TRUONG on CPAP CAD (coronary artery disease) GERD (gastroesophageal reflux disease) Colonoscopy planned Elevated lipids HTN (hypertension) Puncture wound Dizziness Surgical History S/P cubital tunnel release History of cholecystectomy History of colonoscopy History of carpal tunnel release Hx of tooth extraction H/O: hysterectomy H/O heart artery stent Family History Diabetes Coronary artery disease Respiratory failure Family history of thyroid disease Stroke Social History Smoking Status: Never smoker second hand exposure: No alcohol intake: never substance use type: denies use current occupational status: employed Travel in the last 8 weeks?: None household members: spouse housing: house marital status: number of children: 3 number of grandchildren: 11 current occupation: [employer] current occupational exposures/hazards: No diet: diabetic caffeine: Yes Have you lived/traveled outside [place] in past 30 days?: No Contact w/someone who lives/traveled outside US past 30 days?: No Exposure to someone with infectious disease in past 14 days?: No Do you have a fever (greater than 100.4 F or 38 C)?: No Have you tested positive for COVID-19?: No Exposed to someone with COVID-19 in past 14 days?: No Do you have a sore throat?: No Do you have a cough?: No Do you have any weakness?: No Do you have any diarrhea?: No Are you experiencing any unusual bleeding?: No Do you have any muscle aches/pain?: No Do you have any abdominal pain?: No Are you experiencing loss of taste or smell?: No Other Medical History Have you received the Flu Vaccine for this season: No Have you received the Pneumonia Vaccine: No Review of Systems Review of Systems Review of systems:: pertinent systems reviewed and negative unless documented below Meds Home Medications and Allergies Home Medications ?Medication ?Instructions ?Recorded ?Confirmed ?Type aspirin 81 mg tablet,delayed 81 mg PO DAILY 02/14/19 04/16/25 History release (Adult Low Dose Aspirin) benazepril 10 mg tablet 10 mg PO DAILY 02/14/19 04/16/25 History insulin aspart U-100 100 unit/mL 3 unit SQ BID 02/14/19 04/16/25 History (3 mL) subcutaneous pen (Novolog FlexPen U-100 Insulin aspart) venlafaxine 75 mg capsule,extended 75 mg PO DAILY 02/14/19 04/16/25 History release 24 hr atorvastatin 40 mg tablet 40 mg PO DAILY 08/19/20 04/16/25 History metoprolol tartrate 25 mg tablet 25 mg PO BID 11/24/20 04/16/25 History ascorbic acid (vitamin C) 1,000 mg 1,000 mg PO DAILY 02/15/22 04/16/25 History tablet mecobalamin (vitamin B12) 1,000 2,000 mcg sublingual DAILY 03/15/22 04/16/25 History mcg disintegrating tablet,sublingual insulin glargine 100 unit/mL (3 25 unit SQ HS 11/10/22 04/16/25 History mL) subcutaneous pen (Basaglar KwikPen U-100 Insulin) nitroglycerin 0.4 mg sublingual 0.4 mg sublingual Q5M PRN chest 04/11/24 04/16/25 Rx tablet (Nitrostat) pain #20 tabs tirzepatide 12.5 mg/0.5 mL 12.5 mg SQ WEEKLY 11/28/24 04/16/25 History subcutaneous pen injector (Mounjaro) ferrous sulfate 325 mg (65 mg 325 mg PO DAILY 03/09/25 04/16/25 History iron) tablet metformin 500 mg tablet,extended 500 mg PO DAILY 1 month #30 tabs 03/10/25 04/16/25 Rx release 24 hr triamterene 37.5 0.5 tab PO DAILY 1 month #15 tabs 03/10/25 04/16/25 Rx mg-hydrochlorothiazide 25 mg tablet New Prescriptions to Start Prescriptions: Allergies Allergy/AdvReac Type Severity Reaction Status Date / Time No Known Allergies Allergy Verified 04/16/25 06:56 Exam Constitutional Constitutional: no acute distress *Routine HEENT Exam Head: Present normocephalic Eye: Present EOMI ENT: Present mucous membranes moist *Routine Neck Exam Neck: Present full ROM *Routine Respiratory Exam Respiratory: Absent respiratory distress *Routine Cardiovascular Exam Cardiovascular: Absent tachycardia *Routine Abdominal Exam Abdominal: Present soft *Routine Rectal Exam Rectal:: deferred *Routine Genitalia Exam Genitalia:: deferred *Routine Extremities Exam Extremities: Present full ROM *Routine Skin Exam Skin: Absent erythema *Routine Neurological Exam Neurological: Present alert Assessment and Plan *Assessment and plan (1) History of colon polyps: Status: Acute Category: Medical Code(s): Z86.0100 - Personal history of colon polyps, unspecified Plan: Colonoscopy today I have discussed the risks and benefits including, but not limited to: Bleeding Infection Damage to surrounding tissue Inherent risks of sedation The patient agrees to proceed.
--- NOTE | 2025-04-16 07:21 | HMH.SCOPE ---
Procedure: Date: 04/16/25 Patient Date of :: 1965 Procedure Performed:: Colonoscopy Indications:: History of colon polyps Note: Most recent colonoscopy in April 2023 was complicated by moderate to poor bowel preparation, fairly severe tortuosity, and fairly severe lack of relaxation/spasticity. A tubular adenoma was excised from the cecum. Prior colonoscopy in March 2019 was significant for a periappendiceal tubular adenoma that was excised. Performing Provider:: Santy Fuentes MD Referring Provider:: . Sedation:: Monitored anesthesia care Procedure:: After informed consent was obtained the patient was taken to the endoscopy suite. Sedation ensued after the patient was transferred to the left lateral decubitus position. Pulse, blood pressure, and oxygen saturation were monitored throughout the procedure. Digital rectal exam revealed no significant abnormality. The colonoscope was placed in position. The entire colon was evaluated. The colonoscope was carefully removed and the patient was transferred to recovery in stable condition. Please see findings and specimens below for detail. Findings:: Bowel preparation fair to moderate Significant tortuosity Significant spasticity/lack of relaxation Specimens:: None Recommendations:: Repeat colonoscopy in 3 to 5 years secondary to history of polyps, tortuosity, and spasticity/lack of relaxation. Complications:: No immediate Estimated blood obtained (mL): 0 Colonoscopy Component Colonoscopy Component Was a colonoscopy performed during today's procedure?: Yes Recommended follow up colonoscopy of at least 10 years?: No If no, follow up colonoscopy recommended in ___ years?: (See above) Reason for not recommending >/= 10 yr follow-up interval?: (See above)
[2025-04-16 07:50] VITALS: BP 97/61; PULSE 68; RESP 16; TEMP 36.2; O2SAT 98
[2025-04-16 08:00] VITALS: BP 92/57; PULSE 66; RESP 18; O2SAT 99
--- NOTE | 2025-04-16 08:01 | EXP.ANES.CKL ---
[facility] Disclaimer: The information contained in this section may have been updated after the patient was seen, as this information can be updated by other users. Medical History (Updated 04/16/25 @ 07:04 by Santy Fuentes MD) BMI greater than 30 UTI (urinary tract infection) BMI 34.0-34.9,adult B12 deficiency UTI (urinary tract infection) BMI 36.0-36.9,adult Tremor Memory loss Vitamin B12 deficiency (non anemic) Gastroparesis Anemia BMI 34.0-34.9,adult Neuropathy RLS (restless legs syndrome) Iron metabolism disorder Acquired equinus deformity of both feet Acquired pes planus of both feet Posterior tibial tendon dysfunction (PTTD) of both lower extremities Acquired hammertoes of both feet Acquired hallux valgus of both feet Diabetes mellitus Hyperlipidemia due to type 2 diabetes mellitus Coronary artery disease Cardiac murmur Depression DM type 2 (diabetes mellitus, type 2) Sleep apnea TRUONG on CPAP CAD (coronary artery disease) GERD (gastroesophageal reflux disease) Colonoscopy planned Elevated lipids HTN (hypertension) Puncture wound Dizziness Surgical History S/P cubital tunnel release History of cholecystectomy History of colonoscopy History of carpal tunnel release Hx of tooth extraction H/O: hysterectomy H/O heart artery stent Family History Diabetes Coronary artery disease Respiratory failure Family history of thyroid disease Stroke Social History Smoking Status: Never smoker second hand exposure: No alcohol intake: never substance use type: denies use current occupational status: employed Travel in the last 8 weeks?: None household members: spouse housing: house marital status: number of children: 3 number of grandchildren: 11 current occupation: [employer] current occupational exposures/hazards: No diet: diabetic caffeine: Yes Have you lived/traveled outside US in past 30 days?: No Contact w/someone who lives/traveled outside US past 30 days?: No Exposure to someone with infectious disease in past 14 days?: No Do you have a fever (greater than 100.4 F or 38 C)?: No Have you tested positive for COVID-19?: No Exposed to someone with COVID-19 in past 14 days?: No Do you have a sore throat?: No Do you have a cough?: No Do you have any weakness?: No Do you have any diarrhea?: No Are you experiencing any unusual bleeding?: No Do you have any muscle aches/pain?: No Do you have any abdominal pain?: No Are you experiencing loss of taste or smell?: No [facility] Anesthesia Checklist Patient Identification Patient Identification: Verbal (Name & ) Structural Data Admitted From: Home Planned Operative Procedure/s: colonoscopy Consent for Planned Operative Procedure(s) Verified: Yes NPO Status Verified Time NPO: 00:00 Additional verifications Anesthesia Reactions: No Hx Blood Transfusions: No Blood Transfusion Reaction: No Airway Assessment Mallampati Score:: Class II C-Spine Mobility Assessed: Yes TMJ Mobility Assessed: Yes Dentition: Poor Dentition Neurological Assessment Level of Consciousness: Awake, Alert and Appropriate Anesthesia Plan Anesthesia Risk discussed: Yes Anesthesia Plan: Verified ASA Class: III Anesthesia Type: MAC
[2025-04-16 08:10] VITALS: BP 115/67; PULSE 61; RESP 18; O2SAT 100
[2025-04-16 08:20] VITALS: BP 124/66; PULSE 69; RESP 18; O2SAT 100
[2025-04-16 11:47] LABS: POC Glucose,Bedside 103 gm/dL (70-110)
== END 2025-04-16 08:20 | disposition home or self-care (01) ==
PROVIDERS: PCP Family Medicine; Visit Provider Surgery
PROC: 0DJD8ZZ Inspection of Lower Intestinal Tract, Via Natural or Artificial Opening Endoscopic (ICD-10-PCS; CPT 45378; principal; 2025-04-16 07:30)
DX: K58.9 Irritable bowel syndrome, unspecified (principal); Z86.0101 Personal history of adenomatous and serrated colon polyps; I25.10 Atherosclerotic heart disease of native coronary artery without angina pectoris; F32.A Depression, unspecified; E11.43 Type 2 diabetes mellitus with diabetic autonomic (poly)neuropathy; K31.84 Gastroparesis; E78.5 Hyperlipidemia, unspecified; K21.9 Gastro-esophageal reflux disease without esophagitis; I10 Essential (primary) hypertension; E11.40 Type 2 diabetes mellitus with diabetic neuropathy, unspecified; G47.33 Obstructive sleep apnea (adult) (pediatric); Z79.84 Long term (current) use of oral hypoglycemic drugs; Z79.82 Long term (current) use of aspirin; Z79.4 Long term (current) use of insulin; Z79.899 Other long term (current) drug therapy
CPT/HCPCS: 45378; 82962; J2003; J2704

== ENCOUNTER 2025-05-08 17:55 | Emergency (ER) | payer BC, SELFPAY ==
--- NOTE | 2025-05-08 17:57 | ED_ITS ---
Discharge Plan Disposition Patient Disposition: Home, Self-Care Prescriptions Prescriptions: New prochlorperazine maleate [Compazine] 10 mg tablet 10 mg PO TID PRN (Reason: nausea and vomiting) 5 Days Qty: 15 0RF No Action aspirin [Adult Low Dose Aspirin] 81 mg tablet,delayed release (DR/EC) 81 mg PO DAILY venlafaxine 75 mg capsule,extended release 24hr 75 mg PO DAILY benazepril 10 mg tablet 10 mg PO DAILY Novolog FlexPen U-100 Insulin 100 unit/mL (3 mL) insulin pen 3 unit SQ BID ascorbic acid (vitamin C) 1,000 mg tablet 1,000 mg PO DAILY mecobalamin (vitamin B12) 1,000 mcg tablet,disintegrating 2,000 mcg SL DAILY metoprolol tartrate 25 mg tablet 25 mg PO BID nitroglycerin [Nitrostat] 0.4 mg tablet, sublingual 0.4 mg sublingual Q5M PRN (Reason: chest pain) Qty: 20 0RF Rx Instructions: do not exceed 3 doses per episode Mounjaro 12.5 mg/0.5 mL pen injector 12.5 mg SQ WEEKLY atorvastatin 40 MG tablet 40 mg PO DAILY insulin glargine [Basaglar KwikPen U-100 Insulin] 100 unit/mL (3 mL) Insulin Pen 25 unit SQ HS ferrous sulfate 325 mg (65 mg iron) tablet 325 mg PO DAILY triamterene-hydrochlorothiazid 37.5-25 mg tablet 0.5 tab PO DAILY 30 Days Qty: 15 0RF metformin 500 mg tablet extended release 24 hr 500 mg PO DAILY 30 Days Qty: 30 0RF Activity Restrictions/Add. Instructions Additional Instructions/Restrictions: Increase fluids and rest. Watch your intake for tonight, crackers, toast, clear fluids for the evening. If any worsening signs or symptoms please return to the ED. Please follow your PCP or return to the ED. Clinical Impressions Clinical Impression: Gastroenteritis Instructions Patient Instructions: Nausea and Vomiting in Adults Print Language Print Language: Latvian Discharge ED Provider: Davi Finn Adult HPI <Sarika Grimes (ED), [employer] - Last Filed: 05/08/25 19:09> General Chief complaint: Nausea/Vomiting/Diarrhea Stated complaint: nausea vomiting Time Seen by Provider: 05/08/25 17:57 History of Present Illness HPI narrative: 59-year-old female presents to the ED today via EMS for an hour of vomiting. She has dry heaving now at this point. She is throwing up everything she has had. She has been abdominal pain just from dry heaving. She has been given [address] here. No chest pain or shortness of breath. No diarrhea. No fevers. Patient does have history of diabetes, hypertension, reflux, CAD,, stent placement, stroke paresis and she is on Trileptal and. Related Data Home Medications ?Medication ?Instructions ?Recorded ?Confirmed aspirin 81 mg tablet,delayed 81 mg PO DAILY 02/14/19 0 04/16/25 release (Adult Low Dose Aspirin) benazepril 10 mg tablet 10 mg PO DAILY 02/14/1904/01 insulin aspart U-100 100 unit/mL 3 unit SQ BID 9 04/16/25 (3 mL) subcutaneous pen (Novolog FlexPen U-100 Insulin aspart) venlafaxine 75 mg capsule,extended 75 mg PO DAILY 01/2904/16/25 release 24 hr atorvastatin 40 mg tablet 40 mg PO DAILY 08/19/2004/01 metoprolol tartrate 25 mg tablet 25 mg PO BID 11/24/20 04/16/25 ascorbic acid (vitamin C) 1,000 mg 1,000 mg PO DAILY 0 02/15/22 04/16/25 tablet mecobalamin (vitamin B12) 1,000 2,000 mcg sublingual D AILY 03/15/22 04/16/25 mcg disintegrating tablet,sublingual insulin glargine 100 unit/mL (3 25 unit SQ HS 11/10/22 04/16/25 mL) subcutaneous pen (Basaglar KwikPen U-100 Insulin) tirzepatide 12.5 mg/0.5 mL 12.5 mg SQ WEEKLY 11/28/24 04/16/25 subcutaneous pen injector (Mounjaro) ferrous sulfate 325 mg (65 mg 325 mg PO DAILY 03/09/25 04/16/25 iron) tablet Previous Rx's ?Medication ?Instructions ?Recorded nitroglycerin 0.4 mg sublingual 0.4 mg sublingual Q5M PRN chest 04/11/24 tablet (Nitrostat) pain #20 tabs metformin 500 mg tablet,extended 500 mg PO DAILY 1 tue #30 tabs 03/10/25 release 24 hr triamterene 37.5 0.5 tab PO DAILY 1 month #15 tabs 03/10/25 mg-hydrochlorothiazide 25 mg tablet prochlorperazine maleate 10 mg 10 mg PO TID PRN nausea and 05/08/25 tablet (Compazine) vomiting 5 days #15 tabs Allergies Allergy/AdvReac Type Severity Reaction Status Date / Time No Known Allergies Allergy Verified 04/16/25 06:56 [facility] <Sarika Grimes (ED), [employer] - Last Filed: 05/08/25 19:09> [facility] Disclaimer: The information contained in this section may have been updated after the patient was seen, as this information can be updated by other users. Medical History (Updated 05/08/25 @ 19:06 by Sarika Grimes (ED), [employer]) BMI greater than 30 UTI (urinary tract infection) BMI 34.0-34.9,adult B12 deficiency UTI (urinary tract infection) BMI 36.0-36.9,adult Tremor Memory loss Vitamin B12 deficiency (non anemic) Gastroparesis Anemia BMI 34.0-34.9,adult Neuropathy RLS (restless legs syndrome) Iron metabolism disorder Acquired equinus deformity of both feet Acquired pes planus of both feet Posterior tibial tendon dysfunction (PTTD) of both lower extremities Acquired hammertoes of both feet Acquired hallux valgus of both feet Diabetes mellitus Hyperlipidemia due to type 2 diabetes mellitus Coronary artery disease Cardiac murmur Depression DM type 2 (diabetes mellitus, type 2) Sleep apnea TRUONG on CPAP CAD (coronary artery disease) GERD (gastroesophageal reflux disease) Colonoscopy planned Elevated lipids HTN (hypertension) Puncture wound Dizziness Surgical History S/P cubital tunnel release History of cholecystectomy History of colonoscopy History of carpal tunnel release Hx of tooth extraction H/O: hysterectomy H/O heart artery stent Family History Diabetes Coronary artery disease Respiratory failure Family history of thyroid disease Stroke Social History Smoking Status: Current every day smoker tobacco type: cigarettes and e- cigarettes second hand exposure: No alcohol intake: never substance use type: denies use current occupational status: employed Travel in the last 8 weeks?: None household members: spouse housing: house marital status: number of children: 3 number of grandchildren: 11 current occupation: [employer] current occupational exposures/hazards: No diet: diabetic caffeine: Yes Have you lived/traveled outside [place] in past 30 days?: No Contact w/someone who lives/traveled outside US past 30 days?: No Exposure to someone with infectious disease in past 14 days?: No Do you have a fever (greater than 100.4 F or 38 C)?: No Have you tested positive for COVID-19?: No Exposed to someone with COVID-19 in past 14 days?: No Do you have a sore throat?: No Do you have a cough?: No Do you have any weakness?: No Do you have any diarrhea?: No Are you experiencing any unusual bleeding?: No Do you have any muscle aches/pain?: No Do you have any abdominal pain?: No Are you experiencing loss of taste or smell?: No Other Medical History Have you received the Flu Vaccine for this season: No Have you received the Pneumonia Vaccine: No <Sarika Grimes (ED), [employer] - Last Filed: 05/08/25 19:09> ROS Obtained: Yes Systems reviewed as appropriate & no additional complaints except as documented Constitutional Constitutional: Reports as per HPI Physical Exam <Sarika Grimes (ED), [employer] - Last Filed: 05/08/25 19:09> General General appearance: alert and in distress Comment: Vomit Head Head exam: atraumatic and normocephalic Eye Eye exam: Present PERRL and EOMI ENT ENT exam: Present mucous membranes dry Neck Neck exam: Present full ROM and trachea midline Respiratory Respiratory exam: Present normal lung sounds bilaterally Cardiovascular Cardiovascular exam: Present normal rhythm, normal heart sounds, +S1 and +S2 Abdominal Exam Abdominal exam: Present soft and normal bowel sounds Extremities Exam Extremities exam: Present full ROM and normal capillary refill Neurological Exam Neurological exam: Present alert and oriented X3 Skin Skin exam: Present warm, dry and intact Medical Decision Making <Sarika Grimes (ED), [employer] - Last Filed: 05/08/25 19:09> Medical Records Screening: Per USPSTF and CDC recommendations, given the prevalence of disease in our region, it is our hospital?s policy to screen for HIV and viral Hepatitis for all patients aged 18 and over and those with ongoing risk factors. Duran Inquiry Pt receiving controlled substance: No Duran was queried for this patient: No Vital Signs: 05/08/25 17:59 05/08/25 18:31 05/08/25 19:26 Temperature 98.0 F 97.8 F Temperature Source Oral Pulse Rate 69 78 Pulse Rate [Radial] 81 Respiratory Rate 16 15 18 Blood Pressure 170/65 H 115/78 Blood Pressure [Right Arm] 170/78 H Blood Pressure Mean [Right Arm] 108 Blood Pressure Source [Right Arm] Automatic Cuff Blood Pressure Position [Right Arm] Sitting 02 Sat by Pulse Oximetry 99 99 Oxygen Delivery Method Room Air Room Air Lab Data Lab Results 05/08/25 17:56: WBC 9.9, RBC 4.33, Hgb 13.1, Hct 40.1, MCV 92.6, MCH 30.3, MCHC 32.7, RDW 13.4, Plt Count 341, MPV 10.4, Neut % (Auto) 64.2, Lymph % (Auto) 28.6, [place] % (Auto) 5.3, Eos % (Auto) 1.0, Baso % (Auto) 0.7, Neut # (Auto) 6.4, Lymph # (Auto) 2.8, [place] # (Auto) 0.5, Eos # (Auto) 0.1, Baso # (Auto) 0.1, Sodium 140, Potassium 3.7, Chloride 103, Carbon Dioxide 26, Anion Gap 14.7, BUN 6 L, Creatinine 0.50 L, Estimated Creat Clear 153, Estimated GFR 126, Est GFR ( Amer) 153, Glucose 114 H, Calcium 9.6, Magnesium 1.8, Total Bilirubin 0.8, AST 31, ALT 34, Alkaline Phosphatase 86, Troponin I < 0.01, Total Protein 7.5, Albumin 4.5, Globulin 3.0, Albumin/Globulin Ratio 1.5, Lipase 65, HCV Ab JON w/Rflx PCR Qn Negative, HIV Ag/Ab Combo Qual Negative 05/08/25 18:37: SARS-CoV-2 (PCR) Not detected, Influenza A Untype (PCR) Not detected, Influenza Type B (PCR) Not detected 05/08/25 17:56 05/08/25 17:56 Orders (Tests/Meds): ED MEDICATIONS Discontinued Medications Generic Name Dose Route Start Last Admin Trade Name Lupe PRN Reason Stop Dose Admin Famotidine 20 mg 05/08/25 17:55 05/08/25 18:05 Famotidine 20mg/2ml Vial IV 05/08/25 17:56 20 mg ONCE ONE Administration Sodium Chloride 1,000 mls @ 999 mls/hr 05/08/25 17:55 05/08/25 18:05 Sod Chlor 0.9% 1000ml Bag IV 05/08/25 18:55 999 mls/hr .Q1H1M ONE Administration Prochlorperazine Edisylate 5 mg 05/08/25 17:55 05/08/25 18:05 Prochlorperazine 10mg/2ml Vial IV 05/08/25 17:56 5 mg ONCE ONE Administration Sodium Chloride 8 ml 05/08/25 17:55 05/08/25 18:06 Sodium Chloride 0.9% 10ml Vial IV 06/07/25 17:54 8 ml NEEDED PRN Administration dilute pepcid ORDERS Category Date Time Status CBC [Complete Blood Count Auto Diff] Stat Lab 05/08/25 17:56 Completed Comprehensive Metabolic Panel Stat Lab 05/08/25 17:56 Completed HIV Combo Stat Lab 05/08/25 17:56 Completed Hepatitis C Ab Qual. W/ RFX Stat Lab 05/08/25 17:56 Completed Lipase Stat Lab 05/08/25 17:56 Completed Magnesium Stat Lab 05/08/25 17:56 Completed Rapid PCR Covid and Flu A/B Stat Lab 05/08/25 18:37 Completed Trop I [Troponin I] Stat Lab 05/08/25 17:56 Completed Medical Decision Narrative: patient is a 59-year-old female presenting to the emergency department for evaluation of vomiting for the last hour and dry heaving. Patient is hemodynamically stable and nontoxic-appearing upon arrival, afebrile. Differential diagnosis includes viral illness, pancreatitis, gastritis, among others. Workup will be conducted with hematologic labs. Initial inventions include crystalloid bolus, analgesics. Initial workup reviewed by ma hematologic labs are remarkable for White count is 9.9 BUN was 6 and creatinine was 0.50 troponin less than 0.01. No imaging was completed today as patient came in with vomiting only. Patient feels much improved now at this point she says the Compazine did the trick as well as the fluids. She is ready to go home. Patient safe for discharge home <Davi Finn DO - Last Filed: 05/08/25 19:40> Medical Records Medical records reviewed: Yes I reviewed the patient's medical records. Vital Signs: 05/08/25 17:59 05/08/25 18:31 05/08/25 19:26 Temperature 98.0 F 97.8 F Temperature Source Oral Pulse Rate 69 78 Pulse Rate [Radial] 81 Respiratory Rate 16 15 18 Blood Pressure 170/65 H 115/78 Blood Pressure [Right Arm] 170/78 H Blood Pressure Mean [Right Arm] 108 Blood Pressure Source [Right Arm] Automatic Cuff Blood Pressure Position [Right Arm] Sitting 02 Sat by Pulse Oximetry 99 99 Oxygen Delivery Method Room Air Room Air Lab Data Lab Results 05/08/25 17:56: WBC 9.9, RBC 4.33, Hgb 13.1, Hct 40.1, MCV 92.6, MCH 30.3, MCHC 32.7, RDW 13.4, Plt Count 341, MPV 10.4, Neut % (Auto) 64.2, Lymph % (Auto) 28.6, [place] % (Auto) 5.3, Eos % (Auto) 1.0, Baso % (Auto) 0.7, Neut # (Auto) 6.4, Lymph # (Auto) 2.8, [place] # (Auto) 0.5, Eos # (Auto) 0.1, Baso # (Auto) 0.1, Sodium 140, Potassium 3.7, Chloride 103, Carbon Dioxide 26, Anion Gap 14.7, BUN 6 L, Creatinine 0.50 L, Estimated Creat Clear 153, Estimated GFR 126, Est GFR ( Amer) 153, Glucose 114 H, Calcium 9.6, Magnesium 1.8, Total Bilirubin 0.8, AST 31, ALT 34, Alkaline Phosphatase 86, Troponin I < 0.01, Total Protein 7.5, Albumin 4.5, Globulin 3.0, Albumin/Globulin Ratio 1.5, Lipase 65, HCV Ab JON w/Rflx PCR Qn Negative, HIV Ag/Ab Combo Qual Negative 05/08/25 18:37: SARS-CoV-2 (PCR) Not detected, Influenza A Untype (PCR) Not detected, Influenza Type B (PCR) Not detected Orders (Tests/Meds): ED MEDICATIONS Discontinued Medications Generic Name Dose Route Start Last Admin Trade Name Lupe PRN Reason Stop Dose Admin Famotidine 20 mg 05/08/25 17:55 05/08/25 18:05 Famotidine 20mg/2ml Vial IV 05/08/25 17:56 20 mg ONCE ONE Administration Sodium Chloride 1,000 mls @ 999 mls/hr 05/08/25 17:55 05/08/25 18:05 Sod Chlor 0.9% 1000ml Bag IV 05/08/25 18:55 999 mls/hr .Q1H1M ONE Administration Prochlorperazine Edisylate 5 mg 05/08/25 17:55 05/08/25 18:05 Prochlorperazine 10mg/2ml Vial IV 05/08/25 17:56 5 mg ONCE ONE Administration Sodium Chloride 8 ml 05/08/25 17:55 05/08/25 18:06 Sodium Chloride 0.9% 10ml Vial IV 06/07/25 17:54 8 ml NEEDED PRN Administration dilute pepcid ORDERS Category Date Time Status CBC [Complete Blood Count Auto Diff] Stat Lab 05/08/25 17:56 Completed Comprehensive Metabolic Panel Stat Lab 05/08/25 17:56 Completed HIV Combo Stat Lab 05/08/25 17:56 Completed Hepatitis C Ab Qual. W/ RFX Stat Lab 05/08/25 17:56 Completed Lipase Stat Lab 05/08/25 17:56 Completed Magnesium Stat Lab 05/08/25 17:56 Completed Rapid PCR Covid and Flu A/B Stat Lab 05/08/25 18:37 Completed Trop I [Troponin I] Stat Lab 05/08/25 17:56 Completed ECG Data Tracing #1: I reviewed this ECG and interpreted as documented below: EKG personally turbid by me demonstrates normal sinus rhythm at a rate of 71 bpm, left axis, no MN prolongation, wide QRS with right bundle branch block morphology, no QTc prolongation. No STEMI. Critical Care <Sarika Grimes (ED), [employer] - Last Filed: 05/08/25 19:09> Critical Care Time Critical Care Time: No
[2025-05-08 17:59] VITALS: BP 170/78; PULSE 81; RESP 16; TEMP 36.7; O2SAT 99; BMI 29.2
[2025-05-08] MEDS: FAMOTIDINE 20MG/2ML VIAL 20 MG IV (18:05)
[2025-05-08] MEDS: 0.9 % SODIUM CHLORIDE 1000ML 1,000 ML 999 ML IV (18:05)
[2025-05-08] MEDS: PROCHLORPERAZINE 10MG/2ML VIAL 5 MG IV (18:05)
[2025-05-08 18:06] LABS: Hematocrit 40.1 % (37.0-47.0); Hemoglobin 13.1 g/dL (12.2-16.2); Immature Granulocytes % 0.2 %; Mean Corpuscular HGB Conc 32.7 g/dL (31.8-35.4); Mean Corpuscular Hemoglobin 30.3 pg (27.0-31.2); Mean Corpuscular Volume 92.6 fl (81-99); Nucleated Red Blood Cells % 0 %; Platelet Count 341 K/mm3 (142-424); Red Blood Count 4.33 M/mm3 (4.20-5.40); Red Cell Distribution Width-SD 45.7 fL; White Blood Count 9.9 K/mm3 (4.8-10.8)
[2025-05-08] MEDS: SODIUM CHLORIDE 0.9% 10ML VIAL 8 ML IV (18:06)
--- NOTE | 2025-05-08 18:07 | ECG_ITS ---
APPROVED REPORT Exam: Resting ECG HR:71 bpm ECG Measurements Heart Rate 71 AXES NH 158 P 52 QRSd 146 QRS -40 QT 406 T 28 QTc 429 Conclusion SINUS RHYTHM LEFT AXIS DEVIATION [QRS AXIS < -30] RIGHT BUNDLE BRANCH BLOCK [120+ ms QRS DURATION, UPRIGHT V1, 40+ ms S IN I/aVL/V4/V5/V6] POSSIBLE ANTERIOR MYOCARDIAL INFARCTION , OF INDETERMINATE AGE [30 ms Q WAVE IN V3/V4, OR R < 0.2 mV IN V4] ABNORMAL ECG UNCONFIRMED REPORT Electronically signed by : STEVE PLASENCIA, 05/09/2025 00:33:28
[2025-05-08 18:20] LABS: Alanine Aminotransferase 34 U/L (12-78); Albumin Level 4.5 g/dl (3.5-5.0); Albumin/Globulin Ratio 1.5 (1.1-1.8); Alkaline Phosphatase 86 U/L (38-126); Anion Gap 14.7 mEq/L (5-15); Aspartate Amino Transferase 31 U/L (14-36); Bilirubin,Total 0.8 mg/dl (0.2-1.3); Blood Urea Nitrogen 6 mg/dl (7-17); Calcium 9.6 mg/dl (8.4-10.2); Carbon Dioxide 26 mmol/L (22.0-30.0); Chloride 103 mmol/L (98-107); Creatinine Clearance Estimated 153 mL/min (50-200); Creatinine,Serum 0.50 mg/dl (0.52-1.04); Estimated Glomerular Filt Rate 126 ml/min (>60); GFR (African American) 153 ML/MIN (>60); Globulin 3.0 g/dL (1.3-3.2); Glucose 114 mg/dl (74-100); Lipase 65 U/L (23-300); Magnesium 1.8 mg/dl (1.6-2.3); Potassium 3.7 mmoL/L (3.5-5.1); Sodium 140 mmol/L (136-145); Total Protein,Serum 7.5 g/dl (6.3-8.2)
[2025-05-08 18:31] VITALS: BP 170/65; PULSE 69; RESP 15; O2SAT 99
[2025-05-08 18:33] LABS: Troponin I < 0.01 ng/ml (0.00-0.034)
[2025-05-08 18:44] LABS: Coronavirus 19, PCR Not Detected (NotDetected); Influenza A, PCR Not Detected (NotDetected); Influenza B, PCR Not Detected (NotDetected)
[2025-05-08 19:16] LABS: Hepatitis C Ab Qual. W/ RFX NEGATIVE (Negative)
[2025-05-08 19:26] VITALS: BP 115/78; PULSE 78; RESP 18; TEMP 36.6; O2SAT 99
== END 2025-05-08 19:27 | disposition home or self-care (01) ==
PROVIDERS: Nurse Practitioner; Emergency Provider Student in an Organized Health Care Education/Training Program; PCP Family Medicine
DX: R11.2 Nausea with vomiting, unspecified (principal); K52.9 Noninfective gastroenteritis and colitis, unspecified; F17.210 Nicotine dependence, cigarettes, uncomplicated; I45.10 Unspecified right bundle-branch block
CPT/HCPCS: 80053; 83690; 83735; 84484; 85025; 86803; 87389; 87636; 93005; 96361; 96374; 96375; 99284; 99285; J0780; J1308; J7030